=== PATIENT | female | born 1950 | race Caucasian/White ===

== ENCOUNTER 2022-05-22 10:20 | Outpatient (CLI) | payer MEDICARE, OTHER, SELFPAY ==
[2022-05-22 14:17] LABS: Chloride* 104 mmol/L (96-114); Sodium* 138 mmol/L (135-149)
[2022-05-22 14:19] LABS: Creatinine* 1.2 mg/dL (0.5-1.5); Estimated Glomerular Filt Rate 48 ml/min
[2022-05-22 14:20] LABS: Blood Urea Nitrogen* 37 mg/dL (7-30); Calcium* 10.3 mg/dL (8.4-10.6); Carbon Dioxide* 26 mmol/L (20-32); Glucose* 122 mg/dL (60-115)
[2022-05-22 14:35] LABS: Microalbumin Urine 2 mg/dL
[2022-05-22 14:38] LABS: Creatinine Urine 85.7 mg/dL; Microalbumin Creatinine Ratio 20 mg/g (0-30)
== END 2022-05-22 10:21 | disposition home or self-care (01) ==
PROVIDERS: Visit Provider Internal Medicine Nephrology
DX: E11.9 Type 2 diabetes mellitus without complications (principal)
CPT/HCPCS: 80048; 82043; 82570

== ENCOUNTER 2022-10-04 10:07 | Outpatient (CLI) | payer MEDICARE, OTHER, SELFPAY | END 2022-10-04 10:08 | disposition home or self-care (01) | LOC: NFLDREF 10-05 05:42 | PROVIDERS: Visit Provider Internal Medicine Nephrology | DX: I10 Essential (primary) hypertension (principal); N18.31 Chronic kidney disease, stage 3a; E66.9 Obesity, unspecified; E78.5 Hyperlipidemia, unspecified | CPT/HCPCS: 80069; 82043; 82397; 82570; 84550; 86140 ==

== ENCOUNTER 2023-04-23 10:49 | Outpatient (CLI) | payer MEDICARE, OTHER, SELFPAY ==
--- OUTSIDE RECORDS SUMMARY | 2023-04-25 13:29 | XMS_ITS | Continuity of Care Document ---
Author Name [facility] Organization [facility] Care Team Providers Care Bioinformatician Name Role Phone [facility] Unavailable Unavailable Medications Combined list of outpatient medications from Department of Defense and Veterans Affairs facilities.Medications provided include 1) outpatient medications from the last 15 months, and 2) patient-reported medications. Medication Details Route Status Patient Instructions Prescription Expires Prescription Number Last Dispense Date Ordering Provider Order Date Source METFORMIN HCL (METFORMIN HCL), 500 MG, TABLET, ORAL, [employer] 1000 ea. BOTTLE Cancele d [id number] : 2023 Pharmac y Data Transac tion Service Facilit y METFORMIN HCL (METFORMIN HCL), 500 MG, TABLET, ORAL, [employer] 1000 ea. BOTTLE Active [id number] 2023 Pharmac y Data Transac tion Service Facilit y METFORMIN HCL (METFORMIN HCL), 500 MG, TABLET, ORAL, [employer] 1000 ea. BOTTLE Active [id number] 4 2023 Pharmac y Data Transac tion Service Facilit y TRIAMTERENE -HCTZ (TRIAMTEREN E/HYDROCHLO ROTHIAZID), 75-50MG, TABLET, ORAL, APOTEX BEV, 500 ea. BOTTLE Active [id number] 2023 Pharmac y Data Transac tion Service Facilit y Immunizations Combined list of available immunizations from the Department of Defense and Veterans Affairs facilities. Immunization Series Date Given Administered By Site Reaction Lot Number CVX Code Drug Contract Law Specialist Status Comments Source COVID-19, mRNA, LNP-S, PF, 30 mcg/0.3 mL dose, terrance-sucrose 2021 RASHAWN GRACE [employer] (PFR) Not Given COVID-19, mRNA, LNP-S, PF, 30 mcg/0.3 mL dose, terrance-sucr ose DoD zoster recombinant 2017 KIRILL DOBBINS () Not Given zoster recombina nt DoD zoster recombinant 2017 KIRILL DOBBINS () Not Given zoster recombina nt DoD Social History Combined list of available smoking, tobacco, and other social history from Department of Defense and Veterans Affairs facilities. Social History Type Response Date Comment Sour e This section is an empty social history section. DoD
--- OUTSIDE RECORDS SUMMARY | 2023-04-25 13:29 | XMS_ITS | Clinical Summary ---
Author Name Unknown Organization [facility] Address [place], [place] [address] Care Team Providers Care Direct Service Worker Name Role Phone Sarthak Ko MD Primary Care Provider [phone] Allergies Active Allergy Reactions Criticality Noted Date Comments Amlodipine Edema 11/24/2007 Swelling around ankles while on this Medications Medication Sig Dispensed Refills Start Date End Date Status OMEPRAZOLE 20 MG CAP, DELAYED RELEASE take one tab po qd 30 1 7 Active blood-glucose meter (FREESTYLE LITE METER)Indications:Diabete s mellitus type 2 in obese (HC) Dispense meter, test strips, lancets covered by pt ins. 250.00 NIDDM type II - Test 1 time/day 1 Device 0 1 Active cholecalciferol (Vitamin D-3) 2,000 unit capsule Take 1 Capsule (2,000 units) by mouth once daily. 0 1 Active blood sugar diagnostic (FreeStyle Lite Strips) stripIndications:Diabetes mellitus type 2 in obese (HC) USE TO TEST ONCE DAILY 100 Each 3 2 Active atenoloL (TENORMIN) 100 mg tabletIndications:Essenti al hypertension Take 1 Tablet (100 mg) by mouth once daily. 90 Tablet 3 2 Active atorvastatin (LIPITOR) 10 mg tabletIndications:Pure hypercholesterolemia Take 1 Tablet (10 mg) by mouth at bedtime. 90 Tablet 3 2 Active NIFEdipine (PROCARDIA XL) 30 mg Extended-Release tabletIndications:Essenti al hypertension TAKE 1 TABLET DAILY BEFORE A MEAL 90 Tablet 3 2 Active metFORMIN (GLUCOPHAGE) 500 mg tabletIndications:Type 2 diabetes mellitus with other specified complication, without long-term current use of insulin (HC) Take 1 Tablet (500 mg) by mouth two times daily with meals. 180 Tablet 3 3 Active CPAPIndications:Obstructi ve sleep apnea CPAP machine for home use at pressure: 10 cm/H2O with epr of 3 , Heated humidifier x 1, Humidifier chamber x 1, nasal pillow mask with pillow cushion x 1, standard tubing x 1, Headgear x 1, Filters: Disposable x 1pk & Reusable x 1pk, Length of Need: 99 months, Frequency of use: Daily 1 Each 11 3 Active doxepin 25 mg capsuleIndications:Genera lized anxiety disorder,Insomnia, unspecified type TAKE 1 CAPSULE AT BEDTIME 90 Capsule 0 3 Active losartan (COZAAR) 100 mg tabletIndications:Essenti al hypertension TAKE 1 TABLET DAILY 90 Tablet 0 3 Active multivitamin capsule Take 1 Capsule by mouth once daily. 0 Active triamterene-hydrochloroth iazide, 75-50 mg, (MAXZIDE) 75-50 mg tabletIndications:Essenti al hypertension Take 1 Tablet by mouth every morning. 90 Tablet 3 3 Active Active Problems Problem Noted Date Diagnosed Date Osteoarthritis of knee 11/14/2021 Hyperparathyroidism due to renal insufficiency 0 11/14/2021 Hypertensive kidney disease, stage III 2 Hx laparoscopic cholecystectomy 08/01/2021 Diabetes mellitus, type 2 02/12/2019 Hyperopia of both eyes with astigmatism and pres byopia 02/11/2017 Nuclear senile cataract of both eyes 02/11/2017 History of colonic polyps 05/28/2016 Venous insufficiency of right lower extremity Generalized anxiety disorder 12/31/2014 Systolic ejection murmur 07/08/2012 MARK 12/08/2012 AHI/RDI:79 12/11/2010 Hyperlipidemia 12/11/2010 Severe obesity (BMI 35.0-39.9) 09/26/2010 Colon polyp 08/02/2010 Overview: Colonoscopy 05/2016 polyp repeat in 5 years Family history of malignant neoplasm of gastrointestinal tract 06/02/2010 Fatty liver 08/31/2009 Essential hypertension 05/10/2003 Gastroesophageal reflux disease 09/30/2001 Overview: taking prevacid last EGD 2003 HEADACHE - NOS 06/04/2000 DISORDER, MENOPAUSAL NOS 04/23/2000 HYPERCHOLESTEROLEMIA, PURE 04/23/2000 Resolved Problems Problem Noted Date Diagnosed Date Resolved Date Diabetes mellitus type 2 in obese 10/27/2013 02/12/2019 SLEEP APNEA - UNSPECIFIED 09/30/2001 Overview: using mouth guard Encounters Date Type Department Care Team Description 03/05/2023 10:00 AM BOTTOM PRESSER [place] [facility] [address] [place] [address] Sarthak Ko MD Diabetes; Blood Pressure (BP at home running 130/85) 03/05/2023 Travel 02/28/2023 Travel 02/27/2023 [place] [facility] [address] [place] [address] Sarthak Ko MD Refill Request (Doxepin, Triamterene-hydrochlo rothiazide (37.5-25 Mg), Losartan) 02/13/2023 Telephone [facility] [address] [place] [address] Shane Bocanegra MD Follow Up 02/07/2023 Telephone [facility] [address] [facility] [place] [address] Edith March RN Recheck from Last 3 Months Immunizations Name Administration Dates Next Due COVID-19 vaccine (TM3 [employer]s 30mcg/0.3mL) 12YO+ BIVALENT FARZANA GALAN 12/29/2021 Hepatitis A (Adult) 07/09/2014 Influenza A (H1N1), Inactivated 02/16/2009 Influenza, High-dose Inactivated 023,01/14/2019,01/01/2017,2015 Influenza, IIV3 (Age >=3 years) 12/31/2011,05/07 Influenza, Inactivated AIIV4 (Age 65+ Years) Preserv Free 01/22/2022,01/14/2021,12/17/2019 Influenza, Inactivated IIV3 (Age 65+ Years) Preserv Free 12/23/2017 Pneumococcal Poly,23-Valent (Pneumovax) 05/07/2016 Pneumococcal conj 13-Valent (Prevnar 13) 07/09/2014 Tdap 11/08/2012 Zoster (Shingrix-RZV, recombinant) 10/13/2017,,07/14/2017 Zoster (Zostavax-ZVL, live) 10/18/2009 Family History Medical History Relation Name Comments Cancer-colon Father Other Mother macular degener ation Genetic Other hypertension-mo ther-father~father-colon cancer~uterine cancer-PGM Diabetes Paternal Grandmother Other Sister rectal cancer Cancer-breast No Family History Cancer-ovarian No Family History Relation Name Status Comments Father Mother Alive Other Paternal Grandmother Sister Alive Social History Tobacco Use Types Packs/Day Years Used Date Smoking Tobacco: Former Cigarettes 1 10 0 04/01/1966 - 04/01/1976 Smokeless Tobacco: Never Tobacco Cessation:Counseling Given: Yes Comments:quit 1976 Alcohol Use Standard Drinks/Week Comments Yes 0 (1 standard drink = 0.6 oz pur e alcohol) rare PHQ-2 Answer Date Recorded PHQ-2 TOTAL SCORE 2 08/21/2022 Social Connections Answer Date Recorded Frequency of Communication with Friends and Fami ly 0 02/28/2023 Financial Resource Strain Answer Date R ecorded Difficulty of Paying Living Expenses 3 02/28/2023 Difficulty of Paying Living Expenses Not on file 02/28/2023 Food Insecurity Answer Date Recorded Worried About Running Out of Food in the Last Ye ar 1 02/28/2023 Transportation Needs Answer Date Record ed Lack of Transportation (Medical) 1 02/28/2023 Housing Stability Answer Date Recorded Unable to Pay for Housing in the Last Year 1 02/28/2023 Sex and Gender Information Value Date Recorded Sex Assigned at Not on file Gender Identity Not on file Sexual Orientation Not on file Obstetrics History Para Term AB IAB SAB Ectopic Multiple Livin g Live Births 3 3 3 0 0 0 0 0 3 Date Outcome GA Total Labor Labor/2nd/3rd Weight Sex Delivery Anes PTL Roxy A1 A5 Name Cl in Term Term Term Last Filed Vital Signs Vital Sign Reading Time Taken Comments Blood Pressure 138/78 03/05/2023 10:03 AM BOTTOM PRESSER Pulse 68 03/05/2023 10:03 AM BOTTOM PRESSER Temperature 37 ??C (98.6 ??F) 08/01/2021 2:25 PM CDT Respiratory Rate 15 02/20/2021 11:41 AM BOTTOM PRESSER Oxygen Saturation 98% 01/03/2023 10:25 AM CDT Inhaled Oxygen Concentration - - Weight 97.8 kg (215 lb 9.6 oz) 03/05/2023 10:03 AM BOTTOM PRESSER Height 165.2 cm (5' 5.04) 01/03/2023 10:25 AM C DT Body Mass Index 35.83 01/03/2023 10:25 AM CDT Plan of Treatment Upcoming Encounters Date Type Department Care Team (Late st Contact Info) Description 05/07/2023 10:30 AM BOTTOM PRESSER Ancillary Procedure [facility] [id number] [place] [phone] Health Maintenance Due Date Last Done Comments Colonoscopy through age 75 05/28/202105/28, 08/02/2010, 08/01/2010, Additional history exists Tetanus booster 11/08/2022 11/08/2012 Mammogram for age 45-75 04/05/2023 04/05/19, 03/31/2021, 12/22/2019, Additional history exists Medicare Wellness for age 65+ 08/21/2023 08/21/2022 Depression screening for age 12+ 08/23/2023 08/22/2022, 08/21/2022, 02/20/2021, Additional history exists BMI (ht and wt on same day) for age 18+ 01/04/2024 01/03/2023, 08/21/2022, 09/18/2021, Additional history exists Lipids for age 45-75 05/11/2027 05/11/2022, 01/13/2021, 11/25/2019, Additional history exists Hepatitis C screening for ag e 18-79 Completed 03/11/2008 Tdap Completed 11/08/2012 Pneumococcal series for age 65+ Completed 7, 07/09/2014 DEXA/DXA scan for age 65+ Completed 09/23/2017 Zoster (shingles) series for age 50+ Completed 10/13/2017, 08/04/2017, 07/14/2017, Additional history exists Influenza for age 65+ Completed 01/09/2023 , 01/22/2022, 01/14/2021, Additional history exists COVID-19 vaccine series Completed 01/26/20 23, 12/29/2021, 07/05/2021, Additional history exists Procedures Procedure Name Priority Date/Time Associated Diagnosis Comments CBC WITH AUTO DIFFERENTIAL Routine 03/05/2023 9:56 AM BOTTOM PRESSER Wellness examination CBC WITH AUTO DIFFERENTIAL Routine 03/05/2023 9:56 AM BOTTOM PRESSER Wellness examination HEMOGLOBIN A1C Routine 03/05/2023 9:56 AM BOTTOM PRESSER Type 2 diabetes mellitus with other specified complication, without long-term current use of insulin (HC) from Last 3 Months Results * (ABNORMAL) CBC WITH AUTO DIFFERENTIAL (03/05/2023 9:56 AM BOTTOM PRESSER) WHITE BLOOD COUNT 8.6 4.5 - 11.0 thou/cu mm 03/05/2023 10:12 AM BOTTOM PRESSER [facility] RED BLOOD COUNT 4.16 4.00 - 5.20 mil/cu mm 03/05/2023 10:12 AM [facility] HEMOGLOBIN 12.1 12.0 - 16.0 g/dL 03/05/2023 10:12 AM [facility] HEMATOCRIT 36.6 33.0 - 51.0 % 03/05/2023 10:12 AM [facility] MCV 88 80 - 100 fL 03/05/2023 10:12 AM [facility] MCH 29.1 26.0 - 34.0 pg 03/05/2023 10:12 AM [facility] MCHC 33.1 32.0 - 36.0 g/dL 03/05/2023 10:12 AM [facility] RDW 12.8 11.5 - 15.5 % 03/05/2023 10:12 AM [facility] PLATELET COUNT 319 140 - 440 thou/cu mm 03/05/2023 10:12 AM [facility] MPV 9.2 6.5 - 11.0 fL 03/05/2023 10:12 AM [facility] % NEUT 45.5 % 03/05/2023 10:12 AM [facility] % LYMPH 40.2 % 03/05/2023 10:12 AM [facility] % MONO 11.1 % 03/05/2023 10:12 AM [facility] % EOS 2.5 % 03/05/2023 10:12 AM [facility] % BASO 0.7 % 03/05/2023 10:12 AM [facility] ABSOLUTE NEUTROPHILS 3.9 1.7 - 7.0 thou/cu mm 03/05/2023 10:12 AM [facility] ABSOLUTE LYMPHOCYTES 3.4(H) 0.9 - 2.9 thou/cu mm 03/05/2023 10:12 AM [facility] ABSOLUTE MONOCYTES 1.0(H) <0.9 thou/cu mm 03/05/2023 10:12 AM [facility] ABSOLUTE EOSINOPHILS 0.2 <0.5 thou/cu mm 03/05/2023 10:12 AM [facility] ABSOLUTE BASOPHILS 0.1 <0.3 thou/cu mm 03/05/2023 10:12 AM [facility] Blood BLOOD SPECIMEN / Unknown Venipuncture / Unknown 03/05/2023 9:56 AM BOTTOM PRESSER 03/05/2023 9:56 AM BOTTOM PRESSER Sarthak Ko MD HEMATOLOGY [facility] [address] [place] [address], * HEMOGLOBIN A1C MONITORING (POCT) (03/05/2023 9:56 AM BOTTOM PRESSER) HEMOGLOBIN A1C MONITORING (POCT) 6.4 <=6.4 % 03/05/2023 10:10 AM BOTTOM PRESSER [facility] Blood BLOOD SPECIMEN / Unknown Venipuncture / Unknown 03/05/2023 9:56 AM BOTTOM PRESSER 03/05/2023 9:56 AM BOTTOM PRESSER Narrative [facility] - 03/05/2023 10:10 AM BOTTOM PRESSER ? (<=6.9%) ? Indicates good control ? (7.0% to 7.9%) ? Indicates fair control ? (>=8.0%) ? Indicates poor control ?? NOTE: ??These thresholds are guidelines and ?individual targets may vary. Falsely low levels may be seen with: Recent Transfusion, Recent Significant Blood Loss, Hemolytic Diseases, or Falsely elevated levels may be seen with: Untreated Anemias, Splenectomy ? Sarthak Ko MD CHEMISTRY [facility] [address] [place] [address], from Last 3 Months Care Teams Direct Service Worker Relationship Specialty [place] [address] [place] [address] PCP - General Family Practice 04/05/22
== END 2023-04-23 10:50 | disposition home or self-care (01) ==
LOC: NFLDREF 04-25 13:26
PROVIDERS: Visit Provider Internal Medicine Nephrology
DX: E11.22 Type 2 diabetes mellitus with diabetic chronic kidney disease (principal); I12.9 Hypertensive chronic kidney disease with stage 1 through stage 4 chronic kidney disease, or unspecified chronic kidney disease; N18.2 Chronic kidney disease, stage 2 (mild); Z79.84 Long term (current) use of oral hypoglycemic drugs
CPT/HCPCS: 80069; 82043; 82570

== ENCOUNTER 2023-08-02 12:45 | Emergency (ER) | payer MEDICARE, OTHER, SELFPAY ==
[2023-08-02 13:02] VITALS: BP 165/62; PULSE 117; RESP 16; TEMP 36.6; O2SAT 98; BMI 33.3
--- NOTE | 2023-08-02 13:11 | ED.GENADULT ---
HPI - General Adult General Time Seen by Provider: 13:11 Date Seen: 08/02/23 Chief complaint: Unspecified Complaint, Adult Stated complaint: hemoglobin= 6 Time Seen by Provider: 08/02/23 12:57 Source: patient, RN notes reviewed and old records reviewed Mode of arrival: ambulatory Limitations: no limitations History of Present Illness HPI narrative: This 73-year-old female is ambulatory into the ED accompanied by her daughter with complaint of hemoglobin being 6. She was in clinic today at [facility] being evaluated for progressive shortness of breath, weakness, heart pounding sensation with activity. The symptoms have been progressive over the last few months. Her hemoglobin was 6 in [place] [address]. She had a microcytic MCV of 76. Platelet count was 054425. Of note her hemoglobin was 12.1 on 03/05/2023. Her labs were reviewed from [facility]. Hemoglobin was 11.7 on 10/04/2022 in our records, her daughter notes that she took iron for a while. She is on a proton pump inhibitor with 20 mg of omeprazole daily but does note that recently she is had more heartburn at night. She has noted no dark or tarry stools, no blood in her stools, no blood with wiping. She is reported to be overdue for colonoscopy. There is family history of colon cancer, she think she is 7 years out from her last 1. She also has listed peptic ulcer disease in her chart, GERD too. She has noted no chest pain. She states the clinic has scheduled her for an echo. Related Data Home Medications Medication Instructions Recorded Confirmed atorvastatin 10 mg tablet 10 mg PO .Bedtime 11/07/21 07/02/23 nifedipine 30 mg tablet,extended 30 mg PO QDAY 11/07/21 07/02/23 release 24 hr triamterene 37.5 1 tab PO QDAY 11/07/21 07/02/23 mg-hydrochlorothiazide 25 mg tablet acetaminophen 500 mg capsule 1,000 mg PO DAILY PRN 11/14/21 07/02/23 doxepin 25 mg capsule 25 mg PO QDAY 11/14/21 07/02/23 metformin 500 mg tablet 500 mg PO BID 05/28/22 07/02/23 cyclobenzaprine 5 mg tablet 5 mg PO QHS 07/02/23 07/02/23 omeprazole 20 mg tablet,delayed 20 mg PO QDAY 07/02/23 07/02/23 release Allergies Allergy/AdvReac Type Severity Reaction Status Date / Time amlodipine AdvReac Mild Leg Verified 07/02/23 13:48 [facility] Surgical History (Updated 10/31/21 @ 10:09 by Sherry Pollock) Status post laparoscopic cholecystectomy ?Z90.49 - Acquired absence of other specified parts of digestive tract (ICD-10) Social History Smoking Status: Former smoker Exam Const: Vital Signs, click to edit/add: Vital Signs - 24 hr 08/02/23 13:02 08/02/23 15:24 08/02/23 15:42 Temperature 97.9 F 98.6 F 98.8 F Pulse Rate 85 90 Pulse Rate [Pulse Oximeter] 117 H Respiratory Rate 16 16 18 Blood Pressure 147/66 H 151/66 H Blood Pressure [Ri ght Upper Arm] 165/62 H Pulse Oximetry 98 98 100 Oxygen Delivery Me thod Room Air 08/02/23 16:27 Temperature 98.5 F Pulse Rate 91 Pulse Rate [Pulse Oximeter] Respiratory Rate 18 Blood Pressure 149/68 H Blood Pressure [Ri ght Upper Arm] Pulse Oximetry 98 Oxygen Delivery Me thod Patient is alert, interactive, no apparent distress. Sclera clear, conjugate gaze, pupils are equal and round. Neck is supple, no adenopathy, no thyromegaly masses or nodules. Lungs clear, good air entry, no wheezing or crackles, no tachypnea. CV regular rate and rhythm, 2 to 3/6 systolic murmur heard best upper sternal borders, normal S1-S2, no S3-S4. Abdomen is soft, nontender, nondistended, no organomegaly, no masses. She has no lower extremity edema. Anus appears normal, digital rectal exam reveals no masses in the vault, she really did not have much for stool. Collected is much as I could off the gloved finger but did review with her that stool sample might need to be recollected. I certainly fear that there may be inadequate stool. She really just did not have much the way of stool in the rectal vault. Skin without any rash, no bruising or petechiae noted. Reviewed with patient the cardiac murmur, she states she is been told she has had a physiologic murmur since . Reviewed with her that I would still get the echo, just ensure that there are no valvular changes developing. Documenting provider has reviewed patient's vital signs: yes Course Course ED Course: We will see if the fecal occult needs to be repeat collected. IV was placed, lab was here for type and screen and planned for transfusion of 1 unit packed red blood cells. We will see where her labs fall with the iron panel. I did also order a peripheral smear which obviously will not be back immediately. Patient is hemodynamically stable. Have redrawn her kidney functions as well, creatinine was 1.3 on 04/23/2023. She has undefined anemia, could be multifactorial. Certainly I do wonder about upper GI loss with gastritis or some underlying peptic ulcer disease. She is not acutely extravasating, this is been developing over months. She certainly needs to have an EGD and colonoscopy done. We will make sure her creatinine is not significantly worse. They are obviously could be a component of chronic kidney disease with this but I do believe GI losses need to be ruled out. I do not think she needs an EGD or colonoscopy emergently today but will need these done rather urgently on an outpatient basis. Reevaluation(s) Time of Reevaluation #1: 15:58 Reevaluation #1: Reviewed with patient and her daughter that she is indeed iron deficient, reticulocyte count is elevated which really would suggest that her bone marrow is producing red cells. We discussed that there can be in adequate bone marrow production, blood loss, things like hemolysis that can cause as the anemia. It is likely that hers is probably some subacute GI loss. They did call the clinic, are awaiting a call back to see if they can get an EGD and colonoscopy scheduled with Dr. Mon. Otherwise, I will be happy to put a referral in. She is receiving her unit of blood. We discussed that she should have iron transfusion prior authorized, they will need to get this done through clinic. Vital Signs Vital signs: Initial Vital Signs Temperature 97.9 F 08/02/23 13:02 Temperature Source Temporal Artery Scan 08/02/23 13:02 Pulse Rate 117 H 08/02/23 13:02 Pulse Rhythm Regular 08/02/23 13:02 Respiratory Rate 16 08/02/23 13:02 Blood Pressure 165/62 H 08/02/23 13:02 Blood Pressure Mean 96 08/02/23 13:02 Blood Pressure Position Sitting 08/02/23 13:02 Pulse Oximetry 98 08/02/23 13:02 Oxygen Delivery Method Room Air 08/02/23 13:02 Vital Signs Temperature 97.9 F 08/02/23 13:02 Pulse Rate 117 H 08/02/23 13:02 Respiratory Rate 16 08/02/23 13:02 Blood Pressure 165/62 H 08/02/23 13:02 Pulse Oximetry 98 08/02/23 13:02 Oxygen Delivery Method Room Air 08/02/23 13:02 Temperature 98.5 F 08/02/23 16:27 Pulse Rate 91 08/02/23 16:27 Respiratory Rate 18 08/02/23 16:27 Blood Pressure 149/68 H 08/02/23 16:27 Pulse Oximetry 98 08/02/23 16:27 Oxygen Delivery Method Room Air 08/02/23 13:02 Medical Decision Making Lab Data Lab results reviewed: Yes I reviewed the patient's lab results Labs: Lab Results 08/02/23 08/02/23 Range/Units 13:26 13:48 WBC 11.97 H (4.50-11.00) K/uL RBC 2.64 L (4.00-5.20) m/uL Hgb 6.0 L* (12.0-16.0) gm/dL Hct 19.9 L (33.0-51.0) % MCV 75 L (80-100) fL MCH 23 L (26-34) pg MCHC 30 L (32-36) gm/dL RDW Coeff of Criss 15.8 H (11.5-15.5) % Plt Count 420 (140-440) K/uL Neut % (Auto) 68.6 (42.0-72.0) % Lymph % (Auto) 20.1 (20-44) % Dewey % (Auto) 10.2 (0.0-11.0) % Eos % (Auto) 0.2 (0.0-7.0) % Baso % (Auto) 0.7 (0.0-3.0) % Neut # (Auto) 8.20 H (1.7-7.0) K/uL Lymph # (Auto) 2.40 (0.90-2.90) K/uL Dewey # (Auto) 1.20 H (0.00-0.90) K/UL Eos # (Auto) 0.00 (0.00-0.50) K/uL Baso # (Auto) 0.10 (0.00-0.30) K/uL Abs Immat Gran (auto) 0.00 (0.00-0.30) K/uL Imm/Tot Granulo (auto) 0.2 % Absolute Retic 0.08 (0.03-0.08) # Percent Retic 3.1 H (0.5-2.0) % Immature Retic Fraction 28.8 H (3.0-15.9) % Retic Hgb Equivalent 15.4 L (29.0-35.0) pg Sodium 138 (135-149) mmol/L Potassium 3.9 (3.6-5.1) mmol/L Chloride 100 (96-114) mmol/L Carbon Dioxide 21 (20-32) mmol/L Anion Gap 17 H (7-15) mEq/L BUN 37 H (7-30) mg/dL Creatinine 1.5 (0.5-1.5) mg/dL Estimated Creat Clear 29.61 Estimated GFR 36 ml/min Glucose 106 (60-115) mg/dL Calcium 10.4 (8.4-10.6) mg/dL Iron 19 L (37-170) ug/dL TIBC 544 H (265-497) ug/dL % Saturation 3 L (20-50) % Total Bilirubin 0.5 (0.1-1.5) mg/dL Direct Bilirubin 0.2 (0.0-0.5) mg/dL AST 31 (12-35) U/L ALT 22 (4-35) U/L Alkaline Phosphatase 83 (40-150) U/L Troponin I < 0.01 L (0.01-0.04) ng/mL Total Protein 8.2 (6.0-8.3) g/dL Albumin 5.0 (3.3-5.0) g/dL Stool Occult Blood Negative (Negative) Blood Type O Negative Antibody Screen NEGATIVE Crossmatch (AHG) See Detail ECG Data Attestation: I personally reviewed and interpreted this ECG as follows: (Normal sinus rhythm, 91 beats per minute. No definitive ischemic change or infarct.) Prior ECG tracings: not available for review Discharge Plan Discharge Clinical Impression: Iron deficiency anemia Qualifiers: Iron deficiency anemia type: unspecified iron deficiency Qualified Code(s): D50.9 - Iron deficiency anemia, unspecified Patient Disposition: Home, Self-Care Condition: Stable Instructions: Iron Rich Diet (ED), Anemia (ED) Additional Instructions: Need to get EGD and colonoscopy updated. Recommend increasing the omeprazole to 40 mg daily in the meantime. You will need to contact your primary care provider in clinic on Saturday, they need to get you scheduled for iron transfusion. You can take a daily vonv-twi-qxzgeky iron supplement until you have received your iron transfusion. Do recommend that you continue with the plan to have the echo given the murmur I heard. If you note any concern of active GI bleeding with dark tarry stools, active blood in the stools, any vomiting of any blood, do need emergent re-evaluation in the interim. I did place orders for EGD and colonoscopy to be done here. You can always cancel this if you are successful with getting this done through Dr. Mon. The endoscopy center should be calling you next week, likely Saturday, to get this scheduled. Activity Level: Activity as Tolerated Prescriptions: No Action metformin 500 mg tablet 500 mg PO BID omeprazole 20 mg tablet,delayed release (DR/EC) 20 mg PO QDAY cyclobenzaprine 5 mg tablet 5 mg PO QHS atorvastatin 10 mg tablet 10 mg PO .Bedtime triamterene-hydrochlorothiazid 37.5-25 mg tablet 1 tab PO QDAY nifedipine 30 mg tablet extended release 24 hr 30 mg PO QDAY doxepin 25 mg capsule 25 mg PO QDAY acetaminophen 500 mg capsule 1,000 mg PO DAILY PRN Follow Up/Referrals: Provider,Not a Local [Referring] - Stand Alone Forms: [facility] Info Instructions
--- OUTSIDE RECORDS SUMMARY | 2023-08-02 13:40 | XMS_ITS | Continuity of Care Document ---
Author Name [facility] Organization [facility] Care Team Providers Care Whizzer Operator Name Role Phone [facility] Unavailable Unavailable Medications Combined list of outpatient medications from Department of Defense and Veterans Affairs facilities.Medications provided include 1) outpatient medications from the last 15 months, and 2) patient-reported medications. Medication Details Route Status Patient Instructions Prescription Expires Prescription Number Last Dispense Date Ordering Provider Order Date Order Qty Source ATORVASTATI N CALCIUM (ATORVASTAT IN CALCIUM), 10 MG, TABLET, ORAL, APOTEX BEV, 1000 ea. BOTTLE Active [id number] 4 2023 90 Pharmac y Data Transac tion Service Facilit y ATORVASTATI N CALCIUM (atorvastat in calcium), 10 MG, TABLET, ORAL, [employer] PHARMACEU, 1000 ea. BOTTLE Active [id number] 4 2023 90 Pharmac y Data Transac tion Service Facilit y CARVEDILOL (carvedilol ), 12.5 MG, TABLET, ORAL, [employer] 500 ea. BOTTLE Active [id number] 4 2023 180 Pharmac y Data Transac tion Service Facilit y CYCLOBENZAP RINE HCL (cyclobenza tobias HCl), 5 MG, TABLET, ORAL, [employer] 100 ea. BOTTLE Active [id number] 4 2023 10 Pharmac y Data Transac tion Service Facilit y DOXEPIN HCL (doxepin HCl), 25 MG, CAPSULE, ORAL, [employer], 500 ea. BOTTLE Active [id number] 4 2023 90 Pharmac y Data Transac tion Service Facilit y DOXEPIN HCL (doxepin HCl), 25 MG, CAPSULE, ORAL, [employer], 500 ea. BOTTLE Active [id number] 4 2023 90 Pharmac y Data Transac tion Service Facilit y LOSARTAN POTASSIUM (losartan potassium), 100 MG, TABLET, ORAL, XLCARE PHARMACE, 1000 ea. BOTTLE Active [id number] 4 2023 90 Pharmac y Data Transac tion Service Facilit y LOSARTAN POTASSIUM (losartan potassium), 100 MG, TABLET, ORAL, XLCARE PHARMACE, 1000 ea. BOTTLE Active [id number] 4 2023 90 Pharmac y Data Transac tion Service Facilit y METFORMIN HCL (METFORMIN HCL), 500 MG, TABLET, ORAL, [id number] 1000 ea. BOTTLE Active [id number] 4 2023 180 Pharmac y Data Transac tion Service Facilit y METFORMIN HCL (METFORMIN HCL), 500 MG, TABLET, ORAL, [id number] 1000 ea. BOTTLE Cancele d [id number] : 2023 0 Pharmac y Data Transac tion Service Facilit y METFORMIN HCL (METFORMIN HCL), 500 MG, TABLET, ORAL, [id number] 1000 ea. BOTTLE Active [id number] 4 2023 180 Pharmac y Data Transac tion Service Facilit y METFORMIN HCL (METFORMIN HCL), 500 MG, TABLET, ORAL, [employer] 1000 ea. BOTTLE Active [id number] 4 2023 60 Pharmac y Data Transac tion Service Facilit y METOPROLOL SUCCINATE (metoprolol succinate), 25 MG, TAB ER 24H, ORAL, INGENUS PHARMAC, 1000 ea. BOTTLE Active [id number] 4 2023 90 Pharmac y Data Transac tion Service Facilit y NIFEDIPINE ER (nifedipine ), 30 MG, TAB ER 24, ORAL, OCE[employer] PHARM, 100 ea. BOTTLE Active [id number] 4 2023 90 Pharmac y Data Transac tion Service Facilit y NIFEDIPINE ER (nifedipine ), 30 MG, TAB ER 24, ORAL, OCEANS[employer] PHARM, 100 ea. BOTTLE Active [id number] 4 2023 90 Pharmac y Data Transac tion Service Facilit y TRIAMTERENE -HCTZ (TRIAMTEREN E/HYDROCHLO ROTHIAZID), 75-50MG, TABLET, ORAL, APOTEX BEV, 500 ea. BOTTLE Active [id number] 4 2023 90 Pharmac y Data Transac tion Service Facilit y TRIAMTERENE -HCTZ (TRIAMTEREN E/HYDROCHLO ROTHIAZID), 75-50MG, TABLET, ORAL, APOTEX BEV, 500 ea. BOTTLE Active [id number] 4 2023 90 Pharmac y Data Transac tion Service Facilit y TRIAMTERENE -HCTZ (TRIAMTEREN E/HYDROCHLO ROTHIAZID), 75-50MG, TABLET, ORAL, APOTEX BEV, 500 ea. BOTTLE Active [id number] 4 2023 90 Pharmac y Data Transac tion Service Facilit y Immunizations Combined list of available immunizations from the Department of Defense and Veterans Affairs facilities. Immunization Series Date Given Administered By Site Reaction Lot Number CVX Code Drug Textile Engraver Status Comments Source COVID-19, mRNA, LNP-S, PF, 30 mcg/0.3 mL dose, terrance-sucrose 2021 RASHAWN GRACE [employer] (PFR) Not Given COVID-19, mRNA, LNP-S, PF, 30 mcg/0.3 mL dose, terrance-sucr ose [facility] zoster recombinant 2017 KIRILL DOBBINS () Not Given zoster recombina nt DoD zoster recombinant 2017 KIRILL DOBBINS () Not Given zoster recombina nt [facility] Social History Combined list of available smoking, tobacco, and other social history from Department of Defense and Veterans Affairs facilities. Social History Type Response Date Comment [facility] e This section is an empty social history section. DoD
--- OUTSIDE RECORDS SUMMARY | 2023-08-02 13:42 | XMS_ITS | Clinical Summary ---
Author Name Unknown Organization [facility] Address [address] [place] [address] Care Team Providers Care Fuller Brush Man Name Role Phone Unavailable Primary Care Provider Unavailabl e Source Comments Patient records contain information from all sites at [facility]. For routine questions regarding patient records, call [phone] during business hours, M-F 8:00 AM - 5:00 PM Central Time. Record requests for emergency care only can be directed to [phone] at any time.[facility] Medications Medication Sig Dispensed Refills Start Date End Date Status lancets (Accu-Chek Fastclix Lancet Drum) USE TO TEST ONCE DAILY 08/18/2014 Active aspirin [address] tablet Take 81 mg by mouth. 11/25/2019 Active atorvastatin (LIPITOR) 10 mg tablet 10/05/2020 Active cholecalciferol (VITAMIN D3) 50 mcg (2,000 Unit) capsule Take 2,000 Units by mouth. 01/13/2021 Active doxepin (SINEquan) 10 mg capsule 10/16/2020 Active doxepin (SINEquan) 25 mg capsule 02/20/2021 Active escitalopram (LEXAPRO) 5 mg tablet 01/13/2021 Active losartan (COZAAR) 100 mg tablet 01/13/2021 Active yowdyhcu-fnf-cmtz-FA -lutein (Centrum Silver Women) 8 mg iron-400 mcg-300 mcg tablet Take by mouth. 01/13/2021 Active NIFEdipine XL (PROCARDIA XL) 30 mg 24 hr tablet 11/23/2020 Active omeprazole (PriLOSEC) [address] capsule Take by mouth. 09/24/2006 Active omega 0-qxh-jib-fish oil 1,000 mg (120 mg-180 mg) capsule Take 1,000 mg by mouth. 01/13/2021 Active triamterene-hydroCHL OROthiazide (MAXZIDE-25) 37.5-25 mg per tablet 11/01/2020 Active zinc chelated 50 mg tablet tablet Take 50 mg by mouth. 01/13/2021 Active metoprolol succinate (TOPROL-XL) 25 mg 24 hr tablet Take 1 tablet (25 mg total) by mouth daily. Do not crush or chew. 90 tablet 3 07/02/2023 07/01/2024 Active Active Problems Problem Noted Date Diagnosed Date Anemia 07/02/2023 Chronic Kidney Disease (CKD) , Stage 3a Glomerular Filtration Rate (GFR) 45 To 59 11/14/2021 Hypertensive Chronic Kidney Disease (CKD) Stage 3a Glomerular Filtration Rate (GFR) 45 To 59 11/14/2021 Hyperparathyroidism Renal Secondary 11/14/2021 Hyperlipidemia 11/14/2021 Apnea Sleep Obstructive 11/14/2021 Primary Osteoarthritis Knee Bilateral 11/14/2021 Diabetes Mellitus Type 2 11/14/2021 Encounters Date Type Department Care Team Description 07/02/2023 2:00 PM CDT External Outreach Division of Nephrology and Hypertension in [place] [address] [place] [address] Ronn Alvarez Jr., D.O. Chronic Kidney Disease (CKD), Stage 3a Glomerular Filtration Rate (GFR) 45 To 59 (HCC) (Primary Dx); Hypertensive Chronic Kidney Disease (CKD) Stage 3a Glomerular Filtration Rate (GFR) 45 To 59 (HCC); Diabetes Mellitus Type 2 (HCC); Hyperparathyroidism Renal Secondary (HCC); Anemia from Last 3 Months Social History Tobacco Use Types Packs/Day Years Used Date Smoking Tobacco: Never Assessed Nutrition Answer Date Recorded Nutrition: EVOO Fat Source Unknown 10/20 Nutrition: Servings of Fruits/Vegetables per Day Not on file 10/20/2021 Dental Answer Date Recorded Dental: Regular Dentist Unknown 10/21/19 Sex and Gender Information Value Date Recorded Sex Assigned at Not on file Gender Identity Not on file Sexual Orientation Not on file Last Filed Vital Signs Vital Sign Reading Time Taken Comments Blood Pressure 128/72 07/02/2023 2:18 PM CDT Pulse 100 07/02/2023 2:18 PM CDT Temperature - - Respiratory Rate - - Oxygen Saturation - - Inhaled Oxygen Concentration - - Weight 99.3 kg (218 lb 14.7 oz) 07/02/2023 1:50 PM CDT Height 165 cm (5' 4.96) 07/02/2023 1:50 PM CDT Body Mass Index 36.47 07/02/2023 1:50 PM CDT Plan of Treatment Health Maintenance Due Date Last Done Comments Bone Density Scan (Osteoporo sis Screen) 1950 CT Colonography 1950 Cologuard 1950 Diabetic Office Visit with F oot Exam 1950 FIT 1950 Hemoglobin A1C 1950 Hepatitis C Screening 1950 Urine Albumin 1950 DTaP,Tdap,and Td Vaccines (2 - Td or Tdap) 11/08/2022 11/08/2012 Depression Screening (Annual PHQ-2) 04/01/2023 Fall Risk Screen (Annual) 04/01/2023 COVID-19 Vaccine (7 - 2022-2 4 season) 2023 01/25/2023, 12/29/2021, 07/05/2021, Additional history exists Dilated Eye Exam 07/18/2023 07/17/2022, , 04/26/2020 Mammogram 05/07/2024 05/07/2023, 08/2023, 04/05/2022, Additional history exists Creatinine Level (Kidney Fun ction Test) 06/09/2024 06/10/2023, 05/11/2022, 09/28/2021, Additional history exists Potassium Level 06/09/2024 06/10/2023, 05/02, 09/18/2021, Additional history exists Sodium Level 06/09/2024 06/10/2023, 05/02, 09/18/2021, Additional history exists Office Visit for Blood Press ure Check / Re-check 07/01/2024 07/02/2023 Colonoscopy 05/28/2026 05/28/2016 Colorectal Cancer Screening 05/28/2026 Lipid (Cholesterol) Screening 05/11/2027, 01/13/2021, 11/25/2019, Additional history exists Pneumococcal vaccine (65+ years) Completed 05/07/19 17, 07/09/2014 Zoster Vaccines Completed 10/13/2017, 05/0 08/2017, 07/14/2017, Additional history exists Influenza Vaccine Completed 01/16/2023, , 01/22/2022, Additional history exists Procedures Procedure Name Priority Date/Time Associated Diagnosis Comments EXTI BASIC METABOLIC PANEL, S/P Routine 06/10/2023 11:15 AM CDT BI BREAST SCREENING BILATERAL WITH TOMOSYNTHESIS RAD - Routine (most inpatients and all outpatients) 05/07/2023 10:19 AM SYSTEM SOFTWARE PROGRAMMER EXTI LIPID PANEL, S Routine 05/11/2022 1 0:02 AM SYSTEM SOFTWARE PROGRAMMER from Last 3 Months or Most Recently Relevant to Health Maintenance
--- OUTSIDE RECORDS SUMMARY | 2023-08-02 13:42 | XMS_ITS | Referral Summary ---
Author Name Unknown Organization [facility] Address [address] [place] [address] Care Team Providers Care Head Animal Trainer Name Role Phone Unavailable Primary Care Provider Unavailabl e Source Comments Patient records contain information from all sites at [facility]. For routine questions regarding patient records, call [phone] during business hours, M-F 8:00 AM - 5:00 PM Central Time. Record requests for emergency care only can be directed to [phone] at any time.[facility] Encounters Date Type Department Care Team Description 07/02/2023 2:00 PM CDT External Outreach Division of Nephrology and Hypertension in [place], [place] [address] [place] [address] Ronn Alvarez Jr., D.O. Chronic Kidney Disease (CKD), Stage 3a Glomerular Filtration Rate (GFR) 45 To 59 (HCC) (Primary Dx); Hypertensive Chronic Kidney Disease (CKD) Stage 3a Glomerular Filtration Rate (GFR) 45 To 59 (HCC); Diabetes Mellitus Type 2 (HCC); Hyperparathyroidism Renal Secondary (HCC); Anemia from Last 3 Months Medications Medication Sig Dispensed Refills Start Date [...] losartan (COZAAR) 100 mg tablet 01/13/2021 Active umgcapwv-tue-rwcv-FA -lutein (Centrum Silver Women) 8 mg iron-400 mcg-300 mcg tablet Take by mouth. 01/13/2021 Active NIFEdipine XL (PROCARDIA XL) 30 mg 24 hr tablet 11/23/2020 Active omeprazole (PriLOSEC) [address] capsule Take by mouth. 09/24/2006 Active omega 5-hjy-xmi-fish oil 1,000 mg (120 mg-180 mg) capsule [...] Bilateral 11/14/2021 Diabetes Mellitus Type 2 11/14/2021 Social History Tobacco Use Types Packs/Day Years [...] 07/02/2023 1:50 PM CDT Plan of Treatment Not on file Procedures Procedure Name Priority Date/Time Associated Diagnosis Comments EXTI BASIC METABOLIC PANEL, S/P Routine 06/10/2023 11:15 AM CDT BI BREAST SCREENING BILATERAL WITH TOMOSYNTHESIS RAD - Routine (most inpatients and all outpatients) 05/07/2023 10:19 AM DIGITAL MEDIA BUYER EXTI LIPID PANEL, S Routine 05/11/2022 1 0:02 AM DIGITAL MEDIA BUYER from Last 3 Months or Most Recently Relevant to Health Maintenance Guarantor Name Account Type Relation to Patient Date of Phone Billing Address Jenifer Cuadra. Personal/Family Self 1950 [id number] [place] [address]
--- OUTSIDE RECORDS SUMMARY | 2023-08-02 13:42 | XMS_ITS ---
Author Name Unknown Organization [facility] Address [address] [place] [address] Care Team Providers Care Geological Scout Name Role Phone Unavailable Unavailable Unavailable Surgery Details Not on file Complications Check Surgery Details section. Procedure Estimated Blood Loss Check Surgery Details section. Procedure Findings Check Surgery Details section. Procedure Specimens Taken Check Surgery Details section.
--- OUTSIDE RECORDS SUMMARY | 2023-08-02 13:42 | XMS_ITS | Clinical Summary ---
Author Name Unknown Organization [employer] [facility] Address [place], [place] [address] Care Team Providers Care Health Promotion Educator Name Role Phone Sarthak Ko MD Primary Care Provider [phone] Allergies Active Allergy Reactions Criticality Noted Date Comments Amlodipine Edema 11/24/2007 Swelling around ankles while on this Medications Medication Sig Dispensed Refills Start Date End Date Status OMEPRAZOLE 20 MG CAP, DELAYED RELEASE take one tab po qd 30 1 yr 7 Active blood-glucose meter (FREESTYLE LITE METER)Indications:Diabete s mellitus type 2 in obese Dispense meter, test strips, lancets covered by pt ins. 250.00 NIDDM type II - Test 1 time/day 1 Device 1 Active cholecalciferol (Vitamin D-3) 2,000 unit capsule Take 1 Capsule (2,000 units) by mouth once daily. 0 1 Active blood sugar diagnostic (FreeStyle Lite Strips) stripIndications:Diabetes mellitus type 2 in obese USE TO TEST ONCE DAILY 100 Each 3 2 Active CPAPIndications:Obstructi ve sleep apnea CPAP machine [...] use: Daily 1 Each 11 3 Active multivitamin capsule Take 1 Capsule by mouth once daily. Active triamterene-hydrochloroth iazide, 75-50 mg, (MAXZIDE) 75-50 mg tabletIndications:Essenti al hypertension Take 1 Tablet by mouth every morning. 90 Tablet 3 3 Active carvediloL (COREG) 12.5 mg tablet Take 12.5 mg by mouth two times daily. 4 Active doxepin 25 mg capsuleIndications:Genera lized anxiety disorder,Insomnia, unspecified type TAKE 1 CAPSULE AT BEDTIME 90 Capsule 1 4 Active atorvastatin (LIPITOR) 10 mg tabletIndications:Pure hypercholesterolemia TAKE 1 TABLET AT BEDTIME 90 Tablet 3 4 Active NIFEdipine (PROCARDIA XL) 30 mg extended-release tabletIndications:Essenti al hypertension TAKE 1 TABLET DAILY BEFORE A MEAL 90 Tablet 3 4 Active losartan (COZAAR) 100 mg tabletIndications:Essenti al hypertension Take 1 Tablet (100 mg) by mouth once daily. 90 Tablet 3 4 Active cyclobenzaprine (FLEXERIL) 5 mg tabletIndications:Muscle spasm of both lower legs Take 1 Tablet (5 mg) by mouth 3 times daily if needed for Muscle Spasm. 10 Tablet 1 4 Active metFORMIN (GLUCOPHAGE) 500 mg tabletIndications:Type 2 diabetes mellitus with other specified complication, without long-term current use of insulin (HC) TAKE 1 TABLET TWICE A DAY WITH MEALS 180 Tablet 3 4 Active Hospital, Clinic, or Other Facility Administered Medication Ordered Dose Route Frequency Start Date End Date Status methylPREDNISolone acetate 40 mg/mL (DEPO-MEDROL) injection 80 mgIndications:Primary osteoarthritis of both knees 80 mg IArtic ONE TIME 07/17/2023 07/17/2023 Ended methylPREDNISolone acetate 40 mg/mL (DEPO-MEDROL) injection 80 mgIndications:Primary osteoarthritis of both knees 80 mg IArtic ONE TIME 07/17/2023 07/17/2023 Ended Active Problems Problem Noted Date Diagnosed Date Hypomagnesemia 06/10/2023 Overview: Per labs on 06/10/2023. Depression, recurrent 05/06/2023 Type 2 diabetes mellitus wit h other specified complication, without long-term current use of insulin 05/06/2023 Osteoarthritis of knee 11/14/2021 Hyperparathyroidism due to [...] Encounters Date Type Department Care Team Description 08/02/2023 10:25 AM CDT [place] [facility] [address] [place] [address] Sarthak Ko MD Follow Up (Blood pressure medication, having shortness of breath and fatigue, palpitations //Still having cramping in legs ) 08/02/2023 Travel 07/30/2023 10:59 AM CDT - 07/30/2023 11:59 PM CDT Hospital Encounter [facility] [place] [address] [place] [address] Sarthak Ko MD 07/30/2023 Travel 07/18/2023 Telephone [facility] Orth[facility] - Joint Replacement [place] [address] [place] [address] Everett Rios MD 07/18/2023 Orders Only [facility] Joint Replacement [facility] [address] [place] [address] Everett Rios MD <No scans attached> 07/17/2023 8:30 AM CDT Office Visit [facility] [address] [place] [address] Lin Velasquez PA Recheck (bilateral knee pain) 07/17/2023 Travel 07/08/2023 Telephone [facility] Joint Replacement [place] [address] [facility] [address] [place] [address] Lin Velasquez PA 07/05/2023 10:51 AM CDT - 07/05/2023 11:59 PM CDT Hospital Encounter [facility] [address] [place] [address] Sarthak Ko MD 07/05/2023 Travel 07/04/[address] [facility] Joint Replacement [facility] [address] [facility] [address] [place] [address] Everett Rios MD Questions (APPOINTMENT FOR INJECTIONS ) 07/01/2023 Refill [facility] [address] [place] [address] Sarthak Ko MD Refill Request (Metformin) 06/21/2023 10:11 AM CDT - 06/21/2023 11:59 PM CDT Hospital Encounter [facility] [address] [place] [address] Sarthak Ko MD 06/21/2023 Travel 06/10/2023 10:50 AM CDT [place] [facility] [address] [place] [address] Sarthak Ko MD Leg Pain/problem (Nerve pain ); Palpitations (Feels like heart throbs/) 06/10/2023 Telephone [facility] [address] [place] [address] Sarthak Ko MD Results 06/10/2023 Travel 06/07/2023 Travel 05/31/2023 9:54 AM CRUMB PACKER - 05/31/2023 11:59 PM CRUMB PACKER Hospital Encounter [facility] [address] [place] [address] Sarthak Ko MD 05/31/2023 Travel 05/21/2023 10:22 AM CRUMB PACKER - 05/21/2023 11:59 PM CRUMB PACKER Hospital Encounter [facility] [address] [place] [address] Sarthak Ko MD 05/21/2023 Travel 05/16/2023 12:56 PM CRUMB PACKER - 05/16/2023 11:59 PM CRUMB PACKER Hospital Encounter [address] [address] Sarthak Ko MD Finkel, Joann M, PT Right sided sciatica 05/16/2023 Travel 05/12/2023 Refill [facility] [address] [place] [address] Sarthak Ko MD Refill Request (Doxepin, Losartan, Atorvastatin, Nifedipine) 05/09/2023 Telephone [facility] - [facility] [address] [facility] [address] [place] [phone] Everett Rios MD Questions 05/07/2023 10:30 AM CRUMB PACKER Ancillary Procedure [facility] [address] [place] [phone] 05/07/2023 Orders Only [facility] Scanner 1 scan: (1-Ord) INCOMING RECORDS-LABS, [facility], 05/07/2023 05/06/2023 2:10 PM CRUMB PACKER Office [place] [facility] [address] [place] [address] Sarthak Ko MD Leg Pain/problem (Pain starts in right buttocks and radiates down her leg into her ankle. Started about 5 days ago and moving around is better when she lays down the pain is a burning pain.) 05/06/2023 Travel from Last 3 Months Immunizations Name Administration Dates Next Due COVID-19 vaccine ([employer] 30mcg/0.3mL) 12YO+ BIVALENT PF MDV 12/29/2021 Hepatitis A (Adult) 07/09/2014 Influenza A (H1N1), Inactivated 02/16/2009 Influenza, High-dose Inactivated 023,01/14/2019,01/01/2017,2015 Influenza, IIV3 (Age >=3 years) 12/31/2011,05/07 Influenza, Inactivated AIIV4 (Age 65+ Years) Preserv Free 01/16/2023,01/22/2022,01/14/2021,2019 Influenza, Inactivated IIV3 (Age 65+ Years) Preserv [...] Sign Reading Time Taken Comments Blood Pressure 152/58 08/02/2023 10:20 AM CDT Pulse 99 08/02/2023 10:20 AM CDT Temperature 37 ??C (98.6 ??F) 08/01/2021 2:25 PM CDT Respiratory Rate 24 05/06/2023 2:16 PM CRUMB PACKER Oxygen Saturation 99% 08/02/2023 10:20 AM CDT Inhaled Oxygen Concentration - - Weight 97.8 kg (215 lb 9.6 oz) 08/02/2023 10:20 AM CDT Height 165.1 cm (5' 5) 06/10/2023 10:39 AM CDT Body Mass Index 35.88 06/10/2023 10:39 AM CDT Plan of Treatment Upcoming Encounters Date Type Department Care Team (Late st Contact Info) Description 08/12/2023 10:40 AM CDT Office Visit [facility] [address] [place], [place] [phone] [place] [address] [address] [place], [place] [phone] 10/08/2023 11:00 AM CDT Ancillary Procedure [address] [phone] 10/16/2023 10:00 AM CDT Office Visit [address] [phone] Everett Rios MD [address] [place] [address] 11/06/2023 10:00 AM CDT Office Visit [address] [phone] Lin Velasquez PA [address] [place] [address] 12/04/2023 10:00 AM CDT Office Visit [address] [phone] Everett Rios MD [address] [place] [address] Scheduled Procedures Name Priority Associated Diagnoses Date/Ti me SURGICAL PROCEDURE (TYPE PRO CEDURE DESCRIPTION BELOW) Elective Osteoarthritis of left knee Health Maintenance Due Date Last Done Comments Colonoscopy through age 75 05/28/202105/28, 08/02/2010, 08/01/2010, Additional history exists Tetanus booster 11/08/2022 11/08/2012 Medicare Wellness for age 65+ 08/22/2023 08/21/2022 Depression screening for age 12+ 08/23/2023 08/22/2022, 08/21/2022, 02/20/2021, Additional history exists Influenza for age 65+ 12/01/2023 01/16/2023 , 01/09/2023, 01/22/2022, Additional history exists Mammogram for age 45-75 05/07/2024 05/07/19 24, 04/05/2022, 03/31/2021, Additional history exists BMI (ht and wt on same day) for age 18+ 06/09/2024 06/10/2023, 01/03/2023, 08/21/2022, Additional history exists Lipids for age 45-75 05/11/2027 05/11/2022, 01/13/2021, 11/25/2019, Additional history exists Hepatitis C screening for ag e 18-79 Completed 03/11/2008 Tdap Completed 11/08/2012 Pneumococcal series for age 65+ Completed 7, 07/09/2014 DEXA/DXA scan for age 65+ Completed 09/23/2017 Zoster (shingles) series for age 50+ Completed 10/13/2017, 08/04/2017, 07/14/2017, Additional history exists COVID-19 vaccine series Completed 01/26/20, 12/29/2021, 07/05/2021, Additional history exists Procedures Procedure Name Priority Date/Time Associated Diagnosis Comments CBC WITH AUTO DIFFERENTIAL Routine 08/02/2023 11:10 AM CDT SOB (shortness of breath) CBC WITH AUTO DIFFERENTIAL Routine 08/02/2023 11:10 AM CDT SOB (shortness of breath) MAGNESIUM Routine 06/10/2023 11:15 AM CDT Muscle spasm of both lower legs BASIC METABOLIC PANEL Routine 06/10/2023 11:15 AM CDT Muscle spasm of both lower legs XR MAMMO ADINA BILAT SCREEN Routine 05/07/2023 10:19 AM CRUMB PACKER Visit for screening mammogram SCAN CORRESP-LABORATORY RESULTS 05/07/2023 12:00 AM CRUMB PACKER LC LIPID PANEL AND CHOL/HDL RATIO Routine 05/11/2022 10:02 AM CRUMB PACKER Type 2 diabetes mellitus with other specified complication, without long-term current use of insulin (HC) HYPERCHOLESTEROLEMI A, PURE XR DXA BONE DENSITY 2 SITES AXIAL Routine 09/23/2017 10:06 AM CDT Post-menopausal SCAN-COLONOSCOPY 05/28/2016 9:30 AM CRUMB PACKER ANTI HCV Routine 03/11/2008 4:34 PM CRUMB PACKER Elev Transaminase/LDH from Last 3 Months or Most Recently Relevant to Health Maintenance Results * (ABNORMAL) CBC WITH AUTO DIFFERENTIAL (08/02/2023 11:10 AM CDT) WHITE BLOOD COUNT 11.2(H) 4.5 - 11.0 thou/cu mm 08/02/2023 11:56 AM CDT [facility] RED BLOOD COUNT 2.63(L) 4.00 - 5.20 mil/cu mm 08/02/2023 11:56 AM CDT [facility] HEMOGLOBIN 6.0(LL) 12.0 - 16.0 g/dL 08/02/2023 11:56 AM CDT [facility] HEMATOCRIT 19.9(L) 33.0 - 51.0 % 08/02/2023 11:56 AM CDT [facility] MCV 76(L) 80 - 100 fL 08/02/2023 11:56 AM CDT [facility] MCH 22.8(L) 26.0 - 34.0 pg 08/02/2023 11:56 AM CDT [facility] MCHC 30.2(L) 32.0 - 36.0 g/dL 08/02/2023 11:56 AM CDT [facility] RDW 15.9(H) 11.5 - 15.5 % 08/02/2023 11:56 AM CDT [facility] PLATELET COUNT 461(H) 140 - 440 thou/cu mm 08/02/2023 11:56 AM CDT [facility] MPV 8.9 6.5 - 11.0 fL 08/02/2023 11:56 AM CDT [facility] % NEUT 66.7 % 08/02/2023 11:56 AM CDT [facility] % LYMPH 20.2 % 08/02/2023 11:56 AM CDT [facility] % MONO 12.2 % 08/02/2023 11:56 AM CDT [facility] % EOS 0.4 % 08/02/2023 11:56 AM CDT [facility] % BASO 0.5 % 08/02/2023 11:56 AM CDT [facility] ABSOLUTE NEUTROPHILS 7.5(H) 1.7 - 7.0 thou/cu mm 08/02/2023 11:56 AM CDT [facility] ABSOLUTE LYMPHOCYTES 2.3 0.9 - 2.9 thou/cu mm 08/02/2023 11:56 AM CDT [facility] ABSOLUTE MONOCYTES 1.4(H) <0.9 thou/cu mm 08/02/2023 11:56 AM CDT [facility] ABSOLUTE EOSINOPHILS 0.1 <0.5 thou/cu mm 08/02/2023 11:56 AM CDT [facility] ABSOLUTE BASOPHILS 0.1 <0.3 thou/cu mm 08/02/2023 11:56 AM CDT [facility] Blood BLOOD SPECIMEN / Unknown Butterfly / Unknown 08/02/2023 11:10 AM CDT 08/02/2023 11:10 AM CDT Sarthak Ko MD HEMATOLOGY Performing Organization Address City/[facility]/ZIP Co de Phone Number [facility] [address] [place] [address], * (ABNORMAL) MAGNESIUM (06/10/2023 11:15 AM CDT) MAGNESIUM 1.3(L) 1.6 - 2.4 mg/dL 06/10/2023 5:40 PM CDT [facility] Blood BLOOD SPECIMEN / Unknown Venipuncture / Unknown 06/10/2023 11:15 AM CDT 06/10/2023 11:25 AM CDT Sarthak Ko MD [facility] [address] [place] [address], * (ABNORMAL) BASIC METABOLIC PANEL (06/10/2023 11:15 AM CDT) SODIUM 139 136 - 145 mmol/L 06/10/2023 5:35 PM CDT [facility] POTASSIUM 4.3 3.5 - 5.1 mmol/L 06/10/2023 5:35 PM CDT [facility] CHLORIDE 102 98 - 107 mmol/L 06/10/2023 5:35 PM CDT [facility] CO2,TOTAL 22 22 - 29 mmol/L 06/10/2023 5:35 PM CDT [facility] ANION GAP 15 5 - 18 06/10/2023 5:35 PM CDT [facility] GLUCOSE 117(H) 70 - 99 mg/dL 06/10/2023 5:35 PM CDT [facility] CALCIUM 10.6(H) 8.8 - 10.2 mg/dL 06/10/2023 5:35 PM CDT [facility] BUN 32(H) 8 - 23 mg/dL 06/10/2023 5:35 PM CDT [facility] CREATININE 1.47(H) 0.50 - 0.90 mg/dL 06/10/2023 5:35 PM T [facility] BUN/CREAT RATIO 22(H) 10 - 20 5:35 PM CDT [facility] eGFR 37(L) >90 mL/min/1.7 3m2 06/10/2023 5:35 PM CDT [facility] Comment:As of 2021, eG FR is calculated by the CKD-EPI creatinine equation without race adjustment. ??eGFR can be influenced by muscle mass, exercise, and diet. ??The reported eGFR is an estimation only and is only applicable if the renal function is stable. Blood BLOOD SPECIMEN / Unknown Venipuncture / Unknown 06/10/2023 11:15 AM CDT 06/10/2023 11:25 AM CDT Sarthak Ko MD CHEMISTRY [facility] [address] [place] [address], * XR MAMMO ADINA BILAT SCREEN (05/07/2023 10:19 AM CRUMB PACKER) Anatomical Region Laterality Modality BREASTS, Breast Left, Breast Right Bilateral Mammography Impressions 05/08/2023 3:03 PM CRUMB PACKER ??There is no radiographic evidence for malignancy. ??Recommend annual mammograms. MAMMOGRAM ASSESSMENT: ??ACR 1 Negative PATIENTS: You will also receive a letter with your examination results in an easy to read format. ??If you have questions about your results, please contact your referring provider. Narrative 05/08/2023 3:03 PM CRUMB PACKER For Patients: As a result of the Century Cures Act, medical imaging exams and procedure reports are released immediately into your electronic medical record. You may view this report before your referring provider. If you have questions, please contact your health care provider. XR MAMMO ADINA BILAT SCREEN [[id number]] CLINICAL HISTORY: ??This is an asymptomatic 73 y.o. patient. INDICATION FOR EXAM: Mammogram Screening. TECHNIQUE: CC & MLO views were obtained. ??This study was evaluated with the assistance of Computer-Aided Detection. Breast Tomosynthesis was used in interpretation. COMPARISON FILM: Yes 04/05/22 [facility] 03/31/21 [facility] FINDINGS: ??The breasts have scattered areas of fibroglandular density. There are no dominant masses, suspicious micro calcifications or areas of architectural distortion. Sarthak Ko MD MAMMO * SCAN CORRESP-LABORATORY RESULTS (05/07/2023 12:00 AM CRUMB PACKER) Scanner OTHER * (ABNORMAL) LC LIPID PANEL AND CHOL/HDL RATIO (05/11/2022 10:02 AM CRUMB PACKER) Cholesterol, Total 171 100 - 199 mg/dL 05/16/2022 1:07 AM [facility] Triglycerides 196(H) 0 - 149 mg/dL 05/16/2022 1:07 AM [facility] ([facility]) HDL Cholesterol 41 >39 mg/dL 1:07 AM [facility] ([facility]) VLDL Cholesterol Jonathan 34 5 - 40 mg/dL 05/16/2022 1:07 AM [facility] ([facility]) LDL Chol Calc (NIH) 96 0 - 99 mg/dL 05/16/2022 1:07 AM [facility] ([facility]) T. Chol/HDL Ratio 4.2 0.0 - 4.4 ratio 05/16/2022 1:07 AM [facility] ([facility]) Comment: ?T. Chol/HDL Ratio ?Men ??Women ?1/2 Avg.Risk ??3.4 ?3.3 ?Avg.Risk ??5.0 ?4.4 ? 2X Avg.Risk ??9.6 ?7.1 ? 3X Avg.Risk 23.4 ?? 11.0 Blood BLOOD SPECIMEN / Unknown Venipuncture / Unknown 05/11/2022 10:02 AM CRUMB PACKER 05/11/2022 10:02 AM CRUMB PACKER Narrative [facility] ([facility] - 05/16/2022 1:07 AM CRUMB PACKER Performed at: ??01 - [facility] [address] ??[id number] Borematic Machine Operator: John Rock MD, Phone: ??[phone] Sarthak Ko MD [facility] [address] [place] [address], * XR DXA BONE DENSITY 2 SITES AXIAL (09/23/2017 10:06 AM CDT) Anatomical Region Laterality Modality Spine, HIPS, HIPL, HIPR Other Narrative 09/24/2017 5:58 PM CDT Please see scanned document for results of this study. Yamile Block DO DEXA * SCAN-COLONOSCOPY (05/28/2016 9:30 AM CRUMB PACKER) Narrative Procedure Note Yazmin Patricia MD - 05/28/2016 8:29 AM CST [facility] [address] [place] [address], [address], [place] [address] Patient Name: Jenifer Cuadra Gender: Female Exam Date: 05/28/2016 Visit Number: [id number] Age: 66 Years Date of : 1950 Attending MD: Yazmin Patricia MD Medical Record#: [id number] ----- Procedure: Colonoscopy Indications: Previous adenomatous polyp(s) family history colon cancer father/sister 60s Referring MD: Khalif Mon MD Primary MD: Cheryl Diop MD Medications: Complications: Procedure: An examination of the heart and lungs was performed and found to be withinacceptable limits. The patient was therefore deemed a reasonablecandidate for endoscopy and 0 sedation. The risks and benefits of the procedure were explained to the patient.After obtaining informed consent, the patient received monitoredanesthesia care and I passed the scope without difficulty via the rectum to the cecum. The appendiceal orificeand ic valve were identified. The scope was retroflexed during theexamination The quality of the prep was good (Miralax/Gatorade/2 tabletsBisacodyl/Magnesium Citrate). This was a complete examination throughout the entire colon. Findings: Polyp location: transverse colon. Quantity: 1. Size: 2 mm. Polyp shape:sessile. Maneuver: polypectomy was performed with a cold biopsy forceps. Removal: complete. Retrieval: complete. Bleeding: none. Polyp location: transverse colon. Quantity: 1. Size: 4 mm. Polyp shape:sessile. Maneuver: polypectomy was performed with a cold snare . Removal: complete. Retrieval: complete. Bleeding: none. Polyp location: sigmoid. Quantity: 1. Size: 2 mm. Polyp shape:sessile. Maneuver: polypectomy was performed with a cold biopsy forceps . Removal: complete. Retrieval: complete. Bleeding: none. Diverticulosis. Location: - sigmoid. Description: mild. Size:small. Quantity: few. No inflammation present. * Comments: Tortuous colon. Completion aided by abdominal pressure. Impression: Benign colon polyp Diverticulosis large intestine w/o perforation or abscess w/o bleeding Personal history of colonic polyps Pathology Results: A: COLON, TRANSVERSE, POLYPS: 1. Tubular adenoma (1) and normal mucosal biopsy (clinically two polypsremoved) 2. No evidence of high grade dysplasia 3. Per the attached endoscopy report: a. Polyp size: 2-4 mm b. Resection: Complete c. Retrieval: Complete B: COLON, SIGMOID, POLYP: Hyperplastic polyp MICROSCOPIC A: Performed B: Performed Electronically signed by: Lucita Dominguez MD Final Plan: Return for a colonoscopy in 5 years. We will attempt to contact you at appropriate intervals via U.S. mail. Wemay not be able to find you or contact you at that time, therefore youshould know that the responsibility for following our recommendation restswith you. If you don't hear from us at the time your procedure is due,please contact our office to schedule an appointment. If your contactinformation should change, please contact our office so that we can updateyour record. _Electronically signed by: Yazmin Patricia MD 05/28/2016 cc: Khalif Diop MD Yazmin Patricia MD OTHER * ANTI HCV (03/11/2008 4:34 PM CRUMB PACKER) ANTI HCV Non-reacti ve [facility] Blood specimen (specimen) BLOOD SPECIMEN / Unknown 03/11/2008 4:34 PM CRUMB PACKER 03/11/2008 4:29 PM CRUMB PACKER Khalif Mon MD SEND OUTS [facility] INTERNAL ZIP [address] [place] [id number] from Last 3 Months or Most Recently Relevant to Health Maintenance Care Teams Health Promotion Educator Relationship Specialty [place] [address] [place] [address] PCP - General Family Practice 04/05/22
--- OUTSIDE RECORDS SUMMARY | 2023-08-02 13:42 | XMS_ITS | Encounter Summary ---
Author Name Unknown Organization [facility] Address [address] [place] [id number] Care Team Providers Care Computer Engineer Name Role Phone Unavailable Primary Care Provider Unavailabl e Reason for Visit * Appointment Request (Routine) - Closed Specialty Diagnoses / Procedures Referred By Contac t Referred To Contact Nephrology and Hypertension Referral ID Status Reason Start Date Expiration Date Visits Re quested Visits Authorized [id number] Closed 06/20/2023 06/19/2024 1 1 Encounter Details Date Type Department Care Team (Latest Contact Info) Description 07/02/2023 2:00 PM CDT External Outreach Division of Nephrology and Hypertension in [place], [place] [address] [place] [address] Ronn Alvarez Jr., D.O. [address] [place] [address] Chronic Kidney Disease (CKD), Stage 3a Glomerular Filtration Rate (GFR) 45 To 59 (HCC) (Primary Dx); Hypertensive Chronic Kidney Disease (CKD) Stage 3a Glomerular Filtration Rate (GFR) 45 To 59 (HCC); Diabetes Mellitus Type 2 (HCC); Hyperparathyroidism Renal Secondary (HCC); Anemia Social History Tobacco Use Types Packs/Day Years [...] on file Sexual Orientation Not on file documented as of this encounter Last Filed Vital Signs Vital Sign Reading [...] Mass Index 36.47 07/02/2023 1:50 PM CDT documented in this encounter Progress Notes * Ronn Alvarez Jr., D.O. - 07/02/2023 2:00 PM CDT Referring Provider: No primary care provider on file. SUBJECTIVE REASON FOR VISIT [facility] Follow-up regards CKD on the background of hypertension diabetes mellitus HISTORY OF PRESENT ILLNESS Ms. Cuadra is a 73 y.o. female who presents with hypertensive and ischemic nephrosclerosis on the background of some diabetes mellitus, without microalbuminuria. Since our last visit her blood pressure at home has been reasonable in the seated position, in the upper 100s, to the 130s with diastolics in the 60s and 70s. However, she is felt profoundly fatigued, and describes orthostatic symptoms when arising. She has even had episodes where she feels lightheaded taking a shower and was unable even to have the energy to brush her hair after her shower last night. She has had no chest pain no shortness of breath no PND no orthopnea no lower extremity swelling. She has not had a sense of palpitations although when she stands she does feel her heart is beating rapidly. No fevers no chills no unintentional weight loss. No hypoglycemic events. We discussed making a change with her medications, particularly exchanging metoprolol for the carvedilol. She will be getting back to me with her blood pressures. She is also struggling with some cramping, for which she is using magnesium at the direction of herfamily medicine team. She feels the cramping somewhat better. No past medical history on file. Current Outpatient Medications: aspirin [address] tablet, Take 81 mg by mouth., Disp: , Rfl: atorvastatin (LIPITOR) 10 mg tablet, , Disp: , Rfl: cholecalciferol (VITAMIN D3) 50 mcg (2,000 Unit) capsule, Take 2,000 Units by mouth., Disp: , Rfl: doxepin (SINEquan) 10 mg capsule, , Disp: , Rfl: doxepin (SINEquan) 25 mg capsule, , Disp: , Rfl: escitalopram (LEXAPRO) 5 mg tablet, , Disp: , Rfl: lancets (Accu-Chek Fastclix Lancet Drum), USE TO TEST ONCE DAILY, Disp: , Rfl: losartan (COZAAR) 100 mg tablet, , Disp: , Rfl: metoprolol succinate (TOPROL-XL) 25 mg 24 hr tablet, Take 1 tablet (25 mg total) by mouth daily. Donot crush or chew., Disp: 90 tablet, Rfl: 3 psigjkjd-uwq-sczp-FA-lutein (Centrum Silver Women) 8 mg iron-400 mcg-300 mcg tablet, Take by mouth., Disp: , Rfl: NIFEdipine XL (PROCARDIA XL) 30 mg 24 hr tablet, , Disp: , Rfl: omega 9-aob-ezq-fish oil 1,000 mg (120 mg-180 mg) capsule, Take 1,000 mg by mouth., Disp: , Rfl: omeprazole (PriLOSEC) [address] capsule, Take by mouth., Disp: , Rfl: triamterene-hydroCHLOROthiazide (MAXZIDE-25) 37.5-25 mg per tablet, , Disp: , Rfl: zinc chelated 50 mg tablet tablet, Take 50 mg by mouth., Disp: , Rfl: REVIEW OF SYSTEMS All other systems reviewed and are negative. OBJECTIVE BP 128/72 (Patient Position: Standing) Pulse 100 Ht 165 cm Wt 99.3 kg BMI 36.47 kg/m?? PHYSICAL EXAMINATION General: Awake alert oriented HEENT: SARAH, EOMI, Mucous membranes moist, no oral lesions Neck: No Masses, No Bruits Lungs: Clear to ascultation Heart: Regular Rate and Rhythm, No ectopy , she has a 2/6 right upper sternal edge systolic ejection murmur Abdomen: Soft, Non-tender Extremities: No cyanosis, No clubbing: No edema Neuro: Cranial Nerves intact, Gait is normal, strength grossly normal Skin: no suspicious lesions identified Psychiatric: Normal affect DIAGNOSTICS Note serum creatinine 1.3 mg/dL, hemoglobin 11.7 glycosylated hemoglobin 6 0.4% ASSESSMENT / PLAN #1 Chronic Kidney Disease (CKD), Stage 3a Glomerular Filtration Rate (GFR) 45 To 59 (HCC) Her CKD has been stable, she has chronic kidney disease on the background of hypertensive and ischemic nephrosclerosis. I doubt there is diabetic nephropathy given her absence of microalbuminuria. Going forward: We will need to continue to balance her blood pressure, versus the orthostatic issues. We will stopthe Coreg. We will begin metoprolol XL 25 mg orally daily, I anticipate we will need to increase the dose. Charlette contact me in 2 weeks regards her blood pressures at my office phone number as she has not in the [facility] portal Low-sodium diet less than 2000 mg per day Continue to foster glycosylated hemoglobin level less than 7.5% which she is achieved Return to clinic in 4 months No NSAIDs or Javed 2 inhibitors #2 Hypertensive Chronic Kidney Disease (CKD) Stage 3a Glomerular Filtration Rate (GFR) 45 To 59 (HCC) Please see above discussion regards her blood pressure, extensive discussion regards mitigating these effects. She will continue on her CPAP as well. #3 Diabetes Mellitus Type 2 (HCC) She is doing well with her glycosylated hemoglobin, and has had no hypoglycemic events. Whether there is some degree of orthostatic hypotension and perhaps dysautonomia could be debated, we will knowmore as her blood pressure trajectory is more apparent. No issues with the vision or neuropathic issues for now. She would be well served from a GLP 1 agonist or SG LT 2 inhibitor however these are unaffordable currently. #4 Hyperparathyroidism Renal Secondary (HCC) I am satisfied with her calcium phosphorus and PTH levels. #5 Anemia Her hemoglobin is 11.7, we will be checking iron stores at her next visit. A relative erythropoietin deficiency syndrome could be at play as well. Total time: 30 minutes Counseling Time: 25 minutes Ronn Alvarez Jr., D.O. documented in this encounter Plan of Treatment Not on file documented as of this encounter Visit Diagnoses Diagnosis Chronic Kidney Disease (CKD), Stage 3a Glomerular Filtration Rate (GFR) 45 To 59 (HCC)- Primary Hypertensive Chronic Kidney Disease (CKD) Stage 3a Glomerular Filtration Rate (GFR) 45 To 59 Diabetes Mellitus Type 2 (HCC) Hyperparathyroidism Renal Secondary (HCC) Anemia documented in this encounter
[2023-08-02 13:56] LABS: Basophils Percent Auto 0.7 % (0.0-3.0); Eosinophils Percent Auto 0.2 % (0.0-7.0); Hematocrit 19.9 % (33.0-51.0); Immature Granulocytes Pct Auto 0.2 %; Immature Reticulocyte Fraction 28.8 % (3.0-15.9); Lymphocytes Percent Auto 20.1 % (20-44); Mean Corpuscular HGB Conc 30 gm/dL (32-36); Mean Corpuscular Hemoglobin 23 pg (26-34); Mean Corpuscular Volume 75 fL (80-100); Monocytes Percent Auto 10.2 % (0.0-11.0); Neutrophils Percent Auto 68.6 % (42.0-72.0); Platelet Count* 420 K/uL (140-440); RDW Coefficient of Variation % 15.8 % (11.5-15.5); Red Blood Count 2.64 m/uL (4.00-5.20); Reticulocyte Hemoglobin Equivi 15.4 pg (29.0-35.0); Reticulocyte Percent 3.1 % (0.5-2.0); Reticulocytes Absolute 0.08 # (0.03-0.08); White Blood Count* 11.97 K/uL (4.50-11.00)
[2023-08-02 14:03] LABS: Slide Review Reflex No
[2023-08-02 14:11] LABS: Chloride* 100 mmol/L (96-114); Potassium* 3.9 mmol/L (3.6-5.1); Sodium* 138 mmol/L (135-149)
[2023-08-02 14:13] LABS: Anion Gap 17 mEq/L (7-15); Aspartate Amino Transferase* 31 U/L (12-35); Bilirubin Direct* 0.2 mg/dL (0.0-0.5); Bilirubin Total* 0.5 mg/dL (0.1-1.5); Blood Urea Nitrogen* 37 mg/dL (7-30); Carbon Dioxide* 21 mmol/L (20-32); Creatinine* 1.5 mg/dL (0.5-1.5); Est. Creatinine Clearance* 29.61; Estimated Glomerular Filt Rate 36 ml/min; Iron* 19 ug/dL (37-170); Total Protein* 8.2 g/dL (6.0-8.3)
[2023-08-02 14:14] LABS: Alanine Aminotransferase* 22 U/L (4-35); Alkaline Phosphatase* 83 U/L (40-150); Calcium* 10.4 mg/dL (8.4-10.6); Glucose* 106 mg/dL (60-115)
[2023-08-02 14:23] LABS: Percent Iron Saturation 3 % (20-50); Total Iron Binding Capacity 544 ug/dL (265-497)
[2023-08-02 14:32] LABS: Troponin I* < 0.01 ng/mL (0.01-0.04)
[2023-08-02 14:52] LABS: Fecal Occult Blood* Negative (Negative)
[2023-08-02 15:24] VITALS: BP 147/66; PULSE 85; RESP 16; TEMP 37; O2SAT 98
[2023-08-02 15:42] VITALS: BP 151/66; PULSE 90; RESP 18; TEMP 37.1; O2SAT 100
[2023-08-02 16:27] VITALS: BP 149/68; PULSE 91; RESP 18; TEMP 36.9; O2SAT 98
[2023-08-02 17:15] VITALS: BP 151/69; PULSE 85; RESP 18; TEMP 37.2; O2SAT 99
[2023-08-02 17:42] VITALS: BP 144/66; PULSE 95; RESP 18; TEMP 36.9; O2SAT 100
--- NOTE | 2023-08-02 17:43 | PC.NURSE ---
Blood Transfusion [id number] Pt arrived to unit for a blood transfusion from ED. Vitals remained stable, no c/o pain, IV removed at discharge, forms signed. Wheeled out to vehicle with family.
== END 2023-08-02 17:32 | disposition home or self-care (01) ==
PROVIDERS: Emergency Provider Family Medicine; PCP Colon & Rectal Surgery
DX: D50.9 Iron deficiency anemia, unspecified (principal)
CPT/HCPCS: 36415; 36430; 80053; 82248; 82270; 83540; 83550; 84484; 85025; 85045; 86850; 86900; 86901; 86922; 93005; 94761; 99284; P9016

== ENCOUNTER 2023-08-04 14:44 | Emergency (ER) | payer MEDICARE, OTHER, SELFPAY ==
[2023-08-04 15:02] VITALS: BP 142/76; PULSE 103; RESP 18; TEMP 36.8; O2SAT 96; BMI 33.3
--- NOTE | 2023-08-04 15:47 | ED.GENADULT ---
HPI - General Adult General Date Seen: 08/04/23 Chief complaint: GI Bleed Stated complaint: tar stool post transfusion Time Seen by Provider: 08/04/23 15:47 History of Present Illness HPI narrative: This is a very pleasant 73-year-old female who has a recent diagnosis of anemia (was in the ER 2 days ago, see below from her ER not visit on 08/01). She was transfused 1 unit of packed with red cells in the ER the other day and started on iron. This morning she noticed that with her when she passed a stool it was black. She has not noticed any black stools up until today. Unclear for black stool is potentially developing melena which could indicate a possibly increasing rate of GI bleeding or if the black stool is from the iron supplements. No other new symptoms. No abdominal pain. No vomiting. No worsening weakness or shortness of breath. Per medical record: She was referred to the ER from the [facility] 2 days ago on 08/01 for anemia. Hemoglobin was 6. She had presented the [facility] with shortness of breath and elevated heart rate progressive over the past couple of months. She was on a PPI for heartburn. No known history of colon polyps or upper GI bleeding. No dark stools noted on that ER visit. She received a unit of packed red cells while in the ER. It was thought that her immediate was probably subacute to chronic. Unclear source. Hemoccult, peripheral smear and additional workup were ordered to determine source of anemia. She was referred for outpatient EGD and colonoscopy to look for GI bleeds. Blood pressure 165/62. Pulse rate 117 Labs: WBC 11.9, hemoglobin 6.0 (had been 11.7 on 10/04/2022), platelet count 15.8 platelet 420 Sodium 138, potassium 3.9, chloride 100, bicarb 21, BUN 37, creatinine 1.5, glucose 106 Iron level was 19 low, TIBC was 544 high, total bilirubin 0.5, transaminases normal Stool occult blood testing was negative Related Data Home Medications Medication Instructions Recorded Confirmed atorvastatin 10 mg tablet 10 mg PO .Bedtime 11/07/21 07/02/23 nifedipine 30 mg tablet,extended 30 mg PO QDAY 11/07/21 07/02/23 release 24 hr triamterene 37.5 1 tab PO QDAY 11/07/21 07/02/23 mg-hydrochlorothiazide 25 mg tablet acetaminophen 500 mg capsule 1,000 mg PO DAILY PRN 11/14/21 07/02/23 doxepin 25 mg capsule 25 mg PO QDAY 11/14/21 07/02/23 metformin 500 mg tablet 500 mg PO BID 05/28/22 07/02/23 cyclobenzaprine 5 mg tablet 5 mg PO QHS 07/02/23 07/02/23 omeprazole 20 mg tablet,delayed 20 mg PO QDAY 07/02/23 07/02/23 release Allergies Allergy/AdvReac Type Severity Reaction Status Date / Time amlodipine AdvReac Mild Leg Verified 07/02/23 13:48 swelling PFSH PFS Surgical History (Updated 10/31/21 @ 10:09 by Sherry Pollock) Status post laparoscopic cholecystectomy ?Z90.49 - Acquired absence of other specified parts of digestive tract (ICD-10) Social History Smoking Status: Former smoker Exam Narrative: Exam Narrative: Constitutional: Appears well-developed and well-nourished. Alert. Conversant. Non toxic. HENT: Head: Atraumatic. Nose: Nose normal. Mouth/Throat: Oral mucosa is clear and moist. no trismus. Eyes: Conjunctivae pale but normal. EOM normal. Pupils equal, round, and reactive to light. No scleral icterus. Neck: Normal range of motion. Neck supple. No tracheal deviation present. Cardiovascular: Normal rate, regular rhythm. No gallop. No friction rub. No murmur heard. Symmetric radial artery pulses Pulmonary/Chest: Effort normal. No stridor. No respiratory distress. No wheezes. No rales. No rhonchi . No tenderness. Abdominal: Soft. Bowel sounds normal. No distension. No mass. No tenderness. No rebound. No guarding. Rectal: Performed with female audio/visual manager. Normal rectal tone. No masses. Small amount of stool in rectal vault. Sample obtained for Hemoccult. Musculoskeletal: RUE: Normal range of motion. No tenderness. No deformity LUE: Normal range of motion. No tenderness. No deformity RLE: Normal range of motion. No edema. No tenderness. No deformity LLE: Normal range of motion. No edema. No tenderness. No deformity Lymph: No cervical adenopathy. Neurological: Alert and oriented to person, place, and time. Normal strength. CN II-VII intact. No sensory deficit. GCS eye subscore is 4. GCS verbal subscore is 5. GCS motor subscore is 6. Normal coordination Skin: Skin is pale, but warm and dry. No rash noted. No pallor. Normal capillary refill. No mottling or diaphoresis. Psychiatric: Normal mood. Normal affect. Const: Vital Signs, click to edit/add: Vital Signs - 24 hr 08/04/23 15:02 Temperature 98.2 F Pulse Rate [Right Pulse Oximeter] 103 H Respiratory Rate 18 Blood Pressure [Ri ght Upper Arm] 142/76 H Pulse Oximetry 96 Course Vital Signs Vital signs: Initial Vital Signs Temperature 98.2 F 08/04/23 15:02 Temperature Source Temporal Artery Scan 08/04/23 15:02 Pulse Rate 103 H 08/04/23 15:02 Pulse Rhythm Regular 08/04/23 15:02 Pulse Strength 3+ Normal 08/04/23 15:02 Respiratory Rate 18 08/04/23 15:02 Blood Pressure 142/76 H 08/04/23 15:02 Blood Pressure Mean 98 08/04/23 15:02 Blood Pressure Position Sitting 08/04/23 15:02 Pulse Oximetry 96 08/04/23 15:02 Vital Signs Temperature 98.2 F 08/04/23 15:02 Pulse Rate 103 H 08/04/23 15:02 Respiratory Rate 18 08/04/23 15:02 Blood Pressure 142/76 H 08/04/23 15:02 Pulse Oximetry 96 08/04/23 15:02 Temperature 98.2 F 08/04/23 15:02 Pulse Rate 103 H 08/04/23 15:02 Respiratory Rate 18 08/04/23 15:02 Blood Pressure 142/76 H 08/04/23 15:02 Pulse Oximetry 96 08/04/23 15:02 Medical Decision Making [facility] Narrative Medical decision making narrative: 69-year-old female with several weeks or a couple of months of symptoms of progressively worsening weakness, dyspnea on exertion who was found to be anemic with a hemoglobin down to 6.02 days ago, on Saturday. She was sent here to the ER for evaluation and was hemodynamically stable. She was transfused 1 unit of packed red cells. She was stable for an outpatient workup and is scoring to be scheduling upper and lower endoscopy to look for GI bleeds. She was also started on iron 2 days ago when she was here in the ER. She returns to the ER today because of black stools and concerned that she may be developing melena. Fortunately she is hemodynamically stable. Labs confirm hemoglobin up to 7.4. This would be anticipated/expected after transfusing 1 unit PRBC after starting with hemoglobin of 6.0, as was done in the ER couple of days ago. We did do a Hemoccult test here with a reliable sample and it is confirmed to be heme negative. Therefore I suspect the patient has black stool was probably actually due to her iron supplements, and not indicative of worsening upper GI bleed. At this point the patient and her dark comfortable discharging to home. They will follow up outpatient for endoscopy. Precautions for return to the ER reviewed and questions answered. Clinical impression 1. Anemia 2. Hemoccult-negative stool Lab Data Labs: Lab Results 08/04/23 08/04/23 Range/Units 16:50 17:44 WBC 11.46 H (4.50-11.00) K/uL RBC 3.21 L (4.00-5.20) m/uL Hgb 7.4 L* (12.0-16.0) gm/dL Hct 24.3 L (33.0-51.0) % MCV 76 L (80-100) fL MCH 23 L (26-34) pg MCHC 31 L (32-36) gm/dL RDW Coeff of Criss 16.7 H (11.5-15.5) % Plt Count 420 (140-440) K/uL Neut % (Auto) 65.1 (42.0-72.0) % Lymph % (Auto) 23.2 (20-44) % [place] % (Auto) 9.9 (0.0-11.0) % Eos % (Auto) 0.5 (0.0-7.0) % Baso % (Auto) 0.8 (0.0-3.0) % Neut # (Auto) 7.50 H (1.7-7.0) K/uL Lymph # (Auto) 2.70 (0.90-2.90) K/uL [place] # (Auto) 1.10 H (0.00-0.90) K/UL Eos # (Auto) 0.10 (0.00-0.50) K/uL Baso # (Auto) 0.10 (0.00-0.30) K/uL Abs Immat Gran (auto) 0.10 (0.00-0.30) K/uL Imm/Tot Granulo (auto) 0.5 % Sodium 137 (135-149) mmol/L Potassium 4.2 (3.6-5.1) mmol/L Chloride 102 (96-114) mmol/L Carbon Dioxide 22 (20-32) mmol/L Anion Gap 13 (7-15) mEq/L BUN 42 H (7-30) mg/dL Creatinine 1.7 H (0.5-1.5) mg/dL Estimated Creat Clear 26.13 Estimated GFR 31 ml/min Glucose 112 (60-115) mg/dL Lactate 2.0 H (0.5-1.9) mmol/L Calcium 10.3 (8.4-10.6) mg/dL Blood Type O Negative Antibody Screen NEGATIVE Discharge Plan Discharge Clinical Impression: Anemia Patient Disposition: Home, Self-Care Condition: Stable Instructions: Anemia (ED) Additional Instructions: As we discussed, please come back to the ER right away if you have any concerning or worsening symptoms such as worsening dizziness, lightheadedness, shortness of breath, abdominal pain, bloody stools, or if you have any problems. You should receive a phone call tomorrow to arrange or endoscopy and further testing for your anemia. If you do not receive a phone call by noon, contact her doctor to help expedite your follow-up. Continue on your iron and other medications for now. Prescriptions: No Action metformin 500 mg tablet 500 mg PO BID omeprazole 20 mg tablet,delayed release (DR/EC) 20 mg PO QDAY cyclobenzaprine 5 mg tablet 5 mg PO QHS atorvastatin 10 mg tablet 10 mg PO .Bedtime triamterene-hydrochlorothiazid 37.5-25 mg tablet 1 tab PO QDAY nifedipine 30 mg tablet extended release 24 hr 30 mg PO QDAY doxepin 25 mg capsule 25 mg PO QDAY acetaminophen 500 mg capsule 1,000 mg PO DAILY PRN Follow Up/Referrals: Shruthi Auguste MD [Referring] - Stand Alone Forms: Code [employer] Info Instructions
--- OUTSIDE RECORDS SUMMARY | 2023-08-04 16:16 | XMS_ITS ---
Author Name Unknown Organization [facility] Address [address] [place] [address] Care Team Providers Care Marine Geologist Name Role Phone Unavailable Unavailable Unavailable Surgery Details Not on file Complications Check Surgery Details section. Procedure Estimated Blood Loss Check Surgery Details section. Procedure Findings Check Surgery Details section. Procedure Specimens Taken Check Surgery Details section.
--- OUTSIDE RECORDS SUMMARY | 2023-08-04 16:16 | XMS_ITS | Continuity of Care Document ---
Author Name Unknown Organization [facility] Address [address] [address] [place] [address] Phone Care Team Providers Care Account Support Associate Name Role Phone Harshad [place], Yazmin Unavailable Unavailable Allergies, Adverse Reactions, Alerts Substance Reaction Status Criticality amlodipine swelling Active No Information Medications Medication Instructions Dosage Effective Dates (start - stop) Status Comments atenolol 100 mg tablet take 1 tablet by oral route every day 100 MG - Active Lipitor 10 mg tablet take 1 tablet by oral route every day 10 MG - Active doxepin 10 mg capsule take 1 capsule by oral route every day 10 MG - Active Nifedical XL 30 mg tablet,extended release take 1 tablet by oral route every day - Active Prilosec 20 mg capsule,delayed release take 1 capsule by oral route every day before a meal - Active triamterene 37.5 mg-hydrochlorothiazi de 25 mg tablet take 1 tablet by oral route every day 1.00 tablet - Active valsartan 320 mg tablet take 1 tablet by oral route every day 320 MG - Active aspirin 325 mg tablet take 2 tablet by oral route every day 650 MG - Active Procedures Procedure Date Adenoma(s), Other Neoplasm Detected Duri ng Screen Colonoscopy Flex; W/remov Les- 17 Colonoscopy Flex; W/bx 1/mx Level Iv-surg Path Gross/micro 17 Advance Directives Directive Yes / No Effective Date File Name No Information Encounters Encounter Description Practice Location Reason(s) For Visit Diagnoses Date Provider Providers Copied on Encounter [facility], [address] [address], [place], [place], [id number], [place] tel:[phone] Rosalinda [facility] Benign colon polypDiverticulosis large intestine w/o perforation or abscess w/o bleedingPersonal history of colonic polypsEncounter for screening for malignant neoplasm of colonBenign neoplasm of transverse colonPolyp of colonPersonal history of colonic polyps Harshad Arce. [address] [facility], [place], [place], [id number] , [place]. tel:[phone] Referring Provider: Khalif Jennings, [address], [place], [address]. tel:[phone] Family History Family Member Type Diagnosis Age At Onset Sister Problem (finding) malignant neoplasm of s kin Sister Problem (finding) Alive and well Daughter Problem (finding) Alive and well Mother Problem (finding) Brother Problem (finding) Alive and well Father Problem (finding) Father Problem (finding) cancer of colon Mother Problem (finding) malignant neoplasm of s kin Son Problem (finding) Alive and well Mother Problem (finding) malignant neoplasm of l haley Brother Problem (finding) Sister Problem (finding) malignant tumor of rect um Sister Problem (finding) gallbladder disease Brother Problem (finding) malignant neoplasm of s kin Payers Payer name Insurance type Covered constitution party ID Authoriza tion(s) Medicare NGS MB [id number] [facility] [id number] Social History Type Description Quantity Date Captured Comments Alcohol Use Details Unknown Caffeine Use Details Unknown Tobacco Use Status No Information Smoking Status Former smoker Sex Female Vital Signs Date / Time: Height Weight BMI Pulse Rate Blood Pressure Temperature Respiratory Rate Body Surface Area Head Circumference Head Circ. Percentile Wt./Krunal. Percentile BMI percentile Pulse Ox Inhaled Ox 66.00 in 99.320 kg (219.00 lbs) 35.3 0 kg/m eter (2) 68 /min 167/83 mm[Hg] 0.00 F 18 /min 95 % Chief Complaint And Reason For Visit No Information Reason For Referral Reason For Referral No Information History Of Present Illness Encounter Date Complaint History Of Prese nt Illness No Information Functional Status Date Functional Assessmen t No Information Instructions Date Instruction Additional Infor mation Diverticulosis/Diverticulitis Re lated to Diverticulosis large intestine w/o perforation or abscess w/o bleeding High Fiber Diet Related to Diver ticulosis large intestine w/o perforation or abscess w/o bleeding Colon Cancer Prevention Related to Diverticulosis large intestine w/o perforation or abscess w/o bleeding Colon Polyps Related to Diver ticulosis large intestine w/o perforation or abscess w/o bleeding Assessments Type Assessment Date assessment Benign colon polyp assessment Diverticulosis large intestine w/o perforation or abscess w/o bleeding assessment Personal history of colonic poly ps Patient Care Teams Name Effective Dates (start - stop) Status Members No Information
--- OUTSIDE RECORDS SUMMARY | 2023-08-04 16:16 | XMS_ITS | Clinical Summary ---
Author Name Unknown Organization [facility] Address [address] [place] [address] Care Team Providers Care Art Model Name Role Phone Unavailable Primary Care Provider Unavailabl e Source Comments Patient records contain information from all sites at [facility]. For routine questions regarding patient records, call [phone] during business hours, M-F 8:00 AM - 5:00 PM Central Time. Record requests for emergency care only can be directed to [phone] at any time.[facility] Medications Medication Sig Dispensed Refills Start Date [...] losartan (COZAAR) 100 mg tablet 01/13/2021 Active ctpfculh-yfh-jnph-FA -lutein (Centrum Silver Women) 8 mg iron-400 mcg-300 mcg tablet Take by mouth. 01/13/2021 Active NIFEdipine XL (PROCARDIA XL) 30 mg 24 hr tablet 11/23/2020 Active omeprazole (PriLOSEC) [address] capsule Take by mouth. 09/24/2006 Active omega 1-nth-wcj-fish oil 1,000 mg (120 mg-180 mg) capsule [...] Outreach Division of Nephrology and Hypertension in [place] [address] [place] [address] Ronn Alvarez Jr., D.O. Chronic Kidney Disease [...] inpatients and all outpatients) 05/07/2023 10:19 AM TRIMMER BUFFING WHEEL EXTI LIPID PANEL, S Routine 05/11/2022 1 0:02 AM TRIMMER BUFFING WHEEL from Last 3 Months or Most Recently Relevant to Health Maintenance
--- OUTSIDE RECORDS SUMMARY | 2023-08-04 16:16 | XMS_ITS | Encounter Summary ---
Author Name Unknown Organization [facility] Address [address] [place] [address] Care Team Providers Care Senior Stock Plan Administrator Name Role Phone Unavailable Primary Care Provider Unavailabl e Reason for Visit * Appointment Request (Routine) - Closed Specialty Diagnoses / Procedures Referred By Contac t Referred To Contact Nephrology and Hypertension Referral ID Status Reason Start Date Expiration Date Visits Re quested Visits Authorized [id number] Closed 06/20/2023 06/19/2024 1 1 Encounter Details Date Type Department Care Team (Latest Contact Info) Description 07/02/2023 2:00 PM CDT External Outreach Division of Nephrology and Hypertension in [place], [place] [address] [place] [address] Ronn Alvarez Jr., D.O. [address] [place] [address] Chronic Kidney Disease (CKD), Stage 3a Glomerular [...] provider on file. SUBJECTIVE REASON FOR VISIT [facility] Follow-up regards CKD [...] or chew., Disp: 90 tablet, Rfl: 3 jorktvbs-csy-fugm-FA-lutein (Centrum Silver Women) 8 mg iron-400 mcg-300 mcg tablet, Take by mouth., Disp: , Rfl: NIFEdipine XL (PROCARDIA XL) 30 mg 24 hr tablet, , Disp: , Rfl: omega 9-nah-rzl-fish oil 1,000 mg (120 mg-180 mg) capsule, [...] number as she has not in the [facility] portal Low-sodium diet less than 2000 mg [...]
--- OUTSIDE RECORDS SUMMARY | 2023-08-04 16:16 | XMS_ITS | Referral Summary ---
Author Name Unknown Organization [facility] Address [address] [place] [address] Care Team Providers Care Warehouse Worker 2Nd Shift Name Role Phone Unavailable Primary Care Provider Unavailabl e Source Comments Patient records contain information from all sites at [facility]. For routine questions regarding patient records, call [phone] during business hours, M-F 8:00 AM - 5:00 PM Central Time. Record requests for emergency care only can be directed to [phone] at any time.[facility] Encounters Date Type Department Care Team Description 07/02/2023 2:00 PM CDT External Outreach Division of Nephrology and Hypertension in [place], [place] [address] [place] [address] Ronn Alvarez Jr., D.O. Chronic Kidney Disease [...] losartan (COZAAR) 100 mg tablet 01/13/2021 Active ccuodaoi-iyk-txnj-FA -lutein (Centrum Silver Women) 8 mg iron-400 mcg-300 mcg tablet Take by mouth. 01/13/2021 Active NIFEdipine XL (PROCARDIA XL) 30 mg 24 hr tablet 11/23/2020 Active omeprazole (PriLOSEC) [address] capsule Take by mouth. 09/24/2006 Active omega 9-npq-mqd-fish oil 1,000 mg (120 mg-180 mg) capsule [...] inpatients and all outpatients) 05/07/2023 10:19 AM DOCTOR OF PODIATRIC MEDICINE EXTI LIPID PANEL, S Routine 05/11/2022 1 0:02 AM DOCTOR OF PODIATRIC MEDICINE from Last 3 Months or Most Recently Relevant to Health Maintenance
--- OUTSIDE RECORDS SUMMARY | 2023-08-04 16:16 | XMS_ITS | Clinical Summary ---
Author Name Unknown Organization [employer] [facility] Address [place], [place] [address] Care Team Providers Care Mat Machine Operator Name Role Phone Sarthak Ko MD Primary Care Provider [phone] Allergies Active Allergy Reactions Criticality Noted Date [...] Description 08/02/2023 10:25 AM CDT Office Visit [facility] [address] [place] [address] Sarthak Ko MD Follow Up (Blood pressure medication, having shortness of breath and fatigue, palpitations //Still having cramping in legs ) 08/02/2023 Telephone [facility] [address] [place], [place] [phone] Sarthak Ko MD Refill Request (EGG Also Colonooscpy) 08/02/2023 Travel 07/30/2023 10:59 AM CDT - 07/30/2023 11:59 PM CDT Hospital Encounter [facility] [address] [place] [address] Sarthak Ko MD 07/30/2023 Travel 07/18/2023 Telephone [facility] Joint Replacement [facility] [address] [facility] [address] [place] [address] Everett Rios MD 07/18/2023 Orders Only [facility] Joint Replacement [facility] [address] [facility] [address] [place] [address] Everett Rios MD <No scans attached> 07/17/2023 8:30 AM CDT Office Visit [facility] [address] [place] [address] Lin Velasquez PA Recheck (bilateral knee pain) 07/17/2023 Travel 07/08/2023 Telephone [facility] Joint Replacement [facility] [address] [facility] [address] [place] [address] Lin Velasquez PA 07/05/2023 10:51 AM CDT - 07/05/2023 11:59 PM CDT Hospital Encounter [facility] [address] [place] [address] Sarthak Ko MD 07/05/2023 Travel 07/04/2023 Telephone [facility] Joint Replacement [facility] [address] [facility] [address] [place] [address] Everett Rios MD Questions (APPOINTMENT FOR INJECTIONS ) 07/01/2023 Refill [facility] [address] [place] [address] Sarthak Ko MD Refill Request (Metformin) 06/21/2023 10:11 AM CDT - 06/21/2023 11:59 PM CDT Hospital Encounter [facility] [address] [place] [address] Sarthak oK MD 06/21/2023 Travel 06/10/2023 10:50 AM CDT Office Visit [facility] [address] [place] [address] Sarthak Ko MD Leg Pain/problem (Nerve pain ); Palpitations (Feels like heart throbs/) 06/10/2023 Telephone [facility] [address] [place] [address] Sarthak Ko MD Results 06/10/2023 Travel 06/07/2023 Travel 05/31/2023 9:54 AM DOWEL PIN MAN - 05/31/2023 11:59 PM DOWEL PIN MAN Hospital Encounter [facility] [id number] [place] [address] Sarthak Ko MD 05/31/2023 Travel 05/21/2023 10:22 AM DOWEL PIN MAN - 05/21/2023 11:59 PM DOWEL PIN MAN Hospital Encounter [facility] [address] [place] [address] Sarthak Ko MD 05/21/2023 Travel 05/16/2023 12:56 PM DOWEL PIN MAN - 05/16/2023 11:59 PM DOWEL PIN MAN Hospital Encounter [facility] [phone] [place] [address] Sarthak Ko MD Finkel, Joann M, PT Right sided sciatica 05/16/2023 Travel 05/12/2023 Refill [facility] [address] [place] [address] Sarthak Ko MD Refill Request (Doxepin, Losartan, Atorvastatin, Nifedipine) 05/09/2023 Telephone [facility] Orthopedics - [facility] [place] [address] [phone] Everett Rios MD Questions 05/07/2023 10:30 AM DOWEL PIN MAN Ancillary Procedure [facility] [address] [place] [address] 05/07/2023 Orders Only [facility] Scanner 1 scan: (1-Ord) INCOMING RECORDS-LABS, [facility], 05/07/2023 05/06/2023 2:10 PM DOWEL PIN MAN Office Visit [facility] [address] [place] [address] Sarthak Ko MD Leg Pain/problem (Pain starts in right buttocks and radiates down her leg into her ankle. Started about 5 days ago and moving around is better when she lays down the pain is a burning pain.) 05/06/2023 Travel from Last 3 Months Immunizations Name Administration Dates Next Due COVID-19 vaccine ([employer] NTInstapage 30mcg/0.3mL) 12YO+ BIVALENT PF, MDV 12/29/2021 Hepatitis A (Adult) 07/09/2014 Influenza [...] CDT Respiratory Rate 24 05/06/2023 2:16 PM DOWEL PIN MAN Oxygen Saturation 99% 08/02/2023 10:20 AM CDT Inhaled Oxygen Concentration - - Weight 97.8 kg (215 lb 9.6 oz) 08/02/2023 10:20 AM CDT Height 165.1 cm (5' 5) 06/10/2023 10:39 AM CDT Body Mass Index 35.88 06/10/2023 10:39 AM CDT Plan of Treatment Upcoming Encounters Date Type Department Care Team (Late st Contact Info) Description 08/12/2023 10:40 AM CDT Office Visit [facility] Eye Services [address] [place] [address] [place] [address] [place] [address] 10/08/2023 11:00 AM CDT Ancillary Procedure [address] [phone] 10/16/2023 10:00 AM CDT Office Visit [address] [phone] Everett Rios MD [address] [place], [place] [phone] 11/06/2023 10:00 AM CDT Office Visit [address] [phone] Lin Velasquez PA [address] [place] [address] 12/04/2023 10:00 AM CDT Office Visit [address] [phone] Everett Rios MD [address] [place] [address] Scheduled Procedures Name Priority Associated Diagnoses Date/Ti [...] Procedure Name Priority Date/Time Associated Diagnosis Comments IRON PLUS IRON BINDING CAP Add On 08/02/2023 11:10 AM CDT SOB (shortness of breath) Fatigue, unspecified type Anemia, unspecified type CWS PATH REVIEW HEMATOLOGY Routine 08/02/2023 11:10 AM CDT SOB (shortness of breath) RETICULOCYTES Add On 08/02/2023 11:10 AM CDT SOB (shortness of breath) Fatigue, unspecified type CBC WITH AUTO DIFFERENTIAL Routine 08/02/2023 11:10 AM CDT SOB (shortness of breath) COMP METABOLIC PANEL Routine 08/02/2023 11:10 AM CDT Type 2 diabetes mellitus without complication, without long-term current use of insulin (HC) VITAMIN D 25 (DEFICIENCY) Routine 08/02/2023 11:10 AM CDT Vitamin D deficiency TSH WITH REFLEX Routine 08/02/2023 11:10 AM CDT SOB (shortness of breath) Type 2 diabetes mellitus without complication, without long-term current use of insulin (HC) CBC WITH AUTO DIFFERENTIAL Routine 08/02/2023 11:10 AM CDT SOB (shortness of breath) PHOSPHORUS Routine 08/02/2023 11:10 AM CDT Leg pain, bilateral MAGNESIUM Routine 08/02/2023 11:10 AM CDT Leg pain, bilateral MAGNESIUM Routine 06/10/2023 11:15 AM CDT Muscle spasm of both lower legs BASIC METABOLIC PANEL Routine 06/10/2023 11:15 AM CDT Muscle spasm of both lower legs XR MAMMO ADINA BILAT SCREEN Routine 05/07/2023 10:19 AM DOWEL PIN MAN Visit for screening mammogram SCAN CORRESP-LABORATORY RESULTS 05/07/2023 12:00 AM DOWEL PIN MAN LC LIPID PANEL AND CHOL/HDL RATIO Routine 05/11/2022 10:02 AM DOWEL PIN MAN Type 2 diabetes mellitus with other specified complication, without long-term current use of insulin (HC) HYPERCHOLESTEROLEMI A, PURE XR DXA BONE DENSITY 2 SITES AXIAL Routine 09/23/2017 10:06 AM CDT Post-menopausal SCAN-COLONOSCOPY 05/28/2016 9:30 AM DOWEL PIN MAN ANTI HCV Routine 03/11/2008 4:34 PM DOWEL PIN MAN Elev Transaminase/LDH from Last 3 Months or Most Recently Relevant to Health Maintenance Results * CWS PATH REVIEW HEMATOLOGY (08/02/2023 11:10 AM CDT) PATH COMMENT Reviewed by KT on 08/04/2023 08/04/2023 2:32 PM CDT [facility] Blood BLOOD SPECIMEN / Unknown Butterfly / Unknown 08/02/2023 11:10 AM CDT 08/02/2023 11:10 AM CDT Sarthak Ko MD LABORATORY [facility] [address] [place] [address], [place] * (ABNORMAL) CBC WITH AUTO DIFFERENTIAL (08/02/2023 11:10 AM CDT) WHITE BLOOD COUNT 11.2(H) 4.5 - 11.0 thou/cu mm 08/02/2023 11:56 AM CDT [facility] RED BLOOD COUNT 2.63(L) 4.00 - 5.20 mil/cu mm 08/02/2023 11:56 AM CDT [facility] HEMOGLOBIN 6.0(LL) 12.0 - 16.0 g/dL 08/02/2023 11:56 AM CDT [facility] HEMATOCRIT 19.9(L) 33.0 - 51.0 % 08/02/2023 11:56 AM CDT [facility] MCV 76(L) 80 - 100 fL 08/02/2023 11:56 AM CDT [facility] MCH 22.8(L) 26.0 - 34.0 pg 08/02/2023 11:56 AM CDT [facility] MCHC 30.2(L) 32.0 - 36.0 g/dL 08/02/2023 11:56 AM CDT [facility] RDW 15.9(H) 11.5 - 15.5 % 08/02/2023 11:56 AM CDT [facility] PLATELET COUNT 461(H) 140 - 440 thou/cu mm 08/02/2023 11:56 AM CDT [facility] MPV 8.9 6.5 - 11.0 fL 08/02/2023 11:56 AM CDT [facility] % NEUT 66.7 % 08/02/2023 11:56 AM CDT [facility] % LYMPH 20.2 % 08/02/2023 11:56 AM CDT [facility] % MONO 12.2 % 08/02/2023 11:56 AM CDT [facility] % EOS 0.4 % 08/02/2023 11:56 AM CDT [facility] % BASO 0.5 % 08/02/2023 11:56 AM CDT [facility] ABSOLUTE NEUTROPHILS 7.5(H) 1.7 - 7.0 thou/cu mm 08/02/2023 11:56 AM CDT [facility] ABSOLUTE LYMPHOCYTES 2.3 0.9 - 2.9 thou/cu mm 08/02/2023 11:56 AM CDT [facility] ABSOLUTE MONOCYTES 1.4(H) <0.9 thou/cu mm 08/02/2023 11:56 AM CDT [facility] ABSOLUTE EOSINOPHILS 0.1 <0.5 thou/cu mm 08/02/2023 11:56 AM CDT [facility] ABSOLUTE BASOPHILS 0.1 <0.3 thou/cu mm 08/02/2023 11:56 AM CDT [facility] Blood BLOOD SPECIMEN / Unknown Butterfly / Unknown 08/02/2023 11:10 AM CDT 08/02/2023 11:10 AM CDT Sarthak Ko MD HEMATOLOGY Performing Organization Address City/State/[facility] Co de Phone Number [facility] [address] [place] [address], * TSH WITH REFLEX (08/02/2023 11:10 AM CDT) TSH 1.41 0.27 - 4.20 uIU/mL 08/02/2023 6:34 PM CDT [facility] Blood BLOOD SPECIMEN / Unknown Butterfly / Unknown 08/02/2023 11:10 AM CDT 08/02/2023 11:10 AM CDT Narrative [facility] - 08/02/2023 6:34 PM CDT In Adults, TSH values between 5.00 and 10.00 uIU/ml do not necessarily indicate the presence of Hypothyroidism. Correlation with clinical findings such as presence of goiter and/or Thyroperoxidase (TPO) Antibody may be helpful. For more information please refer to GIFTY 2004; 291: 228-238. Sarthak Ko MD CHEMISTRY Performing Organization Address [facility]/ZIP Co de Phone Number [facility] [address] [phone], * VITAMIN D 25 (DEFICIENCY) (08/02/2023 11:10 AM CDT) VITAMIN D TOTAL 60.0 20.0 - 80.0 ng/mL 08/02/2023 6:34 PM CDT [facility] Blood BLOOD SPECIMEN / Unknown Butterfly / Unknown 08/02/2023 11:10 AM CDT 08/02/2023 11:10 AM CDT Narrative [facility] - 08/02/2023 6:34 PM CDT ? Vitamin D Status Deficiency: ? <20 ng/mL Insufficiency: ?20-29 ng/mL Sufficiency: ?30-80 ng/mL Possible Toxicity: ??>80 ng/mL Based on [place] of Medicine recommendations Biotin supplements may cause clinically significant interference for this test assay. ??If interference is suspected, it is strongly recommended that biotin is discontinued for at least one week prior to retesting. Sarthak Ko MD SEND OUTS Performing Organization Address [facility] Co de Phone Number [facility] [address] [address], * (ABNORMAL) IRON PLUS IRON BINDING CAP (08/02/2023 11:10 AM CDT) IRON 14(L) 37 - 145 ug/dL 08/02/2023 6:35 PM CDT [facility] UIBC (UNSATURATED) 516(H) 112 - 347 ug/dL 08/02/2023 6:35 PM CDT [facility] IRON BINDING CAPACITY 530(H) 250 - 400 ug/dL 08/02/2023 6:35 PM CDT [facility] IRON,% SATURATION 3(L) 14 - 50 % 08/02/2023 6:35 PM CDT [facility] Blood BLOOD SPECIMEN / Unknown Butterfly / Unknown 08/02/2023 11:10 AM CDT 08/02/2023 11:10 AM CDT Sarthak Ko MD CHEMISTRY Performing Organization Address [facility] Co de Phone Number [facility] [address] [place] [address], * (ABNORMAL) RETICULOCYTES (08/02/2023 11:10 AM CDT) RETIC% 2.7(H) 0.5 - 1.5 % 08/02/2023 3:26 PM CDT [facility] RETIC (ABSOLUTE) 0.07 0.03 - 0.08 mil/cu mm 08/02/2023 3:26 PM CDT [facility] Blood BLOOD SPECIMEN / Unknown Venipuncture / Unknown 08/02/2023 11:10 AM CDT 08/02/2023 11:45 AM CDT Sarthak Ko MD HEMATOLOGY Performing Organization Address [facility] Co de Phone Number [facility] [address] [place] [address], * PHOSPHORUS (08/02/2023 11:10 AM CDT) PHOSPHORUS 3.1 2.5 - 4.5 mg/dL 08/02/2023 6:34 PM CDT [facility] Blood BLOOD SPECIMEN / Unknown Butterfly / Unknown 08/02/2023 11:10 AM CDT 08/02/2023 11:10 AM CDT Sarthak Ko MD CHEMISTRY Performing Organization Address City/[facility]/ZIP Co de Phone Number [facility] [address] [place] [address], * MAGNESIUM (08/02/2023 11:10 AM CDT) Only the most recent of2 resultswithin the time period is included. MAGNESIUM 2.0 1.6 - 2.4 mg/dL 08/02/2023 6:34 PM CDT [facility] Blood BLOOD SPECIMEN / Unknown Butterfly / Unknown 08/02/2023 11:10 AM CDT 08/02/2023 11:10 AM CDT Sarthak Ko MD CHEMISTRY Performing Organization Address [facility] Co de Phone Number [facility] [address] [place] [address], * (ABNORMAL) COMP METABOLIC PANEL (08/02/2023 11:10 AM CDT) SODIUM 137 136 - 145 mmol/L 08/02/2023 6:34 PM CDT [facility] POTASSIUM 4.4 3.5 - 5.1 mmol/L 08/02/2023 6:34 PM CDT [facility] CHLORIDE 100 98 - 107 mmol/L 08/02/2023 6:34 PM CDT [facility] CO2,TOTAL 21(L) 22 - 29 mmol/L 08/02/2023 6:34 PM CDT [facility] ANION GAP 16 5 - 18 08/02/2023 6:34 PM CDT [facility] GLUCOSE 104(H) 70 - 99 mg/dL 08/02/2023 6:34 PM T [facility] CALCIUM 10.7(H) 8.8 - 10.2 mg/dL 08/02/2023 6:34 PM CDT [facility] BUN 38(H) 8 - 23 mg/dL 08/02/2023 6:34 PM T [facility] CREATININE 1.61(H) 0.50 - 0.90 mg/dL 08/02/2023 6:34 PM CDT [facility] BUN/CREAT RATIO 24(H) 10 - 20 6:34 PM CDT [facility] eGFR 33(L) >90 mL/min/1.7 3m2 08/02/2023 6:34 PM CDT [facility] Comment:As of 2021, eG FR is calculated by the CKD-EPI creatinine equation without race adjustment. ??eGFR can be influenced by muscle mass, exercise, and diet. ??The reported eGFR is an estimation only and is only applicable if the renal function is stable. ALBUMIN 4.9 4.0 - 4.9 g/dL 08/02/2023 6:34 PM CDT [facility] PROTEIN,TOTAL 8.0 6.0 - 8.0 g/dL 08/02/2023 6:34 PM CDT [facility] BILIRUBIN,TOTAL 0.3 0.0 - 1.2 mg/dL 08/02/2023 6:34 PM CDT [facility] ALK PHOSPHATASE 78 35 - 104 IU/L 08/02/2023 6:34 PM CDT [facility] ALT (SGPT) 18 10 - 35 IU/L 08/02/2023 6:34 PM CDT [facility] AST (SGOT) 31 10 - 35 IU/L 08/02/2023 6:34 PM CDT [facility] Blood BLOOD SPECIMEN / Unknown Butterfly / Unknown 08/02/2023 11:10 AM CDT 08/02/2023 11:10 AM CDT Sarthak Ko MD CHEMISTRY [facility] [address] [place] [address], * (ABNORMAL) BASIC METABOLIC PANEL (06/10/2023 11:15 AM CDT) SODIUM 139 136 - 145 mmol/L 06/10/2023 5:35 PM CDT [facility] POTASSIUM 4.3 3.5 - 5.1 mmol/L 06/10/2023 5:35 PM CDT [facility] CHLORIDE 102 98 - 107 mmol/L 06/10/2023 5:35 PM T [facility] CO2,TOTAL 22 22 - 29 mmol/L 06/10/2023 5:35 PM CDT [facility] ANION GAP 15 5 - 18 06/10/2023 5:35 PM CDT [facility] GLUCOSE 117(H) 70 - 99 mg/dL 06/10/2023 5:35 PM T [facility] CALCIUM 10.6(H) 8.8 - 10.2 mg/dL 06/10/2023 5:35 PM T [facility] BUN 32(H) 8 - 23 mg/dL 06/10/2023 5:35 PM T [facility] CREATININE 1.47(H) 0.50 - 0.90 mg/dL 06/10/2023 5:35 PM T [facility] BUN/CREAT RATIO 22(H) 10 - 20 5:35 PM T [facility] eGFR 37(L) >90 mL/min/1.7 3m2 06/10/2023 5:35 PM T [facility] Comment:As of 2021, eG FR [...] 11:25 AM CDT Sarthak Ko MD CHEMISTRY [facility] [address] [place] [address], [place] * XR MAMMO ADINA BILAT SCREEN (05/07/2023 10:19 AM DOWEL PIN MAN) Anatomical Region Laterality Modality BREASTS, Breast Left, Breast Right Bilateral Mammography Impressions 05/08/2023 3:03 PM DOWEL PIN MAN ??There is no radiographic evidence for malignancy. ??Recommend annual mammograms. MAMMOGRAM ASSESSMENT: ??ACR 1 Negative PATIENTS: You will also receive a letter with your examination results in an easy to read format. ??If you have questions about your results, please contact your referring provider. Narrative 05/08/2023 3:03 PM DOWEL PIN MAN For Patients: As a result of the Century Cures Act, medical imaging exams and procedure reports are released immediately into your electronic medical record. You may view this report before your referring provider. If you have questions, please contact your health care provider. XR MAMMO ADINA BILAT SCREEN [[id number]] CLINICAL HISTORY: ??This is an asymptomatic 73 y.o. patient. INDICATION FOR EXAM: Mammogram Screening. TECHNIQUE: CC & MLO views were obtained. ??This study was evaluated with the assistance of Computer-Aided Detection. Breast Tomosynthesis was used in interpretation. COMPARISON FILM: Yes 04/05/22 [facility] 03/31/21 [facility] FINDINGS: ??The breasts have scattered areas of fibroglandular density. There are no dominant masses, suspicious micro calcifications or areas of architectural distortion. Sarthak Ko MD MAMMO * SCAN CORRESP-LABORATORY RESULTS (05/07/2023 12:00 AM DOWEL PIN MAN) Scanner OTHER * (ABNORMAL) LC LIPID PANEL AND CHOL/HDL RATIO (05/11/2022 10:02 AM DOWEL PIN MAN) Cholesterol, Total 171 100 - 199 mg/dL 05/16/2022 1:07 AM [facility] Triglycerides 196(H) 0 - 149 mg/dL 05/16/2022 1:07 AM [facility] HDL Cholesterol 41 >39 mg/dL 3 1:[address] [facility] ([facility]) VLDL Cholesterol Jonathan 34 5 - 40 mg/dL 05/16/2022 1:[address] [facility] ([facility]) LDL Chol Calc (NIH) 96 0 - 99 mg/dL 05/16/2022 1:[address] [facility] ([facility]) T. Chol/HDL Ratio 4.2 0.0 - 4.4 ratio 05/16/2022 1:[address] [facility] ([facility]) Comment: ?T. Chol/HDL Ratio ?Men ??Women ?1/2 Avg.Risk ??3.4 ?3.3 ?Avg.Risk ??5.0 ?4.4 ? 2X Avg.Risk ??9.6 ?7.1 ? 3X Avg.Risk 23.4 ?? 11.0 Blood BLOOD SPECIMEN / Unknown Venipuncture / Unknown 05/11/2022 10:02 AM [facility] 05/11/2022 10:02 AM [facility] ([facility]) - 05/16/2022 1:07 AM DOWEL PIN MAN Performed at: ??01 - [facility] [address] ??[id number] Mortgage Branch Manager: John Rock MD, Phone: ??[phone] Sarthak Ko MD SEND OUTS [facility] ([facility]) [facility] [place] [address], * XR DXA BONE DENSITY 2 SITES AXIAL (09/23/2017 10:06 AM CDT) Anatomical Region Laterality Modality Spine, HIPS, HIPL, HIPR Other Narrative 09/24/2017 5:58 PM CDT Please see scanned document for results of this study. Yamile Block DO DEXA * SCAN-COLONOSCOPY (05/28/2016 9:30 AM DOWEL PIN MAN) Narrative Procedure Note Yazmin Patricia MD - 05/28/2016 8:29 AM CST [facility] [address] [place] [address], [address], [place] [address] Patient Name: Jenifer Cuadra Gender: Female Exam Date: 05/28/2016 Visit Number: [id number] Age: 66 Years Date of : 1950 Attending MD: Yazmin Patricia MD Medical Record#: [id number] ----- Procedure: Colonoscopy Indications: Previous adenomatous polyp(s) family history colon cancer father/sister 60s Referring MD: Khalif Mon MD Primary MD: Cheryl Townsend Kammueller MD Medications: Complications: Procedure: An examination of [...] OTHER * ANTI HCV (03/11/2008 4:34 PM DOWEL PIN MAN) ANTI HCV Non-reacti ve [facility] Blood specimen (specimen) BLOOD SPECIMEN / Unknown 03/11/2008 4:34 PM DOWEL PIN MAN 03/11/2008 4:29 PM DOWEL PIN MAN Khalif Mon MD SEND OUTS [facility] INTERNAL ZIP [address] [place] [id number] from Last 3 Months or Most Recently Relevant to Health Maintenance Care Teams Mat Machine Operator Relationship Specialty [place] [id number] [address] [place] [place], [place] [id number] PCP - General Family Practice 04/05/22
--- OUTSIDE RECORDS SUMMARY | 2023-08-04 16:16 | XMS_ITS | Continuity of Care Document ---
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 BOTTLE Active [id number] 4 2023 90 Pharmac y Data Transac tion Service Facilit y ATORVASTATI N CALCIUM (atorvastat in calcium), 10 MG, TABLET, ORAL, [employer], 1000 ea. BOTTLE Active [id number] 4 2023 90 Pharmac y Data Transac tion Service Facilit y CARVEDILOL (carvedilol ), 12.5 MG, TABLET, ORAL, [employer] 500 ea. BOTTLE Active [id number] 4 2023 180 Pharmac y Data Transac tion Service Facilit y CYCLOBENZAP RINE HCL (cyclobenza tobias HCl), 5 MG, TABLET, ORAL, [employer] 100 ea. BOTTLE Active [id number] 4 2023 10 Pharmac y Data Transac tion Service Facilit y DOXEPIN HCL (doxepin HCl), 25 MG, CAPSULE, ORAL, [employer], 500 ea. BOTTLE Active [id number] 4 2023 90 Pharmac y Data Transac tion Service Facilit y DOXEPIN HCL (doxepin HCl), 25 MG, CAPSULE, ORAL, [employer], 500 ea. BOTTLE Active [id number] 4 2023 90 Pharmac y Data Transac tion Service Facilit y LOSARTAN POTASSIUM (losartan potassium), 100 MG, TABLET, ORAL, [employer] PHARMACE, 1000 ea. BOTTLE Active [id number] 4 2023 90 Pharmac y Data Transac tion Service Facilit y LOSARTAN POTASSIUM (losartan potassium), 100 MG, TABLET, ORAL, [employer] PHARMACE, 1000 ea. BOTTLE Active [id number] 2023 90 Pharmac y Data Transac tion Service Facilit y METFORMIN HCL (METFORMIN HCL), 500 MG, TABLET, ORAL, [employer] 1000 ea. BOTTLE Active [id number] 2023 180 Pharmac y Data Transac tion Service Facilit y METFORMIN HCL (METFORMIN HCL), 500 MG, TABLET, ORAL, [employer] 1000 ea. BOTTLE Cancele d [id number] : 2023 0 Pharmac y Data Transac tion Service Facilit y METFORMIN HCL (METFORMIN HCL), 500 MG, TABLET, ORAL, [employer] 1000 ea. BOTTLE Active [id number] 4 2023 180 Pharmac y Data Transac tion Service Facilit y METFORMIN HCL (METFORMIN HCL), 500 MG, TABLET, ORAL, [employer] 1000 ea. BOTTLE Active [id number] 2023 60 Pharmac y Data Transac tion Service Facilit y METOPROLOL SUCCINATE (metoprolol succinate), 25 MG, TAB ER 24H, ORAL, [employer]ARMAC, 1000 ea. BOTTLE Active [id number] 4 2023 90 Pharmac y Data Transac tion Service Facilit y NIFEDIPINE ER (nifedipine ), 30 MG, TAB ER 24, ORAL, [employer] PHARM, 100 ea. BOTTLE Active [id number] 2023 90 Pharmac y Data Transac tion Service Facilit y NIFEDIPINE ER (nifedipine ), 30 MG, TAB ER 24, ORAL, [employer] PHARM, 100 ea. BOTTLE Active [id number] 4 2023 90 Pharmac y Data Transac tion Service Facilit y TRIAMTERENE -HCTZ (TRIAMTEREN E/HYDROCHLO ROTHIAZID), 75-50MG, TABLET, ORAL, APOTEX BEV, 500 ea. BOTTLE Active [id number] 4 2023 90 Pharmac y Data Transac tion Service Facilit y TRIAMTERENE -HCTZ (TRIAMTEREN E/HYDROCHLO ROTHIAZID), 75-50MG, TABLET, ORAL, APOTEX BEV, 500 ea. BOTTLE Active [id number] 4 2023 90 Pharmac y Data Transac tion Service Facilit y TRIAMTERENE -HCTZ (TRIAMTEREN E/HYDROCHLO ROTHIAZID), 75-50MG, TABLET, ORAL, APOTEX BEV, 500 ea. BOTTLE Active [id number] 2023 90 Pharmac y Data Transac tion Service Facilit y Immunizations Combined list of available immunizations from the Department of Defense and Veterans Affairs facilities. 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 Social History Type Response Date Comment [facility] e This section is an empty social history section. DoD
[2023-08-04 17:00] LABS: Basophils Percent Auto 0.8 % (0.0-3.0); Eosinophils Percent Auto 0.5 % (0.0-7.0); Hematocrit 24.3 % (33.0-51.0); Immature Granulocytes Pct Auto 0.5 %; Lymphocytes Percent Auto 23.2 % (20-44); Mean Corpuscular HGB Conc 31 gm/dL (32-36); Mean Corpuscular Hemoglobin 23 pg (26-34); Mean Corpuscular Volume 76 fL (80-100); Monocytes Percent Auto 9.9 % (0.0-11.0); Neutrophils Percent Auto 65.1 % (42.0-72.0); Platelet Count* 420 K/uL (140-440); RDW Coefficient of Variation % 16.7 % (11.5-15.5); Red Blood Count 3.21 m/uL (4.00-5.20); White Blood Count* 11.46 K/uL (4.50-11.00)
[2023-08-04 17:08] LABS: Hemoglobin* 7.4 gm/dL (12.0-16.0); Slide Review Reflex No
[2023-08-04 17:17] LABS: Chloride* 102 mmol/L (96-114); Potassium* 4.2 mmol/L (3.6-5.1); Sodium* 137 mmol/L (135-149)
[2023-08-04 17:20] LABS: Anion Gap 13 mEq/L (7-15); Blood Urea Nitrogen* 42 mg/dL (7-30); Calcium* 10.3 mg/dL (8.4-10.6); Carbon Dioxide* 22 mmol/L (20-32); Creatinine* 1.7 mg/dL (0.5-1.5); Est. Creatinine Clearance* 26.13; Estimated Glomerular Filt Rate 31 ml/min; Glucose* 112 mg/dL (60-115)
[2023-08-06 08:52] LABS: Fecal Occult Blood* Negative (Negative)
== END 2023-08-04 19:15 | disposition home or self-care (01) ==
PROVIDERS: Emergency Provider Emergency Medicine; PCP Family Medicine
DX: D64.9 Anemia, unspecified (principal)
CPT/HCPCS: 36415; 80048; 82270; 83605; 85025; 86850; 86900; 86901; 99283

== ENCOUNTER 2023-08-12 09:59 | Outpatient (CLI) | payer MEDICARE, OTHER, SELFPAY ==
--- OUTSIDE RECORDS SUMMARY | 2023-08-12 10:03 | XMS_ITS | Continuity of Care Document ---
Author Name [facility] Organization 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 Unavailable Unavailable Medications Combined list of outpatient [...] ORAL, APOTEX BEV, 1000 ea. BOTTLE Active [id number] 4 2023 90 Pharmac y Data Transac tion Service Facilit y ATORVASTATI N CALCIUM (atorvastat in calcium), 10 MG, TABLET, ORAL, [employer], 1000 ea. BOTTLE Active [id number] 4 2023 90 Pharmac y Data Transac tion Service Facilit y CARVEDILOL (carvedilol ), 12.5 MG, TABLET, ORAL, [employer] 500 ea. BOTTLE Active [id number] 4 2023 180 Pharmac y Data Transac tion Service Facilit y CYCLOBENZAP RINE HCL (cyclobenza tobias HCl), 5 MG, TABLET, ORAL, [employer] 100 ea. BOTTLE Active [id number] 4 2023 10 Pharmac y Data Transac tion Service Facilit y DOXEPIN HCL (doxepin HCl), 25 MG, CAPSULE, ORAL, [employer], 500 ea. BOTTLE Active [id number] 4 2023 90 Pharmac y Data Transac tion Service Facilit y DOXEPIN HCL (doxepin HCl), 25 MG, CAPSULE, ORAL, [employer], 500 ea. BOTTLE Active [id number] 4 2023 90 Pharmac y Data Transac tion Service Facilit y GAVILYTE-G (PEG 3350/NA SULF,BICARB ,CL/KCL), 236-22.74G, SOLN RECON, ORAL, [employer] PHARMACEU, 4000 ml BOTTLE Active [id number] 4 2023 4000 Pharmac y Data Transac tion Service Facilit y LOSARTAN POTASSIUM (losartan potassium), 100 MG, TABLET, ORAL, [employer] PHARMACE, 1000 ea. BOTTLE Active [id number] 4 2023 90 Pharmac y Data Transac tion Service Facilit y LOSARTAN POTASSIUM (losartan potassium), 100 MG, TABLET, ORAL, [employer] PHARMACE, 1000 ea. BOTTLE Active [id number] 4 2023 90 Pharmac y Data Transac tion Service Facilit y METFORMIN HCL (METFORMIN HCL), 500 MG, TABLET, ORAL, [employer] 1000 ea. BOTTLE Active [id number] 4 2023 180 Pharmac y Data Transac tion Service Facilit y METFORMIN HCL (METFORMIN HCL), 500 MG, TABLET, ORAL, [employer] 1000 ea. BOTTLE Cancele d [id number] : 2023 0 Pharmac y Data Transac tion Service Facilit y METFORMIN HCL (METFORMIN HCL), 500 MG, TABLET, ORAL, [employer] 1000 ea. BOTTLE Active [id number] 4 2023 180 Pharmac y Data Transac tion Service Facilit y METOPROLOL SUCCINATE (metoprolol succinate), 25 MG, TAB ER 24H, ORAL, [facility], 1000 ea. BOTTLE Active [id number] 2023 90 Pharmac y Data Transac tion Service Facilit y NIFEDIPINE ER (nifedipine ), 30 MG, TAB ER 24, ORAL, [employer] PHARM, 100 ea. BOTTLE Active [id number] 4 2023 90 Pharmac y Data Transac tion Service Facilit y NIFEDIPINE ER (nifedipine ), 30 MG, TAB ER 24, ORAL, [employer] PHARM, 100 ea. BOTTLE Active [id number] 4 2023 90 Pharmac y Data Transac tion Service Facilit y TRIAMTERENE -HCTZ (TRIAMTEREN E/HYDROCHLO ROTHIAZID), 75-50MG, TABLET, ORAL, APOTEX BEV, 500 ea. BOTTLE Active [id number] 4 2023 90 Pharmac y Data Transac tion Service Facilit y TRIAMTERENE -HCTZ (TRIAMTEREN E/HYDROCHLO ROTHIAZID), 75-50MG, TABLET, ORAL, APOTEX BEV, 500 ea. BOTTLE Active [id number] 4 2023 90 Pharmac y Data Transac tion Service Facilit y TRIAMTERENE -HCTZ (TRIAMTEREN E/HYDROCHLO ROTHIAZID), 75-50MG, TABLET, ORAL, APOTEX BEV, 500 ea. BOTTLE Active [id number] 4 2023 90 Pharmac y Data Transac tion Service Facilit y Immunizations Combined list of available immunizations from the Department of Defense and Veterans Affairs facilities. 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 Social History Type Response Date Comment Sourc e This section is an empty social history section. DoD
--- OUTSIDE RECORDS SUMMARY | 2023-08-12 10:03 | XMS_ITS | Clinical Summary ---
Author Name Unknown Organization [employer] [facility] Address [place], [place] [address] Care Team Providers Care Supervisor Accounting Clerks Name Role Phone Pao Paul MD Primary Care Provider [phone] Allergies Active Allergy Reactions Criticality Noted Date [...] WITH MEALS 180 Tablet 3 4 Active ferrous sulfate, 65 mg elemental, (Iron) tablet Take 325 mg by mouth once daily with a meal. Active Hospital, Clinic, or Other Facility Administered [...] Encounters Date Type Department Care Team Description 08/06/2023 12:05 PM CDT - 08/06/2023 11:59 PM CDT Hospital Encounter [facility] Emergency Department [address] [place] [address] Pao Paul MD SOB (shortness of breath); Fatigue, unspecified type; Leg pain, bilateral 08/06/2023 10:25 AM CDT Office Visit [facility] [address] [place] [address] Pao Paul MD Hospital F/U ([place] ) 08/06/2023 Telephone [facility] [address] [place] [address] Pao Paul MD Results 08/06/2023 Travel 08/05/2023 Telephone [facility] [address] [place] [address] Pao Paul MD Results 08/05/2023 Telephone [facility] [address] [place] [address] Pao Paul MD Order 08/05/2023 Telephone [facility] [address] [place] [address] Pao Paul MD Procedure (Iron transfusion) 08/05/2023 Telephone [facility] [address] [facility] [address] Pao Paul MD Results 08/02/2023 10:25 AM CDT Office Visit [facility] [address] [place] [address] Pao Paul MD Follow Up (Blood pressure medication, having shortness of breath and fatigue, palpitations //Still having cramping in legs ) 08/02/2023 Telephone [facility] [address] [place] [address] Pao Paul MD Refill Request (EGG Also Colonooscpy) 08/02/2023 Travel 07/30/2023 10:59 AM CDT - 07/30/2023 11:59 PM CDT Hospital Encounter [facility] [place] [address] [place] [address] Pao Paul MD 07/30/2023 Travel 07/18/2023 Telephone [facility] [place] [address] [facility] [address] [place] [phone] Everett Rios MD 07/18/2023 Orders Only [facility] Joint Replacement [facility] [address] [facility] [address] [place] [address] Everett Rios MD <No scans attached> 07/17/2023 8:30 AM CDT Office Visit [facility] [address] [place] [address] Lin Velasquez PA Recheck (bilateral knee pain) 07/17/2023 Travel 07/08/2023 Telephone [facility]placement [facility] [address] [address] [place] [address] Lin Velasquez PA 07/05/2023 10:51 AM CDT - 07/05/2023 11:59 PM CDT Hospital Encounter [facility] [address] [place] [address] Pao Paul MD 07/05/2023 Travel 07/04/2023 Telephone [facility]placement [facility] [address] [address] [place] [address] Everett Rios MD Questions (APPOINTMENT FOR INJECTIONS ) 07/01/2023 Refill [facility] [address] [place] [address] Pao Paul MD Refill Request (Metformin) 06/21/2023 10:11 AM CDT - 06/21/2023 11:59 PM CDT Hospital Encounter [facility] [address] [place] [address] Pao Paul MD 06/21/2023 Travel 06/10/2023 10:50 AM CDT Office Visit [facility] [address] [place] [address] Pao Paul MD Leg Pain/problem (Nerve pain ); Palpitations (Feels like heart throbs/) 06/10/2023 Telephone [facility] [address] [place] [address] Pao Paul MD Results 06/10/2023 Travel 06/07/2023 Travel 05/31/2023 9:54 AM YARD SPECIALIST - 05/31/2023 11:59 PM YARD SPECIALIST [facility] [address] [place] [address] Pao Paul MD 05/31/2023 Travel 05/21/2023 10:22 AM YARD SPECIALIST - 05/21/2023 11:59 PM YARD SPECIALIST Hospital Encounter [facility] [address] [place] [address] Pao Paul MD 05/21/2023 Travel 05/16/2023 12:56 PM YARD SPECIALIST - 05/16/2023 11:59 PM YARD SPECIALIST Hospital En[facility] [address] [place] [address] Pao Paul MD Finkel, Joann M, PT Right sided sciatica 05/16/2023 Travel from Last 3 Months Immunizations Name Administration Dates Next Due COVID-19 vaccine (Linq3-Bio NTKontest 30mcg/0.3mL) 12YO+ BIVALENT PF, MDV 12/29/2021 Hepatitis [...] 04/01/1976 Smokeless Tobacco: Never Tobacco Cessation:Counseling Given: Not Answered Comments:quit 1976 Alcohol Use Standard Drinks/Week Comments [...] Sign Reading Time Taken Comments Blood Pressure 142/60 08/06/2023 10:43 AM CDT Pulse 102 08/06/2023 10:43 AM CDT Temperature 36.8 ??C (98.3 ??F) 08/06/2023 10:43 AM C DT Respiratory Rate 24 05/06/2023 2:16 PM YARD SPECIALIST Oxygen Saturation 95% 08/06/2023 10:43 AM CDT Inhaled Oxygen Concentration - - Weight 97.8 kg (215 lb 9.6 oz) 08/02/2023 10:20 AM CDT Height 165.1 cm (5' 5) 06/10/2023 10:39 AM CDT Body Mass Index 35.88 06/10/2023 10:39 AM CDT Plan of Treatment Upcoming Encounters Date Type Department Care Team (Late st Contact Info) Description 08/29/2023 11:00 AM CDT Office Visit [facility] [address] [place] [address] [place] [address] [place] [address] 10/08/2023 11:00 AM CDT Ancillary Procedure [address] [phone] 10/16/2023 10:00 AM CDT Office Visit [address] [phone] Everett Rios MD [address] [place], [place] [phone] 11/06/2023 10:00 AM CDT Office Visit [address] [phone] Lin Velasquez PA [address] [place] [address] 12/04/2023 10:00 AM CDT Office Visit [address] [phone] Everett Rios MD [address] [place] [address] Scheduled Procedures Name Priority Associated Diagnoses Date/Ti [...] history exists Mammogram for age 45-75 05/07/2024 05/07/19, 04/05/2022, 03/31/2021, Additional history exists BMI (ht [...] Procedure Name Priority Date/Time Associated Diagnosis Comments ECHO TTE COMPLETE WO CONTRAST Routine 08/06/2023 1:10 PM CDT SOB (shortness of breath) Fatigue, unspecified type Leg pain, bilateral PERIPHERAL BLD MORPHOLOGY Routine 08/02/2023 11:45 AM CDT SOB (shortness of breath) Fatigue, unspecified type IRON PLUS IRON BINDING CAP Add On [...] ADINA BILAT SCREEN Routine 05/07/2023 10:19 AM YARD SPECIALIST Visit for screening mammogram LC LIPID PANEL AND CHOL/HDL RATIO Routine 05/11/2022 10:02 AM YARD SPECIALIST Type 2 diabetes mellitus with other specified complication, without long-term current use of insulin (HC) HYPERCHOLESTEROLEMI A, PURE XR DXA BONE DENSITY 2 SITES AXIAL Routine 09/23/2017 10:06 AM CDT Post-menopausal SCAN-COLONOSCOPY 05/28/2016 9:30 AM YARD SPECIALIST ANTI HCV Routine 03/11/2008 4:34 PM YARD SPECIALIST Elev Transaminase/LDH from Last 3 Months or Most Recently Relevant to Health Maintenance Results * ECHO TTE COMPLETE WO CONTRAST (08/06/2023 1:10 PM CDT) EJECTION FRACTION 60-65% PROSOLV Anatomical Region Laterality Modality Ultrasound 08/06/2023 12:3 4 PM CDT Narrative 08/06/2023 5:05 PM CDT [address], [place] [address] Main: ? Transthoracic Echo Report BJ CUADRAGRIFFIN Zaman ID: [id number] Age: 73 : 1950 Ordering Provider: PAO PAUL Exam Date: 08/06/2023 12:34 Gender: F Family Medicine Physician: [facility] Height: 65 in BSA: 2.04 m?? BP: 150 / 60 Weight: 216 lbs BMI: 36 kg/m?? HR: 94 Location: [facility] Rhythm: Normal Sinus Rhythm Procedure Components: 2D imaging, Color Doppler, Spectral Doppler Indications: SOB (shortness of breath); Leg pain, bilateral; Leg pain, bilateral; Fatigue, unspecified type Technical Quality: Fair Contrast: None Final Conclusion Previous Study: 07/22/2012 1. Normal left ventricular chamber size. Normal left ventricular wall thickness. Normal left ventricular systolic function. Calculated left ventricular ejection fraction (modified Mcelroy technique) is 60%. No regional wall motion abnormalities. 2. Normal right ventricular chamber size. Normal right ventricular systolic function. 3. No significant valvular heart disease. When compared to the previous echocardiographic images of 07/22/2012, there has been no significant change. Estimated EF: 60-65% FINDINGS Left Ventricle Normal left ventricular chamber size. Normal left ventricular wall thickness. Normal left ventricular systolic function. Calculated left ventricular ejection fraction (modified Mcelroy technique) is 60%. No regional wall motion abnormalities. Diastolic Function Normal left ventricular diastolic function. Right Ventricle Normal right ventricular chamber size. Normal right ventricular systolic function. Right ventricular systolic pressure cannot be estimated due to inability to detect peak tricuspid regurgitation Doppler velocity. Left Atrium Normal left atrial size. Left atrial volume index is 24ml/m??. Right Atrium Normal right atrial size. Atrial Septum No evidence of inter-atrial shunt by color flow Doppler. Aortic Valve Aortic valve morphology not well-visualized. ??Aortic valve sclerosis without stenosis. Trivial aortic valve regurgitation. Mitral Valve Mildly calcified mitral annulus. Mitral valve sclerosis. No mitral valve stenosis. Trivial mitral valve regurgitation. Tricuspid Valve Normal tricuspid valve. No tricuspid valve regurgitation. Pulmonic Valve Pulmonary valve was not well visualized. No pulmonary valve regurgitation. Pericardium No pericardial effusion. Prominent epicardial fat pad. Aorta Aortic sinus of Valsalva is normal in size (3.1 cm, ZScore = -1.4). Normal indexed ascending aorta dimension (3.7 cm, 1.8 cm/m??). Inferior Vena Cava Normal inferior vena cava size with normal inspiratory collapse. MEASUREMENTS ??(Male / Female) Normal Values 2D MEASUREMENTS AND LV FUNCTION IVS Diastolic Thickness ? 1.07 cm ? < 1.1 cm / < 1.0 cm LV Diastolic Diameter PLAX ?4.56 cm ? 4.2 - 5.9 / 3.9 - 5.3 cm LV Diastolic Diameter Index ? 2.23 cm/m?? LVPW Diastolic Thickness ?1.06 cm ? < 1.1 cm / < 1.0 cm LV Systolic Diameter PLAX ? 2.75 cm LV Systolic Diameter Index ?1.35 cm/m?? LVOT Diameter ? 1.98 cm LVOT Cardiac Output ? 7.12 l/min LVOT Cardiac Index ?3.29 l/min??m?? LVOT Stroke Volume ?75.7 ml Stroke Volume Index ? 35 ml/m?? LV Ejection Fraction MOD BP ? 60.2 % ?>= 55 ??% LA Volume Index MOD BP ?24.3 ml/m?16 - 34 ml/m?? RV Diastolic Basal Diameter ? 3.9 cm LV Mass ? 171 g LV Mass Index ? 80.6 g/m?? Sinuses of Valsalva Diameter(d) ?? 3.12 cm Ascending Aorta Diameter(s) ? 3.68 cm Ascending Aorta Index ? 1.8 cm/m?? DIASTOLOGY Mitral E Point Velocity ? 0.72 m/sec ?0.70 - 1.02 m/sec Mitral A Point Velocity ? 1.12 m/sec ?0.06 - 1.06 m/sec Mitral E to A Ratio ? 0.643 ? 1.1 - 2.1 MV Deceleration Time ?246 msec ?167 - 231 msec LV E' Lateral Velocity ?0.0696 m/sec Mitral E to LV E' Lateral Ratio ?? 10.3 LV E' Septal Velocity ? 0.0858 m/sec Mitral E to LV E' Septal Ratio ?8.39 AORTIC VALVE AV Peak Velocity ?1.96 m/sec ?< 2.0 m/sec AV Peak Gradient ?15.4 mmHg AV Mean Gradient ?9.01 mmHg AV Velocity Time Integral ? 36.4 cm LVOT Peak Velocity ?1.37 m/sec LVOT Velocity Time Integral ? 24.6 cm AV Area Cont Eq vti ? 2.08 cm?? AV Area Cont Eq pk ?2.15 cm?? AV Dimensionless Index ?0.676 MITRAL VALVE MV Peak Gradient ?5.57 mmHg MV Mean Gradient ?2.79 mmHg MV Velocity Time Integral ? 22.2 cm TRICUSPID VALVE AND ESTIMATED PRESSURES Right Atrial Pressure ? 3 mmHg HCM DATA LVOT LAURI (r) ?7.51 mmHg Aortic Root ZScore: -1.[address] MD (Electronically Signed) [facility] Accredited Site Final Date: 06 Aug 2023 17:05 ICD-10 Codes: R06.02; M79.604; M79.605; R53.[address] MBBS - 08/06/[address], [place] [address] Main: Transthoracic Echo Report MAURISIO CUADRA Ciarraian ID: [id number] Age: 73 : 1950 Ordering Provider:PAO PAUL Exam Date: 08/06/2023 12:34 Gender: F Family Medicine Physician: NATALYA Height: 65 in BSA: 2.04 m?? BP: 150 / 60 Weight: 216 lbs BMI: 36 kg/m?? HR: 94 Location: [facility] Rhythm: Normal SinusRhythm Procedure Components: 2D imaging, Color Doppler, Spectral Doppler Indications: SOB (shortness of breath); Leg pain, bilateral; Leg pain,bilateral; Fatigue, unspecified type Technical Quality: Fair Contrast: None Final Conclusion Previous Study: 07/22/2012 1. Normal left ventricular chamber size. Normal left ventricular wallthickness. Normal left ventricular systolic function. Calculated left ventricular ejection fraction (modified Mcelroy technique) is 60%. Noregional wall motion abnormalities. 2. Normal right ventricular chamber size. Normal right ventricularsystolic function. 3. No significant valvular heart disease. When compared to the previous echocardiographic images of 07/22/2012,there has been no significant change. Estimated EF: 60-65% FINDINGS Left Ventricle Normal left ventricular chamber size. Normal leftventricular wall thickness. Normal left ventricular systolic function. Calculated left ventricular ejection fraction (modified Simpsontechnique) is 60%. No regional wall motion abnormalities. Diastolic Function Normal left ventricular diastolic function. Right Ventricle Normal right ventricular chamber size. Normal rightventricular systolic function. Right ventricular systolic pressure cannot be estimated due to inability to detect peak tricuspidregurgitation Doppler velocity. Left Atrium Normal left atrial size. Left atrial volume index is24ml/m??. Right Atrium Normal right atrial size. Atrial Septum No evidence of inter-atrial shunt by color flow Doppler. Aortic Valve Aortic valve morphology not well-visualized. Aortic valvesclerosis without stenosis. Trivial aortic valve regurgitation. Mitral Valve Mildly calcified mitral annulus. Mitral valve sclerosis. Nomitral valve stenosis. Trivial mitral valve regurgitation. Tricuspid Valve Normal tricuspid valve. No tricuspid valveregurgitation. Pulmonic Valve Pulmonary valve was not well visualized. No pulmonaryvalve regurgitation. Pericardium No pericardial effusion. Prominent epicardial fat pad. Aorta Aortic sinus of Valsalva is normal in size (3.1 cm, ZScore = -1.4).Normal indexed ascending aorta dimension (3.7 cm, 1.8 cm/m??). Inferior Vena Cava Normal inferior vena cava size with normal inspiratorycollapse. MEASUREMENTS (Male / Female) Normal Values 2D MEASUREMENTS AND LV FUNCTION IVS Diastolic Thickness 1.07 cm < 1.1 cm / < 1.0cm LV Diastolic Diameter PLAX 4.56 cm 4.2 - 5.9 / 3.9 -5.3 cm LV Diastolic Diameter Index 2.23 cm/m?? LVPW Diastolic Thickness 1.06 cm < 1.1 cm / < 1.0cm LV Systolic Diameter PLAX 2.75 cm LV Systolic Diameter Index 1.35 cm/m?? LVOT Diameter 1.98 cm LVOT Cardiac Output 7.12 l/min LVOT Cardiac Index 3.29 l/min??m?? LVOT Stroke Volume 75.7 ml Stroke Volume Index 35 ml/m?? LV Ejection Fraction MOD BP 60.2 % >= 55 % LA Volume Index MOD BP 24.3 ml/m?? 16 - 34 ml/m?? RV Diastolic Basal Diameter 3.9 cm LV Mass 171 g LV Mass Index 80.6 g/m?? Sinuses of Valsalva Diameter(d) 3.12 cm Ascending Aorta Diameter(s) 3.68 cm Ascending Aorta Index 1.8 cm/m?? DIASTOLOGY Mitral E Point Velocity 0.72 m/sec 0.70 - 1.02m/sec Mitral A Point Velocity 1.12 m/sec 0.06 - 1.06m/sec Mitral E to A Ratio 0.643 1.1 - 2.1 MV Deceleration Time 246 msec 167 - 231 msec LV E' Lateral Velocity 0.0696 m/sec Mitral E to LV E' Lateral Ratio 10.3 LV E' Septal Velocity 0.0858 m/sec Mitral E to LV E' Septal Ratio 8.39 AORTIC VALVE AV Peak Velocity 1.96 m/sec < 2.0 m/sec AV Peak Gradient 15.4 mmHg AV Mean Gradient 9.01 mmHg AV Velocity Time Integral 36.4 cm LVOT Peak Velocity 1.37 m/sec LVOT Velocity Time Integral 24.6 cm AV Area Cont Eq vti 2.08 cm?? AV Area Cont Eq pk 2.15 cm?? AV Dimensionless Index 0.676 MITRAL VALVE MV Peak Gradient 5.57 mmHg MV Mean Gradient 2.79 mmHg MV Velocity Time Integral 22.2 cm TRICUSPID VALVE AND ESTIMATED PRESSURES Right Atrial Pressure 3 mmHg HCM DATA LVOT LAURI (r) 7.51 mmHg Aortic Root ZScore: -1.[address] MD (Electronically Signed) [facility] Site Final Date: 06 Aug 2023 17:05 ICD-10 Codes: R06.02; M79.604; M79.605; R53.83 Pao Paul MD ECHO ORD * PERIPHERAL BLD MORPHOLOGY (08/02/2023 11:45 AM CDT) Case Report Special Hematology Report ? Case: [id number] ? Authorizing Provider: ??Pao Paul MD ? Collected: ? 08/02/2023 1145 ? Ordering Location: ? [facility] ?? Received: ?08/02/2023 1145 ? Clinic ? Pathologist: ? Dann Montoya MD ? Specimen: ?Blood ? 11:28 AM [facility] Final Diagnosis PERIPHERAL BLOOD: 1. Marked microcytic, hypochromic anemia compatible with iron deficiency anemia 2. Mild thrombocytosis, favor reactive 3. Mild leukocytosis reflecting mild absolute neutrophilia and monocytosis, favor reactive 4. See comment 11:28 AM [facility] Comment The CBC indices and iron studies performed 08/02/2023 are compatible with iron deficiency anemia. A ferritin level may be helpful further confirming this process. The most common cause for iron deficiency is occult anatomic blood loss. Other etiologies include deficient nutritional intake, and malabsorption issues (Helicobactor pylori, gastric bypass, Crohn's disease, celiac sprue, excessive use of antacids containing calcium carbonate). There are no features of hemolysis or findings to suggest a primary bone marrow disorder. Thrombocytosis is commonly associated with iron deficiency as a reactive component and should resolve when the iron stores are adequately replenished. If the thrombocytosis persists (>450K) after adequate iron replacement (and without identifiable clinical etiology), recommend further evaluation to assess thrombocytosis. There are no morphologic features to suggest the etiology of the neutrophilia and monocytosis. The findings may be reactive. There are no definitive dysplastic features. However, if the neutrophilia and monocytosis persist without etiology, increase in magnitude, or additional hemogram abnormalities develop (over the next six to nine months), consideration should be given to repeating a peripheral blood morphology study. This case was also reviewed by Sun Wilkerson MT, MS (ASCP). 4 11:28 AM CDT [facility] Clinical Information The patient is a 73-year-old female. Pertinent clinical information: Anemia Per EPIC: Additional history includes hypertension, venous insufficiency, diabetes, hyperparathyroidism due to renal insufficiency, fatty liver, and hypertensive kidney disease. She has had a persistent monocytosis since 2019. 08/02/23 11:10 CREATININE: ?1.61 (H) eGFR: ?33 (L) 08/02/23 11:10 IRON: ?14 (L) IRON BINDING CAPACITY ?: 530 (H) IRON,% SATURATION ?: 3 (L) UIBC (UNSATURATED) ? : 516 (H) 4 11:28 AM CDT [facility]AL LAB[facility]AT[facility] CBC and Differential HEMATOLOGY PARAMETERS Tested at: ??[facility] ? RESULTS ??EXPECTED VALUES WBC: ? 11.2 ? 4.5-29e7623/cumm ?ELEVATED RBC: ? 2.63 ? 4.00-5.20 mil/cumm ??DECREASED HGB: ? 6.0 ?12-16 gm/dl ? DECREASED HCT: ? 19.9 ? 33-51% ?DECREASED MCV: ? 76.0 ? 80-100 fl ? MICROCYTIC MCH: ? 22.8 ? 26-34 pg ?DECREASED MCHC: ?30.2 ? 32-36 gm/dl ? HYPOCHROMIC RDW: ? 15.9 ? 11.5-15.5% ?ELEVATED PLT: ? 461 ?140-233e3069/uL ? ELEVATED MPV: ? 8.9 ?6.5-11 fl ? Retic: ?? 2.7 ?0.5-1.5% ?ELEVATED Differential ?Absolute (%) ?Expected (%) ?(x10*9/L) ? (x10*9/L) Neutrophils: ?7.5 (67) ?1.7-7.0 (42-72%) ?ELEVATED Lymphocytes: ?2.3 (20.5) ?0.9-2.9 (20-44%) ?? Monocytes: ?1.4 (12.5) ? <0.9 (0-11%) ? ELEVATED Eosinophils: ?0.1 (.9) ? <0.5 (0-2%) ? Basophils: ?0.1 (.9) ? <0.3 (<3.0%) ? 4 11:28 AM [facility] Microscopic Description The final diagnosis is based on microscopic examination of an appropriately stained blood smear. 4 11:28 AM [facility] Additional Information Interpreted at [facility], Central Laboratory - [address] [facility] [address], [place] [address] 4 11:28 AM [facility] Blood BLOOD SPECIMEN / Unknown Venipuncture / Unknown 08/02/2023 11:45 AM CDT 08/02/2023 11:45 AM CDT Comment:CURRENT MEDICATIONSC urrent Outpatient Medications: ? ? atorvastatin (LIPITOR) 10 mg tablet, TAKE 1 TABLET AT BEDTIME, Disp: 90 Tablet, Rfl: 3? ? blood sugar diagnostic (FreeStyle Lite Strips) strip, USE TO TEST ONCE DAILY, Disp: 100 Each, Rfl: 3? ? blood-glucose meter (FREESTYLE LITE METER), Dispense meter, test strips, lancets covered by pt ins. 250.00 NIDDM type II - Test 1 time/day, Disp: 1 Device, Rfl: 0? ? carvediloL (COREG) 12.5 mg tablet, Take 12.5 mg by mouth two times daily., Disp: , Rfl: ? ? cholecalciferol (Vitamin D-3) 2,000 unit capsule, Take 1 Capsule (2,000 units) by mouth once daily., Disp: , Rfl: 0? ? CPAP, CPAP machine for home use at pressure: 10 cm/H2O with epr of 3 , Heated humidifier x 1, Humidifier chamber x 1, nasal pillow mask with pillow cushion x 1, standard tubing x 1, Headgear x 1, Filters: Disposable x 1pk & Reusable x 1pk, Length of Need: 99 months, Frequency of use: Daily, Disp: 1 Each, Rfl: 11? ? cyclobenzaprine (FLEXERIL) 5 mg tablet, Take 1 Tablet (5 mg) by mouth 3 times daily if needed for Muscle Spasm., Disp: 10 Tablet, Rfl: 1? ? doxepin 25 mg capsule, TAKE 1 CAPSULE AT BEDTIME, Disp: 90 Capsule, Rfl: 1? ? losartan (COZAAR) 100 mg tablet, Take 1 Tablet (100 mg) by mouth once daily., Disp: 90 Tablet, Rfl: 3? ? metFORMIN (GLUCOPHAGE) 500 mg tablet, TAKE 1 TABLET TWICE A DAY WITH MEALS, Disp: 180 Tablet, Rfl: 3? ? multivitamin capsule, Take 1 Capsule by mouth once daily., Disp: , Rfl: ? ? NIFEdipine (PROCARDIA XL) 30 mg extended-release tablet, TAKE 1 TABLET DAILY BEFORE A MEAL, Disp: 90 Tablet, Rfl: 3? ? OMEPRAZOLE 20 MG CAP, DELAYED RELEASE, take one tab po qd, Disp: 30, Rfl: 1 yr? ? triamterene-hydrochlorothiazide, 75-50 mg, (MAXZIDE) 75-50 mg tablet, Take 1 Tablet by mouth every morning., Disp: 90 Tablet, Rfl: 3 Pao Paul MD HEMATOLOGY Performing Organization Address [facility]/ZIP Co de Phone Number [facility] [address] [place] [address], * CWS PATH REVIEW HEMATOLOGY (08/02/2023 11:10 AM CDT) PATH COMMENT Reviewed by KT on 08/04/2023 08/04/2023 2:32 PM CDT [facility] Blood BLOOD SPECIMEN / Unknown Butterfly / Unknown 08/02/2023 11:10 AM CDT 08/02/2023 11:10 AM CDT Pao Paul MD LABORATORY Performing Organization Address City/[facility] Co de Phone Number [facility] [address] [place] [address], [place] * (ABNORMAL) CBC WITH AUTO DIFFERENTIAL (08/02/2023 11:10 AM CDT) WHITE BLOOD COUNT 11.2(H) 4.5 - 11.0 thou/cu mm 08/02/2023 11:56 AM CDT [facility] RED BLOOD COUNT 2.63(L) 4.00 - 5.20 mil/cu mm 08/02/2023 11:56 AM CDT [facility] HEMOGLOBIN 6.0(LL) 12.0 - 16.0 g/dL 08/02/2023 11:56 AM CDT [facility] HEMATOCRIT 19.9(L) 33.0 - 51.0 % 08/02/2023 11:56 AM CDT [facility] MCV 76(L) 80 - 100 fL 08/02/2023 11:56 AM CDT [facility] MCH 22.8(L) 26.0 - 34.0 pg 08/02/2023 11:56 AM CDT [facility] MCHC 30.2(L) 32.0 - 36.0 g/dL 08/02/2023 11:56 AM CDT [facility] RDW 15.9(H) 11.5 - 15.5 % 08/02/2023 11:56 AM CDT [facility] PLATELET COUNT 461(H) 140 - 440 thou/cu mm 08/02/2023 11:56 AM CDT [facility] MPV 8.9 6.5 - 11.0 fL 08/02/2023 11:56 AM CDT [facility] % NEUT 66.7 % 08/02/2023 11:56 AM CDT [facility] % LYMPH 20.2 % 08/02/2023 11:56 AM CDT [facility] % MONO 12.2 % 08/02/2023 11:56 AM CDT [facility] % EOS 0.4 % 08/02/2023 11:56 AM CDT [facility] % BASO 0.5 % 08/02/2023 11:56 AM CDT [facility] ABSOLUTE NEUTROPHILS 7.5(H) 1.7 - 7.0 thou/cu mm 08/02/2023 11:56 AM CDT [facility] ABSOLUTE LYMPHOCYTES 2.3 0.9 - 2.9 thou/cu mm 08/02/2023 11:56 AM CDT [facility] ABSOLUTE MONOCYTES 1.4(H) <0.9 thou/cu mm 08/02/2023 11:56 AM CDT [facility] ABSOLUTE EOSINOPHILS 0.1 <0.5 thou/cu mm 08/02/2023 11:56 AM CDT [facility] ABSOLUTE BASOPHILS 0.1 <0.3 thou/cu mm 08/02/2023 11:56 AM CDT [facility] Blood BLOOD SPECIMEN / Unknown Butterfly / Unknown 08/02/2023 11:10 AM CDT 08/02/2023 11:10 AM CDT Pao Paul MD HEMATOLOGY Performing Organization Address City/State/[facility] Co de Phone Number [facility] [address] [place] [address], * TSH WITH REFLEX (08/02/2023 11:10 AM CDT) TSH 1.41 0.27 - 4.20 uIU/mL 08/02/2023 6:34 PM CDT [facility] Blood BLOOD SPECIMEN / Unknown Butterfly / Unknown 08/02/2023 11:10 AM CDT 08/02/2023 11:10 AM CDT Narrative [facility] - 08/02/2023 6:34 PM CDT In Adults, TSH values between 5.00 and 10.00 uIU/ml do not necessarily indicate the presence of Hypothyroidism. Correlation with clinical findings such as presence of goiter and/or Thyroperoxidase (TPO) Antibody may be helpful. For more information please refer to GIFTY 2004; 291: 228-238. Pao Paul MD CHEMISTRY [facility] [address] [place] [address], * VITAMIN D 25 (DEFICIENCY) (08/02/2023 11:10 AM CDT) VITAMIN D TOTAL 60.0 20.0 - 80.0 ng/mL 08/02/2023 6:34 PM CDT [facility] Blood BLOOD SPECIMEN / Unknown Butterfly / Unknown 08/02/2023 11:10 AM CDT 08/02/2023 11:10 AM CDT Narrative [facility] - 08/02/2023 6:34 PM CDT ? Vitamin D Status Deficiency: ? <20 ng/mL Insufficiency: ?20-29 ng/mL Sufficiency: ?30-80 ng/mL Possible Toxicity: ??>80 ng/mL Based on [employer] of [employer] recommendations Biotin supplements may cause clinically significant interference for this test assay. ??If interference is suspected, it is strongly recommended that biotin is discontinued for at least one week prior to retesting. Pao Paul MD SEND OUTS Performing Organization Address [facility]/ZIP Co de Phone Number [facility] [address] [place] [address], * (ABNORMAL) IRON PLUS IRON BINDING CAP (08/02/2023 11:10 AM CDT) IRON 14(L) 37 - 145 ug/dL 08/02/2023 6:35 PM CDT [facility] UIBC (UNSATURATED) 516(H) 112 - 347 ug/dL 08/02/2023 6:35 PM CDT [facility] IRON BINDING CAPACITY 530(H) 250 - 400 ug/dL 08/02/2023 6:35 PM CDT [facility] IRON,% SATURATION 3(L) 14 - 50 % 08/02/2023 6:35 PM CDT [facility] Blood BLOOD SPECIMEN / Unknown Butterfly / Unknown 08/02/2023 11:10 AM CDT 08/02/2023 11:10 AM CDT Pao Paul MD CHEMISTRY Performing Organization Address [facility] Co de Phone Number [facility] [address] [place] [address], * (ABNORMAL) RETICULOCYTES (08/02/2023 11:10 AM CDT) RETIC% 2.7(H) 0.5 - 1.5 % 08/02/2023 3:26 PM CDT [facility] RETIC (ABSOLUTE) 0.07 0.03 - 0.08 mil/cu mm 08/02/2023 3:26 PM CDT [facility] Blood BLOOD SPECIMEN / Unknown Venipuncture / Unknown 08/02/2023 11:10 AM CDT 08/02/2023 11:45 AM CDT Pao Paul MD HEMATOLOGY Performing Organization Address City/[facility]/ZIP Co de Phone Number [facility] [address] [address], * PHOSPHORUS (08/02/2023 11:10 AM CDT) PHOSPHORUS 3.1 2.5 - 4.5 mg/dL 08/02/2023 6:34 PM CDT [facility] Blood BLOOD SPECIMEN / Unknown Butterfly / Unknown 08/02/2023 11:10 AM CDT 08/02/2023 11:10 AM CDT Pao Paul MD CHEMISTRY Performing Organization Address [facility]/ZIP Co de Phone Number [facility] [address] [place] [address], [place] * MAGNESIUM (08/02/2023 11:10 AM CDT) Only the most recent of2 resultswithin the time period is included. MAGNESIUM 2.0 1.6 - 2.4 mg/dL 08/02/2023 6:34 PM CDT [facility] Blood BLOOD SPECIMEN / Unknown Butterfly / Unknown 08/02/2023 11:10 AM CDT 08/02/2023 11:10 AM CDT Pao Paul MD CHEMISTRY Performing Organization Address City/[facility]/ZIP Co de Phone Number [facility] [address] [place] [address], * (ABNORMAL) COMP METABOLIC PANEL (08/02/2023 11:10 AM CDT) SODIUM 137 136 - 145 mmol/L 08/02/2023 6:34 PM CDT [facility] POTASSIUM 4.4 3.5 - 5.1 mmol/L 08/02/2023 6:34 PM CDT [facility] CHLORIDE 100 98 - 107 mmol/L 08/02/2023 6:34 PM CDT [facility] CO2,TOTAL 21(L) 22 - 29 mmol/L 08/02/2023 6:[address] [facility] ANION GAP 16 5 - 18 08/02/2023 6:[address] [facility] GLUCOSE 104(H) 70 - 99 mg/dL 08/02/2023 6:[address] [facility] CALCIUM 10.7(H) 8.8 - 10.2 mg/dL 08/02/2023 6:[address] [facility] BUN 38(H) 8 - 23 mg/dL 08/02/2023 6:[address] [facility] CREATININE 1.61(H) 0.50 - 0.90 mg/dL 08/02/2023 6:[address] [facility] BUN/CREAT RATIO 24(H) 10 - 20 6:[address] [facility] eGFR 33(L) >90 mL/min/1.7 3m2 08/02/2023 6:[address] [facility] Comment:As of 2021, eG FR is calculated by the CKD-EPI creatinine equation without race adjustment. ??eGFR can be influenced by muscle mass, exercise, and diet. ??The reported eGFR is an estimation only and is only applicable if the renal function is stable. ALBUMIN 4.9 4.0 - 4.9 g/dL 08/02/2023 6:[address] [facility] PROTEIN,TOTAL 8.0 6.0 - 8.0 g/dL 08/02/2023 6:[address] [facility] BILIRUBIN,TOTAL 0.3 0.0 - 1.2 mg/dL 08/02/2023 6:[address] [facility] ALK PHOSPHATASE 78 35 - 104 IU/L 08/02/2023 6:[address] [facility] ALT (SGPT) 18 10 - 35 IU/L 08/02/2023 6:[address] [facility] AST (SGOT) 31 10 - 35 IU/L 08/02/2023 6:34 PM [facility] Blood BLOOD SPECIMEN / Unknown Butterfly / Unknown 08/02/2023 11:10 AM CDT 08/02/2023 11:10 AM CDT Pao Paul MD CHEMISTRY [facility] [address] [place] [address], * (ABNORMAL) BASIC METABOLIC PANEL (06/10/2023 11:15 AM CDT) Pathologist [facility] SODIUM 139 136 - 145 mmol/L 06/10/2023 5:35 PM CDT [facility] POTASSIUM 4.3 3.5 - 5.1 mmol/L 06/10/2023 5:35 PM CDT [facility] CHLORIDE 102 98 - 107 mmol/L 06/10/2023 5:35 PM CDT [facility] CO2,TOTAL 22 22 - 29 mmol/L 06/10/2023 5:35 PM CDT [facility] ANION GAP 15 5 - 18 06/10/2023 5:35 PM CDT [facility] GLUCOSE 117(H) 70 - 99 mg/dL 06/10/2023 5:35 PM CDT [facility] CALCIUM 10.6(H) 8.8 - 10.2 mg/dL 06/10/2023 5:35 PM CDT [facility] BUN 32(H) 8 - 23 mg/dL 06/10/2023 5:35 PM T [facility] CREATININE 1.47(H) 0.50 - 0.90 mg/dL 06/10/2023 5:35 PM CDT [facility] BUN/CREAT RATIO 22(H) 10 - 20 5:35 PM CDT [facility] eGFR 37(L) >90 mL/min/1.7 3m2 06/10/2023 5:35 PM CDT [facility] Comment:As of 2021, eG FR is calculated by the CKD-EPI creatinine equation without race adjustment. ??eGFR can be influenced by muscle mass, exercise, and diet. ??The reported eGFR is an estimation only and is only applicable if the renal function is stable. Blood BLOOD SPECIMEN / Unknown Venipuncture / Unknown 06/10/2023 11:15 AM CDT 06/10/2023 11:25 AM CDT Pao Paul MD CHEMISTRY [facility] [address] [place] [address], * XR MAMMO ADINA BILAT SCREEN (05/07/2023 10:19 AM YARD SPECIALIST) Anatomical Region Laterality Modality BREASTS, Breast Left, Breast Right Bilateral Mammography Impressions 05/08/2023 3:03 PM YARD SPECIALIST ??There is no radiographic evidence for malignancy. ??Recommend annual mammograms. MAMMOGRAM ASSESSMENT: ??ACR 1 Negative PATIENTS: You will also receive a letter with your examination results in an easy to read format. ??If you have questions about your results, please contact your referring provider. Narrative 05/08/2023 3:03 PM YARD SPECIALIST For Patients: As a result of the Century Cures Act, medical imaging exams and procedure reports are released immediately into your electronic medical record. You may view this report before your referring provider. If you have questions, please contact your health care provider. XR MAMMO ADINA BILAT SCREEN [[id number]] CLINICAL HISTORY: ??This is an asymptomatic 73 y.o. patient. INDICATION FOR EXAM: Mammogram Screening. TECHNIQUE: CC & MLO views were obtained. ??This study was evaluated with the assistance of Computer-Aided Detection. Breast Tomosynthesis was used in interpretation. COMPARISON FILM: Yes 04/05/22 [facility]/31[facility]21 [facility] FINDINGS: ??The breasts have scattered areas of fibroglandular density. There are no dominant masses, suspicious micro calcifications or areas of architectural distortion. Pao Paul MD MAMMO * (ABNORMAL) LC LIPID PANEL AND CHOL/HDL RATIO (05/11/2022 10:02 AM [facility]) [facility] Cholesterol, Total 171 100 - 199 mg/dL 05/16/2022 1:07 AM [facility] Triglycerides 196(H) 0 - 149 mg/dL 05/16/2022 1:07 AM [facility] HDL Cholesterol 41 >39 mg/dL 1:07 AM [facility] VLDL Cholesterol Jonathan 34 5 - 40 mg/dL 05/16/2022 1:07 AM [facility] LDL Chol Calc (NIH) 96 0 - 99 mg/dL 05/16/2022 1:07 AM [facility] T. Chol/HDL Ratio 4.2 0.0 - 4.4 ratio 05/16/2022 1:07 AM [facility] Comment: ?T. Chol/HDL Ratio ?Men ??Women ?1/2 Avg.Risk ??3.4 ?3.3 ?Avg.Risk ??5.0 ?4.4 ? 2X Avg.Risk ??9.6 ?7.1 ? 3X Avg.Risk 23.4 ?? 11.0 Blood BLOOD SPECIMEN / Unknown Venipuncture / Unknown 05/11/2022 10:02 AM YARD SPECIALIST 05/11/2022 10:02 AM YARD SPECIALIST Narrative [facility] - 05/16/2022 1:07 AM YARD SPECIALIST Performed at: ??01 - [facility] [place] [address] ??[id number] Professor Of Medicine: John Rock MD, Phone: ??[phone] Pao Paul MD SEND OUTS [facility] ([facility]) [facility] [place] [address], * XR DXA BONE DENSITY 2 SITES AXIAL (09/23/2017 10:06 AM CDT) Anatomical Region Laterality Modality Spine, HIPS, HIPL, HIPR Other Narrative 09/24/2017 5:58 PM CDT Please see scanned document for results of this study. Yamile Block DO DEXA * SCAN-COLONOSCOPY (05/28/2016 9:30 AM YARD SPECIALIST) Narrative Procedure Note Yazmin Patricia MD - 05/28/2016 8:29 AM CST [facility] [address] [place] [address], [address], [place] [address] Patient Name: Maurisio Cuadra Gender: Female Exam Date: 05/28/2016 Visit Number: [id number] Age: 66 Years Date of : 1950 Attending MD: Yazmin Patricia MD Medical Record#: [id number] ----- Procedure: Colonoscopy Indications: Previous adenomatous polyp(s) [...] OTHER * ANTI HCV (03/11/2008 4:34 PM YARD SPECIALIST) ANTI HCV Non-reacti ve [facility] Blood specimen (specimen) BLOOD SPECIMEN / Unknown 03/11/2008 4:34 PM YARD SPECIALIST 03/11/2008 4:29 PM YARD SPECIALIST Khalif Mon MD SEND OUTS [facility] INTERNAL ZIP [address] [place] [address] from Last 3 Months or Most Recently Relevant to Health Maintenance Care Teams Supervisor Accounting Clerks Relationship Specialty [place] [address] [place] [address] PCP - General Family Practice 04/05/22
--- OUTSIDE RECORDS SUMMARY | 2023-08-12 10:04 | XMS_ITS | Referral Summary ---
Author Name Unknown Organization [facility] Address [address] [place] [address] Care Team Providers Care Cotton Weigher Name Role Phone Unavailable Primary Care Provider Unavailabl e Source Comments Patient records contain information from all sites at [facility]. For routine questions regarding patient records, call [phone] during business hours, M-F 8:00 AM - 5:00 PM Central Time. Record requests for emergency care only can be directed to [phone] at any time.[facility] Encounters Date Type Department Care Team Description 07/02/2023 2:00 PM CDT External Outreach Division of Nephrology and Hypertension in [place], [place] [address] [place] [address] Ronn Alvarez Jr., D.O. Chronic Kidney Disease [...] losartan (COZAAR) 100 mg tablet 01/13/2021 Active ibenptbr-vnv-vjbe-FA -lutein (Centrum Silver Women) 8 mg iron-400 mcg-300 mcg tablet Take by mouth. 01/13/2021 Active NIFEdipine XL (PROCARDIA XL) 30 mg 24 hr tablet 11/23/2020 Active omeprazole (PriLOSEC) [address] capsule Take by mouth. 09/24/2006 Active omega 8-upp-jog-fish oil 1,000 mg (120 mg-180 mg) capsule [...] inpatients and all outpatients) 05/07/2023 10:19 AM WOOD ENGRAVER EXTI LIPID PANEL, S Routine 05/11/2022 1 0:02 AM WOOD ENGRAVER from Last 3 Months or Most Recently Relevant to Health Maintenance
--- OUTSIDE RECORDS SUMMARY | 2023-08-12 10:04 | XMS_ITS | Encounter Summary ---
Author Name Unknown Organization [facility] Address [address] [place] [address] Care Team Providers Care Assistant Tennis Coach Name Role Phone Unavailable Primary Care Provider Unavailabl e Reason for Visit * Appointment Request (Routine) - Closed Specialty Diagnoses / Procedures Referred By Contac t Referred To Contact Nephrology and Hypertension Referral ID Status Reason Start Date Expiration Date Visits Re quested Visits Authorized [id number] Closed 06/20/2023 06/19/2024 1 1 Encounter Details Date Type Department Care Team (Latest Contact Info) Description 07/02/2023 2:00 PM CDT External Outreach Division of Nephrology and Hypertension in [place], [place] [address] [place] [address] Ronn Alvarez Jr., D.O. [address] [place] [address] Chronic Kidney Disease (CKD), Stage 3a Glomerular [...] provider on file. SUBJECTIVE REASON FOR VISIT [facility] out reach CKD Clinic Follow-up regards CKD [...] or chew., Disp: 90 tablet, Rfl: 3 jkzptsbw-xab-iyas-FA-lutein (Centrum Silver Women) 8 mg iron-400 mcg-300 mcg tablet, Take by mouth., Disp: , Rfl: NIFEdipine XL (PROCARDIA XL) 30 mg 24 hr tablet, , Disp: , Rfl: omega 2-cva-jii-fish oil 1,000 mg (120 mg-180 mg) capsule, [...] number as she has not in the [facility] portal Low-sodium diet less than 2000 mg [...]
--- OUTSIDE RECORDS SUMMARY | 2023-08-12 10:04 | XMS_ITS ---
Author Name Unknown Organization [facility] Address [address] [place] [address] Care Team Providers Care Sales Operations Associate Name Role Phone Unavailable Unavailable Unavailable Surgery Details Not on file Complications Check Surgery Details section. Procedure Estimated Blood Loss Check Surgery Details section. Procedure Findings Check Surgery Details section. Procedure Specimens Taken Check Surgery Details section.
--- OUTSIDE RECORDS SUMMARY | 2023-08-12 10:04 | XMS_ITS | Clinical Summary ---
Author Name Unknown Organization [facility] Address [address] [place] [address] Care Team Providers Care Rework Machine Operator Name Role Phone Unavailable Primary Care Provider Unavailabl e Source Comments Patient records contain information from all sites at [facility]. For routine questions regarding patient records, call [phone] during business hours, M-F 8:00 AM - 5:00 PM Central Time. Record requests for emergency care only can be directed to [phone] at any time.[facility] Medications Medication Sig Dispensed Refills Start Date [...] losartan (COZAAR) 100 mg tablet 01/13/2021 Active lwjhrgam-qzq-tjqh-FA -lutein (Centrum Silver Women) 8 mg iron-400 mcg-300 mcg tablet Take by mouth. 01/13/2021 Active NIFEdipine XL (PROCARDIA XL) 30 mg 24 hr tablet 11/23/2020 Active omeprazole (PriLOSEC) [address] capsule Take by mouth. 09/24/2006 Active omega 6-bzt-rqu-fish oil 1,000 mg (120 mg-180 mg) capsule [...] Outreach Division of Nephrology and Hypertension in [place] [address] [address] [place] [address] Ronn Alvarez Jr., D.O. Chronic Kidney Disease [...] inpatients and all outpatients) 05/07/2023 10:19 AM MANAGER TARGET EXTI LIPID PANEL, S Routine 05/11/2022 1 0:02 AM MANAGER TARGET from Last 3 Months or Most Recently Relevant to Health Maintenance
--- NOTE | 2023-08-12 12:15 | W.ANESCHARGE ---
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
--- NOTE | 2023-08-12 12:15 | W.ANESCHARGE ---
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
== END 2023-08-12 10:00 | disposition home or self-care (01) ==
LOC: OP CLINIC 10:00
PROVIDERS: PCP Family Medicine; Visit Provider Surgery
DX: D50.9 Iron deficiency anemia, unspecified (principal); K57.30 Diverticulosis of large intestine without perforation or abscess without bleeding; K31.7 Polyp of stomach and duodenum; K25.9 Gastric ulcer, unspecified as acute or chronic, without hemorrhage or perforation
CPT/HCPCS: 00813; 43239; 45378; 88305; 99100; J2704; J3490

== ENCOUNTER 2023-09-09 11:53 | Outpatient (CLI) | payer MEDICARE, OTHER, SELFPAY | END 2023-09-09 11:54 | disposition home or self-care (01) | PROVIDERS: PCP Family Medicine; Visit Provider Internal Medicine | DX: E83.42 Hypomagnesemia (principal); K27.9 Peptic ulcer, site unspecified, unspecified as acute or chronic, without hemorrhage or perforation | CPT/HCPCS: 82728; 83735 ==

== ENCOUNTER 2023-10-04 09:40 | Outpatient (CLI) | payer MEDICARE, OTHER, SELFPAY ==
--- OUTSIDE RECORDS SUMMARY | 2023-10-06 08:30 | XMS_ITS | Encounter Summary ---
Author Organization [facility] Address [address] [place] [address] Care Team Providers Care Heel Cementer Name Role Phone Unavailable Primary Care Provider Unavailabl e Reason for Visit * Appointment Request (Routine) - Closed Specialty Diagnoses / Procedures Referred By Addy mckeon Referred To Contact Nephrology and Hypertension Referral ID Status Reason Start Date Expiration Date Visits Re quested Visits Authorized [id number] Closed 06/20/2023 06/19/2024 1 1 Encounter Details Date Type Department Care Team (Latest Contact Info) Description 07/02/2023 2:00 PM CDT External Outreach Division of Nephrology and Hypertension in [place], [place] [address] [place] [address] Ronn Alvarez Jr., D.O. [address] [place] [address] Chronic Kidney Disease (CKD), Stage 3a Glomerular [...] encounter Progress Notes * Ronn Alvarez Jr., D.Patrick. - 07/02/2023 2:00 PM CDT Referring Provider: No primary care provider on file. SUBJECTIVE REASON FOR VISIT [place] out reach CKD Clinic Follow-up regards CKD [...] or chew., Disp: 90 tablet, Rfl: 3 ksczliij-jis-wmyb-FA-lutein (Centrum Silver Women) 8 mg iron-400 mcg-300 mcg tablet, Take by mouth., Disp: , Rfl: NIFEdipine XL (PROCARDIA XL) 30 mg 24 hr tablet, , Disp: , Rfl: omega 2-ihn-skl-fish oil 1,000 mg (120 mg-180 mg) capsule, [...] Glomerular Filtration Rate (GFR) 45 To 59 ([facility]) Her CKD has been stable, she has [...] number as she has not in the [facility] portal Low-sodium diet less than 2000 mg per day Continue to foster glycosylated hemoglobin level less than 7.5% which she is achieved Return to clinic in 4 months No NSAIDs or Ajved 2 inhibitors #2 Hypertensive Chronic Kidney Disease [...]
--- OUTSIDE RECORDS SUMMARY | 2023-10-06 08:30 | XMS_ITS | Referral Summary ---
Author Organization [facility] Address [address] [place] [address] Care Team Providers Care Continuous Improvement Coordinator Name Role Phone Unavailable Primary Care Provider Unavailabl e Source Comments Patient records contain information from all sites at [facility]. For routine questions regarding patient records, call [phone] during business hours, M-F 8:00 AM - 5:00 PM Central Time. Record requests for emergency care only can be directed to [phone] at any time.[facility] Medications Medication Sig Dispensed Refills [...] losartan (COZAAR) 100 mg tablet 01/13/2021 Active fcxfknrs-jew-rrmw-FA -lutein (Centrum Silver Women) 8 mg iron-400 mcg-300 mcg tablet Take by mouth. 01/13/2021 Active NIFEdipine XL (PROCARDIA XL) 30 mg 24 hr tablet 11/23/2020 Active omeprazole (PriLOSEC) [address] capsule Take by mouth. 09/24/2006 Active omega 0-wtd-ssf-fish oil 1,000 mg (120 mg-180 mg) capsule [...] Name Priority Date/Time Associated Diagnosis Comments EXTI COMPREHENSIVE METABOLIC PANEL, S/P Routine 08/02/2023 11:10 AM CDT BI BREAST SCREENING BILATERAL WITH TOMOSYNTHESIS RAD - Routine (most inpatients and all outpatients) 05/07/2023 10:19 AM PUNCH MACHINE HAND EXTI LIPID PANEL, S Routine 05/11/2022 1 0:02 AM PUNCH MACHINE HAND from Last 3 Months or Most Recently Relevant to Health Maintenance
--- OUTSIDE RECORDS SUMMARY | 2023-10-06 08:30 | XMS_ITS | Clinical Summary ---
Author Organization [facility] Address [address] [place] [address] Care Team Providers Care Rail Specialist Name Role Phone Unavailable Primary Care Provider Unavailabl e Source Comments Patient records contain information from all sites at [facility]. For routine questions regarding patient records, call [phone] during business hours, M-F 8:00 AM - 5:00 PM Central Time. Record requests for emergency care only can be directed to [phone] at any time.[facility] Medications Medication Sig Dispensed Refills Start Date [...] losartan (COZAAR) 100 mg tablet 01/13/2021 Active wurckqij-bbo-mmvo-FA -lutein (Centrum Silver Women) 8 mg iron-400 mcg-300 mcg tablet Take by mouth. 01/13/2021 Active NIFEdipine XL (PROCARDIA XL) 30 mg 24 hr tablet 11/23/2020 Active omeprazole (PriLOSEC) [address] capsule Take by mouth. 09/24/2006 Active omega 1-ukl-asn-fish oil 1,000 mg (120 mg-180 mg) capsule [...] Risk Screen (Annual) 04/01/2023 COVID-19 Vaccine (7 2022-2 4 season) 2023 01/25/2023, 12/29/2021, 07/05/2021, Additional history exists Influenza Vaccine (#1) 2023 , 01/09/2023, 01/22/2022, Additional history exists Mammogram 05/07/2024 05/07/2023, 08/2023, 04/05/2022, Additional history exists Office Visit for Blood Press ure Check / Re-check 07/01/2024 07/02/2023 Creatinine Level (Kidney Fun ction Test) 08/01/2024 08/02/2023, 06/10/2023, 05/11/2022, Additional history exists Potassium Level 08/01/2024 08/02/2023, 05/30, 05/11/2022, Additional history exists Sodium Level 08/01/2024 08/02/2023, 05/30, 05/11/2022, Additional history exists Dilated Eye Exam 08/28/2024 08/29/2023, , 06/13/2021, Additional history exists Colonoscopy 05/28/2026 05/28/2016 Colorectal Cancer Screening 05/28/2026 Lipid (Cholesterol) Screening 05/11/2027, 01/13/2021, 11/25/2019, Additional history exists Pneumococcal vaccine (65+ years) Completed 05/07/19 17, 07/09/2014 Zoster Vaccines Completed 10/13/2017, 08/2017, 07/14/2017, Additional history exists Procedures Procedure Name Priority Date/Time Associated Diagnosis Comments EXTI COMPREHENSIVE METABOLIC PANEL, S/P Routine 08/02/2023 11:10 AM CDT BI BREAST SCREENING BILATERAL WITH TOMOSYNTHESIS RAD - Routine (most inpatients and all outpatients) 05/07/2023 10:19 AM TRIMMING PRESS OPERATOR EXTI LIPID PANEL, S Routine 05/11/2022 1 0:02 AM TRIMMING PRESS OPERATOR from Last 3 Months or Most Recently Relevant to Health Maintenance
--- OUTSIDE RECORDS SUMMARY | 2023-10-06 08:30 | XMS_ITS | Clinical Summary ---
Author Organization [facility] Address [place], [place] [address] Care Team Providers Care Apparel Manager Name Role Phone Pao Paul MD Primary Care Provider [phone] Allergies Active Allergy Reactions Criticality Noted Date [...] mouth once daily with a meal. Active Active Problems Problem Noted Date Diagnosed [...] Encounters Date Type Department Care Team Description 08/29/2023 11:00 AM CDT Office Visit [facility] [address] [place] [address] Rocael Delgadillo, OD Eye Exam (DM CEE) 08/29/2023 Travel 08/28/2023 Telephone [facility] [address] [place] [address] Rocael Delgadillo, OD PUI Screening 08/27/2023 Travel 08/22/2023 Telephone [facility] [address] [place] [address] Pao Paul MD Appointment (Due for diabetes follow up) 08/12/2023 Lab Requisition [facility] [phone] Lissette Campbell MD 08/06/2023 12:05 PM CDT - 08/06/2023 11:59 PM CDT Hospital Encounter [address] [address] Pao Paul MD SOB (shortness of breath); Fatigue, unspecified type; Leg pain, bilateral 08/06/2023 10:25 AM CDT Office Visit [facility] [address] [place] [address] Pao Paul MD Hospital F/U ([place] ) 08/06/2023 Telephone [facility] [address] [place] [address] Pao Paul MD Results 08/06/2023 Travel 08/05/2023 Telephone [facility] [address] [place] [address] Pao Paul MD Results 08/05/2023 Telephone [facility] [address] [place] [address] Pao Paul MD Order 08/05/2023 Telephone [facility] [address] [place] [address] Pao Paul MD Procedure (Iron transfusion) 08/05/2023 Telephone [facility] [address] [place] [address] Pao Paul MD Results 08/04/2023 Orders Only [facility] Scanner 1 scan: (1-Ord) [facility] MULTIPLE LABS, 08/04/2023 08/02/2023 10:25 AM CDT Office Visit [facility] [address] [place] [address] Pao Paul MD Follow Up (Blood pressure medication, having shortness of breath and fatigue, palpitations //Still having cramping in legs ) 08/02/2023 Telephone [facility] [address] [place] [address] Pao Paul MD Refill Request (EGG Also Colonooscpy) 08/02/2023 Travel 07/30/2023 10:59 AM CDT - 07/30/2023 11:59 PM CDT Hospital Encounter [facility] [address] [facility] [address] [place] [address] Pao Paul MD 07/30/2023 Travel 07/18/2023 Telephone [facility] [address] [place] [phone] Everett Rios MD 07/18/2023 Orders Only [facility] [address] [place] [phone] Everett Rios MD <No scans attached> 07/17/2023 8:30 AM CDT Office Visit [facility] [address] [place] [address] Lin Velasquez PA Recheck (bilateral knee pain) 07/17/2023 Travel 07/08/2023 Telephone [facility] [address] [place] [phone] Lin Velasquez PA from Last 3 Months Immunizations Name Administration Dates Next Due COVID-19 vaccine ([employer] 30mcg/0.3mL) 12YO+ BIVALENT PF, MDV 12/29/2021 Hepatitis [...] Outcome GA Total Labor Labor/2nd/3rd Weight Sex Type Anes PTL Roxy A1 A5 Name Clin Term Term Term Last Filed Vital Signs Vital Sign Reading Time Taken Comments Blood Pressure 142/60 08/06/2023 10:43 AM CDT Pulse 102 08/06/2023 10:43 AM CDT Temperature 36.8 ??C (98.3 ??F) 08/06/2023 10:43 AM C DT Respiratory Rate 24 05/06/2023 2:16 PM WORM RAISER Oxygen Saturation 95% 08/06/2023 10:43 AM CDT Inhaled Oxygen Concentration - - Weight 97.8 kg (215 lb 9.6 oz) 08/02/2023 10:20 AM CDT Height 165.1 cm (5' 5) 06/10/2023 10:39 AM CDT Body Mass Index 35.88 06/10/2023 10:39 AM CDT Plan of Treatment Scheduled Procedures Name Priority Associated Diagnoses Date/Ti me SURGICAL PROCEDURE (TYPE PRO CEDURE DESCRIPTION BELOW) Elective Osteoarthritis of left knee Health Maintenance Due Date Last Done Comments Colonoscopy through age 74 05/28/202105/28, 08/02/2010, 08/01/2010, Additional history exists Tetanus booster 11/08/2022 11/08/2012 COVID-19 vaccine series ( season) 2023 01/25/2023, 12/29/2021, 07/05/2021, Additional history exists Medicare Wellness for age 65+ 08/22/2023 08/21/2022 [...] Completed 10/13/2017, 08/04/2017, 07/14/2017, Additional history exists Procedures Procedure Name Priority Date/Time Associated Diagnosis Comments LAB TRACKING EVENT Routine 08/12/2023 11 :35 AM CDT PATH TISSUE EXAM Routine 08/12/2023 11:3 5 AM CDT ECHO TTE COMPLETE WO CONTRAST Routine 08/06/2023 1:10 PM CDT SOB (shortness of breath) Fatigue, unspecified type Leg pain, bilateral SCAN-LABORATORY REPORT 12:00 AM CDT PERIPHERAL BLD MORPHOLOGY Routine 08/02/2023 11:45 AM [...] 08/02/2023 11:10 AM CDT Leg pain, bilateral XR MAMMO ADINA BILAT SCREEN Routine 05/07/2023 10:19 AM WORM RAISER Visit for screening mammogram LC LIPID PANEL AND CHOL/HDL RATIO Routine 05/11/2022 10:02 AM WORM RAISER Type 2 diabetes mellitus with other specified complication, without long-term current use of insulin (HC) HYPERCHOLESTEROLEMI A, PURE XR DXA BONE DENSITY 2 SITES AXIAL Routine 09/23/2017 10:06 AM CDT Post-menopausal SCAN-COLONOSCOPY 05/28/2016 9:30 AM WORM RAISER ANTI HCV Routine 03/11/2008 4:34 PM WORM RAISER Elev Transaminase/LDH from Last 3 Months or Most Recently Relevant to Health Maintenance Results * LAB TRACKING EVENT (08/12/2023 11:35 AM CDT) Other (Other) Client Collect / Unknown 08/12/2023 11:35 AM CDT 08/12/2023 10:03 PM CDT Lissette Campbell MD LAB BILL ONLY [facility] [address] [place] [address], * PATH TISSUE EXAM (08/12/2023 11:35 AM CDT) Case Report Pathology Report ?Case: [id number] ? Authorizing Provider: ??Lissette Campbell MD ??Collected: ? 08/12/2023 1135 ? Ordering Location: ? [facility] ?Received: ?08/13/2023 0803 ? Pathologist: ? Jose Dominguez ? KORY, ? Specimens: ?? A) - Antrum Biopsy ? B) - Gastric Biopsy ? 08/14/2023 4:32 PM CDT [facility] Final Diagnosis A) STOMACH, ULCER, BIOPSY: 1. Reactive gastropathy, endoscopically ulcerative (see comment) ?? a. Sampling: Antral mucosa ?? b. Distribution: Antral mucosa 2. Negative for chronic inflammation, atrophy and Helicobacter B) STOMACH, BIOPSY: 1. Normal gastric body mucosa 2. Negative for Helicobacter 08/14/2023 4:32 PM CDT [facility] [employer] [facility] ENTRAL LABORAT[facility] Comment A) The likely etiology is an ongoing non-inflammatory type mucosal injury due to a chemical type of injury; this may be due to ingestion of non-steroidal anti-inflammatory drugs, aspirin (via prostaglandin-med iated injury), excess alcohol, corticosteroids, or bile/alkaline reflux, the latter usually in the setting of a gastroenteric anastomosis. 08/14/2023 4:32 PM CDT [facility] Clinical Information Ms. Cuadra is a 73 y.o. with suspected upper GI bleeding. EGD findings include: -Gastric ulcers -Suspected fundic gland polyps 08/14/2023 4:32 PM CDT [facility] [employer] [facility]- ENTRAL LABORATORY Gross Description A) Received in formalin are 4 hayes mucosal fragments averaging 3 mm in greatest dimension, which are entirely submitted in one cassette. It is labeled with the patient's name and designated antral ulcer BX. B) Received in formalin are 5 hayes mucosal fragments averaging 3 mm in greatest dimension, which are entirely submitted in one cassette. It is labeled with the patient's name and designated random gastric biopsies. Galileo Madsen 08/13/2023 9:25 AM 08/14/2023 4:32 PM CDT [facility] Microscopic Description The final diagnosis is based on microscopic examination of appropriate sections of all specimens. 08/14/2023 4:32 PM CDT [facility] [employer] [facility]- ENTRAL LABORATORY Additional Information Interpreted at [facility], Central Laboratory - [address] [facility] [address] [address] 08/14/2023 4:32 PM CDT [facility] LABORATORY Other GASTRIC BIOPSY SPECIMEN / Unknown 08/12/2023 11:35 AM CDT 08/13/2023 8:03 AM CDT Specimen (specimen) GASTRIC BIOPSY SPECIMEN / Unknown 08/12/2023 11:35 AM CDT 08/13/2023 8:03 AM CDT Lissette Campbell MD PATHOLOGY/CYTOLO GY [facility] [address] [place] [address], * ECHO TTE COMPLETE WO CONTRAST (08/06/2023 1:10 PM CDT) EJECTION FRACTION 60-65% PROSOLV Anatomical Region Laterality Modality Ultrasound 08/06/2023 12:3 4 PM CDT Narrative 08/06/2023 5:[address]T [address], [place] [address] Main: ? Transthoracic Echo Report MAURISIO CUADRA ID: [id number] Age: 73 : 1950 Ordering Provider: PAO PAUL Exam Date: 08/06/2023 12:34 Gender: F Sugar Controller: MRF Height: 65 in BSA: 2.04 m?? BP: 150 / 60 Weight: 216 lbs BMI: 36 kg/m?? HR: 94 Location: [facility] - Outpatient Rhythm: Normal Sinus Rhythm Procedure [...] ZScore: -1.[address] MD (Electronically Signed) [facility] Accredited Site Final Date: 06 Aug 2023 17:05 ICD-10 Codes: R06.02; M79.604; M79.605; R53.[address] MBBS - 08/06/[address], [place] [address] Main: Transthoracic Echo Report MAURISIO CUADRA ID: [id number] Age: 73 : 1950 Ordering Provider:PAO PAUL Exam Date: 08/06/2023 12:34 Gender: F Sugar Controller: NATALYA Height: 65 in BSA: 2.04 m?? BP: 150 / 60 Weight: 216 lbs BMI: 36 kg/m?? HR: 94 Location: [facility] - Outpatient Rhythm: Normal SinusRhythm Procedure Components: [...] (r) 7.51 mmHg Aortic Root ZScore: -1.[address] MD (Electronically Signed) [facility] Accredited Site Final Date: 06 Aug 2023 17:05 ICD-10 Codes: R06.02; M79.604; M79.605; R53.83 Pao Paul MD ECHO ORD * SCAN-LABORATORY REPORT (08/04/2023 12:00 AM CDT) Scanner OTHER * PERIPHERAL BLD MORPHOLOGY (08/02/2023 11:45 AM CDT) Case Report Special Hematology Report ? Case: [id number] ? Authorizing Provider: ??Pao Paul MD ? Collected: ? 08/02/2023 1145 ? Ordering Location: ? [facility] ?? Received: ?08/02/2023 1145 ? Clinic ? Pathologist: ? Dann Montoya MD ? Specimen: ?Blood ? 11:28 AM [facility]- C[facility] LABORATORY Final Diagnosis PERIPHERAL BLOOD: 1. Marked microcytic, hypochromic anemia compatible with iron deficiency anemia 2. Mild thrombocytosis, favor reactive 3. Mild leukocytosis reflecting mild absolute neutrophilia and monocytosis, favor reactive 4. See comment 11:28 AM [facility] Comment The CBC indices and iron [...] also reviewed by Sun Wilkerson [place], MS ([facility]). 11:28 AM [facility] Clinical Information The patient is [...] : 516 (H) 4 11:28 AM CDT [facility] CBC and Differential HEMATOLOGY PARAMETERS Tested at: ??[facility] ? RESULTS ??EXPECTED VALUES WBC: ? 11.2 ? 4.5-09l9206/cumm ?ELEVATED RBC: ? 2.63 ? 4.00-5.20 mil/cumm ??DECREASED HGB: ? 6.0 ?12-16 gm/dl ? DECREASED HCT: ? 19.9 ? 33-51% ?DECREASED MCV: ? 76.0 ? 80-100 fl ? MICROCYTIC MCH: ? 22.8 ? 26-34 pg ?DECREASED MCHC: ?30.2 ? 32-36 gm/dl ? HYPOCHROMIC RDW: ? 15.9 ? 11.5-15.5% ?ELEVATED PLT: ? 461 ?140-405n6345/uL ? ELEVATED MPV: ? 8.9 ?6.5-11 fl ? Retic: ?? 2.7 ?0.5-1.5% ?ELEVATED Differential ?Absolute (%) ?Expected (%) ?(x10*9/L) ? (x10*9/L) Neutrophils: ?7.5 (67) ?1.7-7.0 (42-72%) ?ELEVATED Lymphocytes: ?2.3 (20.5) ?0.9-2.9 (20-44%) ?? Monocytes: ?1.4 (12.5) ? <0.9 (0-11%) ? ELEVATED Eosinophils: ?0.1 (.9) ? <0.5 (0-2%) ? Basophils: ?0.1 (.9) ? <0.3 (<3.0%) ? 4 11:28 AM [facility] Microscopic Description The final diagnosis is based on microscopic examination of an appropriately stained blood smear. 4 11:28 AM [facility] Additional Information Interpreted at [facility], Central Laboratory - [address] [facility] [address] [address] 4 11:28 AM [facility] Blood BLOOD SPECIMEN / Unknown [...] Tablet, Rfl: 3 Pao Paul MD HEMATOLOGY [facility] [address] [place] [address], [place] * CWS PATH REVIEW HEMATOLOGY (08/02/2023 11:10 AM CDT) Pathologist [facility] PATH COMMENT Reviewed by KT on 08/04/2023 08/04/2023 2:32 PM CDT [facility] Blood BLOOD SPECIMEN / Unknown Butterfly / Unknown 08/02/2023 11:10 AM CDT 08/02/2023 11:10 AM CDT Pao Paul MD LABORATORY [facility] [address] [place] [address], [place] * (ABNORMAL) CBC WITH AUTO DIFFERENTIAL (08/02/2023 11:10 AM CDT) [facility] WHITE BLOOD COUNT 11.2(H) 4.5 - 11.0 thou/cu mm 08/02/2023 11:56 AM CDT [facility] RED BLOOD COUNT 2.63(L) 4.00 - 5.20 mil/cu mm 08/02/2023 11:56 AM CDT [facility] HEMOGLOBIN 6.0(LL) 12.0 - 16.0 g/dL 08/02/2023 11:56 AM CDT [facility] HEMATOCRIT 19.9(L) 33.0 - 51.0 % 08/02/2023 11:56 AM CDT [facility] MCV 76(L) 80 - 100 fL 08/02/2023 11:56 AM CDT [facility] MCH 22.8(L) 26.0 - 34.0 pg 08/02/2023 11:56 AM CDT [facility] MCHC 30.2(L) 32.0 - 36.0 g/dL 08/02/2023 11:56 AM CDT [facility] RDW 15.9(H) 11.5 - 15.5 % 08/02/2023 11:56 AM CDT [facility] PLATELET COUNT 461(H) 140 - 440 thou/cu mm 08/02/2023 11:56 AM CDT [facility] MPV 8.9 6.5 - 11.0 fL 08/02/2023 11:56 AM CDT [facility] % NEUT 66.7 % 08/02/2023 11:56 AM CDT [facility] % LYMPH 20.2 % 08/02/2023 11:56 AM CDT [facility] % MONO 12.2 % 08/02/2023 11:56 AM CDT [facility] % EOS 0.4 % 08/02/2023 11:56 AM CDT [facility] % BASO 0.5 % 08/02/2023 11:56 AM CDT [facility] ABSOLUTE NEUTROPHILS 7.5(H) 1.7 - 7.0 thou/cu mm 08/02/2023 11:56 AM CDT [facility] ABSOLUTE LYMPHOCYTES 2.3 0.9 - 2.9 thou/cu mm 08/02/2023 11:56 AM CDT [facility] ABSOLUTE MONOCYTES 1.4(H) <0.9 thou/cu mm 08/02/2023 11:56 AM CDT [facility] ABSOLUTE EOSINOPHILS 0.1 <0.5 thou/cu mm 08/02/2023 11:56 AM CDT [facility] ABSOLUTE BASOPHILS 0.1 <0.3 thou/cu mm 08/02/2023 11:56 AM CDT [facility] Blood BLOOD SPECIMEN / Unknown Butterfly / Unknown 08/02/2023 11:10 AM CDT 08/02/2023 11:10 AM CDT Pao Paul MD HEMATOLOGY [facility] [address] [place] [address], * TSH WITH REFLEX (08/02/2023 11:10 AM CDT) TSH 1.41 0.27 - 4.20 uIU/mL 08/02/2023 6:34 PM CDT [facility] Blood BLOOD SPECIMEN / Unknown Butterfly / Unknown 08/02/2023 11:10 AM CDT 08/02/2023 11:10 AM CDT Narrative [facility] - 08/02/2023 6:34 PM CDT In Adults, TSH values between 5.00 and 10.00 uIU/ml do not necessarily indicate the presence of Hypothyroidism. Correlation with clinical findings such as presence of goiter and/or Thyroperoxidase (TPO) Antibody may be helpful. For more information please refer to GIFTY 2004; 291: 228-238. Pao Paul MD CHEMISTRY Performing Organization Address [facility] de Phone Number [facility] [address] [place] [address], * VITAMIN D 25 (DEFICIENCY) (08/02/2023 11:10 AM CDT) VITAMIN D TOTAL 60.0 20.0 - 80.0 ng/mL 08/02/2023 6:34 PM CDT [facility] Blood BLOOD SPECIMEN / Unknown Butterfly / Unknown 08/02/2023 11:10 AM CDT 08/02/2023 11:10 AM CDT Narrative [facility] - 08/02/2023 6:34 PM CDT ? Vitamin D Status Deficiency: ? <20 ng/mL Insufficiency: ?20-29 ng/mL Sufficiency: ?30-80 ng/mL Possible Toxicity: ??>80 ng/mL Based on [place]ose[place] of Medicine recommendations Biotin supplements may cause clinically significant interference for this test assay. ??If interference is suspected, it is strongly recommended that biotin is discontinued for at least one week prior to retesting. Pao Paul MD SEND OUTS Performing Organization Address [facility] Co de Phone Number [facility] [address] [place] [address], [place] * (ABNORMAL) IRON PLUS IRON BINDING CAP (08/02/2023 11:10 AM CDT) IRON 14(L) 37 - 145 ug/dL 08/02/2023 6:35 PM CDT [facility] UIBC (UNSATURATED) 516(H) 112 - 347 ug/dL 08/02/2023 6:35 PM CDT [facility] IRON BINDING CAPACITY 530(H) 250 - 400 ug/dL 08/02/2023 6:35 PM CDT [facility] IRON,% SATURATION 3(L) 14 - 50 % 08/02/2023 6:35 PM CDT [facility] Blood BLOOD SPECIMEN / Unknown Butterfly / Unknown 08/02/2023 11:10 AM CDT 08/02/2023 11:10 AM CDT Pao Paul MD CHEMISTRY Performing Organization Address City/[facility]/ZIP Co de Phone Number [facility] [address] [address], [place] * (ABNORMAL) RETICULOCYTES (08/02/2023 11:10 AM CDT) RETIC% 2.7(H) 0.5 - 1.5 % 08/02/2023 3:26 PM CDT [facility] RETIC (ABSOLUTE) 0.07 0.03 - 0.08 mil/cu mm 08/02/2023 3:26 PM CDT [facility] Blood BLOOD SPECIMEN / Unknown Venipuncture / Unknown 08/02/2023 11:10 AM CDT 08/02/2023 11:45 AM CDT Pao Paul MD HEMATOLOGY Performing Organization Address City/[facility]/ZIP Co de Phone Number [facility] [address] [place] [address], [place] * PHOSPHORUS (08/02/2023 11:10 AM CDT) PHOSPHORUS 3.1 2.5 - 4.5 mg/dL 08/02/2023 6:34 PM CDT [facility] Blood BLOOD SPECIMEN / Unknown Butterfly / Unknown 08/02/2023 11:10 AM CDT 08/02/2023 11:10 AM CDT Pao Paul MD CHEMISTRY Performing Organization Address [facility]/ZIP Co de Phone Number [facility] [address] [place] [address], * MAGNESIUM (08/02/2023 11:10 AM CDT) MAGNESIUM 2.0 1.6 - 2.4 mg/dL 08/02/2023 6:34 PM CDT [facility] Blood BLOOD SPECIMEN / Unknown Butterfly / Unknown 08/02/2023 11:10 AM CDT 08/02/2023 11:10 AM CDT Pao Paul MD CHEMISTRY Performing Organization Address [facility] Co de Phone Number [facility] [address] [place] [address], * (ABNORMAL) COMP METABOLIC PANEL (08/02/2023 11:10 AM CDT) SODIUM 137 136 - 145 mmol/L 08/02/2023 6:34 PM CDT [facility] POTASSIUM 4.4 3.5 - 5.1 mmol/L 08/02/2023 6:34 PM CDT [facility] CHLORIDE 100 98 - 107 mmol/L 08/02/2023 6:34 PM CDT [facility] CO2,TOTAL 21(L) 22 - 29 mmol/L 08/02/2023 6:34 PM CDT [facility] ANION GAP 16 5 - 18 08/02/2023 6:34 PM CDT [facility] GLUCOSE 104(H) 70 - 99 mg/dL 08/02/2023 6:34 PM CDT [facility] CALCIUM 10.7(H) 8.8 - 10.2 mg/dL 08/02/2023 6:34 PM CDT [facility] BUN 38(H) 8 - 23 mg/dL 08/02/2023 6:34 PM CDT [facility] CREATININE 1.61(H) 0.50 - 0.90 mg/dL 08/02/2023 6:34 PM CDT [facility] BUN/CREAT RATIO 24(H) 10 - 20 6:34 PM CDT [facility] eGFR 33(L) >90 mL/min/1.7 3m2 08/02/2023 6:34 PM T [facility] Comment:As of 2021, eG FR is calculated by the CKD-EPI creatinine equation without race adjustment. ??eGFR can be influenced by muscle mass, exercise, and diet. ??The reported eGFR is an estimation only and is only applicable if the renal function is stable. ALBUMIN 4.9 4.0 - 4.9 g/dL 08/02/2023 6:34 PM CDT [facility] PROTEIN,TOTAL 8.0 6.0 - 8.0 g/dL 08/02/2023 6:34 PM CDT [facility] BILIRUBIN,TOTAL 0.3 0.0 - 1.2 mg/dL 08/02/2023 6:34 PM CDT [facility] ALK PHOSPHATASE 78 35 - 104 IU/L 08/02/2023 6:34 PM CDT [facility] ALT (SGPT) 18 10 - 35 IU/L 08/02/2023 6:34 PM CDT [facility] AST (SGOT) 31 10 - 35 IU/L 08/02/2023 6:34 PM CDT [facility] Blood BLOOD SPECIMEN / Unknown Butterfly / Unknown 08/02/2023 11:10 AM CDT 08/02/2023 11:10 AM CDT Pao Paul MD CHEMISTRY [facility] [address] [place] [address], * XR MAMMO ADINA BILAT SCREEN (05/07/2023 10:19 AM WORM RAISER) Anatomical Region Laterality Modality BREASTS, Breast Left, Breast Right Bilateral Mammography Impressions 05/08/2023 3:03 PM WORM RAISER ??There is no radiographic evidence for malignancy. ??Recommend annual mammograms. MAMMOGRAM ASSESSMENT: ??ACR 1 Negative PATIENTS: You will also receive a letter with your examination results in an easy to read format. ??If you have questions about your results, please contact your referring provider. Narrative 05/08/2023 3:03 PM WORM RAISER For Patients: As a result of the Cures Act, medical imaging exams and procedure reports are released immediately into your electronic medical record. You may view this report before your referring provider. If you have questions, please contact your health care provider. XR MAMMO ADINA BILAT SCREEN [[id number]] CLINICAL HISTORY: ??This is an asymptomatic 73 y.o. patient. INDICATION FOR EXAM: Mammogram Screening. TECHNIQUE: CC & MLO views were obtained. ??This study was evaluated with the assistance of Computer-Aided Detection. Breast Tomosynthesis was used in interpretation. COMPARISON FILM: Yes [facility] FINDINGS: ??The breasts have scattered areas of fibroglandular density. There are no dominant masses, suspicious micro calcifications or areas of architectural distortion. Pao Paul MD MAMMO * (ABNORMAL) LC LIPID PANEL AND CHOL/HDL RATIO (05/11/2022 10:02 AM WORM RAISER) Cholesterol, Total 171 100 - 199 mg/dL 05/16/2022 1:07 AM [facility] Triglycerides 196(H) 0 - 149 mg/dL 05/16/2022 1:07 AM [facility] HDL Cholesterol 41 >39 mg/dL 1:07 AM [facility] VLDL Cholesterol Jonathan 34 5 - 40 mg/dL 05/16/2022 1:07 AM [facility] LDL Chol Calc ([facility]) 96 0 - 99 mg/dL 05/16/2022 1:07 AM [facility] T. Chol/HDL Ratio 4.2 0.0 - 4.4 ratio 05/16/2022 1:07 AM [facility] ([facility] Comment: ?T. Chol/HDL Ratio ?Men ??Women ?1/2 Avg.Risk ??3.4 ?3.3 ?Avg.Risk ??5.0 ?4.4 ? 2X Avg.Risk ??9.6 ?7.1 ? 3X Avg.Risk 23.4 ?? 11.0 Blood BLOOD SPECIMEN / Unknown Venipuncture / Unknown 05/11/2022 10:02 AM WORM RAISER 05/11/2022 10:02 AM [facility] FOR ESOTERIC TESTING (CET) - 05/16/2022 1:07 AM WORM RAISER Performed at: ??01 - [facility] [place] [address], [place], [place] ??[id number] Spinning Bath Person: John Rock MD, Phone: ??[phone] Pao Paul MD SEND OUTS [facility] FOR ESOTERIC TESTING (CET) [facility] [place] [address], * XR DXA BONE DENSITY 2 SITES AXIAL (09/23/2017 10:06 AM CDT) Anatomical Region Laterality Modality Spine, HIPS, HIPL, HIPR Other Narrative 09/24/2017 5:58 PM CDT Please see scanned document for results of this study. Yamile Block DO DEXA * SCAN-COLONOSCOPY (05/28/2016 9:30 AM WORM RAISER) Narrative Procedure Note Yazmin Patricia MD - 05/28/2016 8:29 AM CST [facility] [address] [place] [address], [address], [place] [address] Patient Name: Maurisio Cuadra Gender: Female Exam Date: 05/28/2016 Visit Number: [id number] Age: 66 Years Date of : 1950 Attending MD: Yazmin Patricia MD Medical Record#: [id number] ----- Procedure: Colonoscopy Indications: Previous adenomatous polyp(s) [...] OTHER * ANTI HCV (03/11/2008 4:34 PM WORM RAISER) ANTI HCV Non-reacti ve [facility] Blood specimen (specimen) BLOOD SPECIMEN / Unknown 03/11/2008 4:34 PM WORM RAISER 03/11/2008 4:29 PM WORM RAISER Khalif Mon MD SEND OUTS [facility] INTERNAL ZIP [address] [address] from Last 3 Months or Most Recently Relevant to Health Maintenance Care Teams Apparel Manager Relationship Specialty [place] [address] [place] [address] PCP - General Family Practice 04/05/22
--- OUTSIDE RECORDS SUMMARY | 2023-10-06 08:30 | XMS_ITS ---
Author Organization [facility] Address [address] [place] [address] Care Team Providers Care Sales Service Assistant Name Role Phone Unavailable Unavailable Unavailable Surgery Details Not on file Complications Check Surgery Details section. Procedure Estimated Blood Loss Check Surgery Details section. Procedure Findings Check Surgery Details section. Procedure Specimens Taken Check Surgery Details section.
--- OUTSIDE RECORDS SUMMARY | 2023-10-06 08:30 | XMS_ITS | Continuity of Care Document ---
Author Organization [facility] Address [address] [address] [place] [address] Phone Care Team Providers Care Batcher Operator Name Role Phone Judson Clark MD, Gucci Unavailable Unavailabl e Allergies, Adverse Reactions, Alerts Substance Reaction Status [...] Duri ng Screen Colonoscopy Flex; W/remov Les- Colonoscopy Flex; W/bx 1/mx Level Iv-surg Path Gross/micro 17 Advance Directives Directive Yes / No Effective Date File Name No Information Encounters Encounter Description Practice Location Reason(s) For Visit Diagnoses Date Provider Providers Copied on Encounter [facility], [address] [address], [place], [id number], [place] tel:[phone] [facility] No Information Judson Duckworth. [address] [facility] [facility] [address], [place], [id number] , [place]. [phone] [facility], [address] [address], [place], [id number], [place] tel:[phone] [facility] Benign colon polypDiverticulosis large intestine w/o perforation or abscess w/o bleedingPersonal history of colonic polypsEncounter for screening for malignant neoplasm of colonBenign neoplasm of transverse colonPolyp of colonPersonal history of colonic polyps Harshad Arce. [address] [facility], [facility] [address], [facility] [place], [id number] , [place]. tel:[phone] Referring Provider: Khalif Jennings, [address] [place] [address], [place], [address]. tel:[phone] Family History Family Member Type Diagnosis Age [...] kin Payers Payer name Insurance type Covered libertarian ID Authoriza tion(s) No Information Social History Type Description Quantity Date Captured Comments Sex Female Smoking Status No Information Chief Complaint And Reason For Visit No Information Reason For Referral Reason For Referral No Information History Of Present Illness Encounter Date Complaint History Of Prese nt Illness No Information Functional Status Date Functional Assessmen t No Information Instructions Date Instruction Additional Infor rebecca Diverticulosis/Diverticulitis Re lated to Diverticulosis large intestine w/o perforation or abscess w/o bleeding High Fiber Diet Related to Diver ticulosis large intestine w/o perforation or abscess w/o bleeding Colon Cancer Prevention Related to Diverticulosis large intestine w/o perforation or abscess w/o bleeding Colon Polyps Related to Diver ticulosis large intestine w/o perforation or abscess w/o bleeding Assessments Type Assessment Date No Information Patient Care Teams Name Effective Dates (start - stop) Status Members No Information
--- OUTSIDE RECORDS SUMMARY | 2023-10-06 08:30 | XMS_ITS | Continuity of Care Document ---
Author Name [facility] Organization [facility] Care Team Providers Care Breaker Unit Assembler Name Role Phone [facility] Unavailable Unavailable Medications Combined list of outpatient [...] ORAL, APOTEX BEV, 1000 ea. BOTTLE Active [id number] 4 2023 90 Pharmac y Data Transac tion Service Facilit y ATORVASTATI N CALCIUM (atorvastat in calcium), 10 MG, TABLET, ORAL, [employer], 1000 ea. BOTTLE Active [id number] 4 2023 90 Pharmac y Data Transac tion Service Facilit y CARVEDILOL (carvedilol ), 12.5 MG, TABLET, ORAL, [employer] 500 ea. BOTTLE Active [id number] 4 2023 180 Pharmac y Data Transac tion Service Facilit y CYCLOBENZAP RINE HCL (cyclobenza tobias HCl), 5 MG, TABLET, ORAL, [employer] 100 ea. BOTTLE Active [id number] 2023 10 Pharmac y Data Transac tion Service Facilit y DOXEPIN HCL (doxepin HCl), 25 MG, CAPSULE, ORAL, [employer], 500 ea. BOTTLE Active [id number] 4 2023 90 Pharmac y Data Transac tion Service Facilit y DOXEPIN HCL (doxepin HCl), 25 MG, CAPSULE, ORAL, [employer], 500 ea. BOTTLE Active [id number] 4 2023 90 Pharmac y Data Transac tion Service Facilit y GAVILYTE-G (PEG 3350/NA SULF,BICARB ,CL/KCL), 236-22.74G, SOLN RECON, ORAL, [employer]IS PHARMACEU, 4000 ml BOTTLE Active [id number] 4 2023 4000 Pharmac y Data Transac tion Service Facilit y LOSARTAN POTASSIUM (losartan potassium), 100 MG, TABLET, ORAL, [employer] PHARMACE, 1000 ea. BOTTLE Active [id number] 4 2023 90 Pharmac y Data Transac tion Service Facilit y LOSARTAN POTASSIUM (losartan potassium), 100 MG, TABLET, ORAL, [employer] PHARMACE, 1000 ea. BOTTLE Active [id number] 2023 90 Pharmac y Data Transac tion Service Facilit y METFORMIN HCL (METFORMIN HCL), 500 MG, TABLET, ORAL, [employer] 1000 ea. BOTTLE Active [id number] 2023 180 Pharmac y Data Transac tion Service Facilit y METFORMIN HCL (METFORMIN HCL), 500 MG, TABLET, ORAL, [employer] 1000 ea. BOTTLE Active [id number] 4 2023 180 Pharmac y Data Transac tion Service Facilit y METFORMIN HCL (METFORMIN HCL), 500 MG, TABLET, ORAL, [employer] 1000 ea. BOTTLE Cancele d [id number] : 2023 0 Pharmac y Data Transac tion Service Facilit y METOPROLOL SUCCINATE (metoprolol succinate), 25 MG, TAB ER 24H, ORAL, [employer] PHARMAC, 1000 ea. BOTTLE Active [id number] 4 2023 90 Pharmac y Data Transac tion Service Facilit y NIFEDIPINE ER (nifedipine ), 30 MG, TAB ER 24, ORAL, OCEANSIDE PHARM, 100 ea. BOTTLE Active [id number] 2023 90 Pharmac y Data Transac tion Service Facilit y NIFEDIPINE ER (nifedipine ), 30 MG, TAB ER 24, ORAL, [employer]CE[employer] PHARM, 100 ea. BOTTLE Active [id number] 2023 90 Pharmac y Data Transac tion Service Facilit y SUCRALFATE (sucralfate ), 1 G/10 ML, ORAL SUSP, ORAL, AMNEAL PHARMACE, 420 ml BOTTLE Active [id number] 4 2023 1000 Pharmac y Data Transac tion Service Facilit y SUCRALFATE (sucralfate ), 1 G/10 ML, ORAL SUSP, ORAL, [employer] PHARMACE, 420 ml BOTTLE Active [id number] 4 2023 420 Pharmac y Data Transac tion Service Facilit y SUCRALFATE (sucralfate ), 1 G/10 ML, ORAL SUSP, ORAL, [employer] PHARMACE, 420 ml BOTTLE Active [id number] 2023 420 Pharmac y Data Transac tion Service Facilit y TRIAMTERENE -HCTZ (TRIAMTEREN E/HYDROCHLO ROTHIAZID), 75-50MG, TABLET, ORAL, APOTEX BEV, 500 ea. BOTTLE Active [id number] 2023 90 Pharmac y Data Transac tion Service Facilit y TRIAMTERENE -HCTZ (TRIAMTEREN E/HYDROCHLO ROTHIAZID), 75-50MG, TABLET, ORAL, APOTEX BEV, 500 ea. BOTTLE Active [id number] 2023 90 Pharmac y Data Transac tion Service Facilit y TRIAMTERENE -HCTZ (TRIAMTEREN E/HYDROCHLO ROTHIAZID), 75-50MG, TABLET, ORAL, APOTEX BEV, 500 ea. BOTTLE Active [id number] 4 2023 90 Pharmac y Data Transac tion Service Facilit y Immunizations Combined list of available immunizations from the Department of Defense and Veterans Affairs facilities. Immunization Series Date Given Administered By Site Reaction Lot Number CVX Code Drug Manager Lpn Status Comments Source COVID-19, mRNA, LNP-S, PF, 30 mcg/0.3 mL dose, terrance-sucrose 2021 RASHAWN GRACE [employer] [place] (PFR) Not Given COVID-19, mRNA, LNP-S, [...]
== END 2023-10-04 09:41 | disposition home or self-care (01) ==
LOC: NFLDREF 10-06 08:28
PROVIDERS: PCP Internal Medicine; Referring Provider Family Medicine; Visit Provider Internal Medicine Nephrology
DX: I12.9 Hypertensive chronic kidney disease with stage 1 through stage 4 chronic kidney disease, or unspecified chronic kidney disease (principal); E11.22 Type 2 diabetes mellitus with diabetic chronic kidney disease; D63.8 Anemia in other chronic diseases classified elsewhere; D50.9 Iron deficiency anemia, unspecified; E83.42 Hypomagnesemia; N18.31 Chronic kidney disease, stage 3a; Z79.84 Long term (current) use of oral hypoglycemic drugs; N25.81 Secondary hyperparathyroidism of renal origin; K76.0 Fatty (change of) liver, not elsewhere classified; E78.5 Hyperlipidemia, unspecified; E66.9 Obesity, unspecified; F41.9 Anxiety disorder, unspecified; G47.33 Obstructive sleep apnea (adult) (pediatric)
CPT/HCPCS: 80061; 80069; 82043; 82570; 82728; 83540; 83550; 83735; 84450; 84460; 84550; 87086

== ENCOUNTER 2023-10-14 08:08 | Outpatient (CLI) | payer MEDICARE, OTHER, SELFPAY ==
--- OUTSIDE RECORDS SUMMARY | 2023-10-14 08:12 | XMS_ITS | Continuity of Care Document ---
Author Name [facility] Organization [facility] Care Team Providers Care Hardening Machine Operator Name Role Phone [facility] Unavailable Unavailable Medications Combined list of outpatient [...] ORAL, APOTEX BEV, 1000 ea. BOTTLE Active [id number] 4 2023 90 Pharmac y Data Transac tion Service Facilit y ATORVASTATI N CALCIUM (atorvastat in calcium), 10 MG, TABLET, ORAL, [employer] PHARMACEU, 1000 ea. BOTTLE Active [id number] 4 2023 90 Pharmac y Data Transac tion Service Facilit y CARVEDILOL (carvedilol ), 12.5 MG, TABLET, ORAL, [employer] 500 ea. BOTTLE Active [id number] 4 2023 180 Pharmac y Data Transac tion Service Facilit y CYCLOBENZAP RINE HCL (cyclobenza tobias HCl), 5 MG, TABLET, ORAL, [employer] 100 ea. BOTTLE Active [id number] 4 2023 10 Pharmac y Data Transac tion Service Facilit y DOXEPIN HCL (doxepin HCl), 25 MG, CAPSULE, ORAL, [employer], 500 ea. BOTTLE Active [id number] 4 2023 90 Pharmac y Data Transac tion Service Facilit y DOXEPIN HCL (doxepin HCl), 25 MG, CAPSULE, ORAL, [employer], 500 ea. BOTTLE Active [id number] 4 2023 90 Pharmac y Data Transac tion Service Facilit y GAVILYTE-G (PEG 3350/NA SULF,BICARB ,CL/KCL), 236-22.74G, SOLN RECON, ORAL, [employer]ARMACEU, 4000 ml BOTTLE Active [id number] 2023 4000 Pharmac y Data Transac tion Service Facilit y LOSARTAN POTASSIUM (losartan potassium), 100 MG, TABLET, ORAL, [employer] PHARMACE, 1000 ea. BOTTLE Active [id number] 4 2023 90 Pharmac y Data Transac tion Service Facilit y LOSARTAN POTASSIUM (losartan potassium), 100 MG, TABLET, ORAL, [employer] PHARMACE, 1000 ea. BOTTLE Active [id number] 2023 90 Pharmac y Data Transac tion Service Facilit y METFORMIN HCL (METFORMIN HCL), 500 MG, TABLET, ORAL, [employer] 1000 ea. BOTTLE Active [id number] 4 2023 180 Pharmac y Data Transac tion Service Facilit y METFORMIN HCL (METFORMIN HCL), 500 MG, TABLET, ORAL, [employer] 1000 ea. BOTTLE Active [id number] 4 2023 180 Pharmac y Data Transac tion Service Facilit y METFORMIN HCL (METFORMIN HCL), 500 MG, TABLET, ORAL, [employer] 1000 ea. BOTTLE Cancele d [id number] : 2023 0 Pharmac y Data Transac tion Service Facilit y METOPROLOL SUCCINATE (metoprolol succinate), 25 MG, TAB ER 24H, ORAL, [employer] PHARMAC, 1000 ea. BOTTLE Active [id number] 4 2023 90 Pharmac y Data Transac tion Service Facilit y NIFEDIPINE ER (nifedipine ), 30 MG, TAB ER 24, ORAL, [employer]CEANSIDE PHARM, 100 ea. BOTTLE Active [id number] 2023 90 Pharmac y Data Transac tion Service Facilit y NIFEDIPINE ER (nifedipine ), 30 MG, TAB ER 24, ORAL, OCEANSIDE PHARM, 100 ea. BOTTLE Active [id number] 4 2023 90 Pharmac y Data Transac tion Service Facilit y SUCRALFATE (sucralfate ), 1 G/10 ML, ORAL SUSP, ORAL, AMNEAL PHARMACE, 420 ml BOTTLE Active [id number] 4 2023 1000 Pharmac y Data Transac tion Service Facilit y SUCRALFATE (sucralfate ), 1 G/10 ML, ORAL SUSP, ORAL, [employer] PHARMACE, 420 ml BOTTLE Active [id number] 4 2023 420 Pharmac y Data Transac tion Service Facilit y SUCRALFATE (sucralfate ), 1 G/10 ML, ORAL SUSP, ORAL, AMNEAL PHARMACE, 420 ml BOTTLE Active [id number] 2023 420 Pharmac y Data Transac tion Service Facilit y TRIAMTERENE -HCTZ (TRIAMTEREN E/HYDROCHLO ROTHIAZID), 75-50MG, TABLET, ORAL, APOTEX BEV, 500 ea. BOTTLE Active [id number] 4 2023 90 Pharmac y Data Transac tion Service Facilit y TRIAMTERENE -HCTZ (TRIAMTEREN E/HYDROCHLO ROTHIAZID), 75-50MG, TABLET, ORAL, APOTEX BEV, 500 ea. BOTTLE Active [id number] 2023 90 Pharmac y Data Transac tion Service Facilit y TRIAMTERENE -HCTZ (TRIAMTEREN E/HYDROCHLO ROTHIAZID), 75-50MG, TABLET, ORAL, APOTEX BEV, 500 ea. BOTTLE Active [id number] 2023 90 Pharmac y Data Transac tion Service Facilit y Immunizations Combined list of available immunizations from the Department of Defense and Veterans Affairs facilities. Immunization Series Date Given Administered By Site Reaction Lot Number CVX Code Drug Manual Arts Teacher Status Comments Source COVID-19, mRNA, LNP-S, PF, 30 mcg/0.3 mL dose, terrance-sucrose 2021 RASHAWN GRACE [employer] [place] (PFR) Not Given COVID-19, mRNA, LNP-S, [...]
--- OUTSIDE RECORDS SUMMARY | 2023-10-14 08:12 | XMS_ITS | Clinical Summary ---
Author Organization [facility] Address [place], [place] [address] Care Team Providers Care Socket Welder Helper Name Role Phone Pao Paul MD Primary Care Provider [phone] Allergies Active Allergy Reactions Criticality Noted Date [...] Description 08/29/2023 11:00 AM CDT Office Visit [facility] [address] [place] [address] Rocael Delgadillo, OD Eye Exam (DM CEE) 08/29/2023 Travel 08/28/2023 Telephone [facility] [address] [place] [address] Rocael Delgadillo, OD PUI Screening 08/27/2023 Travel 08/22/2023 Telephone [facility] [address] [place] [address] Pao Paul MD Appointment (Due for diabetes follow up) 08/12/[address] [facility] [phone] Lissette Campbell MD 08/06/2023 12:05 PM CDT - 08/06/2023 11:59 PM CDT Hospital Encounter [address] [address] Pao Paul MD SOB (shortness of breath); Fatigue, unspecified type; Leg pain, bilateral 08/06/2023 10:25 AM CDT Office [place] [facility] [address] [place] [address] Pao Paul MD Hospital F/U ([place] ) 08/06/2023 Telephone [facility] [address] [place] [address] Pao Paul MD Results 08/06/2023 Travel 08/05/2023 Telephone [facility] [address] [place] [address] Pao Paul MD Results 08/05/2023 Telephone [facility] [address] [place] [address] Pao Paul MD Order 08/05/2023 Telephone [facility] [address] [place] [address] Pao Paul MD Procedure (Iron transfusion) 08/05/2023 Telephone [facility] [address] [place] [address] Pao Paul MD Results 08/04/2023 Orders Only [facility] Scanner 1 scan: (1-Ord) [facility] MULT[facility]LE LAB[facility], 08/04/2023 08/02/2023 10:25 AM CDT Office Visit [facility] [address] [place] [address] Pao Paul MD Follow Up (Blood pressure medication, having shortness of breath and fatigue, palpitations //Still having cramping in legs ) 08/02/2023 Telephone [facility] [address] [place] [address] Pao Paul MD Refill Request (EGG Also Colonooscpy) 08/02/2023 Travel 07/30/2023 10:59 AM CDT - 07/30/2023 11:59 PM CDT Hospital Encounter [facility] [place] [address] [facility] [address] [place] [address] Pao Paul MD 07/30/2023 Travel 07/18/2023 Telephone [facility] Orthopedics - Joint Replacement [facility] [address] [place] [phone] Everett Rios MD 07/18/[address] [facility] Joint Replacement [facility] [address] [place] [phone] Everett Rios MD <No scans attached> 07/17/2023 8:30 AM CDT Office Visit [facility] [address] [place] [phone] Lin Velasquez PA Recheck (bilateral knee pain) 07/17/2023 Travel from Last 3 Months Immunizations Name Administration Dates Next Due COVID-19 vaccine ([employer] 30mcg/0.3mL) 12YO+ BIVALENT [place]AR[place] GALAN 12/29/2021 Hepatitis [...] DT Respiratory Rate 24 05/06/2023 2:16 PM APPLICATIONS INTERN Oxygen Saturation 95% 08/06/2023 10:43 AM CDT Inhaled Oxygen Concentration - - Weight 97.8 kg (215 lb 9.6 oz) 08/02/2023 10:20 AM CDT Height 165.1 cm (5' 5) 06/10/2023 10:39 AM CDT Body Mass Index 35.88 06/10/2023 10:39 AM CDT Plan of Treatment Upcoming Encounters Date Type Department Care Team (Late st Contact Info) Description 10/30/2023 1:30 PM CDT Office Visit [facility] [address] [place] [phone] Lin Velasquez PA [address] [place] [address] Scheduled Procedures Name Priority Associated Diagnoses Date/Ti [...] ADINA BILAT SCREEN Routine 05/07/2023 10:19 AM APPLICATIONS INTERN Visit for screening mammogram LC LIPID PANEL AND CHOL/HDL RATIO Routine 05/11/2022 10:02 AM APPLICATIONS INTERN Type 2 diabetes mellitus with other specified complication, without long-term current use of insulin (HC) HYPERCHOLESTEROLEMI A, PURE XR DXA BONE DENSITY 2 SITES AXIAL Routine 09/23/2017 10:06 AM CDT Post-menopausal SCAN-COLONOSCOPY 05/28/2016 9:30 AM APPLICATIONS INTERN ANTI HCV Routine 03/11/2008 4:34 PM APPLICATIONS INTERN Elev Transaminase/LDH from Last 3 Months or Most Recently Relevant to Health Maintenance Results * LAB TRACKING EVENT (08/12/2023 11:35 AM CDT) Other (Other) Client Collect / Unknown 08/12/2023 11:35 AM CDT 08/12/2023 10:03 PM CDT Lissette Campbell MD LAB BILL ONLY [facility]AL LABORATORY [address] [place] [address], * PATH TISSUE EXAM (08/12/2023 11:35 AM CDT) Case Report Pathology Report ?Case: [id number] ? Authorizing Provider: ??Lissette Campbell, ??Collected: ? 08/12/2023 1135 ? Ordering Location: ? [facility] CENTRAL LAB ?Received: ?08/13/2023 0803 ? Pathologist: ? Jose Dominguez ? IV, MD ? Specimens: ?? A) - Antrum Biopsy ? B) - Gastric Biopsy ? 08/14/2023 4:32 PM CDT [facility]OR[facility]-C ENTRAL LABORATORY Final Diagnosis A) STOMACH, ULCER, BIOPSY: 1. Reactive gastropathy, endoscopically ulcerative (see comment) ?? a. Sampling: Antral mucosa ?? b. Distribution: Antral mucosa 2. Negative for chronic inflammation, atrophy and Helicobacter B) STOMACH, BIOPSY: 1. Normal gastric body mucosa 2. Negative for Helicobacter 08/14/2023 4:32 PM CDT [facility] [employer] [facility] ENTRAL LABORATORY Comment A) The likely etiology is an ongoing non-inflammatory type mucosal injury due to a chemical type of injury; this may be due to ingestion of non-steroidal anti-inflammatory drugs, aspirin (via prostaglandin-med iated injury), excess alcohol, corticosteroids, or bile/alkaline reflux, the latter usually in the setting of a gastroenteric anastomosis. 08/14/2023 4:32 PM CDT [facility] Clinical Information Ms. Cuadra is a 73 y.o. with suspected upper GI bleeding. EGD findings include: -Gastric ulcers -Suspected fundic gland polyps 08/14/2023 4:32 PM CDT [facility] [employer] [facility] ENTRAL LABORATORY Gross Description A) Received in [...] 08/13/2023 9:25 AM 08/14/2023 4:32 PM CDT [facility] [employer] [facility] ENTRAL LABORATORY Microscopic Description The final diagnosis is based on microscopic examination of appropriate sections of all specimens. 08/14/2023 4:32 PM CDT [facility] [employer] LABORATORY-C ENTRAL LABORATORY Additional Information Interpreted at [facility], Central Laboratory - [address], [place] [address] 08/14/2023 4:32 PM CDT [facility] [employer] [facility] ENTRAL LABORATORY Other GASTRIC BIOPSY SPECIMEN / Unknown 08/12/2023 11:35 AM CDT 08/13/2023 8:03 AM CDT Specimen (specimen) GASTRIC BIOPSY SPECIMEN / Unknown 08/12/2023 11:35 AM CDT 08/13/2023 8:03 AM CDT Lissette Campbell MD PATHOLOGY/CYTOLO GY [facility] LABORATORY-CENTRAL LABORATORY [address] [place] [address], * ECHO TTE COMPLETE WO CONTRAST (08/06/2023 1:10 PM CDT) EJECTION FRACTION 60-65% PROSOLV Anatomical Region Laterality Modality Ultrasound 08/06/2023 12:3 4 PM CDT Narrative 08/06/2023 5:05 PM CDT [address], [place] [address] Main: ? Transthoracic Echo Report MAURISIO CUADRA ID: [id number] Age: 73 : 1950 Ordering Provider: PAO PAUL Exam Date: 08/06/2023 12:34 Gender: F Contracts Director: [facility] Height: 65 in BSA: 2.04 m?? BP: 150 / 60 Weight: 216 lbs BMI: 36 kg/m?? HR: 94 Location: [facility] - Outpatient Rhythm: Normal Sinus Rhythm Procedure [...] ZScore: -1.[address] MD (Electronically Signed) [facility] Final Date: 06 Aug 2023 17:05 ICD-10 Codes: R06.02; M79.604; M79.605; R53.[address] MB[employer] - 08/06/[address], [place] [address] Main: Transthoracic Echo Report MAURISIO CUADRA ID: [id number] Age: 73 : 1950 Ordering Provider:PAO PAUL Exam Date: 08/06/2023 12:34 Gender: F Contracts Director: [employer] Height: 65 in BSA: 2.04 m?? BP: 150 / 60 Weight: 216 lbs BMI: 36 kg/m?? HR: 94 Location: [facility] - Outpatient Rhythm: Normal SinusRhythm Procedure Components: [...] (r) 7.51 mmHg Aortic Root ZScore: -1.[address] MD (Electronically Signed) [facility] Accredited Site Final Date: 06 Aug 2023 17:05 ICD-10 Codes: R06.02; M79.604; M79.605; R53.83 Pao Paul MD ECHO ORD * SCAN-LABORATORY REPORT (08/04/2023 12:00 AM CDT) Scanner OTHER * PERIPHERAL BLD MORPHOLOGY (08/02/2023 11:45 AM CDT) Case Report Special Hematology Report ? Case: [id number] ? Authorizing Provider: ??Pao Paul MD ? Collected: ? 08/02/2023 1145 ? Ordering Location: ? [facility] ?? Received: ?08/02/2023 1145 ? Clinic ? Pathologist: ? Dann Montoya MD ? Specimen: ?Blood ? 11:28 AM [facility] C[facility] LABORATORY Final Diagnosis PERIPHERAL BLOOD: 1. Marked microcytic, hypochromic anemia compatible with iron deficiency anemia 2. Mild thrombocytosis, favor reactive 3. Mild leukocytosis reflecting mild absolute neutrophilia and monocytosis, favor reactive 4. See comment 11:28 AM [facility] Comment The CBC indices and iron [...] (ASCP). 4 11:28 AM CDT [facility] LABORAT[facility]- CENTRAL LABORATORY Clinical Information The patient [...] (H) 4 11:28 AM CDT [facility] LABORAT[facility]- CENTRAL LABORATORY CBC and Differential HEMATOLOGY PARAMETERS Tested at: ??[facility] RESULTS ??EXPECTED VALUES WBC: ? 11.2 ? 4.5-66w0516/cumm ?ELEVATED RBC: ? 2.63 ? 4.00-5.20 mil/cumm ??DECREASED HGB: ? 6.0 ?12-16 gm/dl ? DECREASED HCT: ? 19.9 ? 33-51% ?DECREASED MCV: ? 76.0 ? 80-100 fl ? MICROCYTIC MCH: ? 22.8 ? 26-34 pg ?DECREASED MCHC: ?30.2 ? 32-36 gm/dl ? HYPOCHROMIC RDW: ? 15.9 ? 11.5-15.5% ?ELEVATED PLT: ? 461 ?140-650y6608/uL ? ELEVATED MPV: ? 8.9 ?6.5-11 fl ? Retic: ?? 2.7 ?0.5-1.5% ?ELEVATED Differential ?Absolute (%) ?Expected (%) ?(x10*9/L) ? (x10*9/L) Neutrophils: ?7.5 (67) ?1.7-7.0 (42-72%) ?ELEVATED Lymphocytes: ?2.3 (20.5) ?0.9-2.9 (20-44%) ?? Monocytes: ?1.4 (12.5) ? <0.9 (0-11%) ? ELEVATED Eosinophils: ?0.1 (.9) ? <0.5 (0-2%) ? Basophils: ?0.1 (.9) ? <0.3 (<3.0%) ? 4 11:28 AM [facility] Microscopic Description The final diagnosis is based on microscopic examination of an appropriately stained blood smear. 4 11:28 AM [facility] Additional Information Interpreted at [facility] Central Laboratory - [address] [facility] [address], [place] [address] 4 11:28 AM [facility] Blood BLOOD SPECIMEN / Unknown Venipuncture [...] Pao Paul MD HEMATOLOGY Performing Organization Address City/[facility]/ZIP Co de Phone Number [facility] [address] [place] [address], * CWS PATH REVIEW HEMATOLOGY (08/02/2023 11:10 AM CDT) PATH COMMENT Reviewed by KT on 08/04/2023 08/04/2023 2:32 PM CDT [facility] TRAL LABORATORY Blood BLOOD SPECIMEN / Unknown Butterfly / Unknown 08/02/2023 11:10 AM CDT 08/02/2023 11:10 AM CDT Pao Paul MD LABORATORY Performing Organization Address City/[facility]/ZIP Co de Phone Number [facility] [address] [place] [address], * (ABNORMAL) CBC WITH AUTO DIFFERENTIAL (08/02/2023 11:10 AM CDT) WHITE BLOOD COUNT 11.2(H) 4.5 - 11.0 thou/cu mm 08/02/2023 11:56 AM CDT [facility] RED BLOOD COUNT 2.63(L) 4.00 - 5.20 mil/cu mm 08/02/2023 11:56 AM CDT [facility] HEMOGLOBIN 6.0(LL) 12.0 - 16.0 g/dL 08/02/2023 11:56 AM CDT [facility] HEMATOCRIT 19.9(L) 33.0 - 51.0 % 08/02/2023 11:56 AM CDT [facility] MCV 76(L) 80 - 100 fL 08/02/2023 11:56 AM CDT [facility] MCH 22.8(L) 26.0 - 34.0 pg 08/02/2023 11:56 AM CDT [facility] MCHC 30.2(L) 32.0 - 36.0 g/dL 08/02/2023 11:56 AM CDT [facility] RDW 15.9(H) 11.5 - 15.5 % 08/02/2023 11:56 AM CDT [facility] [place] PLATELET COUNT 461(H) 140 - 440 thou/cu mm 08/02/2023 11:56 AM CDT [facility] MPV 8.9 6.5 - 11.0 fL 08/02/2023 11:56 AM CDT [facility] [place] % NEUT 66.7 % 08/02/2023 11:56 AM CDT [facility] [place] [place] % LYMPH 20.2 % 08/02/2023 11:56 AM CDT [facility] % MONO 12.2 % 08/02/2023 11:56 AM CDT [facility] % EOS 0.4 % 08/02/2023 11:56 AM CDT [facility] % BASO 0.5 % 08/02/2023 11:56 AM CDT [facility] ABSOLUTE NEUTROPHILS 7.5(H) 1.7 - 7.0 thou/cu mm 08/02/2023 11:56 AM CDT [facility] ABSOLUTE LYMPHOCYTES 2.3 0.9 - 2.9 thou/cu mm 08/02/2023 11:56 AM CDT [facility] ABSOLUTE MONOCYTES 1.4(H) <0.9 thou/cu mm 08/02/2023 11:56 AM CDT [facility] ABSOLUTE EOSINOPHILS 0.1 <0.5 thou/cu mm 08/02/2023 11:56 AM CDT [facility] ABSOLUTE BASOPHILS 0.1 <0.3 thou/cu mm 08/02/2023 11:56 AM CDT [facility] Blood BLOOD SPECIMEN / Unknown Butterfly / Unknown 08/02/2023 11:10 AM CDT 08/02/2023 11:10 AM CDT Pao Paul MD HEMATOLOGY [facility] [address] [place] [address], * TSH WITH REFLEX (08/02/2023 11:10 AM CDT) TSH 1.41 0.27 - 4.20 uIU/mL 08/02/2023 6:34 PM CDT [facility] Blood BLOOD SPECIMEN / Unknown Butterfly / Unknown 08/02/2023 11:10 AM CDT 08/02/2023 11:10 AM CDT Narrative [facility] - 08/02/2023 6:34 PM CDT In Adults, TSH values between 5.00 and 10.00 uIU/ml do not necessarily indicate the presence of Hypothyroidism. Correlation with clinical findings such as presence of goiter and/or Thyroperoxidase (TPO) Antibody may be helpful. For more information please refer to GIFTY 2004; 291: 228-238. Pao Paul MD CHEMISTRY [facility] [address] [address], * VITAMIN D 25 (DEFICIENCY) (08/02/2023 11:10 AM CDT) VITAMIN D TOTAL 60.0 20.0 - 80.0 ng/mL 08/02/2023 6:34 PM CDT [facility] Blood BLOOD SPECIMEN / Unknown Butterfly / Unknown 08/02/2023 11:10 AM CDT 08/02/2023 11:10 AM CDT Narrative [facility] - 08/02/2023 6:34 PM CDT ? Vitamin D Status Deficiency: ? <20 ng/mL Insufficiency: ?20-29 ng/mL Sufficiency: ?30-80 ng/mL Possible Toxicity: ??>80 ng/mL Based on [place] of Medicine recommendations Biotin supplements may cause clinically significant interference for this test assay. ??If interference is suspected, it is strongly recommended that biotin is discontinued for at least one week prior to retesting. Pao Paul MD SEND OUTS Performing Organization Address [facility]/ZIP Co de Phone Number [facility] [address] * (ABNORMAL) IRON PLUS IRON BINDING CAP (08/02/2023 11:10 AM CDT) IRON 14(L) 37 - 145 ug/dL 08/02/2023 6:35 PM CDT [facility] TRAL LABORATORY UIBC (UNSATURATED) 516(H) 112 - 347 ug/dL 08/02/2023 6:35 PM CDT [facility] TRA LABORATORY IRON BINDING CAPACITY 530(H) 250 - 400 ug/dL 08/02/2023 6:35 PM CDT [facility] IRON,% SATURATION 3(L) 14 - 50 % 08/02/2023 6:35 PM CDT [facility] Blood BLOOD SPECIMEN / Unknown Butterfly / Unknown 08/02/2023 11:10 AM CDT 08/02/2023 11:10 AM CDT Pao Paul MD CHEMISTRY Performing Organization Address [facility] Co de Phone Number [facility] [address] * (ABNORMAL) RETICULOCYTES (08/02/2023 11:10 AM CDT) RETIC% 2.7(H) 0.5 - 1.5 % 08/02/2023 3:26 PM CDT [facility] RETIC (ABSOLUTE) 0.07 0.03 - 0.08 mil/cu mm 08/02/2023 3:26 PM CDT [facility] Blood BLOOD SPECIMEN / Unknown Venipuncture / Unknown 08/02/2023 11:10 AM CDT 08/02/2023 11:45 AM CDT Pao Paul MD HEMATOLOGY Performing Organization Address City/[facility]/ZIP Co de Phone Number [facility] [address] [place] [address], * PHOSPHORUS (08/02/2023 11:10 AM CDT) PHOSPHORUS 3.1 2.5 - 4.5 mg/dL 08/02/2023 6:34 PM CDT [facility] Blood BLOOD SPECIMEN / Unknown Butterfly / Unknown 08/02/2023 11:10 AM CDT 08/02/2023 11:10 AM CDT Pao Paul MD CHEMISTRY Performing Organization Address City/[facility]/ZIP Co de Phone Number [facility] [address] [place] [address], * MAGNESIUM (08/02/2023 11:10 AM CDT) Pathologist [facility] MAGNESIUM 2.0 1.6 - 2.4 mg/dL 08/02/2023 6:34 PM CDT [facility] Blood BLOOD SPECIMEN / Unknown Butterfly / Unknown 08/02/2023 11:10 AM CDT 08/02/2023 11:10 AM CDT Pao Paul MD CHEMISTRY [facility] [address] [place] [address], * (ABNORMAL) COMP METABOLIC PANEL (08/02/2023 11:10 AM CDT) Pathologist [facility] SODIUM 137 136 - 145 mmol/L 08/02/2023 6:34 PM CDT [facility] TRAL LABORATORY POTASSIUM 4.4 3.5 - 5.1 mmol/L 08/02/2023 6:34 PM CDT [facility] TRAL LABORATORY CHLORIDE 100 98 - 107 mmol/L 08/02/2023 6:34 PM CDT [facility] TRAL LABORATORY CO2,TOTAL 21(L) 22 - 29 mmol/L 08/02/2023 6:34 PM CDT [facility] TRAL LABORATORY ANION GAP 16 5 - 18 08/02/2023 6:34 PM CDT [facility] TRAL LABORATORY GLUCOSE 104(H) 70 - 99 mg/dL 08/02/2023 6:34 PM T [facility] TRAL LABORATORY CALCIUM 10.7(H) 8.8 - 10.2 mg/dL 08/02/2023 6:34 PM [facility] TRAL LABORATORY BUN 38(H) 8 - 23 mg/dL 08/02/2023 6:34 PM T [facility] TRAL LABORATORY CREATININE 1.61(H) 0.50 - 0.90 mg/dL 08/02/2023 6:34 PM [facility] TRAL LABORATORY BUN/CREAT RATIO 24(H) 10 - 20 6:34 PM [facility] TRAL LABORATORY eGFR 33(L) >90 mL/min/1.7 3m2 08/02/2023 6:34 PM [facility] TRAL LABORATORY Comment:As of 2021, eG FR is calculated by the CKD-EPI creatinine equation without race adjustment. ??eGFR can be influenced by muscle mass, exercise, and diet. ??The reported eGFR is an estimation only and is only applicable if the renal function is stable. ALBUMIN 4.9 4.0 - 4.9 g/dL 08/02/2023 6:34 PM [facility] TRAL LABORATORY PROTEIN,TOTAL 8.0 6.0 - 8.0 g/dL 08/02/2023 6:34 PM [facility] TRAL LABORATORY BILIRUBIN,TOTAL 0.3 0.0 - 1.2 mg/dL 08/02/2023 6:34 PM [facility] TRAL LABORATORY ALK PHOSPHATASE 78 35 - 104 IU/L 08/02/2023 6:34 PM [facility] ALT (SGPT) 18 10 - 35 IU/L 08/02/2023 6:34 PM [facility] TRAL LABORATORY AST (SGOT) 31 10 - 35 IU/L 08/02/2023 6:34 PM [facility] TRAL LABORATORY Blood BLOOD SPECIMEN / Unknown Butterfly / Unknown 08/02/2023 11:10 AM CDT 08/02/2023 11:10 AM CDT Pao Paul MD CHEMISTRY [facility]-CENTRAL LABORATORY [address] [place] [address], [place] * XR MAMMO ADINA BILAT SCREEN (05/07/2023 10:19 AM APPLICATIONS INTERN) Anatomical Region Laterality Modality BREASTS, Breast Left, Breast Right Bilateral Mammography Impressions 05/08/2023 3:03 PM APPLICATIONS INTERN ??There is no radiographic evidence for malignancy. ??Recommend annual mammograms. MAMMOGRAM ASSESSMENT: ??ACR 1 Negative PATIENTS: You will also receive a letter with your examination results in an easy to read format. ??If you have questions about your results, please contact your referring provider. Narrative 05/08/2023 3:03 PM APPLICATIONS INTERN For Patients: As a result of the Century Cures Act, medical imaging exams and procedure reports are released immediately into your electronic medical record. You may view this report before your referring provider. If you have questions, please contact your health care provider. XR MAMMO ADINA BILAT SCREEN [[id number]] CLINICAL HISTORY: ??This is an asymptomatic 73 y.o. patient. INDICATION FOR EXAM: Mammogram Screening. TECHNIQUE: CC & MLO views were obtained. ??This study was evaluated with the assistance of Computer-Aided Detection. Breast Tomosynthesis was used in interpretation. COMPARISON FILM: Yes 04/05/22 [facility] 03/31/21 [facility] FINDINGS: ??The breasts have scattered areas of fibroglandular density. There are no dominant masses, suspicious micro calcifications or areas of architectural distortion. Pao Paul MD MAMMO * (ABNORMAL) LC LIPID PANEL AND CHOL/HDL RATIO (05/11/2022 10:02 AM APPLICATIONS INTERN) Cholesterol, Total 171 100 - 199 mg/dL 05/16/2022 1:07 AM APPLICATIONS INTERN [facility] Triglycerides 196(H) 0 - 149 mg/dL 05/16/2022 1:07 AM [facility] ([facility]) HDL Cholesterol 41 >39 mg/dL 1:07 AM [facility] ([facility]) VLDL Cholesterol Jonathan 34 5 - 40 mg/dL 05/16/2022 1:07 AM [facility] ([facility]) LDL Chol Calc ([facility]) 96 0 - 99 mg/dL 05/16/2022 1:07 AM [facility] ([facility]) T. Chol/HDL Ratio 4.2 0.0 - 4.4 ratio 05/16/2022 1:07 AM [facility] ([facility]) Comment: ?T. Chol/HDL Ratio ?Men ??Women ?1/2 Avg.Risk ??3.4 ?3.3 ?Avg.Risk ??5.0 ?4.4 ? 2X Avg.Risk ??9.6 ?7.1 ? 3X Avg.Risk 23.4 ?? 11.0 Blood BLOOD SPECIMEN / Unknown Venipuncture / Unknown 05/11/2022 10:02 AM APPLICATIONS INTERN 05/11/2022 10:02 AM APPLICATIONS INTERN Narrative [facility] ([facility] - 05/16/2022 1:07 AM APPLICATIONS INTERN Performed at: ??01 - [facility] [address] ??[id number] [employer] Information Architect: John Rock MD, Phone: ??[phone] Pao Paul MD SEND OUTS [facility] ([facility]) [facility] [place] [address], * XR DXA BONE DENSITY 2 SITES AXIAL (09/23/2017 10:06 AM CDT) Anatomical Region Laterality Modality Spine, HIPS, HIPL, HIPR Other Narrative 09/24/2017 5:58 PM CDT Please see scanned document for results of this study. Yamile Block DO DEXA * SCAN-COLONOSCOPY (05/28/2016 9:30 AM APPLICATIONS INTERN) Narrative Procedure Note Yazmin Patricia MD - 05/28/2016 8:29 AM CST [facility] [address] [facility] [address], [address], [place] [address] Patient Name: Maurisio Cuadra Gender: Female Exam Date: 05/28/2016 Visit Number: [id number] Age: 66 Years Date of : 1950 Attending MD: Yazmin Patricia MD Medical Record#: [id number] ----- Procedure: Colonoscopy Indications: Previous adenomatous polyp(s) [...] OTHER * ANTI HCV (03/11/2008 4:34 PM APPLICATIONS INTERN) ANTI HCV Non-reacti ve [facility] Blood specimen (specimen) BLOOD SPECIMEN / Unknown 03/11/2008 4:34 PM APPLICATIONS INTERN 03/11/2008 4:29 PM APPLICATIONS INTERN Khalif Mon MD SEND OUTS [facility] INTERNAL ZIP [address] [place] [address] from Last 3 Months or Most Recently Relevant to Health Maintenance Care Teams Socket Welder Helper Relationship Specialty [place] [id number] [address] [place], [place] [phone] PCP - General Family Practice 04/05/22
--- OUTSIDE RECORDS SUMMARY | 2023-10-14 08:12 | XMS_ITS | Encounter Summary ---
Author Organization [facility] Address [address] [place] [address] Care Team Providers Care Manager Private Name Role Phone Unavailable Primary Care Provider Unavailabl e Reason for Visit * Appointment Request (Routine) - Closed Specialty Diagnoses / Procedures Referred By Addy mckeon Referred To Contact Nephrology and Hypertension Referral ID Status Reason Start Date Expiration Date Visits Re quested Visits Authorized [id number] Closed 09/05/2023 09/04/2024 1 1 Encounter Details Date Type Department Care Team (Latest Contact Info) Description 10/07/2023 4:00 PM CDT External Outreach Division of Nephrology and Hypertension in [place], [place] [address] [place] [address] Ronn Alvarez Jr., D.O. [address] [place] [id number] Chronic Kidney Disease (CKD), Stage 3a Glomerular Filtration Rate (GFR) 45 To 59 (HCC) (Primary Dx); Hypertensive Chronic Kidney Disease (CKD) Stage 3a Glomerular Filtration Rate (GFR) 45 To 59; Diabetes Mellitus Type 2 (HCC); Hyperparathyroidism Renal Secondary (HCC); Anemia; Apnea Sleep Obstructive Social History Tobacco Use Types Packs/Day Years [...] Sign Reading Time Taken Comments Blood Pressure 134/58 10/07/2023 4:43 PM CDT Pulse 94 10/07/2023 4:43 PM CDT Temperature - - Respiratory Rate - - Oxygen Saturation - - Inhaled Oxygen Concentration - - Weight 94 kg (207 lb 3.7 oz) 10/07/2023 4:21 PM CDT Height - - Body Mass Index 34.53 07/02/2023 1:50 PM CDT documented in this encounter Progress Notes * Ronn Alvarez Jr., D.Eliseo - 10/07/2023 4:00 PM CDT Referring Provider: DR Tee SUBJECTIVE REASON FOR VISIT [place] [facility] Follow-up regards CKD, difficult to manage hypertension and anemia HISTORY OF PRESENT ILLNESS Ms. Cuadra is a 73 y.o. female who presents with history of CKD on the background of diabetes mellitus which is very well controlled on oral metformin alone, and no microalbuminuria, with a baseline serum creatinine of roughly 1.6- 1.7 mg/dL and hypertension which has been difficult to manage. Home blood pressures have been excellent recently, running in the 120s and 130s over 70s without orthostatic hypotension nor lower extremity edema. We had previously attempted carvedilol which causedher to become extremely orthostatic. We would started her on long-acting metoprolol 25 mg per day, but this left her feeling washed out and dizzy as well. Home blood pressures were excellent and hence the metoprolol was held. She has been on high-dose Prilosec, and has experienced some leg cramping as well as hypomagnesemia. Appreciate that she had been using some Carafate and finds that this is associated with quite a bit of phlegm. We discussed stopping this agent. She has had no other constitutional complaints no chest pain no shortness of breath and otherwise feels relatively well. It was unusual to note that her hemoglobin which had increased up to 10.2 has declined back down to9.2. She has normal serum iron but low % saturation. Ferritin level is on the low end of normal as well. She is tolerating the oral iron poorly with gastric upset, and frequent loose stools. She did go through a 5 infusion course of IV iron following her GI bleed in July. History reviewed. No pertinent past medical history. Current Outpatient Medications: aspirin [address] [...] or chew., Disp: 90 tablet, Rfl: 3 xscxylkq-hqx-ytjn-FA-lutein (Centrum Silver Women) 8 mg iron-400 mcg-300 mcg tablet, Take by mouth., Disp: , Rfl: NIFEdipine XL (PROCARDIA XL) 30 mg 24 hr tablet, , Disp: , Rfl: omega 2-irh-yba-fish oil 1,000 mg (120 mg-180 mg) capsule, Take 1,000 mg by mouth., Disp: , Rfl: omeprazole (PriLOSEC) [address] capsule, Take by mouth., Disp: , Rfl: triamterene-hydroCHLOROthiazide (MAXZIDE-25) 37.5-25 mg per tablet, , Disp: , Rfl: zinc chelated 50 mg tablet tablet, Take 50 mg by mouth., Disp: , Rfl: REVIEW OF SYSTEMS All other systems reviewed and are negative. OBJECTIVE BP 134/58 Pulse 94 Wt 94 kg BMI 34.53 kg/m?? PHYSICAL EXAMINATION General: Awake alert oriented HEENT: SARAH, EOMI, Mucous membranes moist, no oral lesions Neck: No Masses, No Bruits Lungs: Clear to ascultation Heart: Regular Rate and Rhythm, No ectopy Murmurs or rubs Abdomen: Soft, Non-tender Extremities: No cyanosis, No clubbing: No edema Neuro: Cranial Nerves intact, Gait is normal, strength grossly normal Skin: no suspicious lesions identified Psychiatric: Normal affect DIAGNOSTICS Note serum creatinine 1.6 mg/dL no microalbuminuria hemoglobin A1c 5.4% hemoglobin 9.2 normal serumiron at 71, low% sat at 19% ASSESSMENT / PLAN #1 Chronic Kidney Disease (CKD), Stage 3a Glomerular Filtration Rate (GFR) 45 To 59 (HCC) Her GFR has remained relatively stable, and I expect her CKD is on the background of hypertensive nephrosclerosis. Going forward: 1. Return to clinic in 6 months 2. Goal blood pressure less than 130/80, preferably checking blood pressure on a 3 time weekly morning and evening regimen, and contact me if she is above this level. I would then favor re-initiationof the metoprolol given her elevated pulse rate. 3. Keep appointment for EGD-see below 4. Perhaps could cut back a bit on the metformin given her excellent hemoglobin A1c 5. No NSAIDs or Javed 2 inhibitors by mouth, she can safely use topical Voltaren 6. Should she continue to struggle with hypomagnesemia we might need to consider the impact of the proton pump inhibitor as a possible etiology. #2 Hypertensive Chronic Kidney Disease (CKD) Stage 3a Glomerular Filtration Rate (GFR) 45 To 59 Please see above discussion, her initial blood pressure in the office today was 147 but had declined during her visit. I have asked her to check her pressures at home on a 2-3 time weekly basis in the morning and the evening and record these. As above, we can hold on the metoprolol for now, but would reinitiate if her systolic pressures were elevated. #3 Diabetes Mellitus Type 2 (HCC) Her hemoglobin A1c is only 5.3%, I believe we could safely transition from the metformin dose to a lower dose. #4 Hyperparathyroidism Renal Secondary (HCC) Satisfactory calcium phosphorus will check PTH again in 6 months #5 Anemia She is borderline low iron index is, I favor 1 more dose of 200 mg IV iron sucrose. She has a plan for another EGD in 1 week. I will check B12 folate and iron stores at her next visit. #6 Apnea Sleep Obstructive She is adherent to her regimen Total time: 30 minutes Counseling Time: 30 minutes Ronn Alvarez Jr., D.O. documented in this encounter Plan of Treatment Not on file documented as of this encounter Visit Diagnoses Diagnosis Chronic Kidney Disease (CKD), Stage 3a Glomerular Filtration Rate (GFR) 45 To 59 (HCC)- Primary Hypertensive Chronic Kidney Disease (CKD) Stage 3a Glomerular Filtration Rate (GFR) 45 To 59 Diabetes Mellitus Type 2 (HCC) Hyperparathyroidism Renal Secondary (HCC) Anemia Apnea Sleep Obstructive documented in this encounter
--- OUTSIDE RECORDS SUMMARY | 2023-10-14 08:12 | XMS_ITS ---
Author Organization [facility] Address [address] [place] [address] Care Team Providers Care Radio Journalist Name Role Phone Unavailable Unavailable Unavailable Surgery Details Not on file Complications Check Surgery Details section. Procedure Estimated Blood Loss Check Surgery Details section. Procedure Findings Check Surgery Details section. Procedure Specimens Taken Check Surgery Details section.
--- OUTSIDE RECORDS SUMMARY | 2023-10-14 08:12 | XMS_ITS | Referral Summary ---
Author Organization [facility] Address [address] [place] [address] Care Team Providers Care Breakfast Server Name Role Phone Unavailable Primary Care Provider Unavailabl e Source Comments Patient records contain information from all sites at [facility]. For routine questions regarding patient records, call [phone] during business hours, M-F 8:00 AM - 5:00 PM Central Time. Record requests for emergency care only can be directed to [phone] at any time.[facility] Encounters Date Type Department Care Team Description 10/07/2023 4:00 PM CDT External Outreach Division of Nephrology and Hypertension in [place], [place] [address] [place] [address] Ronn Alvarez Jr., D.O. Chronic Kidney Disease (CKD), Stage 3a Glomerular Filtration Rate (GFR) 45 To 59 (HCC) (Primary Dx); Hypertensive Chronic Kidney Disease (CKD) Stage 3a Glomerular Filtration Rate (GFR) 45 To 59; Diabetes Mellitus Type 2 (HCC); Hyperparathyroidism Renal Secondary (HCC); Anemia; Apnea Sleep Obstructive from Last 3 Months Medications Medication Sig [...] losartan (COZAAR) 100 mg tablet 01/13/2021 Active sivctxhe-vjx-ydib -FA-lutein (Centrum Silver Women) 8 mg iron-400 mcg-300 mcg tablet Take by mouth. 01/13/2021 Active NIFEdipine XL (PROCARDIA XL) 30 mg 24 hr tablet 11/23/2020 Active omeprazole (PriLOSEC) [address] capsule Take by mouth. 09/24/2006 Active omega 5-wpw-frh-fish oil 1,000 mg (120 mg-180 mg) capsule Take 1,000 mg by mouth. 01/13/2021 Active triamterene-hydro CHLOROthiazide (MAXZIDE-25) 37.5-25 mg per tablet 11/01/2020 Active zinc chelated 50 mg tablet tablet Take 50 mg by mouth. 01/13/2021 Active metoprolol succinate (TOPROL-XL) 25 mg 24 hr tablet Take 1 tablet (25 mg total) by mouth daily. Do not crush or chew. 90 tablet 3 07/02/2023 10/07/2023 Discontinued( Alternate therapy) Active Problems Problem Noted Date Diagnosed Date [...] 3.7 oz) 10/07/2023 4:21 PM CDT Height 165 cm (5' 4.96) 07/02/2023 1:50 PM CDT Body Mass Index 34.53 07/02/2023 1:50 PM CDT Plan of Treatment Not on file Procedures Procedure Name Priority Date/Time Associated Diagnosis Comments EXTI COMPREHENSIVE METABOLIC PANEL, S/P Routine 08/02/2023 11:10 AM CDT BI BREAST SCREENING BILATERAL WITH TOMOSYNTHESIS RAD - Routine (most inpatients and all outpatients) 05/07/2023 10:19 AM COMPARATIVE SOCIOLOGY PROFESSOR EXTI LIPID PANEL, S Routine 05/11/2022 1 0:02 AM COMPARATIVE SOCIOLOGY PROFESSOR from Last 3 Months or Most Recently Relevant to Health Maintenance
--- OUTSIDE RECORDS SUMMARY | 2023-10-14 08:12 | XMS_ITS | Clinical Summary ---
Author Organization [facility] Address [address] [place] [address] Care Team Providers Care Neon Tube Bender Name Role Phone Unavailable Primary Care Provider Unavailabl e Source Comments Patient records contain information from all sites at [facility]. For routine questions regarding patient records, call [phone] during business hours, M-F 8:00 AM - 5:00 PM Central Time. Record requests for emergency care only can be directed to [phone] at any time.[facility] Medications Medication Sig Dispensed Refills Start Date [...] losartan (COZAAR) 100 mg tablet 01/13/2021 Active srinsiiw-cvj-ukro -FA-lutein (Centrum Silver Women) 8 mg iron-400 mcg-300 mcg tablet Take by mouth. 01/13/2021 Active NIFEdipine XL (PROCARDIA XL) 30 mg 24 hr tablet 11/23/2020 Active omeprazole (PriLOSEC) [address] capsule Take by mouth. 09/24/2006 Active omega 1-hrd-fyp-fish oil 1,000 mg (120 mg-180 mg) capsule [...] Outreach Division of Nephrology and Hypertension in [place], [place] [address] [place] [address] Ronn Alvarez Jr., D.O. Chronic Kidney Disease (CKD), Stage 3a Glomerular Filtration Rate (GFR) 45 To 59 (HCC) (Primary Dx); Hypertensive Chronic Kidney Disease (CKD) Stage 3a Glomerular Filtration Rate (GFR) 45 To 59; Diabetes Mellitus Type 2 (HCC); Hyperparathyroidism Renal Secondary (HCC); Anemia; Apnea Sleep Obstructive from Last 3 Months Social History Tobacco [...] Hepatitis C Screening 1950 Urine Albumin 1950 Hepatitis B Vaccines (1 of 3 - Risk 3-dose series) 2009 DTaP,Tdap,and Td Vaccines (2 - Td or Tdap) 11/08/2022 11/08/2012 Depression Screening (Annual PHQ-2) 04/01/2023 Fall Risk Screen (Annual) 04/01/2023 COVID-19 Vaccine (2022-2 4 season) 2023 01/25/2023, 12/29/2021, 07/05/2021, Additional history exists Influenza Vaccine (#1) 2023 , 01/09/2023, 01/22/2022, Additional history exists Mammogram 05/07/2024 05/07/2023, 08/2023, 04/05/2022, Additional history exists Creatinine Level (Kidney Fun ction Test) 08/01/2024 08/02/2023, 06/10/2023, 05/11/2022, Additional history exists Potassium Level 08/01/2024 08/02/2023, 05/30, 05/11/2022, Additional history exists Sodium Level 08/01/2024 08/02/2023, 05/30, 05/11/2022, Additional history exists Dilated Eye Exam 08/28/2024 08/29/2023, , 06/13/2021, Additional history exists Office Visit for Blood Press ure Check / Re-check 10/06/2024 10/07/2023 Colonoscopy 05/28/2026 05/28/2016 Colorectal Cancer Screening 05/28/2026 Lipid (Cholesterol) Screening 05/11/2027, 01/13/2021, 11/25/2019, Additional history exists Pneumococcal vaccine (65+ years) Completed 05/07/19, 07/09/2014 Zoster Vaccines Completed 10/13/2017, 05/0 08/2017, 07/14/2017, Additional history exists Procedures Procedure Name Priority Date/Time Associated Diagnosis Comments EXTI COMPREHENSIVE METABOLIC PANEL, S/P Routine 08/02/2023 11:10 AM CDT BI BREAST SCREENING BILATERAL WITH TOMOSYNTHESIS RAD - Routine (most inpatients and all outpatients) 05/07/2023 10:[address] FLUSHER DRIVER EXTI LIPID PANEL, S Routine 05/11/2022 1 0:[address] FLUSHER DRIVER from Last 3 Months or Most Recently Relevant to Health Maintenance
--- NOTE | 2023-10-14 09:23 | W.ANESCHARGE ---
Anesthesia Charges Start Date/Time Anesthesia Start Date: 10/14/23 Anesthesia Start Time: 09:42 Stop Date/Time Anesthesia Stop Date: 10/14/23 Anesthesia Stop Time: 09:58 Summary Extremes of Age - Over 70 or under 1: MDA
--- NOTE | 2023-10-14 10:01 | W.ANESCHARGE ---
Anesthesia Charges Start Date/Time Anesthesia Start Date: 10/14/23 Anesthesia Start Time: 09:42 Stop Date/Time Anesthesia Stop Date: 10/14/23 Anesthesia Stop Time: 09:58
== END 2023-10-14 08:09 | disposition home or self-care (01) ==
LOC: OP CLINIC 08:10
PROVIDERS: PCP Family Medicine; Visit Provider Surgery
DX: Z87.11 Personal history of peptic ulcer disease (principal); K25.9 Gastric ulcer, unspecified as acute or chronic, without hemorrhage or perforation; K31.7 Polyp of stomach and duodenum
CPT/HCPCS: 00731; 43235; 99100; J2704

== ENCOUNTER 2023-11-13 09:43 | Outpatient (CLI) | payer MEDICARE, OTHER, SELFPAY | END 2023-11-13 09:44 | disposition home or self-care (01) | LOC: NFLDREF 11-15 11:47 | PROVIDERS: PCP Internal Medicine; Referring Provider Internal Medicine; Visit Provider Internal Medicine | DX: K27.9 Peptic ulcer, site unspecified, unspecified as acute or chronic, without hemorrhage or perforation (principal) | CPT/HCPCS: 82728 ==

== ENCOUNTER 2023-12-16 09:33 | Outpatient (CLI) | payer MEDICARE, OTHER, SELFPAY ==
--- OUTSIDE RECORDS SUMMARY | 2023-12-19 10:49 | XMS_ITS | Clinical Summary ---
Author Organization [facility] Address [place], [place] [address] Care Team Providers Care Epic Prelude Analyst Name Role Phone Sarthak Ko MD Primary Care Provider [phone] Allergies Active Allergy Reactions Criticality Noted Date [...] by mouth two times daily. 4 Active atorvastatin (LIPITOR) 10 mg tabletIndications:Pure hypercholesterolemia TAKE 1 TABLET AT BEDTIME 90 Tablet 3 4 Active NIFEdipine (PROCARDIA XL) 30 mg extended-release tabletIndications:Essenti al hypertension TAKE 1 TABLET DAILY BEFORE A MEAL 90 Tablet 3 4 Active losartan (COZAAR) 100 mg tabletIndications:Essenti al hypertension Take 1 Tablet (100 mg) by mouth once daily. 90 Tablet 3 4 Active metFORMIN (GLUCOPHAGE) 500 mg tabletIndications:Type 2 diabetes mellitus with other specified complication, without long-term current use of insulin (HC) TAKE 1 TABLET TWICE A DAY WITH MEALS 180 Tablet 3 4 Active ferrous sulfate, 65 mg elemental, (Iron) tablet Take 325 mg by mouth once daily with a meal. Active doxepin 25 mg capsuleIndications:Genera lized anxiety disorder,Insomnia, unspecified type TAKE 1 CAPSULE AT BEDTIME 90 Capsule 4 Active Active Problems Problem Noted Date Diagnosed Date Hypomagnesemia 06/10/2023 Overview (06/10/2023): Per labs on 06/10/2023. Depression, recurrent 05/06/2023 [...] obesity (BMI 35.0-39.9) 09/26/2010 Colon polyp 08/02/2010 Overview (07/19/2017): Colonoscopy 05/2016 polyp repeat in 5 years Family history of malignant neoplasm of gastrointestinal tract 06/02/2010 Fatty liver 08/31/2009 Essential hypertension 05/10/2003 Gastroesophageal reflux disease 09/30/2001 Overview (08/01/2021): taking prevacid last EGD 2003 HEADACHE - NOS 06/04/2000 DISORDER, MENOPAUSAL NOS 04/23/2000 HYPERCHOLESTEROLEMIA, PURE 04/23/2000 Resolved Problems Problem Noted Date Diagnosed Date Resolved Date Diabetes mellitus type 2 in obese 10/27/2013 02/12/2019 SLEEP APNEA - UNSPECIFIED 09/30/2001 Overview (09/24/2006): using mouth guard Encounters Date Type Department Care Team Description 10/30/2023 1:30 PM CDT Office Visit [facility] [address] [place] [address] Lin Velasquez PA Knee Pain/problem (Bilateral knee pain, bilateral cortisone injections) 10/30/2023 Travel 10/21/2023 Refill [facility] [address] [place], [place] [id number] Sarthak Ko MD Refill Request (Doxepin) 10/04/2023 Orders Only [facility] Scanner 1 scan: (1-Ord) [facility], MULTIPLE LABS, 10/04/2023 from Last 3 Months Immunizations Name Administration Dates Next Due COVID-19 vaccine (Pfizer-Bio NTech 30mcg/0.3mL) 12YO+ BIVALENT FARZANA GALAN 12/29/2021 [...] DT Respiratory Rate 24 05/06/2023 2:16 PM MANAGER FORENSIC Oxygen Saturation 95% 08/06/2023 10:43 AM CDT [...] Health Maintenance Due Date Last Done Comments Tetanus booster 11/08/2022 11/08/2012 Medicare Wellness for age 65+ 08/22/2023 08/21/2022 Depression screening for age 12+ 08/23/2023 08/22/2022, 08/21/2022, 02/20/2021, Additional history exists COVID-19 vaccine series (2022- season) 2023 01/25/2023, 12/29/2021, 07/05/2021, Additional history exists Influenza for age 65+ 12/01/2023 01/16/2023 , 01/09/2023, 01/22/2022, Additional history exists Mammogram for age 45-75 05/07/2024 05/07/19, 04/05/2022, 03/31/2021, Additional history exists BMI (ht and wt on same day) for age 18+ 06/09/2024 06/10/2023, 01/03/2023, 08/21/2022, Additional history exists Lipids for age 45-75 05/11/2027 05/11/2022, 01/13/2021, 11/25/2019, Additional history exists Colonoscopy through age 75 08/11/202808/11, 08/12/2023, 05/28/2016, Additional history exists Hepatitis C screening for ag e 18-79 Completed 03/11/2008 Tdap Completed 11/08/2012 Pneumococcal series for age 65+ Completed 7, 07/09/2014 DEXA/DXA scan for age 65+ Completed 09/23/2017 Zoster (shingles) series for age 50+ Completed 10/13/2017, 08/04/2017, 07/14/2017, Additional history exists Procedures Procedure Name Priority Date/Time Associated Diagnosis Comments SCAN-LABORATORY REPORT 10/04/2023 12:00 AM CDT SCAN-COLONOSCOPY 08/12/2023 12:0 0 AM CDT XR MAMMO ADINA BILAT SCREEN Routine 05/07/2023 10:19 AM MANAGER FORENSIC Visit for screening mammogram LC LIPID PANEL AND CHOL/HDL RATIO Routine 05/11/2022 10:02 AM MANAGER FORENSIC Type 2 diabetes mellitus with other specified complication, without long-term current use of insulin (HC) HYPERCHOLESTEROLEMI A, PURE XR DXA BONE DENSITY 2 SITES AXIAL Routine 09/23/2017 10:06 AM CDT Post-menopausal ANTI HCV Routine 03/11/2008 4:34 PM MANAGER FORENSIC Elev Transaminase/LDH from Last 3 Months or Most Recently Relevant to Health Maintenance Results * SCAN-LABORATORY REPORT (10/04/2023 12:00 AM CDT) Scanner OTHER * SCAN-COLONOSCOPY (08/12/2023 12:00 AM CDT) Scanner OTHER * XR MAMMO ADINA BILAT SCREEN (05/07/2023 10:19 AM MANAGER FORENSIC) Anatomical Region Laterality Modality BREASTS, Breast Left, Breast Right Bilateral Mammography Impressions 05/08/2023 3:03 PM MANAGER FORENSIC ??There is no radiographic evidence for malignancy. ??Recommend annual mammograms. MAMMOGRAM ASSESSMENT: ??ACR 1 Negative PATIENTS: You will also receive a letter with your examination results in an easy to read format. ??If you have questions about your results, please contact your referring provider. Narrative 05/08/2023 3:03 PM [facility] For Patients: As a result of the Cures Act, medical imaging exams and procedure reports are released immediately into your electronic medical record. You may view this report before your referring provider. If you have questions, please contact your health care provider. XR MAMMO ADINA BILAT SCREEN [[id number]] CLINICAL HISTORY: ??This is an asymptomatic 73 y.o. patient. INDICATION FOR EXAM: Mammogram Screening. TECHNIQUE: CC & MLO views were obtained. ??This study was evaluated with the assistance of Computer-Aided Detection. Breast Tomosynthesis was used in interpretation. COMPARISON FILM: Yes 04/05/22 [facility] 03/31/21 [facility] FINDINGS: ??The breasts have scattered areas of fibroglandular density. There are no dominant masses, suspicious micro calcifications or areas of architectural distortion. Sarthak Ko MD MAMMO * (ABNORMAL) LC LIPID PANEL AND CHOL/HDL RATIO (05/11/2022 10:02 AM [facility]) Cholesterol, Total 171 100 - 199 mg/dL 05/16/2022 1:07 AM [facility] Triglycerides 196(H) 0 - 149 mg/dL 05/16/2022 1:07 AM [facility] HDL Cholesterol 41 >39 mg/dL 3 1:07 AM [facility] VLDL Cholesterol Jonathan 34 5 - 40 mg/dL 05/16/2022 1:07 AM [facility] LDL Chol Calc (NIH) 96 0 - 99 mg/dL 05/16/2022 1:07 AM [facility] T. Chol/HDL Ratio 4.2 0.0 - 4.4 ratio 05/16/2022 1:07 AM MANAGER FORENSIC [facility] Comment: ?T. Chol/HDL Ratio ?Men ??Women ?1/2 Avg.Risk ??3.4 ?3.3 ?Avg.Risk ??5.0 ?4.4 ? 2X Avg.Risk ??9.6 ?7.1 ? 3X Avg.Risk 23.4 ?? 11.0 Blood BLOOD SPECIMEN / Unknown Venipuncture / Unknown 05/11/2022 10:02 AM MANAGER FORENSIC 05/11/2022 10:02 AM MANAGER FORENSIC Narrative [facility] - 05/16/2022 1:07 AM MANAGER FORENSIC Performed at: ??01 - [facility] [address] ??[id number] Port Surveyor: John Rock MD, Phone: ??[phone] Sarthak Ko MD SEND OUTS [facility] ([facility]) [address] [place] [address], * XR DXA BONE DENSITY 2 SITES AXIAL (09/23/2017 10:06 AM CDT) Anatomical Region Laterality Modality Spine, HIPS, HIPL, HIPR Other Narrative 09/24/2017 5:58 PM CDT Please see scanned document for results of this study. Yamile Block DO DEXA * ANTI HCV (03/11/2008 4:34 PM MANAGER FORENSIC) ANTI HCV Non-reacti ve [facility] Blood specimen (specimen) BLOOD SPECIMEN / Unknown 03/11/2008 4:34 PM MANAGER FORENSIC 03/11/2008 4:29 PM MANAGER FORENSIC Khalif Mon MD SEND OUTS [facility] INTERNAL ZIP [phone] [address] from Last 3 Months or Most Recently Relevant to Health Maintenance Care Teams Epic Prelude Analyst Relationship Specialty Start [place] [id number] [place] [address] PCP - General Family Practice 04/05/22
--- OUTSIDE RECORDS SUMMARY | 2023-12-19 10:49 | XMS_ITS | Clinical Summary ---
Author Organization [facility] Address [address] [place] [address] Care Team Providers Care Pre K Special Education Teacher Name Role Phone Unavailable Primary Care Provider Unavailabl e Source Comments Patient records contain information from all sites at [facility]. For routine questions regarding patient records, call [phone] during business hours, M-F 8:00 AM - 5:00 PM Central Time. Record requests for emergency care only can be directed to [phone] at any time.[facility] Medications Medication Sig Dispensed Refills Start [...] losartan (COZAAR) 100 mg tablet 01/13/2021 Active jvebberr-sxv-ozou-FA-hair tein (Centrum Silver Women) 8 mg iron-400 mcg-300 mcg tablet Take by mouth. 01/13/2021 Ac tive NIFEdipine XL (PROCARDIA XL) 30 mg 24 hr tablet 11/23/2020 Active omeprazole (PriLOSEC) [address] capsule Take by mouth. 09/24/2006 Acti ve omega 4-xzn-mbf-fish oil 1,000 mg (120 mg-180 mg) capsule Take 1,000 mg by mouth. 01/13/2021 Active triamterene-hydroCHLORO thiazide (MAXZIDE-25) 37.5-25 mg per tablet 11/01/2020 Act nai zinc chelated 50 mg tablet tablet Take 50 mg by mouth. 01/13/2021 Active Active Problems Problem Noted Date Diagnosed Date Anemia 07/02/2023 Chronic Kidney Disease (CKD) , Stage 3a Glomerular Filtration Rate (GFR) 45 To 59 11/14/2021 Hypertensive Chronic Kidney Disease With Stage 1 Through Stage 4 Chronic Kidney Disease, Or Unspecified Chronic Kidney Disease 11/14/2021 Hyperparathyroidism Renal Secondary 11/14/2021 Hyperlipidemia 11/14/2021 Apnea Sleep Obstructive 11/14/2021 Primary Osteoarthritis Knee Bilateral 11/14/2021 Diabetes Mellitus Type 2 11/14/2021 Encounters Date Type Department Care Team Description 10/07/2023 4:00 PM CDT External Outreach Division of Nephrology and Hypertension in [place], [place] [address] [place] [address] Ronn Alvarez Jr., D.O. Chronic Kidney Disease [...] with F oot Exam 1950 FIT 1950 Hepatitis C Screening 1950 Urine Albumin 1950 Hepatitis B Vaccines (1 of 3 - Risk 3-dose series) 2009 DTaP,Tdap,and Td Vaccines (2 - Td or Tdap) 11/08/2022 11/08/2012 Depression Screening (Annual PHQ-2) 04/01/2023 Fall Risk Screen (Annual) 04/01/2023 Hemoglobin A1C 09/04/2023 03/05/2023, 07/31, 05/11/2022, Additional history exists COVID-19 Vaccine (2022-05 4 season) 2023 01/25/2023, 12/29/2021, 07/05/2021, Additional [...]
--- OUTSIDE RECORDS SUMMARY | 2023-12-19 10:49 | XMS_ITS | Encounter Summary ---
Author Organization [facility] Address [address] [place] [id number] Care Team Providers Care Hvac Project Engineer Name Role Phone Unavailable Primary Care Provider Unavailabl e Reason for Visit * Appointment Request (Routine) - Closed Specialty Diagnoses / Procedures Referred By Addy mckeon Referred To Contact Nephrology and Hypertension Referral ID Status Reason Start Date Expiration Date Visits Re quested Visits Authorized [id number] Closed 09/05/2023 09/04/2024 1 1 Encounter Details Date Type Department Care Team (Latest Contact Info) Description 10/07/2023 4:00 PM CDT External Outreach Division of Nephrology and Hypertension in [place], [place] [address] [place] [address] Ronn Alvarez Jr., D.O. [address] [place] [phone] Chronic Kidney Disease (CKD), Stage 3a Glomerular [...] Provider: DR Tee SUBJECTIVE REASON FOR VISIT [facility] Follow-up regards CKD, [...] or chew., Disp: 90 tablet, Rfl: 3 imafonvi-lgp-jbzl-FA-lutein (Centrum Silver Women) 8 mg iron-400 mcg-300 mcg tablet, Take by mouth., Disp: , Rfl: NIFEdipine XL (PROCARDIA XL) 30 mg 24 hr tablet, , Disp: , Rfl: omega 5-hzv-awo-fish oil 1,000 mg (120 mg-180 mg) capsule, [...]
--- OUTSIDE RECORDS SUMMARY | 2023-12-19 10:49 | XMS_ITS | Referral Summary ---
Author Organization [facility] Address [address] [place] [address] Care Team Providers Care Senior Manufacturing Technician Name Role Phone Unavailable Primary Care Provider Unavailabl e Source Comments Patient records contain information from all sites at [facility]. For routine questions regarding patient records, call [phone] during business hours, M-F 8:00 AM - 5:00 PM Central Time. Record requests for emergency care only can be directed to [phone] at any time.[facility] Encounters Date Type Department Care Team Description 10/07/2023 4:00 PM CDT External Outreach Division of Nephrology and Hypertension in [place], [place] [address] [place] [address] Ronn Alvarez Jr., D.O. Chronic Kidney Disease [...] losartan (COZAAR) 100 mg tablet 01/13/2021 Active uelbqtwg-oay-miuc-FA-hair tein (Centrum Silver Women) 8 mg iron-400 mcg-300 mcg tablet Take by mouth. 01/13/2021 Ac tive NIFEdipine XL (PROCARDIA XL) 30 mg 24 hr tablet 11/23/2020 Active omeprazole (PriLOSEC) [address] capsule Take by mouth. 09/24/2006 Acti ve omega 5-ojj-eav-fish oil 1,000 mg (120 mg-180 mg) capsule [...]
--- OUTSIDE RECORDS SUMMARY | 2023-12-19 10:49 | XMS_ITS ---
Author Organization [facility] Address [address] [place] [address] Care Team Providers Care Weatherization Installer Name Role Phone Unavailable Unavailable Unavailable Surgery Details Not on file Complications Check Surgery Details section. Procedure Estimated Blood Loss Check Surgery Details section. Procedure Findings Check Surgery Details section. Procedure Specimens Taken Check Surgery Details section.
--- OUTSIDE RECORDS SUMMARY | 2023-12-19 10:49 | XMS_ITS | Continuity of Care Document ---
Author Name [facility] Organization [facility] Care Team Providers Care Club Room Attendant Name Role Phone [facility] Unavailable Unavailable Medications Combined list of outpatient [...] ORAL, APOTEX BEV, 1000 ea. BOTTLE Active [id number] 4 2023 90 Pharmac y Data Transac tion Service Facilit y ATORVASTATI N CALCIUM (atorvastat in calcium), 10 MG, TABLET, ORAL, [employer] PHARMACEU, 1000 ea. BOTTLE Active [id number] 4 2023 90 Pharmac y Data Transac tion Service Facilit y CARVEDILOL (carvedilol ), 12.5 MG, TABLET, ORAL, [employer] 500 ea. BOTTLE Active [id number] 4 2023 180 Pharmac y Data Transac tion Service Facilit y CYCLOBENZAP RINE HCL (cyclobenza tobias HCl), 5 MG, TABLET, ORAL, [employer] 100 ea. BOTTLE Active [id number] 2023 10 Pharmac y Data Transac tion Service Facilit y DOXEPIN HCL (doxepin HCl), 25 MG, CAPSULE, ORAL, [employer] GR, 500 ea. BOTTLE Active [id number] 4 2023 90 Pharmac y Data Transac tion Service Facilit y DOXEPIN HCL (doxepin HCl), 25 MG, CAPSULE, ORAL, [employer] GR, 500 ea. BOTTLE Active [id number] 4 2023 90 Pharmac y Data Transac tion Service Facilit y GAVILYTE-G (PEG 3350/NA SULF,BICARB ,CL/KCL), 236-22.74G, SOLN RECON, ORAL, GAVIS PHARMACEU, 4000 ml BOTTLE Active [id number] 4 2023 4000 Pharmac y Data Transac tion Service Facilit y LOSARTAN POTASSIUM (losartan potassium), 100 MG, TABLET, ORAL, XLCARE PHARMACE, 1000 ea. BOTTLE Active [id number] 4 2023 90 Pharmac y Data Transac tion Service Facilit y LOSARTAN POTASSIUM (losartan potassium), 100 MG, TABLET, ORAL, XLCARE PHARMACE, 1000 ea. BOTTLE Active [id number] 4 2023 90 Pharmac y Data Transac tion Service Facilit y METFORMIN HCL (METFORMIN HCL), 500 MG, TABLET, ORAL, [employer] 1000 ea. BOTTLE Active [id number] 4 2023 180 Pharmac y Data Transac tion Service Facilit y METFORMIN HCL (METFORMIN HCL), 500 MG, TABLET, ORAL, [employer] 1000 ea. BOTTLE Active [id number] 4 2023 180 Pharmac y Data Transac tion Service Facilit y METFORMIN HCL (METFORMIN HCL), 500 MG, TABLET, ORAL, [employer] 1000 ea. BOTTLE Cancele d [id number] : 2023 0 Pharmac y Data Transac tion Service Facilit y METOPROLOL SUCCINATE (metoprolol succinate), 25 MG, TAB ER 24H, ORAL, INGENUS PHARMAC, 1000 ea. BOTTLE Active [id number] 4 2023 90 Pharmac y Data Transac tion Service Facilit y NIFEDIPINE ER (nifedipine ), 30 MG, TAB ER 24, ORAL, OCEANSIDE PHARM, 100 ea. BOTTLE Active [id number] 2023 90 Pharmac y Data Transac tion Service Facilit y NIFEDIPINE ER (nifedipine ), 30 MG, TAB ER 24, ORAL, OCEANSIDE PHARM, 100 ea. BOTTLE Active [id number] 4 2023 90 Pharmac y Data Transac tion Service Facilit y SUCRALFATE (sucralfate ), 1 G/10 ML, ORAL SUSP, ORAL, AMNEAL PHARMACE, 420 ml BOTTLE Active [id number] 4 2023 1000 Pharmac y Data Transac tion Service Facilit y SUCRALFATE (sucralfate ), 1 G/10 ML, ORAL SUSP, ORAL, AMNEAL PHARMACE, 420 ml BOTTLE Active [id number] 4 2023 420 Pharmac y Data Transac tion Service Facilit y SUCRALFATE (sucralfate ), 1 G/10 ML, ORAL SUSP, ORAL, AMNEAL PHARMACE, 420 ml BOTTLE Active [id number] 2023 420 Pharmac y Data Transac tion Service Facilit y TRIAMTERENE -HCTZ (TRIAMTEREN E/HYDROCHLO ROTHIAZID), 75-50MG, TABLET, ORAL, APOTEX BEV, 500 ea. BOTTLE Active [id number] 4 2023 90 Pharmac y Data Transac tion Service Facilit y TRIAMTERENE -HCTZ (TRIAMTEREN E/HYDROCHLO ROTHIAZID), 75-50MG, TABLET, ORAL, APOTEX BEV, 500 ea. BOTTLE Active [id number] 2023 90 Pharmac y Data Transac tion Service Facilit y TRIAMTERENE -HCTZ (TRIAMTEREN E/HYDROCHLO ROTHIAZID), 75-50MG, TABLET, ORAL, APOTEX BEV, 500 ea. BOTTLE Active [id number] 4 2023 90 Pharmac y Data Transac tion Service Facilit y Immunizations Combined list of available immunizations from the Department of Defense and Veterans Affairs facilities. Immunization Series Date Given Administered By Site Reaction Lot Number CVX Code Drug Instrument Maintenance Supervisor Status Comments Source COVID-19, mRNA, LNP-S, PF, 30 mcg/0.3 mL dose, terrance-sucrose 2021 RASHAWN GRACE KDS [place] (PFR) Not Given COVID-19, mRNA, LNP-S, [...]
== END 2023-12-16 09:34 | disposition home or self-care (01) ==
LOC: NFLDREF 12-19 10:46
PROVIDERS: PCP Internal Medicine; Referring Provider Internal Medicine; Visit Provider Internal Medicine
DX: E11.9 Type 2 diabetes mellitus without complications (principal); D50.9 Iron deficiency anemia, unspecified; D63.8 Anemia in other chronic diseases classified elsewhere; R82.90 Unspecified abnormal findings in urine
CPT/HCPCS: 80053; 80061; 82043; 82570; 82728; 87086; 87186

== ENCOUNTER 2024-01-16 09:55 | Outpatient (CLI) | payer MEDICARE, OTHER, SELFPAY ==
--- OUTSIDE RECORDS SUMMARY | 2024-01-21 10:59 | XMS_ITS | Continuity of Care Document ---
Author Name [facility] Organization [facility] Care Team Providers Care Hatchery Attendant Name Role Phone [facility] Unavailable Unavailable Medications Combined list of outpatient [...] ORAL, APOTEX BEV, 1000 ea. BOTTLE Active [id number] 4 2023 90 Pharmac y Data Transac tion Service Facilit y ATORVASTATI N CALCIUM (atorvastat in calcium), 10 MG, TABLET, ORAL, [employer] PHARMACEU, 1000 ea. BOTTLE Active [id number] 4 2023 90 Pharmac y Data Transac tion Service Facilit y CARVEDILOL (carvedilol ), 12.5 MG, TABLET, ORAL, [employer] 500 ea. BOTTLE Active [id number] 4 2023 180 Pharmac y Data Transac tion Service Facilit y CYCLOBENZAP RINE HCL (cyclobenza tobias HCl), 5 MG, TABLET, ORAL, [employer] INC[employer] 100 ea. BOTTLE Active [id number] 4 2023 10 Pharmac y Data Transac tion Service Facilit y DOXEPIN HCL (doxepin HCl), 25 MG, CAPSULE, ORAL, [employer] GR, 500 ea. BOTTLE Active [id number] 4 2023 90 Pharmac y Data Transac tion Service Facilit y DOXEPIN HCL (doxepin HCl), 25 MG, CAPSULE, ORAL, [employer] GR, 500 ea. BOTTLE Active [id number] 4 2023 90 Pharmac y Data Transac tion Service Facilit y GAVILYTE-G (PEG 3350/NA SULF,BICARB ,CL/KCL), 236-22.74G, SOLN RECON, ORAL, GAVIS PHARMACEU, 4000 ml BOTTLE Active [id number] 2023 4000 Pharmac y Data Transac tion Service Facilit y LOSARTAN POTASSIUM (losartan potassium), 100 MG, TABLET, ORAL, XLCARE PHARMACE, 1000 ea. BOTTLE Active [id number] 4 2023 90 Pharmac y Data Transac tion Service Facilit y LOSARTAN POTASSIUM (losartan potassium), 100 MG, TABLET, ORAL, XLCARE PHARMACE, 1000 ea. BOTTLE Active [id number] 4 2023 90 Pharmac y Data Transac tion Service Facilit y METFORMIN HCL (METFORMIN HCL), 500 MG, TABLET, ORAL, [employer]MS, INC., 1000 ea. BOTTLE Active [id number] 4 2023 180 Pharmac y Data Transac tion Service Facilit y METFORMIN HCL (METFORMIN HCL), 500 MG, TABLET, ORAL, [employer] INC., 1000 ea. BOTTLE Active [id number] 4 2023 180 Pharmac y Data Transac tion Service Facilit y METFORMIN HCL (METFORMIN HCL), 500 MG, TABLET, ORAL, [employer]MS, INC., 1000 ea. BOTTLE Cancele d [id number] : 2023 0 Pharmac y Data Transac tion Service Facilit y METOPROLOL SUCCINATE (metoprolol succinate), 25 MG, TAB ER 24H, ORAL, INGENUS PHARMAC, 1000 ea. BOTTLE Active [id number] 4 2023 90 Pharmac y Data Transac tion Service Facilit y NIFEDIPINE ER (nifedipine ), 30 MG, TAB ER 24, ORAL, OCEANSIDE PHARM, 100 ea. BOTTLE Active [id number] 4 2023 90 Pharmac y Data Transac tion Service Facilit y NIFEDIPINE ER (nifedipine ), 30 MG, TAB ER 24, ORAL, OCEANSIDE PHARM, 100 ea. BOTTLE Active [id number] 4 2023 90 Pharmac y Data Transac tion Service Facilit y SUCRALFATE (sucralfate ), 1 G/10 ML, ORAL SUSP, ORAL, AMNEAL PHARMACE, 420 ml BOTTLE Active [id number] 4 2023 1000 Pharmac y Data Transac tion Service Facilit y SUCRALFATE (sucralfate ), 1 G/10 ML, ORAL SUSP, ORAL, AMNEAL PHARMACE, 420 ml BOTTLE Active [id number] 4 2023 420 Pharmac y Data Transac tion Service Facilit y SUCRALFATE (sucralfate ), 1 G/10 ML, ORAL SUSP, ORAL, AMNEAL PHARMACE, 420 ml BOTTLE Active [id number] 4 2023 420 Pharmac y Data Transac tion Service Facilit y TRIAMTERENE -HCTZ (TRIAMTEREN E/HYDROCHLO ROTHIAZID), 75-50MG, TABLET, ORAL, APOTEX BEV, 500 ea. BOTTLE Active [id number] 4 2023 90 Pharmac y Data Transac tion Service Facilit y TRIAMTERENE -HCTZ (TRIAMTEREN E/HYDROCHLO ROTHIAZID), 75-50MG, TABLET, ORAL, APOTEX BEV, 500 ea. BOTTLE Active [id number] 4 2023 90 Pharmac y Data Transac tion Service Facilit y TRIAMTERENE -HCTZ (TRIAMTEREN E/HYDROCHLO ROTHIAZID), 75-50MG, TABLET, ORAL, APOTEX BEV, 500 ea. BOTTLE Active [id number] 4 2023 90 Pharmac y Data Transac tion Service Facilit y Immunizations Combined list of available immunizations from the Department of Defense and Veterans Affairs facilities. Immunization Series Date Given Administered By Site Reaction Lot Number CVX Code Drug Foot Piece Assembler Status Comments Source COVID-19, mRNA, LNP-S, PF, 30 mcg/0.3 mL dose, terrance-sucrose 2021 RASHAWN GRACE navabi [place] (PFR) Not Given COVID-19, mRNA, LNP-S, PF, 30 mcg/0.3 mL dose, terrance-sucr ose DoD zoster recombinant 2017 KIRILL DOBBINS () Not Given zoster recombina nt DoD zoster recombinant 2017 KIRILL DOBBNIS () Not Given zoster recombina nt DoD Social History Combined list of available smoking, tobacco, and other social history from Department of Defense and Veterans Affairs facilities. Social History Type Response Date Comment Sourc e This section is an empty social history section. DoD
--- OUTSIDE RECORDS SUMMARY | 2024-01-21 10:59 | XMS_ITS ---
Author Organization [facility] Address [address] [place] [address] Care Team Providers Care Fraud Investigator Name Role Phone Unavailable Unavailable Unavailable Surgery Details Not on file Complications Check Surgery Details section. Procedure Estimated Blood Loss Check Surgery Details section. Procedure Findings Check Surgery Details section. Procedure Specimens Taken Check Surgery Details section.
--- OUTSIDE RECORDS SUMMARY | 2024-01-21 10:59 | XMS_ITS | Clinical Summary ---
Author Organization [facility] Address [place], [place] [address] Care Team Providers Care Towel Folder Name Role Phone Sarthak Ko MD Primary Care Provider [phone] Allergies Active Allergy Reactions Criticality Noted Date [...] Encounters Date Type Department Care Team Description 01/19/2024 Refill [facility] [address] [place] [address] Sarthak Ko MD Refill Request (Triamterene-hydrochl orothiazide (75-50 Mg)) 01/17/2024 Travel 10/30/2023 1:30 PM CDT Office Visit [facility] [[email or web address] [address] [place] [address] Lin Velasquez PA Knee Pain/problem (Bilateral knee pain, bilateral cortisone injections) 10/30/2023 Travel 10/21/2023 Refill [facility] [address] [place] [address] Sarthak Ko MD Refill Request (Doxepin) from Last 3 Months Immunizations Name Administration Dates Next Due COVID-19 vaccine (ImaginAbBio NTStoryWorth 30mcg/0.3mL) 12YO+ BIVALENT PF, MDV 12/29/2021 Hepatitis [...] file 02/28/2023 Food Insecurity Answer Date Recorded Do you worry your food will run out before you are able to buy more? 1 02/28/2023 Transportation Needs Answer Date Record ed Lack of Transportation (Medical) 1 02/28/2023 Housing Stability Answer Date Recorded What is your housing situation today? 1 02/28/2023 Sex and Gender Information Value [...] DT Respiratory Rate 24 05/06/2023 2:16 PM [employer] MANAGED [employer] SALES EXEC Oxygen Saturation 95% 08/06/2023 10:43 AM CDT Inhaled Oxygen Concentration - - Weight 97.8 kg (215 lb 9.6 oz) 08/02/2023 10:20 AM CDT Height 165.1 cm (5' 5) 06/10/2023 10:39 AM CDT Body Mass Index 35.88 06/10/2023 10:39 AM CDT Plan of Treatment Upcoming Encounters Date Type Department Care Team (Late st Contact Info) Description 02/05/2024 11:30 AM [employer] MANAGED SERVICE SALES EXEC Office Visit [facility] [[email or web address]] [address] [place] [phone] Lin Velasquez PA [address] [place] [address] Scheduled Procedures Name Priority Associated Diagnoses Date/Ti me SURGICAL PROCEDURE (TYPE PRO CEDURE DESCRIPTION BELOW) Elective Osteoarthritis of left knee Health Maintenance Due Date Last Done Comments Tetanus booster 11/08/2022 11/08/2012 Medicare Wellness for age 65+ 08/22/2023 08/21/2022 Depression screening for age 12+ 08/23/2023 08/22/2022, 08/21/2022, 02/20/2021, Additional history exists COVID-19 vaccine series ( season) 2023 01/25/2023, 12/29/2021, 07/05/2021, Additional history exists Influenza for age 65+ 12/01/2023 01/16/2023 , 01/09/2023, 01/22/2022, Additional history exists RSV vaccine for adults or (1 - 1-dose 75+ series) 01/13/2024 BMI (ht and wt on same day) [...] Procedure Name Priority Date/Time Associated Diagnosis Comments SCAN-COLONOSCOPY 08/12/2023 12:0 0 AM CDT LC LIPID PANEL AND CHOL/HDL RATIO Routine 05/11/2022 10:02 AM [employer] Type 2 diabetes mellitus with other specified complication, without long-term current use of insulin (HC) HYPERCHOLESTEROLEMI A, PURE XR DXA BONE DENSITY 2 SITES AXIAL Routine 09/23/2017 10:06 AM CDT Post-menopausal ANTI HCV Routine 03/11/2008 4:34 PM [employer] MA[employer]ES EXEC Elev Transaminase/LDH from Last 3 Months or Most Recently Relevant to Health Maintenance Results * SCAN-COLONOSCOPY (08/12/2023 12:00 AM CDT) Scanner OTHER * (ABNORMAL) LC LIPID PANEL AND CHOL/HDL RATIO (05/11/2022 10:02 AM [employer] MANAGED SERVICE SALES EXEC) [facility] Signature Cholesterol, Total 171 100 - 199 mg/dL 05/16/2022 1:07 AM [facility] Triglycerides 196(H) 0 - 149 mg/dL 05/16/2022 1:07 AM [facility] HDL Cholesterol 41 >39 mg/dL 1:07 AM [facility] VLDL Cholesterol Jonathan 34 5 - 40 mg/dL 05/16/2022 1:07 AM [facility] LDL Chol Calc (NIH) 96 0 - 99 mg/dL 05/16/2022 1:07 AM [facility] T. Chol/HDL Ratio 4.2 0.0 - 4.4 ratio 05/16/2022 1:07 AM [facility] ([facility] Comment: ?T. Chol/HDL Ratio ?Men ??Women ?1/2 Avg.Risk ??3.4 ?3.3 ?Avg.Risk ??5.0 ?4.4 ? 2X Avg.Risk ??9.6 ?7.1 ? 3X Avg.Risk 23.4 ?? 11.0 Blood BLOOD SPECIMEN / Unknown Venipuncture / Unknown 05/11/2022 10:02 AM [employer] 05/11/2022 10:02 AM [employer] EX[employer] Narrative [facility] - 05/16/2022 1:07 AM [employer]ES EX[employer] Performed at: ??01 - [facility] [place] [address] ??[id number] Canoe Maker: John Rock MD, Phone: ??[phone] Sarthak Ko MD SEND OUTS Performing Organization Address City/[facility]/ZIP Co de Phone Number [facility] [address] [place] [address], * XR DXA BONE DENSITY 2 SITES AXIAL (09/23/2017 10:06 AM CDT) Anatomical Region Laterality Modality Spine, HIPS, HIPL, HIPR Other Narrative 09/24/2017 5:58 PM CDT Please see scanned document for results of this study. Yamile Block DO DEXA * ANTI HCV (03/11/2008 4:34 PM [employer]) ANTI HCV Non-reacti ve [facility] Blood specimen (specimen) BLOOD SPECIMEN / Unknown 03/11/2008 4:34 PM [employer] 03/11/2008 4:29 PM [employer] EXEC Khalif Mon MD SEND OUTS [facility] INTERNAL ZIP [address] [address] from Last 3 Months or Most Recently Relevant to Health Maintenance Care Teams Towel Folder Relationship Specialty [place] [address] [address] [place], [place] [id number] PCP - General Family Practice 04/05/22
--- OUTSIDE RECORDS SUMMARY | 2024-01-21 10:59 | XMS_ITS | Referral Summary ---
Author Organization [facility] Address [address] [place] [address] Care Team Providers Care Medical Surgical Tech Name Role Phone Unavailable Primary Care Provider Unavailabl e Source Comments Patient records contain information from all sites at [facility]. For routine questions regarding patient records, call [phone] during business hours, M-F 8:00 AM - 5:00 PM Central Time. Record requests for emergency care only can be directed to [phone] at any time.[facility] Medications lancets (Accu-Chek Fastclix Lancet Drum) USE TO [...] losartan (COZAAR) 100 mg tablet 01/13/2021 Active xwizekce-bwi-idx n-FA-lutein (Centrum Silver Women) 8 mg iron-400 mcg-300 mcg tablet Take by mouth. 01/13/2021 Active NIFEdipine XL (PROCARDIA XL) 30 mg 24 hr tablet 11/23/2020 Active omeprazole (PriLOSEC) [address] capsule Take by mouth. 09/24/2006 Active omega 0-fug-nwj-fish oil 1,000 mg (120 mg-180 mg) capsule Take 1,000 mg by mouth. 01/13/2021 Active triamterene-hydr oCHLOROthiazide (MAXZIDE-25) 37.5-25 mg per tablet 11/01/2020 Active [...] Date Recorded Dental: Regular Dentist Unknown 10/21/19 Comments Unknown Sex and Gender Information Value Date Recorded Sex Assigned at Not on file Legal Sex Female 8:47 AM CDT Gender Identity Not on file Sexual Orientation [...] CDT Plan of Treatment Not on file Insurance [employer] MEDICARE
--- OUTSIDE RECORDS SUMMARY | 2024-01-21 10:59 | XMS_ITS | Clinical Summary ---
Author Organization [facility] Address [address] [place] [address] Care Team Providers Care Molding Utility Worker Name Role Phone Unavailable Primary Care Provider Unavailabl e Source Comments Patient records contain information from all sites at [facility]. For routine questions regarding patient records, call [phone] during business hours, M-F 8:00 AM - 5:00 PM Central Time. Record requests for emergency care only can be directed to [phone] at any time.[facility] Medications lancets (Accu-Chek Fastclix Lancet Drum) USE [...] losartan (COZAAR) 100 mg tablet 01/13/2021 Active ccnjwltz-zss-idk n-FA-lutein (Centrum Silver Women) 8 mg iron-400 mcg-300 mcg tablet Take by mouth. 01/13/2021 Active NIFEdipine XL (PROCARDIA XL) 30 mg 24 hr tablet 11/23/2020 Active omeprazole (PriLOSEC) [address] capsule Take by mouth. 09/24/2006 Active omega 7-pwt-mbt-fish oil 1,000 mg (120 mg-180 mg) capsule [...] Screen (Annual) 04/01/2023 Hemoglobin A1C 09/04/2023 03/05/2023, 2 05/2022, 05/11/2022, Additional history exists COVID-19 Vaccine (7 - 2023-2 5 season) 2023 01/25/2023, 12/29/2021, 07/05/2021, Additional history exists Influenza Vaccine (#1) 2023 , 01/09/2023, 01/22/2022, Additional history exists RSV vaccine - (32-3 6 weeks) or 60+ years (1 - 1-dose 75+ series) 01/13/2024 Mammogram 05/07/2024 05/07/2023, 08/2023, 04/05/2022, Additional history exists Creatinine Level (Kidney Fun ction Test) 08/01/2024 08/02/2023, 06/10/2023, 05/11/2022, Additional history exists Potassium Level 08/01/2024 08/02/2023, 05/30, 05/11/2022, Additional history exists Sodium Level 08/01/2024 08/02/2023, 05/30, 05/11/2022, Additional history exists Dilated Eye Exam 08/28/2024 08/29/2023, , 06/13/2021, Additional history exists Office Visit for Blood Press ure Check / Re-check 10/06/2024 10/07/2023 Lipid (Cholesterol) Screening 05/11/2027, 01/13/2021, 11/25/2019, Additional history exists Colonoscopy 08/11/2033 08/12/2023, 05/28/2016 Colorectal Cancer Screening 08/11/2033 Pneumococcal vaccine (65+ years) Completed 05/07/19 17, 07/09/2014 Zoster Vaccines Completed 10/13/2017, 08/2017, 07/14/2017, Additional history exists Insurance [employer] MEDICARE
== END 2024-01-16 09:56 | disposition home or self-care (01) ==
LOC: NFLDREF 01-21 10:55
PROVIDERS: PCP Internal Medicine; Referring Provider Internal Medicine; Visit Provider Internal Medicine
DX: D63.8 Anemia in other chronic diseases classified elsewhere (principal); E83.42 Hypomagnesemia
CPT/HCPCS: 83735

== ENCOUNTER 2024-01-30 09:00 | Outpatient (RCR) | payer MEDICARE, OTHER, SELFPAY ==
--- NOTE | 2023-08-13 13:54 | URNOTE ---
Request received for authorization for Iron Sucrose (Venofer) ([id number]). Prior authorization is not required as services are based on medical necessity and follow Medicare guidelines.
[2023-08-14 10:43] VITALS: BP 163/74; PULSE 100; RESP 16; TEMP 36.3; O2SAT 98
[2023-08-14] MEDS: IRON SUCROSE COMPLEX 200 MG in 0.9 % SODIUM CHLORIDE 100 ml 100 ML 400 MG IVPB (11:27)
[2023-08-14] MEDS: 0.9 % SODIUM CHLORIDE 250 ml IV (11:30)
[2023-08-14 11:52] VITALS: BP 120/71; PULSE 89; RESP 16; TEMP 36.2; O2SAT 95
[2023-08-14 12:25] VITALS: BP 109/67; PULSE 75; RESP 16; TEMP 36.5; O2SAT 98
[2023-08-16 09:47] VITALS: BP 136/70; PULSE 100; RESP 15; TEMP 36.6; O2SAT 97
[2023-08-16] MEDS: IRON SUCROSE COMPLEX 200 MG in 0.9 % SODIUM CHLORIDE 100 ml 100 ML 440 MG IVPB (10:24)
[2023-08-16 11:00] VITALS: BP 114/71; PULSE 86; RESP 16; TEMP 36.4; O2SAT 94
[2023-08-19 12:31] VITALS: BP 122/75; PULSE 87; RESP 16; TEMP 35.7; O2SAT 97
[2023-08-19] MEDS: IRON SUCROSE COMPLEX 200 MG in 0.9 % SODIUM CHLORIDE 100 ml 100 ML 440 MG IVPB (12:56)
[2023-08-19] MEDS: 0.9 % SODIUM CHLORIDE 250 ml IV (13:00)
[2023-08-19 13:20] VITALS: BP 118/67; PULSE 85; RESP 16; TEMP 36.3; O2SAT 95
[2023-08-19 13:50] VITALS: BP 115/68; PULSE 82; RESP 16; TEMP 36.3; O2SAT 96
[2023-08-21 11:26] VITALS: BP 131/79; PULSE 96; RESP 16; TEMP 36; O2SAT 97
[2023-08-21] MEDS: IRON SUCROSE COMPLEX 200 MG in 0.9 % SODIUM CHLORIDE 100 ml 100 ML 440 MG IVPB (11:51)
[2023-08-21] MEDS: 0.9 % SODIUM CHLORIDE 250 ml IV (11:52)
[2023-08-21] MEDS: SODIUM CHLORIDE 0.9 % (FLUSH) 10 ML SYRINGE IVF (12:09)
[2023-08-21 12:10] VITALS: BP 122/75; PULSE 86; RESP 16; O2SAT 95
[2023-08-23 12:33] VITALS: BP 158/74; PULSE 101; RESP 16; TEMP 36.2; O2SAT 97
[2023-08-23] MEDS: 0.9 % SODIUM CHLORIDE 250 ml IV (13:02)
[2023-08-23] MEDS: IRON SUCROSE COMPLEX 200 MG in 0.9 % SODIUM CHLORIDE 100 ml 100 ML 440 MG IVPB (13:02)
[2023-08-23] MEDS: SODIUM CHLORIDE 0.9 % (FLUSH) 10 ML SYRINGE IVF (13:02)
--- NOTE | 2023-10-08 13:00 | ONC.NURNOTE ---
Dx: Iron Deficiency Anemia
[2023-10-11 10:35] VITALS: BP 131/74; PULSE 72; RESP 16; TEMP 36.1; O2SAT 98
[2023-10-11] MEDS: SODIUM CHLORIDE 0.9 % (FLUSH) 10 ML SYRINGE IVF (11:00)
[2023-10-11] MEDS: 0.9 % SODIUM CHLORIDE 250 ml IV (11:01)
[2023-10-11] MEDS: IRON SUCROSE COMPLEX 200 MG in 0.9 % SODIUM CHLORIDE 100 ml 100 ML 440 MG IVPB (11:07)
[2023-10-11 11:25] VITALS: BP 111/70; PULSE 84; RESP 16; O2SAT 94
[2023-10-11 11:55] VITALS: BP 119/72; PULSE 79; RESP 16; TEMP 36.4; O2SAT 96
--- NOTE | 2023-11-14 16:15 | URNOTE ---
Prior auth is not required for [facility] ([id number]). Services are based on medical necessity and follow medicare guidelines
[2023-11-19 11:05] VITALS: BP 131/74; PULSE 101; RESP 16; TEMP 36.4; O2SAT 95
[2023-11-19] MEDS: SODIUM CHLORIDE 0.9 % (FLUSH) 10 ML SYRINGE IVF (11:19)
[2023-11-19] MEDS: 0.9 % SODIUM CHLORIDE 250 ml IV (11:20)
[2023-11-19] MEDS: IRON SUCROSE COMPLEX 200 MG in 0.9 % SODIUM CHLORIDE 100 ml 100 ML 440 MG IVPB (11:43)
[2023-11-19 12:03] VITALS: BP 109/49; PULSE 78; RESP 16; O2SAT 94
[2023-11-22 11:03] VITALS: BP 157/73; PULSE 98; RESP 18; TEMP 36.6; O2SAT 98
[2023-11-22] MEDS: IRON SUCROSE COMPLEX 200 MG in 0.9 % SODIUM CHLORIDE 100 ml 100 ML 440 MG IVPB (11:24)
[2023-11-22] MEDS: 0.9 % SODIUM CHLORIDE 250 ml IV (11:24)
[2023-11-22] MEDS: SODIUM CHLORIDE 0.9 % (FLUSH) 10 ML SYRINGE IVF (11:26)
[2023-11-22 11:44] VITALS: BP 118/69; PULSE 77; RESP 16; TEMP 36.5; O2SAT 96
[2023-11-22 12:19] VITALS: BP 110/69; PULSE 82; RESP 16; TEMP 36.5; O2SAT 97
[2023-11-25 10:51] VITALS: BP 124/55; PULSE 84; RESP 16; TEMP 37; O2SAT 97
[2023-11-25] MEDS: 0.9 % SODIUM CHLORIDE 250 ml IV (11:21)
[2023-11-25] MEDS: IRON SUCROSE COMPLEX 200 MG in 0.9 % SODIUM CHLORIDE 100 ml 100 ML 440 MG IVPB (11:21)
[2023-11-25 11:46] VITALS: BP 119/64; PULSE 64; RESP 14; TEMP 36.6; O2SAT 97
[2023-11-25 12:17] VITALS: BP 118/62; PULSE 71; RESP 12; TEMP 36.6; O2SAT 96
[2023-11-27 10:56] VITALS: BP 145/83; PULSE 79; RESP 16; TEMP 36.8; O2SAT 96
[2023-11-27] MEDS: IRON SUCROSE COMPLEX 200 MG in 0.9 % SODIUM CHLORIDE 100 ml 100 ML 440 MG IVPB (11:13)
[2023-11-27] MEDS: SODIUM CHLORIDE 0.9 % (FLUSH) 10 ML SYRINGE IVF (11:14)
[2023-11-27] MEDS: 0.9 % SODIUM CHLORIDE 250 ml IV (11:14)
[2023-11-27 11:44] VITALS: BP 125/79; PULSE 78; RESP 16; TEMP 36.6; O2SAT 95
[2023-11-27 12:20] VITALS: BP 121/74; PULSE 75; RESP 16; TEMP 36.4; O2SAT 96
[2023-11-29 11:03] VITALS: BP 128/73; PULSE 87; RESP 16; TEMP 35.8; O2SAT 95
[2023-11-29] MEDS: SODIUM CHLORIDE 0.9 % (FLUSH) 10 ML SYRINGE IVF (11:48)
[2023-11-29] MEDS: 0.9 % SODIUM CHLORIDE 250 ml IV (11:48)
[2023-11-29] MEDS: IRON SUCROSE COMPLEX 200 MG in 0.9 % SODIUM CHLORIDE 100 ml 100 ML 440 MG IVPB (11:48)
[2023-11-29 12:30] VITALS: BP 112/67; PULSE 87; RESP 16; TEMP 36.4; O2SAT 95
--- NOTE | 2024-01-21 10:02 | URNOTE ---
Prior authorization is not required for [place] ([id number]). Services are based on medical necessity and follow medicare guidelines.
--- NOTE | 2024-01-22 10:18 | ONC.NURNOTE ---
Spoke with Debra, Dr. Chow's nurse. Dr. Chow does not want to give the iron infusion, instead, pt needs a blood transfusion. Pt currently has covid and symptoms started on 01/20/24. Explained to Debra, [facility] is unable to give blood transfusion until 01/30/24 due to covid diagnosis. We could arrange with the nursing welfare supervisor to give blood in another dept if needed sooner. Debra, nurse from clinic will call back with time frame of when blood transfusion is needed.
[2024-01-30 12:25] VITALS: BP 134/59; PULSE 93; RESP 14; TEMP 36.3; O2SAT 98
[2024-01-30 12:40] VITALS: BP 111/69; BP 127/73; PULSE 73; PULSE 96; RESP 16; TEMP 36.2; TEMP 36.5; O2SAT 95; O2SAT 97
[2024-01-30 13:10] VITALS: BP 116/69; BP 125/74; PULSE 75; PULSE 76; RESP 16; TEMP 36.3; TEMP 36.4; O2SAT 96
[2024-01-30 13:40] VITALS: BP 118/69; PULSE 82; RESP 14; TEMP 36.3; O2SAT 96
[2024-01-30 15:55] VITALS: BP 134/78; PULSE 75; RESP 16; TEMP 36.3; O2SAT 96
== END 2024-02-10 23:59 | disposition home or self-care (01) ==
LOC: CCIC 09:00
PROVIDERS: PCP Family Medicine; Referring Provider Internal Medicine Nephrology; Visit Provider Clinical Nurse Specialist
DX: D50.9 Iron deficiency anemia, unspecified (principal)
CPT/HCPCS: 36415; 36430; 86850; 86900; 86901; 86922; 96365; 96374; J1756; J7050; P9016

== ENCOUNTER 2024-02-13 09:29 | Outpatient (CLI) | payer MEDICARE, OTHER, SELFPAY | END 2024-02-13 09:30 | disposition home or self-care (01) | PROVIDERS: PCP Internal Medicine; Visit Provider Internal Medicine | DX: D50.9 Iron deficiency anemia, unspecified (principal) | CPT/HCPCS: 82728 ==

== ENCOUNTER 2024-03-05 13:19 | Outpatient (CLI) | payer MEDICARE, OTHER, SELFPAY ==
--- OUTSIDE RECORDS SUMMARY | 2024-03-05 13:22 | XMS_ITS | Clinical Summary ---
Author Organization [facility] Address [address] [place] [address] Care Team Providers Care Cylinder Press Operator Name Role Phone Unavailable Primary Care Provider Unavailabl e Source Comments Patient records contain information from all sites at [facility]. For routine questions regarding patient records, call [phone] during business hours, M-F 8:00 AM - 5:00 PM Central Time. Record requests for emergency care only can be directed to [phone] at any time.[facility] Medications lancets (Accu-Chek Fastclix Lancet Drum) USE TO TEST ONCE DAILY 5 Active aspirin [address] tablet Take 81 mg by mouth. 0 Active atorvastatin (LIPITOR) 10 mg tablet 1 Active cholecalciferol (VITAMIN D3) 50 mcg (2,000 Unit) capsule Take 2,000 Units by mouth. 1 Active doxepin (SINEquan) 10 mg capsule 1 Active doxepin (SINEquan) 25 mg capsule 1 Active escitalopram (LEXAPRO) 5 mg tablet 1 Active losartan (COZAAR) 100 mg tablet 1 Active hznerzmp-arx-qv rq-BY-slicoz (Centrum Silver Women) 8 mg iron-400 mcg-300 mcg tablet Take by mouth. 1 Active NIFEdipine XL (PROCARDIA XL) 30 mg 24 hr tablet 1 Active omeprazole (PriLOSEC) [address] capsule Take by mouth. 7 Active omega 8-snu-azf-fish oil 1,000 mg (120 mg-180 mg) capsule Take 1,000 mg by mouth. 1 Active zinc chelated 50 mg tablet tablet Take 50 mg by mouth. 1 Active triamterene-hyd roCHLOROthiazid e (Maxzide-25) 37.5-25 mg per tablet Take 1 tablet by mouth daily. 90 tablet 2 4 02/13/20 25 Active triamterene-hyd roCHLOROthiazid e (Maxzide-25) 37.5-25 mg per tablet Take 1 tablet by mouth daily. 90 tablet 3 4 02/10/20 24 Discontinu ed(Reorder ) Active Problems Problem Noted Date Diagnosed Date [...] Encounters Date Type Department Care Team Description 02/10/2024 Refill Division of Nephrology and Hypertension in [place], [place] [address] [place] [address] Ronn Alvarez Jr., D.O. Med Refill 01/29/2024 Clinical Communication Division of Nephrology and Hypertension in [place], [place] [address] [place] [address] Ronn Alvarez Jr., D.O. Med Refill 01/26/2024 Orders Only Division of Nephrology and Hypertension in [place], [place] [address] [place] [address] Ronn Alvarez Jr., D.O. 01/23/2024 Refill Division of Nephrology and Hypertension in [place], [place] [address] [place] [address] Ronn Alvarez Jr., D.O. Med Refill from Last 3 Months Social History Tobacco Use Types Packs/Day Years Used Date Smoking Tobacco: Never Assessed Dental Answer Date Recorded Dental: Regular Dentist Unknown 10/21/19 22 Comments Unknown Sex and Gender Information Value [...] Date Last Done Comments Bone Density Scan (Osteoporosis Screen) 1949 CT Colonography 1950 Cologuard 1950 Diabetic Office Visit with Foot Exam 1949 FIT 1950 Hepatitis C Screening 1950 Urine Albumin 1950 Hepatitis B Vaccines (1 of 3 - Risk 3-dose series) 2009 DTaP,Tdap,and Td Vaccines (2 - Td or Tdap) 11/08/2022 11/08/2012 Depression Screening (Annual PHQ-2) 04/01/2023 Fall Risk Screen (Annual) 04/01/2023 Hemoglobin A1C 09/04/2023 03/05/2023, 07/31, 05/11/2022, Additional history exists COVID-19 Vaccine ( season) 2023 01/25/2023, 12/29/2021, 07/05/2021, Additional history exists Influenza Vaccine (#1) 2023 , 01/09/2023, 01/22/2022, Additional history exists RSV vaccine - (32-36 weeks) or 60+ years (1 - 1-dose 75+ series) 01/13/2024 Mammogram 05/07/2024 05/07/2023, 02/0 08/2023, 04/05/2022, Additional history exists Creatinine Level (Kidney Function Test) 08/01/2024 08/02/2023, 06/10/2023, 05/11/2022, Additional history exists Potassium Level 08/01/2024 08/02/2023, 05/30, 05/11/2022, Additional history exists Sodium Level 08/01/2024 08/02/2023, 05/30, 05/11/2022, Additional history exists Dilated Eye Exam 08/28/2024 08/29/2023, , 06/13/2021, Additional history exists Office Visit for Blood Pressure Check / Re-check 10/06/2024 10/07/2023 Lipid (Cholesterol) Screening 05/11/2027 05/11/2022, 01/13/2021, 11/25/2019, Additional history exists Colonoscopy 08/11/2033 08/12/2023, 05/28/2016 Colorectal Cancer Screening 08/11/2033 Pneumococcal vaccine (65+ years) Completed 05/07/2016, 07/09/2014 Zoster Vaccines Completed 10/13/2017, 08/2017, 07/14/2017, Additional history exists IPV Vaccines Aged Out No longer eligi ble based on patient's age to complete this topic Insurance [employer] MEDICARE
--- OUTSIDE RECORDS SUMMARY | 2024-03-05 13:22 | XMS_ITS | Continuity of Care Document ---
Author Name [facility] Organization [facility] Care Team Providers Care Long Chain Quiller Tender Name Role Phone [facility] Unavailable Unavailable Medications Combined list of [...] ORAL, APOTEX BEV, 1000 ea. BOTTLE Active [id number] 4 2023 90 Pharmac y Data Transac tion Service Facilit y ATORVASTATI N CALCIUM (atorvastat in calcium), 10 MG, TABLET, ORAL, [employer] PHARMACEU, 1000 ea. BOTTLE Active [id number] 4 2023 90 Pharmac y Data Transac tion Service Facilit y CARVEDILOL (carvedilol ), 12.5 MG, TABLET, ORAL, [employer] 500 ea. BOTTLE Active [id number] 4 2023 180 Pharmac y Data Transac tion Service Facilit y CYCLOBENZAP RINE HCL (cyclobenza tobias HCl), 5 MG, TABLET, ORAL, [employer] 100 ea. BOTTLE Active [id number] 4 2023 10 Pharmac y Data Transac tion Service Facilit y DOXEPIN HCL (doxepin HCl), 25 MG, CAPSULE, ORAL, [employer], 500 ea. BOTTLE Active [id number] 4 2023 90 Pharmac y Data Transac tion Service Facilit y DOXEPIN HCL (doxepin HCl), 25 MG, CAPSULE, ORAL, [employer], 500 ea. BOTTLE Active [id number] 4 2023 90 Pharmac y Data Transac tion Service Facilit y GAVILYTE-G (PEG 3350/NA SULF,BICARB ,CL/KCL), 236-22.74G, SOLN RECON, ORAL, GAVIS PHARMACEU, 4000 ml BOTTLE Active [id number] 4 2023 4000 Pharmac y Data Transac tion Service Facilit y LOSARTAN POTASSIUM (losartan potassium), 100 MG, TABLET, ORAL, XLCARE PHARMACE, 1000 ea. BOTTLE Active [id number] 4 2023 90 Pharmac y Data Transac tion Service Facilit y LOSARTAN POTASSIUM (losartan potassium), 100 MG, TABLET, ORAL, XLCARE PHARMACE, 1000 ea. BOTTLE Active [id number] 2023 90 Pharmac y Data Transac tion Service Facilit y METFORMIN HCL (METFORMIN HCL), 500 MG, TABLET, ORAL, 10-20 [employer] 1000 ea. BOTTLE Active [id number] 4 2023 180 Pharmac y Data Transac tion Service Facilit y METFORMIN HCL (METFORMIN HCL), 500 MG, TABLET, ORAL, [employer] 1000 ea. BOTTLE Active [id number] 4 2023 180 Pharmac y Data Transac tion Service Facilit y METFORMIN HCL (METFORMIN HCL), 500 MG, TABLET, ORAL, 10-20 [employer] 1000 ea. BOTTLE Cancele d [id number] : 2023 0 Pharmac y Data Transac tion Service Facilit y METOPROLOL SUCCINATE (metoprolol succinate), 25 MG, TAB ER 24H, ORAL, INGENUS PHARMAC, 1000 ea. BOTTLE Active [id number] 4 2023 90 Pharmac y Data Transac tion Service Facilit y NIFEDIPINE ER (nifedipine ), 30 MG, TAB ER 24, ORAL, OCEANS[employer] PHARM, 100 ea. BOTTLE Active [id number] 4 2023 90 Pharmac y Data Transac tion Service Facilit y NIFEDIPINE ER (nifedipine ), 30 MG, TAB ER 24, ORAL, OCEANSIDE PHARM, 100 ea. BOTTLE Active [id number] 4 2023 90 Pharmac y Data Transac tion Service Facilit y SUCRALFATE (sucralfate ), 1 G/10 ML, ORAL SUSP, ORAL, AMNEAL PHARMACE, 420 ml BOTTLE Active [id number] 4 2023 1000 Pharmac y Data Transac tion Service Facilit y SUCRALFATE (sucralfate ), 1 G/10 ML, ORAL SUSP, ORAL, AMNEAL PHARMACE, 420 ml BOTTLE Active [id number] 4 2023 420 Pharmac y Data Transac tion Service Facilit y SUCRALFATE (sucralfate ), 1 G/10 ML, ORAL SUSP, ORAL, AMNEAL PHARMACE, 420 ml BOTTLE Active [id number] 2023 420 Pharmac y Data Transac tion Service Facilit y TRIAMTERENE -HCTZ (TRIAMTEREN E/HYDROCHLO ROTHIAZID), 75-50MG, TABLET, ORAL, APOTEX BEV, 500 ea. BOTTLE Active [id number] 4 2023 90 Pharmac y Data Transac tion Service Facilit y TRIAMTERENE -HCTZ (TRIAMTEREN E/HYDROCHLO ROTHIAZID), 75-50MG, TABLET, ORAL, APOTEX BEV, 500 ea. BOTTLE Active [id number] 4 2023 90 Pharmac y Data Transac tion Service Facilit y TRIAMTERENE -HCTZ (TRIAMTEREN E/HYDROCHLO ROTHIAZID), 75-50MG, TABLET, ORAL, APOTEX BEV, 500 ea. BOTTLE Active [id number] 4 2023 90 Pharmac y Data Transac tion Service Facilit y Immunizations Combined list of available immunizations from the Department of Defense and Veterans Affairs facilities. Immunization Series Date Given Administered By Site Reaction Lot Number CVX Code Drug Desk Director Status Comments Source COVID-19, mRNA, LNP-S, PF, 30 mcg/0.3 mL dose, terrance-sucrose 2021 RASHAWN GRACE [employer] [place] (PFR) Not Given COVID-19, mRNA, LNP-S, [...]
--- OUTSIDE RECORDS SUMMARY | 2024-03-05 13:22 | XMS_ITS | Clinical Summary ---
Author Organization [facility] Address [place], [place] [address] Care Team Providers Care Mortgage Counselor Name Role Phone Sarthak Ko MD Primary Care Provider [phone] Allergies Active Allergy Reactions Criticality Noted Date [...] 1 Capsule by mouth once daily. Active carvediloL (COREG) 12.5 mg tablet Take [...] CAPSULE AT BEDTIME 90 Capsule 4 Active triamterene-hydrochloroth iazide, 75-50 mg, (MAXZIDE) 75-50 mg tabletIndications:Essenti al hypertension TAKE 1 TABLET EVERY MORNING 90 Tablet 4 Active Hospital, Clinic, or Other Facility Administered Medication Ordered Dose Route Frequency Start Date End Date Status methylPREDNISolone acetate 40 mg/mL (DEPO-MEDROL) injection 80 mgIndications:Primary osteoarthritis of both knees 80 mg IArtic ONE TIME 02/05/2024 02/05/2024 Ended methylPREDNISolone acetate 40 mg/mL (DEPO-MEDROL) injection 80 mgIndications:Primary osteoarthritis of both knees 80 mg [employer]Artic ONE TIME 02/05/2024 02/05/2024 Ended Active Problems Problem Noted Date Diagnosed [...] Encounters Date Type Department Care Team Description 02/20/2024 Lab Requisition [facility] [phone] Lissette Campbell MD 02/05/2024 11:30 AM MANAGER FILTER Office Visit [facility] [address] [place] [address] Lin Velasquez PA Knee Pain/problem (Bilateral knee pain, bilateral cortisone injections) 02/05/2024 Travel 01/31/2024 Travel 01/19/2024 Refill [facility] [address] [place] [address] Sarthak Ko MD Refill Request (Triamterene-hydroch lorothiazide (75-50 Mg)) 01/17/2024 Travel from Last 3 Months Immunizations Name Administration Dates Next Due COVID-19 vaccine ([employer] NTech 30mcg/0.3mL) 12YO+ BIVALENT PF, MDV 12/29/2021 [...] 2 08/21/2022 Social Connections Answer Date Recorded Do you often feel lonely or isolated from those around you? 0 02/28/2023 Financial Resource Strain Answer Date R ecorded Difficulty of Paying Living Expenses 3 02/28/2023 Difficulty of Paying Living Expenses Not on file 02/28/2023 Food Insecurity Answer Date Recorded Do you worry your food will run out before you are able to buy more? 1 02/28/2023 Transportation Needs Answer Date Record ed Does lack of transportation keep you from medica l appointments? 1 02/28/2023 Does lack of transportation keep you from work, meetings or getting things that you need? 1 02/28/2023 Housing Stability Answer Date Recorded [...] 102 08/06/2023 10:43 AM CDT Temperature 36.8 C (98.3 F) 08/06/2023 10:43 AM CDT Respiratory Rate 24 05/06/2023 2:16 PM MANAGER FILTER Oxygen Saturation 95% 08/06/2023 10:43 AM CDT [...] Additional history exists COVID-19 vaccine series Completed 12/19/19 24, 01/25/2023, 12/29/2021, Additional history exists Procedures Procedure Name Priority Date/Time Associated Diagnosis Comments LAB TRACKING EVENT Routine 02/20/2024 2: 15 PM MANAGER FILTER PATH TISSUE EXAM Routine 02/20/2024 2:15 PM MANAGER FILTER SCAN-COLONOSCOPY 08/12/2023 12:0 0 AM CDT LC LIPID PANEL AND CHOL/HDL RATIO Routine 05/11/2022 10:02 AM MANAGER FILTER Type 2 diabetes mellitus with other specified complication, without long-term current use of insulin (HC) HYPERCHOLESTEROLEMI A, PURE XR DXA BONE DENSITY 2 SITES AXIAL Routine 09/23/2017 10:06 AM CDT Post-menopausal ANTI HCV Routine 03/11/2008 4:34 PM MANAGER FILTER Elev Transaminase/LDH from Last 3 Months or Most Recently Relevant to Health Maintenance Results * LAB TRACKING EVENT (02/20/2024 2:15 PM MANAGER FILTER) Other (Other) Client Collect / Unknown 02/20/2024 2:15 PM MANAGER FILTER 02/20/2024 10:43 PM MANAGER FILTER Lissette Campbell MD [facility] [address] [place] [address], * PATH TISSUE EXAM (02/20/2024 2:15 PM MANAGER FILTER) Case Report Pathology Report Case: [id number] Authorizing Provider: Lissette Campbell MD Collected: 02/20/2024 1415 Ordering Location: [facility] Received: 02/21/2024 0809 Pathologist: Eduardo Palmer MD Specimen: Back 02/26/2024 10:02 AM [facility] Final Diagnosis A) SKIN, BACK, BIOPSY: Invasive squamous cell carcinoma a. Grade: Well differentiated b. Perineural invasion: Absent c. Margin status: Negative 02/26/2024 10:02 AM [facility] Clinical Information Suspicious skin lesion - increasing in size 02/26/2024 10:02 AM [facility] Gross Description A) Received in formalin, labeled with the patient's name and date of , is a 6.0 x 2.6 x 0.8 cm oriented skin ellipse with a suture designating single stitch superior and double stitch lateral which is arbitrarily redesignated in pathology as 12:00 and 9:00. The skin surface is remarkable for a 1.5 x 1.3 x 0.4 cm raised focally crusted hayes-white to pink-hayes lesion that is 0.7 cm from the 12:00 margin. The specimen is inked as follows: 12-3 o'clock: Blue 3-6 o'clock: Green 6-9 o'clock: Red 9-12 o'clock: Yellow The specimen is serially sectioned and entirely submitted: 1. 3:00 and 9:00 tips 2-9. Remainder of specimen, sequentially submitted TLF 02/21/2024 02/26/2024 10:02 AM [facility] Microscopic Description The final diagnosis is based on microscopic examination of appropriate sections of all specimens. A) Atypical keratinocytes with abundant eosinophilic cytoplasms extend from the undersurface of the epidermis into the dermis. The presence of multicolored ink is confirmed on tissue sections. 02/26/2024 10:02 AM MANAGER FILTER [facility] Additional Information Interpreted at [facility] - [address], [place] [address] 02/26/2024 10:02 AM MANAGER FILTER [facility] Other (Back) 02/20/2024 2:15 PM MANAGER FILTER 02/21/2024 8:09 AM MANAGER FILTER Lissette Campbell MD PATHOLOGY/CYTOLO GY [facility] [address] [place] [address], * SCAN-COLONOSCOPY (08/12/2023 12:00 AM CDT) Scanner OTHER * (ABNORMAL) LC LIPID PANEL AND CHOL/HDL RATIO (05/11/2022 10:02 AM MANAGER FILTER) Cholesterol, Total 171 100 - 199 mg/dL 05/16/2022 1:07 AM [facility] Triglycerides 196(H) 0 - 149 mg/dL 05/16/2022 1:07 AM [facility]) HDL Cholesterol 41 >39 mg/dL 3 1:07 AM [facility] ([facility]) VLDL Cholesterol Jonathan 34 5 - 40 mg/dL 05/16/2022 1:07 AM [facility] ([facility]) LDL Chol Calc (NIH) 96 0 - 99 mg/dL 05/16/2022 1:07 AM [facility] ([facility]) T. Chol/HDL Ratio 4.2 0.0 - 4.4 ratio 05/16/2022 1:[address] [facility] ([facility]) Comment: T. Chol/HDL Ratio Men Women 1/2 Avg.Risk 3.4 3.3 Avg.Risk 5.0 4.4 2X Avg.Risk 9.6 7.1 3X Avg.Risk 23.4 11.0 Blood BLOOD SPECIMEN / Unknown Venipuncture / Unknown 05/11/2022 10:02 AM MANAGER FILTER 05/11/2022 10:02 AM MANAGER FILTER Narrative [facility] - 05/16/2022 1:07 AM MANAGER FILTER Performed at: [facility] - [facility] [employer] [address] [place] [address] [id number] Manager Cost: John Rock MD, Phone: [phone] Sarthak Ko MD SEND OUTS [facility] ([facility]) [address] [place] [address] * XR DXA BONE DENSITY 2 SITES AXIAL (09/23/2017 10:06 AM CDT) Anatomical Region Laterality Modality Spine, HIPS, HIPL, HIPR Other Narrative 09/24/2017 5:58 PM CDT Please see scanned document for results of this study. Yamile Block DO DEXA * ANTI HCV (03/11/2008 4:34 PM MANAGER FILTER) ANTI HCV Non-reacti ve [facility] Blood specimen (specimen) BLOOD SPECIMEN / Unknown 03/11/2008 4:34 PM MANAGER FILTER 03/11/2008 4:29 PM MANAGER FILTER Khalif Mon MD SEND OUTS [facility] INTERNAL ZIP [address] [address] from Last 3 Months or Most Recently Relevant to Health Maintenance Care Teams Mortgage Counselor Relationship Specialty [place] [address] [place] [address] PCP - General Family Practice 04/05/22
--- OUTSIDE RECORDS SUMMARY | 2024-03-05 13:23 | XMS_ITS | Referral Summary ---
Author Organization [facility] Address [address] [place] [address] Care Team Providers Care Mini Bar Attendant Name Role Phone Unavailable Primary Care Provider Unavailabl e Source Comments Patient records contain information from all sites at [facility]. For routine questions regarding patient records, call [phone] during business hours, M-F 8:00 AM - 5:00 PM Central Time. Record requests for emergency care only can be directed to [phone] at any time.[facility] Encounters Date Type Department Care Team Description 02/10/2024 Refill Division of Nephrology and Hypertension in [place], [place] [address] [place] [address] Ronn Alvarez Jr., Tawanda.O. Med Refill 01/29/2024 Clinical Communication Division of Nephrology and Hypertension in [place], [place] [address] [place] [phone] Ronn Alvarez Jr., D.O. Med Refill 01/26/2024 Orders Only Division of Nephrology and Hypertension in [place], [place] [address] [place] [address] Ronn Alvarez Jr., D.O. 01/23/2024 Refill Division of Nephrology and Hypertension in [place], [place] [address] [place] [address] Ronn Alvarez Jr., D.O. Med Refill from Last 3 Months Medications lancets (Accu-Chek Fastclix Lancet Drum) USE [...] losartan (COZAAR) 100 mg tablet 1 Active gjirxnkv-sjp-kx jr-QQ-niygas (Centrum Silver Women) 8 mg iron-400 mcg-300 mcg tablet Take by mouth. 1 Active NIFEdipine XL (PROCARDIA XL) 30 mg 24 hr tablet 1 Active omeprazole (PriLOSEC) [address] capsule Take by mouth. 7 Active omega 7-csv-sot-fish oil 1,000 mg (120 mg-180 mg) capsule [...] Plan of Treatment Not on file Insurance [employer] MEDICARE
--- OUTSIDE RECORDS SUMMARY | 2024-03-05 13:23 | XMS_ITS | Encounter Summary ---
Author Organization [facility] Address [address] [place] [address] Care Team Providers Care Information Systems Security Specialist Name Role Phone Unavailable Primary Care Provider Unavailabl e Reason for Visit * Reason Onset Date Comments Med Refill 02/10/2024 Encounter Details Date Type Department Care Team (Late st Contact Info) Description 02/10/2024 Refill Division of Nephrology and Hypertension in [place], [place] [address] [place] [phone] Ronn Alvarez Jr., D.O. [address] [place] [address] Med Refill Social History Tobacco Use Types Packs/Day Years Used Date Smoking Tobacco: Never Assessed Dental Answer Date Recorded Dental: Regular Dentist Unknown 10/21/19 Comments Unknown Sex and Gender Information Value Date Recorded Sex Assigned at Not on file Legal Sex Female 8:47 AM CDT Gender Identity Not on file Sexual Orientation Not on file documented as of this encounter Plan of Treatment Not on file documented as of this encounter Visit Diagnoses Not on filedocumented in this encounter
--- OUTSIDE RECORDS SUMMARY | 2024-03-05 13:23 | XMS_ITS | Encounter Summary ---
Author Organization [facility] Address [address] [place] [address] Care Team Providers Care Geoscience Professor Name Role Phone Unavailable Primary Care Provider Unavailabl e Reason for Visit * Reason Onset Date Comments Med Refill 01/29/2024 Encounter Details Date Type Department Care Team (Late st Contact Info) Description 01/29/2024 Clinical Communication Division of Nephrology and Hypertension in [place], [place] [address] [place] [address] Ronn Alvarez Jr., D.O. [address] [place] [address] Med Refill Social History Tobacco Use Types Packs/Day Years Used Date Smoking Tobacco: Never Assessed Dental Answer Date Recorded Dental: Regular Dentist Unknown 10/21/19 Comments Unknown Sex and Gender Information Value Date Recorded Sex Assigned at Not on file Legal Sex Female 8:47 AM CDT Gender Identity Not on file Sexual Orientation Not on file documented as of this encounter Miscellaneous Notes * Telephone Encounter - Steve Hawkins - 01/29/2024 3:38 PM CDT Reason for call: Refill: Medication Name-Metoprolol succinate Dosage/Frequency -25 mg, take one daily How many days are left? 0 days left Preferred Pharmacy- [facility] - [place], [place] - [address] [place], [place] [address] [facility] [id number] documented in this encounter Plan of Treatment Not on file documented as of this encounter Visit Diagnoses Not on filedocumented in this encounter
--- OUTSIDE RECORDS SUMMARY | 2024-03-05 13:23 | XMS_ITS | Encounter Summary ---
Author Organization [facility] Address [address] [place] [address] Care Team Providers Care Radiologic Technologist Mammogram Name Role Phone Unavailable Primary Care Provider Unavailabl e Encounter Details Date Type Department Care Team (Late st Contact Info) Description 01/26/2024 Orders Only Division of Nephrology and Hypertension in [place], [place] [address] [place] [address] Ronn Alvarez Jr., D.O. [address] [place] [address] Social History Tobacco Use Types Packs/Day Years [...]
--- OUTSIDE RECORDS SUMMARY | 2024-03-05 13:23 | XMS_ITS ---
Author Organization [facility] Address [address] [place] [address] Care Team Providers Care Power And Recovery Superintendent Name Role Phone Unavailable Unavailable Unavailable Surgery Details Not on file Complications Check Surgery Details section. Procedure Estimated Blood Loss Check Surgery Details section. Procedure Findings Check Surgery Details section. Procedure Specimens Taken Check Surgery Details section.
--- OUTSIDE RECORDS SUMMARY | 2024-03-05 13:23 | XMS_ITS | Encounter Summary ---
Author Organization [facility] Address [address] [place] [address] Care Team Providers Care Dispatcher Radioactive Waste Disposal Name Role Phone Unavailable Primary Care Provider Unavailabl e Reason for Visit * Reason Onset Date Comments Med Refill 01/23/2024 Encounter Details Date Type Department Care Team (Late st Contact Info) Description 01/23/2024 Refill Division of Nephrology and Hypertension in [place], [place] [address] [place] [address] Ronn Alvarez Jr., D.O. [address] [place] [address] Med Refill Social History Tobacco Use Types [...]
--- NOTE | 2024-03-05 13:30 | CRLHL7_ITS ---
For Patients: As a result of the Century Cures Act, medical imaging exams and procedure reports are released immediately into your electronic medical record. You may view this report before your referring provider. If you have questions, please contact your health care provider. DXA BONE MINERAL DENSITY STUDY Reason for exam: Asymptomatic menopausal state. Current height (in): 65.5. Weight (lb): 197. Menopause age: 44. Ethnicity: White. 1. Have you had a previous hip or vertebral fracture? No. 2. Have you had any fractures during your adult life which did not result from significant trauma (e.g., auto accident)? No. 3. Did either of your parents have a hip fracture? Yes. 4. Do you smoke? No. 5. Have you ever taken Glucocorticoids? No. 6. Do you have rheumatoid arthritis? No. 7. Do you have secondary osteoporosis? No. 8. Do you drink 3 or more alcoholic drinks per day? No. 9. Are you being treated for osteoporosis? No. 10. Have you ever taken any of the following medications: Actonel, Evista, Fosamax, Miacalcin, Reclast, Boniva, Forteo, HRT (i.e. estrogen/hormone therapy), Protelos, Prolia, Vitamin D, Calcium, other ??? please specify. ANSWER: Yes, vitamin D and calcium. 11. Do you have any of the following medical conditions: Anorexia or bulimia, asthma or emphysema, end stage renal disease, hyperparathyroidism, any seizure disorders, cancer, inflammatory bowel diseases, hysterectomy, other ??? please specify. ANSWER: Yes, anemia and hysterectomy. 12. What was your maximum height (inches)? 66. 13. Do you perform weight bearing exercise regularly? No. 14. Do you regularly consume dairy products? Yes. 15. Do you drink caffeinated beverages? No. 16. At what age did your period start? 11. 17. Are you premenopausal? No. 18. How many full term pregnancies have you had? 3. 19. Have you ever missed your period for more than 6 months in a row (not including or menopause)? No. TECHNIQUE: Bone mineral density study was performed using the [employer] Wi. FINDINGS: The results of the study expressed as bone mineral density (BMD) are as follows: Lumbar spine L1, L2, L4: BMD: 1.423 g/cm2. T-score: 3.5. Z-score: 5.9. Neck Left: BMD: 0.786 g/cm2. T-score: -0.6. Z-score: 1.5. Right: BMD: 0.726 g/cm2. T-score: -1.1 Z-score: 1.0. Total Left: BMD: 1.064 g/cm2. T-score: 1.0. Z-score: 2.8. Right: BMD: 1.004 g/cm2. T-score: 0.5. Z-score: 2.3. IMPRESSION: Osteopenia. *Comparison exams done prior to 08/2019 were performed on different unit, [employer]. FRAX 10-year Fracture Risk Major Osteoporotic Fracture: 0.1 percent Hip Fracture: 0.1 percent Reported Risk Factors: [place] () Neck BMD=0.726, BMI=32.3, parental fracture Isha Medina M.D. Diagnostic Radiologist [email or web address] BHANU/reina SP/Dictated by: Isha Medina MD @ 03/06/2024 9:00:00 AM (Electronically Signed)
== END 2024-03-05 13:20 | disposition home or self-care (01) ==
LOC: RAD 13:19
PROVIDERS: PCP Internal Medicine; Visit Provider Internal Medicine
DX: Z78.0 Asymptomatic menopausal state (principal); M85.89 Other specified disorders of bone density and structure, multiple sites
CPT/HCPCS: 77080

== ENCOUNTER 2024-03-09 10:08 | Outpatient (CLI) | payer MEDICARE, OTHER, SELFPAY | END 2024-03-09 10:09 | disposition home or self-care (01) | LOC: NFLDREF 03-12 03:46 | PROVIDERS: PCP Internal Medicine; Referring Provider Internal Medicine; Visit Provider Internal Medicine | DX: K27.9 Peptic ulcer, site unspecified, unspecified as acute or chronic, without hemorrhage or perforation (principal); D50.9 Iron deficiency anemia, unspecified | CPT/HCPCS: 82728 ==

== ENCOUNTER 2024-03-20 11:01 | Outpatient (CLI) | payer MEDICARE, OTHER, SELFPAY ==
--- NOTE | 2024-03-20 14:00 | CRLHL7_ITS ---
For Patients: As a result of the Century Cures Act, medical imaging exams and procedure reports are released immediately into your electronic medical record. You may view this report before your referring provider. If you have questions, please contact your health care provider. Indication: IRON DEFICIENCY, ANEMIA, HX STEATOSIS OF LIVER, HX PEPTIC ULCER DISEASE Technique: CT Abdomen/Pelvis 98CC ISOVUE 370 Please note that all CT scans at this facility use dose modulation, iterative reconstruction, and/or weight-based dosing when appropriate to reduce radiation dose to as low as reasonably achievable. Comparison: None Findings: Incidental sub 3 millimeter nodules within the left lower lobe are present which do not require further follow-up. Dependent atelectasis in both lung bases. A few scattered subcentimeter lymph nodes are present at the GE junction and within the epicardial space, considered normal. No intrahepatic mass. Mild hepatic steatosis. Gallbladder absent. No biliary obstruction. Common bile duct normal. 5 millimeter hyperdensity may be associated with the uncinate process, series 4, image 58 and series 2, image 67 spleen normal. Normal adrenal glands. Kidneys within normal limits. Normal bladder. No pelvic mass. No bowel obstruction, free air, free fluid or abscess. Postop changes hysterectomy. Incidental sub cm cyst within the left ovary. Postop changes to the right inguinal region. No evidence recurrent hernia. Degenerative disc disease and facet degeneration throughout the lumbar spine. No vertebral body compression fracture. Rightward curvature of the lumbar spine. A few scattered subcentimeter retroperitoneal lymph nodes are also considered normal. Impression: 5 millimeter hyperdense nodule possibly within the uncinate process of the pancreas. Pancreatic MRI with and without contrast recommended for further evaluation. Please note that all CT scans at this facility use dose modulation, iterative reconstruction, and/or weight-based dosing when appropriate to reduce radiation dose to as low as reasonably achievable. Dictated by Jose Carlos Hernández MD @ 03/20/2024 12:02:32 PM (Electronically Signed)
== END 2024-03-20 11:02 | disposition home or self-care (01) ==
LOC: CT 11:02
PROVIDERS: PCP Internal Medicine; Visit Provider Internal Medicine
DX: D50.9 Iron deficiency anemia, unspecified (principal); K76.0 Fatty (change of) liver, not elsewhere classified; K86.9 Disease of pancreas, unspecified; Z87.11 Personal history of peptic ulcer disease
CPT/HCPCS: 74177; Q9967

== ENCOUNTER 2024-04-03 09:36 | Outpatient (CLI) | payer MEDICARE, OTHER, SELFPAY ==
--- OUTSIDE RECORDS SUMMARY | 2024-04-02 16:25 | XMS_ITS | Clinical Summary ---
Author Organization [facility] Address [place], [place] [address] Care Team Providers Care Sales Planning Analyst Name Role Phone Sarthak Ko MD Primary Care Provider [phone] Allergies Active Allergy Reactions Criticality Noted Date Comments Amlodipine Edema 11/24/2007 Swelling around ankles while on this Medications OMEPRAZOLE 20 MG CAP, DELAYED RELEASE take one tab po qd 30 1 yr 09/25/19 07 Active blood-glucose meter (FREESTYLE LITE METER)Indications:Diabe orly mellitus type 2 in obese Dispense meter, test strips, lancets covered by pt ins. 250.00 NIDDM type II - Test 1 time/day 1 Device 06/04/19 21 Active cholecalciferol (Vitamin D-3) 2,000 unit capsule Take 1 Capsule (2,000 units) by mouth once daily. 0 01/14/20 21 Active blood sugar diagnostic (FreeStyle Lite Strips) stripIndications:Diabet es mellitus type 2 in obese USE TO TEST ONCE DAILY 100 Each 3 02/07/20 22 Active CPAPIndications:Obstruc tive sleep apnea CPAP machine for home use at pressure: 10 cm/H2O with epr of 3 , Heated humidifier x 1, Humidifier chamber x 1, nasal pillow mask with pillow cushion x 1, standard tubing x 1, Headgear x 1, Filters: Disposable x 1pk & Reusable x 1pk, Length of Need: 99 months, Frequency of use: Daily 1 Each 11 01/04/20 23 Active multivitamin capsule Take 1 Capsule by mouth once daily. Active carvediloL (COREG) 12.5 mg tablet Take 12.5 mg by mouth two times daily. 04/23/19 24 Active atorvastatin (LIPITOR) 10 mg tabletIndications:Pure hypercholesterolemia TAKE 1 TABLET AT BEDTIME 90 Tablet 3 05/13/19 24 Active NIFEdipine (PROCARDIA XL) 30 mg extended-release tabletIndications:Essen tial hypertension TAKE 1 TABLET DAILY BEFORE A MEAL 90 Tablet 3 05/13/19 24 Active losartan (COZAAR) 100 mg tabletIndications:Essen tial hypertension Take 1 Tablet (100 mg) by mouth once daily. 90 Tablet 3 05/13/19 24 Active metFORMIN (GLUCOPHAGE) 500 mg tabletIndications:Type 2 diabetes mellitus with other specified complication, without long-term current use of insulin (HC) TAKE 1 TABLET TWICE A DAY WITH MEALS 180 Tablet 3 07/02/19 24 Active ferrous sulfate, 65 mg elemental, (Iron) tablet Take 325 mg by mouth once daily with a meal. Active doxepin 25 mg capsuleIndications:Gene ralized anxiety disorder,Insomnia, unspecified type TAKE 1 CAPSULE AT BEDTIME 90 Capsule 10/22/19 24 Active triamterene-hydrochloro thiazide, 75-50 mg, (MAXZIDE) 75-50 mg tabletIndications:Essen tial hypertension TAKE 1 TABLET EVERY MORNING 90 Tablet 01/21/20 24 Active Active Problems Problem Noted Date Diagnosed [...] Department Care Team Description 02/20/[address] [facility] [phone] Lissette Campbell MD 02/05/2024 11:30 AM COLLAR SETTER [employer]LOCK Office Visit [facility] [address] [place] [address] Lin Velasquez PA Knee Pain/problem (Bilateral knee pain, bilateral cortisone injections) 02/05/2024 Travel 01/31/2024 Travel 01/19/2024 Refill [facility] [address] [place] [address] Sarthak Ko MD Refill Request (Triamterene-hydroch lorothiazide (75-50 Mg)) 01/17/2024 Travel from Last 3 Months Immunizations Name Administration Dates Next Due COVID-19 vaccine (eZelleron-Bio NTLocaid 30mcg/0.3mL) 12YO+ BIVALENT PF MDV 12/29/2021 Hepatitis [...] is your housing situation today? 1 02/28/2023 Comments No Sex and Gender Information Value Date Recorded Sex Assigned at Not on file Legal Sex Female 5:24 AM COLLAR [employer] Gender Identity Not on file Sexual Orientation [...] CDT Respiratory Rate 24 05/06/2023 2:16 PM COLLAR [employer]TER [employer]LOCK Oxygen Saturation 95% 08/06/2023 10:43 AM CDT [...] Tdap Completed 11/08/2012 Pneumococcal series for age 50+ Completed 7, 07/09/2014 DEXA/DXA scan for age 65+ Completed 09/23/2017 Zoster (shingles) series for age 50+ Completed 10/13/2017, 08/04/2017, 07/14/2017, Additional history exists COVID-19 vaccine series Completed 12/19/19 24, 01/25/2023, 12/29/2021, Additional history exists Procedures Procedure Name Priority Date/Time Associated Diagnosis Comments LAB TRACKING EVENT Routine 02/20/2024 2: 15 PM [employer] PATH TISSUE EXAM Routine 02/20/2024 2:15 PM [employer] SCAN-COLONOSCOPY 08/12/2023 12:0 0 AM CDT LC LIPID PANEL AND CHOL/HDL RATIO Routine 05/11/2022 10:02 AM [employer] Type 2 diabetes mellitus with other specified complication, without long-term current use of insulin (HC) HYPERCHOLESTEROLEMI A, PURE XR DXA BONE DENSITY 2 SITES AXIAL Routine 09/23/2017 10:06 AM CDT Post-menopausal ANTI HCV Routine 03/11/2008 4:34 PM [employer] Elev Transaminase/LDH from Last 3 Months or Most Recently Relevant to Health Maintenance Results * LAB TRACKING EVENT (02/20/2024 2:15 PM COLL[employer]TER [employer]) Other (Other) Client Collect / Unknown 02/20/2024 2:15 PM COLLAR [employer]TER [employer]LOCK 02/20/2024 10:43 PM COLLAR [employer]TER [employer]LOCK us Lissette Campbell MD LAB BILL ONLY Final Re sult [facility] [address] [place] [address], [place] * PATH TISSUE EXAM (02/20/2024 2:15 PM COLLAR [employer]TER [employer]) Case Report Pathology Report Case: [id number] Authorizing Provider: Lissette Campbell MD Collected: 02/20/2024 1415 Ordering Location: [facility] Received: 02/21/2024 0809 Pathologist: Eduardo Palmer MD Specimen: Back 02/26/2024 10:02 AM [facility] Code Rebel [facility] Final Diagnosis A) SKIN, BACK, BIOPSY: Invasive squamous cell carcinoma a. Grade: Well differentiated b. Perineural invasion: Absent c. Margin status: Negative 02/26/2024 10:02 AM [facility] Clinical Information Suspicious skin lesion - increasing in size 02/26/2024 10:02 AM [facility] Gross Description A) Received in [...] sequentially submitted TLF 02/21/2024 02/26/2024 10:02 AM [facility] Microscopic Description The final diagnosis is based on microscopic examination of appropriate sections of all specimens. A) Atypical keratinocytes with abundant eosinophilic cytoplasms extend from the undersurface of the epidermis into the dermis. The presence of multicolored ink is confirmed on tissue sections. 02/26/2024 10:02 AM [facility] Code Rebel [facility] Additional Information Interpreted at [facility] - [address], [place] [address] 02/26/2024 10:02 AM COLLAR SETTER OVERLOCK [facility] Other (Back) 02/20/2024 2:15 PM COLL[employer]TER [employer]LOCK 02/21/2024 8:09 AM COLL[employer]TER [employer]LOCK us Lissette Campbell MD PATHOLOGY/CYTOLOGY Final Result [facility] [address] [place] [address], [place] * SCAN-COLONOSCOPY (08/12/2023 12:00 AM CDT) us Scanner OTHER Final Result * (ABNORMAL) LC LIPID PANEL AND CHOL/HDL RATIO (05/11/2022 10:02 AM [employer]LL[employer]) Cholesterol, Total 171 100 - 199 mg/dL 05/16/2022 1:07 AM [facility] Triglycerides 196(H) 0 - 149 mg/dL 05/16/2022 1:07 AM [facility] HDL Cholesterol 41 >39 mg/dL 1:07 AM [facility] VLDL Cholesterol Jonathan 34 5 - 40 mg/dL 05/16/2022 1:[address] [facility] ([facility]) LDL Chol Calc (NIH) 96 0 - 99 mg/dL 05/16/2022 1:07 AM [facility] T. Chol/HDL Ratio 4.2 0.0 - 4.4 ratio 05/16/2022 1:07 AM [facility] ([facility] Comment: T. Chol/HDL Ratio Men Women 1/2 Avg.Risk 3.4 3.3 Avg.Risk 5.0 4.4 2X Avg.Risk 9.6 7.1 3X Avg.Risk 23.4 11.0 Blood BLOOD SPECIMEN / Unknown Venipuncture / Unknown 05/11/2022 10:02 AM [employer] 05/11/2022 10:02 AM COLL[employer]TER [employer] Narrative [facility] ([facility] - 05/16/2022 1:07 AM COLLAR SETTER OVERLOCK Performed at: 01 - [facility] [address] [id number] Gang Investigator: John Rock MD, Phone: [phone] us Sarthak Ko MD SEND OUTS Final Resul t [facility] ([facility]) [address] [place] [address], [place] * XR DXA BONE DENSITY 2 SITES AXIAL (09/23/2017 10:06 AM CDT) Anatomical Region Laterality Modality Spine, HIPS, HIPL, HIPR Other Narrative 09/24/2017 5:58 PM CDT Please see scanned document for results of this study. us Yamile Block DO DEXA Final Resul t * ANTI HCV (03/11/2008 4:34 PM COLLAR SETTER OVERLOCK) ANTI HCV Non-reacti ve [facility] Blood specimen (specimen) BLOOD SPECIMEN / Unknown 03/11/2008 4:34 PM COLLAR SETTER [employer]LOCK 03/11/2008 4:29 PM CO[employer]TER [employer] us Khalif Mon MD SEND OUTS Final Res ult [facility] INTERNAL ZIP [address] [place] [id number] from Last 3 Months or Most Recently Relevant to Health Maintenance Insurance [employer] MEDICARE PART B HB ONLY MEDICARE PB ONLY MEDICARE PB ONLY [facility] MEDICARE PART B HB ONLY MEDICARE PART A HB ONLY Care Teams Sales Planning Analyst Relationship Specialty [place] [address] [place] [address] PCP - General Family Practice 04/05/22
--- OUTSIDE RECORDS SUMMARY | 2024-04-02 16:26 | XMS_ITS | Encounter Summary ---
Author Organization [facility] Address [address] [place] [address] Care Team Providers Care Greens Laborer Name Role Phone Unavailable Primary Care Provider Unavailabl e Reason for Referral * Outpatient (Routine) - Authorized Specialty Diagnoses / Procedures Referred By Contact Referred To Contact Gastroenterology and Hepatology Diagnoses Peptic Ulcer Site Unspecified Unspecified As Acute Or Chronic Without Hemorrhage Or Perforation Anemia Iron Deficiency Hemorrhage Gastrointestinal Wendy Chow M.D. [address] [place] [address] Phone: tel:[phone] fax:[phone] [facility] Referral ID Status Reason Start Date Expiration Date V isits Requested Visits Authorized [id number] Authorized 03/16/2024 09/15/2025 1 1 [employer] S[employer]EN PRINTER Encounter Details Date Type Department Care Team (Latest Contact Info) Description 03/16/2024 [facility] [address] [place] [address] Wendy Chow M.D. [address] [place] [phone] Peptic Ulcer Site Unspecified Unspecified As Acute Or Chronic Without Hemorrhage Or Perforation (Primary Dx); Anemia Iron Deficiency; Hemorrhage Gastrointestinal Social History Tobacco Use Types Packs/Day Years Used Date Smoking Tobacco: Never Assessed Dental Answer Date Recorded Dental: Regular Dentist Unknown 10/21/19 Comments Unknown Sex and Gender Information Value Date Recorded Sex Assigned at Not on file Legal Sex Female 8:47 AM CDT Gender Identity Not on file Sexual Orientation Not on file documented as of this encounter Plan of Treatment Scheduled Referrals Name Type Priority Associated Diagnoses Orde r Schedule Gastroenterology & Hepatology Referral Outpatient Referral Routine Peptic Ulcer Site Unspecified Unspecified As Acute Or Chronic Without Hemorrhage Or Perforation Anemia Iron Deficiency Hemorrhage Gastrointestinal Expected: 03/16/2024 (Approximate), Expires: 06/14/2025 documented as of this encounter Visit Diagnoses Diagnosis Peptic Ulcer Site Unspecified Unspecified As Acute Or Chronic Without Hemorrhage Or Perforation- Primary Anemia Iron Deficiency Hemorrhage Gastrointestinal documented in this encounter
--- OUTSIDE RECORDS SUMMARY | 2024-04-02 16:26 | XMS_ITS | Clinical Summary ---
Author Organization [facility] Address [address] [place] [address] Care Team Providers Care Stained Glass Artist Name Role Phone Unavailable Primary Care Provider Unavailabl e Source Comments Patient records contain information from all sites at [facility]. For routine questions regarding patient records, call [phone] during business hours, M-F 8:00 AM - 5:00 PM Central Time. Record requests for emergency care only can be directed to [phone] at any time.[facility] Medications lancets (Accu-Chek Fastclix Lancet Drum) [...] losartan (COZAAR) 100 mg tablet 01/13/2021 Active gemoyplb-jwv-ikw n-FA-lutein (Centrum Silver Women) 8 mg iron-400 mcg-300 mcg tablet Take by mouth. 01/13/2021 Active NIFEdipine XL (PROCARDIA XL) 30 mg 24 hr tablet 11/23/2020 Active omeprazole (PriLOSEC) [address] capsule Take by mouth. 09/24/2006 Active omega 9-brn-fzo-fish oil 1,000 mg (120 mg-180 mg) capsule Take 1,000 mg by mouth. 01/13/2021 Active zinc chelated 50 mg tablet tablet Take 50 mg by mouth. 01/13/2021 Active triamterene-hydr oCHLOROthiazide (Maxzide-25) 37.5-25 mg per tablet Take 1 tablet by mouth daily. 90 tablet 2 02/13/2024 Active Active Problems Problem Noted Date Diagnosed [...] Encounters Date Type Department Care Team Description 03/16/2024 Community Orders [facility] [address] [place] [address] Wendy Chow M.D. Peptic Ulcer Site Unspecified Unspecified As Acute Or Chronic Without Hemorrhage Or Perforation (Primary Dx); Anemia Iron Deficiency; Hemorrhage Gastrointestinal 02/10/2024 Refill Division of Nephrology and Hypertension in [place], [place] [address] [place] [address] Ronn Alvarez Jr., D.O. Med Refill 01/29/2024 Clinical Communication Division of Nephrology and Hypertension in [place], [place] [address] [place] [address] Ronn Alvarez Jr., D.O. Med Refill 01/26/2024 Orders Only Division of Nephrology and Hypertension in [place], [place] [address] [place] [address] Ronn Alvarez Jr., D.O. 01/23/2024 Refill Division of Nephrology and Hypertension in [place], [place] [address] [place] [address] Ronn Alvarez Jr., D.O. Med Refill from [...] Health Maintenance Due Date Last Done Comments CT Colonography 1950 Cologuard 1950 Diabetic Office [...] 05/28/2016 Colorectal Cancer Screening 08/11/2033 Pneumococcal vaccine (50+ years) Completed 05/07/2016, 07/09/2014 Bone Density Scan (Osteoporosis Screen) Discontinued 09/23/2017 Zoster Vaccines Completed 10/13/2017, 08/2017, 07/14/2017, Additional history exists IPV Vaccines Aged Out No longer eligi ble based on patient's age to complete this topic Procedures Procedure Name Priority Date/Time Associated Diagnosis Comments OUTSIDE CT BODY Routine 03/20/2024 11:20 AM DISTRIBUTION A CLASS LINEMAN OUTSIDE OTHER Routine 03/05/2024 1:50 PM DISTRIBUTION A CLASS LINEMAN from Last 3 Months Results * CT ABDOMEN PELVIS W CON-Outside CT Body (03/20/2024 11:20 AM DISTRIBUTION A CLASS LINEMAN) Narrative IIMS - 03/23/2024 11:48 AM DISTRIBUTION A CLASS LINEMAN This order has been created and auto-finalized to support the import of outside images. If available, original interpretation can be found on the Media Tab in Chart Review, in Document Viewer, as an image in QREADS or as an Addendum. If a re-interpretation or overread is required please follow defined workflow. us Provider Not In System IMG CT PROCEDURES Final R esult IIMS NA * XR DEXA axial skeleton-Outside Other (03/05/2024 1:50 PM DISTRIBUTION A CLASS LINEMAN) Narrative LUCIANO - 03/23/2024 11:44 AM DISTRIBUTION A CLASS LINEMAN This order has been created and auto-finalized to support the import of outside images. If available, original interpretation can be found on the Media Tab in Chart Review, in Document Viewer, as an image in QREADS or as an Addendum. If a re-interpretation or overread is required please follow defined workflow. us Provider Not In System IMG DIAGNOSTIC IMAGING [place] OCEDURES Final Result II NA from Last 3 Months Insurance [employer] MEDICARE
--- OUTSIDE RECORDS SUMMARY | 2024-04-02 16:26 | XMS_ITS | Encounter Summary ---
Author Organization [facility] Address [address] [place] [id number] Care Team Providers Care Paint Technician Name Role Phone Unavailable Primary Care Provider Unavailabl e Reason for Visit * Reason Onset Date Comments Med Refill 01/23/2024 Encounter Details Date Type Department Care Team (Late st Contact Info) Description 01/23/2024 Refill Division of Nephrology and Hypertension in [place], [place] [address] [place] [address] Ronn Alvarez Jr., D.O. [address] [place] [address] Med Refill Social History Tobacco Use Types [...]
--- OUTSIDE RECORDS SUMMARY | 2024-04-02 16:26 | XMS_ITS ---
Author Organization [facility] Address [address] [place] [address] Care Team Providers Care Retreader Name Role Phone Unavailable Unavailable Unavailable Surgery Details Not on file Complications Check Surgery Details section. Procedure Estimated Blood Loss Check Surgery Details section. Procedure Findings Check Surgery Details section. Procedure Specimens Taken Check Surgery Details section.
--- OUTSIDE RECORDS SUMMARY | 2024-04-02 16:26 | XMS_ITS | Encounter Summary ---
Author Organization [facility] Address [address] [place] [address] Care Team Providers Care Fixture Relamper Name Role Phone Unavailable Primary Care Provider Unavailabl e Reason for Visit * Reason Onset Date Comments Med Refill 01/29/2024 Encounter Details Date Type Department Care Team (Late st Contact Info) Description 01/29/2024 Clinical Communication Division of Nephrology and Hypertension in [place], [place] [address] [place] [address] Ronn Alvarez Jr., D.O. [address] [place] [address] Med Refill Social History Tobacco Use Types [...] Preferred Pharmacy- [facility] - [place], [place] - [address] [place], [place] [id number] [facility] [id number] documented in this encounter Plan of Treatment Not on file documented as of this encounter Visit Diagnoses Not on filedocumented in this encounter
--- OUTSIDE RECORDS SUMMARY | 2024-04-02 16:26 | XMS_ITS | Referral Summary ---
Author Organization [facility] Address [address] [place] [address] Care Team Providers Care Record Librarian Name Role Phone Unavailable Primary Care Provider Unavailabl e Source Comments Patient records contain information from all sites at [facility]. For routine questions regarding patient records, call [phone] during business hours, M-F 8:00 AM - 5:00 PM Central Time. Record requests for emergency care only can be directed to [phone] at any time.[facility] Encounters Date Type Department Care Team Description 03/16/2024 [facility] [address] [place] [address] Wendy Chow M.D. Peptic Ulcer Site Unspecified Unspecified As Acute Or Chronic Without Hemorrhage Or Perforation (Primary Dx); Anemia Iron Deficiency; Hemorrhage Gastrointestinal 02/10/2024 Refill Division of Nephrology and Hypertension in [place], [place] [address] [place] [address] Ronn Alvarez Jr., D.OSharita Med Refill 01/29/2024 Clinical Communication Division of Nephrology and Hypertension in [place], [place] [address] [place] [address] Ronn Alvarez Jr. D.O. Med Refill 01/26/2024 Orders Only Division of Nephrology and Hypertension in [place], [place] [address] [place] [phone] Ronn Alvarez Jr., Tawanda.O. 01/23/2024 Refill Division of Nephrology and Hypertension in [place], [place] [address] [place] [address] Ronn Alvarez Jr. D.O. Med Refill from Last 3 Months [...] losartan (COZAAR) 100 mg tablet 01/13/2021 Active wqqenyee-lsp-ojc n-FA-lutein (Centrum Silver Women) 8 mg iron-400 mcg-300 mcg tablet Take by mouth. 01/13/2021 Active NIFEdipine XL (PROCARDIA XL) 30 mg 24 hr tablet 11/23/2020 Active omeprazole (PriLOSEC) [address] capsule Take by mouth. 09/24/2006 Active omega 2-uui-edp-fish oil 1,000 mg (120 mg-180 mg) capsule [...] OUTSIDE CT BODY Routine 03/20/2024 11:20 AM DUNGEON MASTER OUTSIDE OTHER Routine 03/05/2024 1:50 PM DUNGEON MASTER from Last 3 Months Results * CT ABDOMEN PELVIS W CON-Outside CT Body (03/20/2024 11:20 AM DUNGEON MASTER) Narrative IIPR - 03/23/2024 11:48 AM DUNGEON MASTER This order has been created and auto-finalized [...] DEXA axial skeleton-Outside Other (03/05/2024 1:50 PM DUNGEON MASTER) Narrative IIPR - 03/23/2024 11:44 AM DUNGEON MASTER This order has been created and auto-finalized to support the import of outside images. If available, original interpretation can be found on the Media Tab in Chart Review, in Document Viewer, as an image in QREADS or as an Addendum. If a re-interpretation or overread is required please follow defined workflow. us Provider Not In System IMG DIAGNOSTIC IMAGING [place] OCEDURES Final Result IIMS NA from Last 3 Months Insurance [employer] MEDICARE
--- NOTE | 2024-04-03 10:15 | CRLHL7_ITS ---
For Patients: As a result of the Century Cures Act, medical imaging exams and procedure reports are released immediately into your electronic medical record. You may view this report before your referring provider. If you have questions, please contact your health care provider. INDICATION: Follow-up pancreatic lesion TECHNIQUE: 1.5 T MRI of the abdomen was performed pre and postcontrast T1 weighted imaging; T2 weighted imaging; diffusion weighted imaging; in and out of phase imaging. 18 mL Dotarem administered COMPARISON: CT abdomen and pelvis 03/20/2024 FINDINGS: Lungs: The lung bases are clear. No pleural or pericardial effusion. Liver: Homogeneous liver parenchyma. No hepatic masses. No hepatic steatosis. Biliary tree and gallbladder: Prior cholecystectomy. No intrahepatic biliary dilation. Mildly dilated common bile duct measuring up to 0.9 cm, likely post cholecystectomy reservoir effect. Spleen: Unremarkable Pancreas: Similar arterially enhancing nodule within the uncinate process measuring 0.6 cm (14/47). No pancreatic duct dilation. Adrenal glands: Unremarkable. Kidneys and ureters: No renal masses or hydronephrosis. Left upper pole multilobulated cystic lesion measuring 1.6 cm (5/30), with enhancing thick septa measuring up to 0.4 cm (20/36) GI tract: No evidence of obstruction or inflammation. Vasculature: The IVC and aorta are patent. No abdominal aortic aneurysm. Lymph nodes: Top-normal paraesophageal lymph node measuring 0.8 cm (8/4), previously 0.9 cm. Abdominal wall: Unremarkable Bones: Degenerative change of the imaged spine. IMPRESSION: 1. Similar subcentimeter enhancing pancreatic uncinate process nodule, that is indeterminate, although suspicious for malignancy such as neuroendocrine tumor. Consider DOTATATE PET-CT for further evaluation. 2. Left upper pole renal cystic lesion with enhancing thickened septa (Bosniak 3). Consider consultation with Urology for further management. 3. Similar top-normal paraesophageal lymph node is nonspecific. Dictated by Dotty Conley MD @ 04/03/2024 12:32:16 PM (Electronically Signed)
== END 2024-04-03 09:37 | disposition home or self-care (01) ==
PROVIDERS: PCP Internal Medicine; Visit Provider Internal Medicine
DX: K86.89 Other specified diseases of pancreas (principal)
CPT/HCPCS: 74183; A9575

== ENCOUNTER 2024-04-22 10:07 | Outpatient (CLI) | payer MEDICARE, OTHER, SELFPAY | END 2024-04-22 10:08 | disposition home or self-care (01) | LOC: NFLDREF 05-01 08:28 | PROVIDERS: PCP Internal Medicine; Referring Provider Internal Medicine; Visit Provider Internal Medicine Nephrology | DX: I10 Essential (primary) hypertension (principal); N18.30 Chronic kidney disease, stage 3 unspecified; D63.8 Anemia in other chronic diseases classified elsewhere; K92.2 Gastrointestinal hemorrhage, unspecified; K27.9 Peptic ulcer, site unspecified, unspecified as acute or chronic, without hemorrhage or perforation; D50.9 Iron deficiency anemia, unspecified | CPT/HCPCS: 80069; 82043; 82570; 82607; 82728; 82746; 83540; 83550; 83970; 84550; 87086; 87186 ==

== ENCOUNTER 2024-05-18 10:30 | Outpatient (CLI) | payer MEDICARE, OTHER, SELFPAY | END 2024-05-18 10:31 | disposition home or self-care (01) | LOC: NFLDREF 05-24 09:57 | PROVIDERS: PCP Internal Medicine; Referring Provider Internal Medicine; Visit Provider Internal Medicine | DX: K27.9 Peptic ulcer, site unspecified, unspecified as acute or chronic, without hemorrhage or perforation (principal) | CPT/HCPCS: 83993 ==

== ENCOUNTER 2024-06-22 10:07 | Outpatient (CLI) | payer MEDICARE, OTHER, SELFPAY | END 2024-06-22 10:08 | disposition home or self-care (01) | LOC: NFLDREF 06-23 07:25 | PROVIDERS: PCP Internal Medicine; Referring Provider Internal Medicine; Visit Provider Internal Medicine | DX: D50.9 Iron deficiency anemia, unspecified (principal); E83.42 Hypomagnesemia | CPT/HCPCS: 82728; 83735 ==

== ENCOUNTER 2024-09-07 10:30 | Outpatient (RCR) | payer MEDICARE, OTHER, SELFPAY ==
--- NOTE | 2024-02-26 09:46 | URNOTE ---
Prior authorization is not required for Ferric Carboxymaltose (Injectafer) (J1439). Services are based on medical necessity and follow Medicare guidelines.
[2024-03-20 08:32] VITALS: BP 172/77; PULSE 110; RESP 18; TEMP 36.6; O2SAT 97
[2024-03-20] MEDS: FERRIC CARBOXYMALTOSE 750 MG in 0.9 % SODIUM CHLORIDE 250 ml 250 ML 530 MG IVPB (09:44)
[2024-03-20 09:50] VITALS: BP 137/73
[2024-03-20 09:53] LABS: Creatinine* 1.3 mg/dL (0.5-1.5); Estimated Glomerular Filt Rate 43 ml/min
[2024-03-20 10:20] VITALS: BP 122/70; PULSE 80; RESP 16; TEMP 36.4; O2SAT 95
[2024-03-27 09:29] VITALS: BP 106/69; PULSE 86; RESP 16; TEMP 36.1; O2SAT 97
[2024-03-27] MEDS: SODIUM CHLORIDE 0.9 % (FLUSH) 10 ML SYRINGE IVF (10:08)
[2024-03-27] MEDS: 0.9 % SODIUM CHLORIDE 500 ML IV (10:08)
[2024-03-27] MEDS: FERRIC CARBOXYMALTOSE 750 MG in 0.9 % SODIUM CHLORIDE 250 ml 250 ML 530 MG IVPB (10:08)
[2024-03-27 10:45] VITALS: BP 117/73; PULSE 70; RESP 16; TEMP 36.2; O2SAT 96
[2024-03-27 11:12] VITALS: BP 123/72; PULSE 69; RESP 16; TEMP 36.4; O2SAT 98
--- NOTE | 2024-07-22 13:48 | URNOTE ---
Prior authorization is not required for Iron Sucrose (Venofer) ([id number]). Services are based on medical necessity and follow medicare guidelines.
[2024-07-28 12:59] VITALS: BP 148/72; PULSE 100; RESP 18; TEMP 36.1; O2SAT 97
[2024-07-28] MEDS: 0.9 % SODIUM CHLORIDE 500 ML IV (13:31)
[2024-07-28] MEDS: IRON SUCROSE COMPLEX 200 MG in 0.9 % SODIUM CHLORIDE 100 ml 440 MG IVPB (13:31)
[2024-07-28] MEDS: SODIUM CHLORIDE 0.9 % (FLUSH) 10 ML SYRINGE IVF (13:31)
[2024-07-28 13:52] VITALS: BP 116/70; PULSE 98; RESP 16; O2SAT 97
[2024-07-28 14:25] VITALS: BP 114/63; PULSE 84; RESP 16; TEMP 36.4; O2SAT 96
[2024-07-30 10:55] VITALS: BP 163/71; PULSE 99; RESP 20; TEMP 36; O2SAT 93
[2024-07-30 11:05] VITALS: BP 131/82
[2024-07-30] MEDS: SODIUM CHLORIDE 0.9 % (FLUSH) 10 ML SYRINGE IVF (11:41)
[2024-07-30] MEDS: IRON SUCROSE COMPLEX 200 MG in 0.9 % SODIUM CHLORIDE 100 ml 440 MG IVPB (11:43)
[2024-07-30 12:02] VITALS: BP 110/72; PULSE 75; RESP 16; O2SAT 97
[2024-08-03 13:05] VITALS: BP 158/73; PULSE 80; RESP 20; TEMP 36.5; O2SAT 96
[2024-08-03] MEDS: IRON SUCROSE COMPLEX 200 MG in 0.9 % SODIUM CHLORIDE 100 ml 440 MG IVPB (13:52)
[2024-08-03] MEDS: SODIUM CHLORIDE 0.9 % (FLUSH) 10 ML SYRINGE IVF (13:52)
[2024-08-03] MEDS: 0.9 % SODIUM CHLORIDE 500 ML IV (13:52)
[2024-08-03 14:10] VITALS: BP 120/76; PULSE 61; RESP 16; TEMP 36.3; O2SAT 95
[2024-08-03 14:40] VITALS: BP 119/71; PULSE 61; RESP 18; O2SAT 95
[2024-08-05] MEDS: IRON SUCROSE COMPLEX 200 MG in 0.9 % SODIUM CHLORIDE 100 ml 440 MG IVPB (13:24)
[2024-08-05] MEDS: SODIUM CHLORIDE 0.9 % (FLUSH) 10 ML SYRINGE IVF (13:24)
[2024-08-05] MEDS: 0.9 % SODIUM CHLORIDE 500 ML IV (13:24)
[2024-08-05 14:10] VITALS: BP 127/74
[2024-08-07 10:54] VITALS: BP 142/71; PULSE 93; RESP 20; TEMP 37.3; O2SAT 95
[2024-08-07] MEDS: SODIUM CHLORIDE 0.9 % (FLUSH) 10 ML SYRINGE IVF (11:22)
[2024-08-07] MEDS: IRON SUCROSE COMPLEX 200 MG in 0.9 % SODIUM CHLORIDE 100 ml 440 MG IVPB (11:24)
[2024-08-07 11:41] VITALS: BP 116/72; PULSE 74; RESP 16; TEMP 36; O2SAT 96
[2024-08-07 12:21] VITALS: BP 125/75; PULSE 71; RESP 18; O2SAT 94
[2024-08-27 10:51] VITALS: BP 126/65; PULSE 79; RESP 16; TEMP 36.8; O2SAT 97
[2024-08-27] MEDS: SODIUM CHLORIDE 0.9 % (FLUSH) 10 ML SYRINGE IVF (11:15)
[2024-08-27] MEDS: IRON SUCROSE COMPLEX 200 MG in 0.9 % SODIUM CHLORIDE 100 ml 440 MG IVPB (11:26)
[2024-08-27 11:55] VITALS: BP 132/71; PULSE 71; RESP 18; O2SAT 98
[2024-08-27 12:41] VITALS: BP 131/71; PULSE 78; RESP 18; O2SAT 95
[2024-08-31] MEDS: IRON SUCROSE COMPLEX 200 MG in 0.9 % SODIUM CHLORIDE 100 ml 440 MG IVPB (13:29)
[2024-08-31] MEDS: SODIUM CHLORIDE 0.9 % (FLUSH) 10 ML SYRINGE IVF (13:30)
[2024-08-31 13:59] VITALS: BP 125/74; PULSE 71; RESP 16; TEMP 35.9; O2SAT 95
[2024-08-31 14:30] VITALS: BP 113/68; PULSE 68; RESP 16; TEMP 2.6; TEMP 36.7; O2SAT 97
[2024-09-02 11:03] VITALS: BP 145/71; PULSE 84; TEMP 36.3; O2SAT 96
[2024-09-02] MEDS: IRON SUCROSE COMPLEX 200 MG in 0.9 % SODIUM CHLORIDE 100 ml 100 ML 270 MG IVPB (11:36)
[2024-09-02] MEDS: SODIUM CHLORIDE 0.9 % (FLUSH) 10 ML SYRINGE IVF (11:37)
[2024-09-02 12:06] VITALS: BP 113/69; PULSE 74; RESP 14; O2SAT 96
[2024-09-02 12:40] VITALS: BP 122/73; PULSE 74; RESP 18; O2SAT 97
[2024-09-04 09:59] VITALS: BP 138/71; PULSE 84; TEMP 36.6; O2SAT 95
[2024-09-04] MEDS: 0.9 % SODIUM CHLORIDE 500 ML IV (10:20)
[2024-09-04] MEDS: SODIUM CHLORIDE 0.9 % (FLUSH) 10 ML SYRINGE IVF (10:20)
[2024-09-04] MEDS: IRON SUCROSE COMPLEX 200 MG in 0.9 % SODIUM CHLORIDE 100 ml 100 ML 260 MG IVPB (10:28)
[2024-09-07 10:32] VITALS: BP 140/77; PULSE 90; RESP 17; TEMP 36.7; O2SAT 94
[2024-09-07] MEDS: SODIUM CHLORIDE 0.9 % (FLUSH) 10 ML SYRINGE IVF (11:15)
[2024-09-07] MEDS: IRON SUCROSE COMPLEX 200 MG in 0.9 % SODIUM CHLORIDE 100 ml 100 ML 290 MG IVPB (11:19)
[2024-09-07 11:45] VITALS: BP 123/66; PULSE 84; RESP 16; O2SAT 96
== END 2024-09-16 23:59 | disposition home or self-care (01) ==
LOC: CCIC 10:30
PROVIDERS: PCP Internal Medicine; Referring Provider Internal Medicine Nephrology; Visit Provider Clinical Nurse Specialist
DX: D50.9 Iron deficiency anemia, unspecified (principal)
CPT/HCPCS: 36415; 82565; 96365; 96374; J1439; J1756; J7030; J7050

== ENCOUNTER 2024-09-24 10:02 | Outpatient (CLI) | payer MEDICARE, OTHER, SELFPAY | END 2024-09-24 10:03 | disposition home or self-care (01) | LOC: NFLDREF 09-28 15:04 | PROVIDERS: PCP Internal Medicine; Referring Provider Internal Medicine; Visit Provider Internal Medicine | DX: E11.22 Type 2 diabetes mellitus with diabetic chronic kidney disease (principal); I12.9 Hypertensive chronic kidney disease with stage 1 through stage 4 chronic kidney disease, or unspecified chronic kidney disease; N18.31 Chronic kidney disease, stage 3a; D63.1 Anemia in chronic kidney disease; R82.90 Unspecified abnormal findings in urine; Z79.899 Other long term (current) drug therapy | CPT/HCPCS: 80069; 82043; 82570; 82607; 82728; 82746; 83540; 83550; 84450; 84460; 84550; 87086 ==

== ENCOUNTER 2024-10-26 08:16 | Emergency (ER) | payer MEDICARE, OTHER, SELFPAY ==
--- OUTSIDE RECORDS SUMMARY | 2024-10-16 07:53 | XMS_ITS | Encounter Summary ---
Author Organization [facility] Address [address] [place] [address] Care Team Providers Care Instrument And Electrical Technician Name Role Phone Unavailable Primary Care Provider Unavailabl e Reason for Referral * Gastrointestinal (Routine) - Closed Specialty Diagnoses / Procedures Referred By Addy mckeon Referred To Contact Diagnoses Anemia Iron Deficiency Gastric Antral Vascular Ectasia With Hemorrhage Procedures EGD (EsophagoGastroDuodenoscopy) Restricted EGD (EsophagoGastroDuodenoscopy) Restricted Ruby Taylor M.D. [address] [place] [address] Phone: tel: fax: [facility] Referral ID Status Reason Start Date Expiration Date Visits Re quested Visits Authorized [id number] Closed 08/28/2024 11/28/2025 1 1 Reason for Visit * Gastrointestinal (Routine) - Closed Specialty Diagnoses / Procedures Referred By Addy mckeon Referred To Contact Diagnoses Anemia Iron Deficiency Gastric Antral Vascular Ectasia With Hemorrhage Procedures EGD (EsophagoGastroDuodenoscopy) Restricted EGD (EsophagoGastroDuodenoscopy) Restricted Ruby Taylor M.D. [address] [place] [address] Phone: tel: fax: [facility] Referral ID Status Reason Start Date Expiration Date Visits Re quested Visits Authorized [id number] Closed 08/28/2024 11/28/2025 1 1 Encounter Details Date Type Department Care Team (Latest Contact Info) Description 10/16/2024 7:53 AM CDT - 10/16/2024 10:48 AM CDT Hospital Encounter Division of Gastroenterology in [place], [place] [address] [place] [address] Ruby Taylor M.D. [address] [place] [address] Anemia Iron Deficiency; Gastric Antral Vascular Ectasia With Hemorrhage Discharge Disposition: Home or Self Care Social History Tobacco Use Types Packs/Day Years Used Date Smoking Tobacco: Former Cigarettes 1 - 04/01/1976 Smokeless Tobacco: Never Alcohol Use Standard Drinks/Week Comments Not Currently 0 (1 standard drink = 0.6 oz pur e alcohol) Maybe 1 drink per momth [facility] Utilities Answer Date Recorded In the past 12 months has [employer], gas, oil, or water [employer] threatened to shut off services in your home? No 04/15/2024 Hunger Vital Sign Answer Date Recorded Within the past 12 months, y ou worried that your food would run out before you got the money to buy more. Never true 04/15/19 25 Within the past 12 months, t he food you bought just didn't last and you didn't have money to get more. Never true 04/15/2024 PRAPARE - Transportation Answer Date Re corded In the past 12 months, has l ack of transportation kept you from medical appointments or from getting medications? No 04/01 In the past 12 months, has l ack of transportation kept you from meetings, work, or from getting things needed for daily living? No 04/15/2024 Housing Stability Answer Date Recorded What is your living situation today? I have a [facility] place to live 04/15/2024 Comments No Sex and Gender Information Value Date Recorded Sex Assigned at Female 04/15/2024 8:13 PM WORKERS COMPENSATION CLAIMS ANALYST Legal Sex Female 8:47 AM CDT Gender Identity Female 04/15/2024 8:13 PM WORKERS COMPENSATION CLAIMS ANALYST Sexual Orientation Straight 04/15/2024 8: 13 PM WORKERS COMPENSATION CLAIMS ANALYST documented as of this encounter Last Filed Vital Signs Vital Sign Reading Time Taken Comments Blood Pressure 129/62 10/16/2024 10:21 AM CDT Pulse 79 10/16/2024 10:21 AM CDT Temperature 36.7 C (98.1 F) 10/16/2024 10:05 AM CDT Respiratory Rate 12 10/16/2024 10:21 AM CDT Oxygen Saturation 95% 10/16/2024 10:21 AM CDT Inhaled Oxygen Concentration - - Weight 93.4 kg (206 lb) 10/16/2024 8:21 AM CDT Height 165.1 cm (5' 5) 10/16/2024 8:21 AM CDT Body Mass Index 34.28 10/16/2024 8:21 AM CDT documented in this encounter Discharge Instructions * Discharge Instr - Other Orders* Leeanna Conde RSharitaN. - 10/16/2024 10:35 AM CDT No dietary or medication restrictions. documented in this encounter Medications at Time of Discharge atorvastatin (LIPITOR) 10 mg tablet 10/05/2020 blood sugar diagnostic strips (FreeStyle Lite Strips) USE TO TEST ONCE DAILY 02/06/2022 calcium carbonate-vitamin D3 600 mg-5 mcg (200 unit) capsule Take 1 tablet by mouth daily. 04/28/2024 doxepin (SINEquan) 25 mg capsule 02/20/2021 famotidine (Pepcid) 10 mg tablet Take 10 mg by mouth 2 (two) times a day. ferrous sulfate 325 mg (65 mg iron) tablet Take 325 mg by mouth. lancets (Accu-Chek Fastclix Lancet Drum) USE TO TEST ONCE DAILY 08/18/2014 loperamide (Imodium A-D) 2 mg tablet Take by mouth daily. 02/03/2024 losartan (COZAAR) 100 mg tablet 01/13/2021 magnesium 250 mg tablet Take 500 mg by mouth daily. 04/28/2024 NIFEdipine XL (PROCARDIA XL) 30 mg 24 hr tablet 11/23/2020 triamterene-hydro CHLOROthiazide (Maxzide-25) 37.5-25 mg per tablet Take 1 tablet by mouth daily. 90 tablet 3 07/23/2024 07/23/2025 hydrocortisone (Hytone) 2.5 % cream APPLY TO UNDER BREAST TWICE DAILY NEEDED. 03/12/2024 10/19/2024 ketoconazole (Nizoral) 2 % cream APPLY TO UNDER BREATS TWICE DAILY NEEDED 03/12/2024 10/19/2024 metFORMIN (Glucophage) 500 mg tablet Take 1 tablet (500 mg total) by mouth 2 (two) times a day with meals. 04/27/2024 10/19/2024 documented as of this encounter Plan of Treatment Not on file documented as of this encounter Procedures Procedure Name Priority Date/Time Associated Diagnosis Comments EGD (ESOPHAGOGASTRODUODE NOSCOPY) RESTRICTED Routine 10/16/2024 9:20 AM CDT Anemia Iron Deficiency Gastric Antral Vascular Ectasia With Hemorrhage UPPER GI ENDOSCOPY Routine 10/16/2024 9: 20 AM CDT Anemia Iron Deficiency Gastric Antral Vascular Ectasia With Hemorrhage documented in this encounter Results * Upper GI Endoscopy (10/16/2024 9:20 AM CDT) 10/16/2024 9:20 AM CDT Impressions [facility] [place] - 10/16/2024 11:58 AM CDT Post-op Diagnoses: - Normal esophagus. - Esophagogastric landmarks identified. - Gastric antral vascular ectasia with bleeding. Treated with radiofrequency ablation. - Normal examined duodenum. - No specimens collected. Narrative [facility] [place] - 10/16/2024 11:58 AM CDT Dmitriy 6 GI GI Patient Name: Jenifer Cuadra Date of : 1950 Age: 74 Procedure Date: 10/16/2024 Procedure: Upper GI endoscopy Providers: Yadi Mosher MD Referring Provider: Ruby Taylor MD Pre-op Diagnoses: For therapy of angioectasia of the stomach Recommendation: - Continue to monitor hemoglobin. Consider repeating upper endoscopy with ablative therapy for GAVE if downtrend in hemoglobin is observed. Findings: The esophagus was normal. Esophagogastric landmarks were identified: the Z-line was found at 40 cm, the upper extent of the gastric folds was found at 40 cm and the site of the diaphragmatic hiatus was found at 40 cm from the incisors. 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 Focal radiofrequency ablation of gastric antral vascular ectasia was performed. With the endoscope in place, the position and extent of the abnormal mucosa and appropriate anatomic landmarks were noted. The radiofrequency channel ablation catheter was introduced through the endoscope working channel. The endoscope with the ablation catheter was advanced to the areas of abnormal mucosa. The endoscope with the channel ablation catheter was positioned under direct visualization so that the catheter was placed in contact with the surface of the abnormal mucosa. Energy was applied twice at 15 J/cm2. Ablation was repeated in a likewise fashion to all visible abnormal mucosa. A second round of ablation was then performed. Energy was applied twice at 15 J/cm2 to retreat the areas of abnormal mucosa that had been treated with the first series of ablation. The ablation catheter was removed through the endoscope working channel. The areas where abnormal mucosa had been ablated were examined. A total of 46 treatments were applied. Areas of abnormal mucosa appeared completely ablated. The examined duodenum was normal. Procedural Details: The patient was seen, evaluated, history reviewed, airway and heart-lung exams were performed by licensed provider and were satisfactory for planned level of sedation care. The risks, benefits and alternatives for the procedure and sedation were discussed and informed consent was obtained. A procedural pause was conducted in the presence of assisting personnel to verify the correct patient identity and procedure to be performed. Throughout the procedure, the patient's blood pressure, pulse, and oxygen saturations were monitored continuously. The Gastroscope was introduced under direct vision through the mouth, and advanced to the second part of duodenum. The upper GI endoscopy was accomplished without difficulty. The patient tolerated the procedure well. Estimated Blood Loss: Estimated blood loss was minimal. Complications: No immediate complications. Sedation: Anesthesia was administered by an anesthesia professional. The following parameters were monitored: oxygen saturation, heart rate, blood pressure, respiratory rate, EKG, adequacy of pulmonary ventilation, and response to care. Attending Participation: I personally performed the entire procedure. Yadi Mosher MD 10/16/2024 11:58:19 AM This report has been signed electronically. Number of Addenda: 0 us Ruby Taylor M.D. GI PROCEDURE ORDERABLES Final Re sult JOSE ANTONIO JIMENEZ documented in this encounter Visit Diagnoses Diagnosis Anemia Iron Deficiency Gastric Antral Vascular Ectasia With Hemorrhage documented in this encounter Administered Medications Inactive Administered Medications - up to 3 most recent administrations Medication Order MAR Action Action Date Dose Rate Site acetaminophen injection 1,000 mg 1,000 mg, intravenous, at 400 mL/hr, Administer over 15 Minutes, Once as needed, other, If patient has not received in previous 6 hours, Starting on Sat10/16/24 at 1036, For 1 dose, PACU (only), Oral unless RASS less than -1 or nausea/vomiting. Do not use if given in last 6 hours, Restriction Criteria (Pharmacy will review and approve if criteria met): Unable to take or tolerate medications administered via the enteral route or orally (not just NPO) acetaminophen tablet 1,000 mg (TylenoL) 1,000 mg, oral, Once as needed, other, If patient has not received in the previous 6 hours, Starting on Sat10/16/24 at 1036, For 1 dose, PACU (only), Oral unless RASS less than -1 or nausea/vomiting. Do not use if given in last 6 hours documented in this encounter Active and Recently Administered Medications Times are shown in CDT. Scheduled Medication Order 10/14/2024 10/15/2024 10/16/2024 [id number]-gxds-mag hydrox-simeth suspension 15 mL 15 mL, mouth/throat, 4 times daily after meals and bedtime, First dose on Sat10/16/24 at 1300 Continuous Medication Order 10/14/2024 10/15/2024 10/16/2024 Lactated Ringer's 20 mL/hr, intravenous, Continuous, Starting on Sat10/16/24 at 1015, PACU & Post-Op 1015 (Due) PRN Medication Order 10/14/2024 10/15/2024 10/16/2024 acetaminophen injection 1,000 mg(Linked Group 1) 1,000 mg, intravenous, at 400 mL/hr, Administer over 15 Minutes, Once as needed, other, If patient has not received in previous 6 hours, Starting on Sat10/16/24 at 1036, For 1 dose, PACU (only), Oral unless RASS less than -1 or nausea/vomiting. Do not use if given in last 6 hours, Restriction Criteria (Pharmacy will review and approve if criteria met): Unable to take or tolerate medications administered via the enteral route or orally (not just NPO) acetaminophen tablet 1,000 mg (TylenoL)(Linked Group 1) 1,000 mg, oral, Once as needed, other, If patient has not received in the previous 6 hours, Starting on Sat10/16/24 at 1036, For 1 dose, PACU (only), Oral unless RASS less than -1 or nausea/vomiting. Do not use if given in last 6 hours fentaNYL injection 25 mcg (Sublimaze) 25 mcg, intravenous, Every 2 min PRN, moderate pain or score 4-6 of 10, severe pain or score 7-10 of 10, Starting on Sat10/16/24 at 1036, PACU (only), Up to maximum total dose of 200 mcg Linked Groups Order Group 1: acetaminophen tablet 1,000 mg (TylenoL)Jump to med 1,000 mg, oral, Once as needed, other, If patient has not received in the previous 6 hours, Starting on Sat10/16/24 at 1036, For 1 dose, PACU (only), Oral unless RASS less than -1 or nausea/vomiting. Do not use if given in last 6 hours Or acetaminophen injection 1,000 mgJump to med 1,000 mg, intravenous, at 400 mL/hr, Administer over 15 Minutes, Once as needed, other, If patient has not received in previous 6 hours, Starting on Sat10/16/24 at 1036, For 1 dose, PACU (only), Oral unless RASS less than -1 or nausea/vomiting. Do not use if given in last 6 hours, Restriction Criteria (Pharmacy will review and approve if criteria met): Unable to take or tolerate medications administered via the enteral route or orally (not just NPO) documented in this encounter
--- OUTSIDE RECORDS SUMMARY | 2024-10-16 09:20 | XMS_ITS | Encounter Summary ---
Author Organization [facility] Address [address] [place] [address] Care Team Providers Care Ski Patrol Officer Name Role Phone Unavailable Primary Care Provider Unavailabl e Encounter Details Date Type Department Care Team (Latest Contact Info) Description 10/16/2024 9:20 AM CDT Ancillary Procedure Department of Gastroenterology Social History Tobacco Use Types Packs/Day Years Used Date Smoking Tobacco: Former Cigarettes 1 - 04/01/1976 Smokeless Tobacco: Never Alcohol Use Standard Drinks/Week Comments Not Currently 0 (1 standard drink = 0.6 oz pur e alcohol) Maybe 1 drink per momth [facility] Utilities Answer Date Recorded In the past 12 months has th e electric, gas, oil, or water company threatened to shut off services in your [...] your living situation today? I have a [facility] place to live 04/15/2024 Comments No Sex and Gender Information Value Date Recorded Sex Assigned at Female 04/15/2024 8:13 PM FULL STACK NET DEVELOPER Legal Sex Female 8:47 AM CDT Gender Identity Female 04/15/2024 8:13 PM FULL STACK NET DEVELOPER Sexual Orientation Straight 04/15/2024 8: 13 PM FULL STACK NET DEVELOPER documented as of this encounter Plan of Treatment Not on file documented as of this encounter Procedures Procedure Name Priority Date/Time Associated Diagnosis Comments GASTROENTEROLOGY IMAGE EXAM Routine 10/16/2024 9:20 AM CDT documented in this encounter Results * Upper GI endoscopy-Gastroenterology Image Exam (10/16/2024 9:20 AM CDT) 10/16/2024 9:20 AM CDT Narrative [facility] - 10/16/2024 12:05 PM CDT This order has been created and auto-finalized to support the import of images acquired without order. The clinical documentation to support these images can be found on the encounter that produced images. us Provider Not In System IMG NON RAD IMAGING PROCE DURES Final Result [facility] NA documented in this encounter Visit Diagnoses Not on filedocumented in this encounter
--- OUTSIDE RECORDS SUMMARY | 2024-10-16 09:32 | XMS_ITS | Encounter Summary ---
Author Organization [facility] Address [address] [place] [address] Care Team Providers Care Manufacturing Business Analyst Name Role Phone Unavailable Primary Care Provider Unavailabl e Encounter Details Date Type Department Care Team (Latest Contact Info) Description 10/16/2024 9:32 AM CDT Anesthesia Event Division of Gastroenterology in [place], [place] [address] [place] [address] Taco Herbert APRN, ASSISTANT MEDIA BUYER [address] [place] [address] Anesthesia Record Procedure Summary Procedure Name Responsible Anesthesiologist Anesthesia Start Time Anesthesia Stop Time EGD (ESOPHAGOGASTRODUODE NOSCOPY) RESTRICTED Taco Herbert APRN, CRNA 10/16/24 0932 10/16/24 1005 Events Date Time Event Comment 10/16/2024 0932 An Start Machine/Equipme nt Checked Infection Precautions Followed Procedure/Site Verified NPO Status Verified Supine Standard ASA Monitors Applied 0935 an robyn now 0937 Turnover to Proceduralist 0939 Proc Start 0956 Turnover to ANE Staff 0956 Proc Fin 1000 an stop data 1005 An End I completed my handoff to the receiving staff during which we 1. Identified the patient 2. Identified the responsible provider 3. Reviewed the pertinent medical history 4. Discussed the surgical course 5. Reviewed intra-op anesthesia management and issues during anesthesia 6. Set expectations for post-procedure period 7. Allowed opportunity for questions and acknowledgement of understanding. Meds Name Total lidocaine 2% (mg) injection 100 mg ondansetron PF 4 mg/2 mL injection 4 mg propofol 10 mg/mL injection 90 mg propofol 10 mg/mL infusion 173.72 mg Lactated Ringers Free Drip 150 mL * Agents No agents on file. * Blood No blood administrations on file. Lines, Drains, and Airways Type Details Placement Removal Peripheral IV Placement Date: 09/29 11/23; Placement Time: 908; Catheter Size: 22 G; Orientation: Anterior, Left, Lower; Location: Forearm; Site Prep: Chlorhexidine (Preferred); Technique: Anatomical landmarks; Inserted by: [facility]; Insertion Attempts: 1; Removal Date: 10/16/24; Removal Time: 1034; Removal Reason: Patient discharged 10/16/24908 by Barbara Jolly, R.N. 10/16/241034 by Leeanna Conde, R.N. documented in this encounter Social History Tobacco Use Types Packs/Day Years Used Date Smoking Tobacco: Former Cigarettes 1 - 04/01/1976 Smokeless Tobacco: Never Alcohol Use Standard Drinks/Week Comments Not Currently 0 (1 standard drink = 0.6 oz pur e alcohol) Maybe 1 drink per momth [facility] Utilities Answer Date Recorded In the past 12 months has e [employer], gas, oil, or water [employer] threatened to shut off services in your [...] your living situation today? I have a [facility] place to live 04/15/2024 Comments No Sex and Gender Information Value Date Recorded Sex Assigned at Female 04/15/2024 8:13 PM CMV DRIVER Legal Sex Female 8:47 AM CDT Gender Identity Female 04/15/2024 8:13 PM CMV DRIVER Sexual Orientation Straight 04/15/2024 8: 13 PM CMV DRIVER documented as of this encounter OR Notes * Anesthesia Postprocedure Evaluation - Taco Herbert APRN, CRNA - 10/16/2024 10:05 AM CDT Patient: Jenifer Cuadra Procedure Summary Date: 10/16/24 Room / Location: Division of Gastroenterology in [place], [place] Anesthesia Start: 931 Anesthesia Stop: 1004 Procedure: EGD (ESOPHAGOGASTRODUODENOSCOPY) RESTRICTED Diagnosis: Anemia Iron Deficiency Gastric Antral Vascular Ectasia With Hemorrhage Anemia Iron Deficiency Gastric Antral Vascular Ectasia With Hemorrhage Scheduled Providers: Yadi Mosher M.D. Responsible Provider: Taco Herbert APRN, CRNA Anesthesia Type: MAC ASA Status: 3 Anesthesia Type: MAC Last vitals Vitals Value Taken Time BP Temp Pulse Resp SpO2 Please reference Vitals flowsheet for most recent vital signs. Anesthesia Post Evaluation Patient Disposition: dismissal Cardiovascular status: hemodynamics (HR & BP) acceptable Respiratory status: patent airway with spontaneous effort Temperature: normothermic Oxygen requirements: room air Level of consciousness: awake Pain score: pain adequately controlled and/or at baseline Post Op nausea/vomiting: none Hydration status: euvolemic Notable Events No notable events documented. * Anesthesia Preprocedure Evaluation - Taco Herbert APRN, CRNA - 10/16/2024 9:39 AM CDT Preprocedure Anesthesia & H&P Assessment Procedure Summary Anesthesia Start Date/Time: 10/16/24 0932 Scheduled providers: Yadi Mosher M.D. Procedure: EGD (ESOPHAGOGASTRODUODENOSCOPY) RESTRICTED Diagnosis: Anemia Iron Deficiency [D50.9] Gastric Antral Vascular Ectasia With Hemorrhage [K31.811] Anemia Iron Deficiency [D50.9] Gastric Antral Vascular Ectasia With Hemorrhage [K31.811] Location: Division of Gastroenterology in [place], [place] Pertinent components of the patient's history including current problem list, medical history, surgical history, family history, social history, medications and allergies were reviewed. Present illness and pre-op diagnosis were confirmed. The planned surgery / procedure was verified with the patient / legal guardian. The patient's general health condition remains unchanged RELEVANT COMORBID CONDITIONS CV (+) Hypertensive Chronic Kidney Disease With Stage 1 Through Stage 4 Chronic Kidney Disease, Or Unspecified Chronic Kidney Disease RENAL/REPRO (+) Chronic Kidney Disease (CKD), Stage 3a Glomerular Filtration Rate (GFR) 45 To 59 (HCC) (+) Hypertensive Chronic Kidney Disease With Stage 1 Through Stage 4 Chronic Kidney Disease, Or Unspecified Chronic Kidney Disease HEME (+) Anemia OBJECTIVE PHYSICAL EXAMINATION Airway (HEENT) Mallampati: III TM Distance: >3 FB Neck ROM: Full Cardiovascular Rhythm: Regular Rate: Normal Pulmonary Pulmonary Assessment: Clear General / Constitutional Constitutional Assessment: Overweight Neurological Normal ASSESSMENT / PLAN ANESTHESIA PLAN ASA: 3 Anesthesia Plan: MAC Patient seen and allergies reviewed, anesthesia plan and risks discussed directly with patient /legal guardian or through an rn gyn. Risks/Benefits/Alternatives of Blood transfusion discussed with patient / legal guardian, includingan opportunity to ask questions and/or decline some or all transfusion therapies. The patient / legal guardian consented to the use of all blood products, as deemed medically necessary Approval to Proceed: approved for anesthesia documented in this encounter Plan of Treatment Not on file documented as of this encounter Visit Diagnoses Not on filedocumented in this encounter Administered Medications Inactive Administered Medications - up to 3 most recent administrations Medication Order MAR Action Action Date Dose Rate Site Lactated Ringer's intravenous, Continuous Infusion: Per Instructions PRN, Starting on Sat10/16/24 at 0933, Anesthesia Intra-op New Bag 10/16/2024 9:33 AM CDT lidocaine (PF) (cardiac) injection intravenous, As needed, Starting on Sat10/16/24 at 0934, Anesthesia Intra-op Given 10/16/2024 9:36 AM CDT 40 mg Given 10/16/2024 9:34 AM CDT 60 mg ondansetron (PF) injection (Zofran) intravenous, As needed, Starting on Sat10/16/24 at 0935, Anesthesia Intra-op Given 10/16/2024 9:35 AM CDT 4 mg propofol 10 mg/mL infusion (Diprivan) intravenous, Continuous Infusion: Per Instructions PRN, Starting on Sat10/16/24 at 0935, Anesthesia Intra-op Rate/Dose Change 10/16/2024 9:42 AM CDT 100 mcg/kg/min 56.04 mL/hr New Bag 10/16/2024 9:35 AM CDT 80 mcg/kg/min 44.832 mL/ hr propofoL injection (Diprivan) intravenous, As needed, Starting on Sat10/16/24 at 0935, Anesthesia Intra-op Given 10/16/2024 9:51 AM CDT 20 mg Given 10/16/2024 9:40 AM CDT 20 mg Given 10/16/2024 9:36 AM CDT 30 mg documented in this encounter
--- OUTSIDE RECORDS SUMMARY | 2024-10-19 13:00 | XMS_ITS | Encounter Summary ---
Author Organization [facility] Address [address] [place] [address] Care Team Providers Care Rivet Tosser Name Role Phone Unavailable Primary Care Provider Unavailabl e Reason for Referral * Outpatient (Routine) - Authorized Specialty Diagnoses / Procedures Referred By Contact Referred To Contact Gastroenterology and Hepatology Ruby Taylor M.D. [address] [place] [address] Phone: tel: fax: [facility] Referral ID Status Reason Start Date Expiration Date V isits Requested Visits Authorized [id number] Authorized 10/19/2024 04/20/2026 1 1 Reason for Visit * Outpatient (Routine) - Closed Specialty Diagnoses / Procedures Referred By Contact Referred To Contact Gastroenterology and Hepatology Ruby Taylor M.D. [address] [place] [address] Phone: tel: fax: [facility] Referral ID Status Reason Start Date Expiration Date Visits Re quested Visits Authorized [id number] Closed 08/26/2024 02/25/2026 1 1 Encounter Details Date Type Department Care Team (Latest Contact Info) Description 10/19/2024 1:00 PM CDT Virtual Visit Division of Gastroenterology in [place], [place] [address] [place] [address] Ruby Taylor M.D. [address] [place] [address] Gastric Antral Vascular Ectasia With Hemorrhage (Primary Dx); Anemia Iron Deficiency Social History Tobacco Use Types Packs/Day Years Used Date Smoking Tobacco: Former Cigarettes 1 - 04/01/1976 Smokeless Tobacco: Never Alcohol Use Standard Drinks/Week Comments Not Currently 0 (1 standard drink = 0.6 oz pur e alcohol) Maybe 1 drink per momth [facility] Utilities Answer Date Recorded In the past 12 months has e electric, gas, oil, or water company [...] your living situation today? I have a [facility] place to live 04/15/2024 Comments No Sex and Gender Information Value Date Recorded Sex Assigned at Female 04/15/2024 8:13 PM JOINT SETTER Legal Sex Female 8:47 AM CDT Gender Identity Female 04/15/2024 8:13 PM JOINT SETTER Sexual Orientation Straight 04/15/2024 8: 13 PM JOINT SETTER documented as of this encounter Progress Notes * Ruby Taylor M.D. - 10/19/2024 1:00 PM CDT SUBJECTIVE Patient ID: Jenifer Cuadra is a 74 y.o. female who presents for evaluation of No chief complaint on file.. HPI Ms. Cuadra is a 74 y.o. female who presented with anemia for initial evaluation 05/12/24. Briefly she states that while she has always had IBS-D, she has lately had transfusion requiring anemia with hgb noted to be 6 in ED in early 2023. Had some black stools while on iron pills precedingthis. Had also been on PO magnesium, which worsened watery stools. EGD and colo 07/2023 with superficial non bleeding ulcers, biopsies negative for H pylori. Used to take excedrin, since has DC'd these, subsequent EGD x 2 with persistent ulcer then resolution on PPI. Planned for capsule at [facility] reportedly normal in 03/2024. She had an EGD recently for ablation of GAVE, had successful ablation of bleeding GAVE. She is taking magnesium and iron and so stools are always dark. She is taking imodium daily due to diarrhea, wasn't sure if this was due to bleeding. She is taking now 400 mg daily of magnesium oxide. She has needed 10 infusions since our visit, her last hgb was 10.7 (3 weeks ago). Celiac workup negative, Calpro had been ordered but not collected. Pt's daughter states she has always had IBS-D, butthis worsened acutely with magnesium supplementation. She at times has urgency with BMs, and plans her day around imodium. Now: without imodium, usually 2-3 BMs daily (up to 4). If she takes imodium: maybe 1 daily. OBJECTIVE Unable to examine over the phone. EGD 10/16/24 Post-op Diagnoses: - Normal esophagus. - Esophagogastric landmarks identified. - Gastric antral vascular ectasia with bleeding. Treated with radiofrequency ablation. - Normal examined duodenum. - No specimens collected. EGD 08/19 Post-op Diagnoses: - Normal esophagus. - 2 cm hiatal hernia. - Multiple fundic gland polyps. - Gastric antral vascular ectasia without bleeding. Treated with argon plasma coagulation (APC). - Normal examined duodenum. - No specimens collected. ASSESSMENT / PLAN Diagnoses and all orders for this visit: Gastric Antral Vascular Ectasia With Hemorrhage Anemia Iron Deficiency Other orders - Gastroenterology and Hepatology office visit (clinic) Ms. Cuadra is a 74 yo woman with history of recurrent GIB and iron deficiency anemia, GAVE sp ablation. CKD. She is doing alright post ablation, no discomfort. Difficult to tell symptomatically whether she has had improvement in bleeding given her iron use, due to which stools are always dark. Hgb last checked 3 weeks ago, advised she check again next week. Further decisions on re-intervening for GAVE (she is now s/p APC and RFA) would be based on degree of drops in hemoglobin if any and need for transfusions. Explained sadly her CKD is a risk factor for her GAVE, and some patients do require repeatedre-interventions due to bleeding, which needs to be balanced with risk of scarring. Ideally we could manage her without further procedures, will have to see what her hemoglobin results at in coming mo nths. Regarding diarrhea, she had negative Celiac studies and equivocal elevation in calpro (91). Colonoscopy grossly normal in July. Discussed differential includes medication induced (most likely, as BMs worsened with magnesium use), prior bleeding, inflammatory (possible microscopic colitis), IBS. She does not feel she has incontinence/weakness of pelvic floor. Symptoms are well managed with imodium.As she had a colonoscopy that was grossly normal, discussed she would wish to avoid a repeat for diagnostic purposes alone (to obtain biopsies for MC). Therefore ok to try to reduce need for mag (if at all possible, pt will discuss reducing Maxzide dosing with otolaryngologist to allow for magnesium dose reduction or switching magnesium to an organic formulation), and continue imodium (which would have been used to treat microscopic colitis if this were found also). 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 Plan: -Hemoglobin check locally next week, pt to fax/message with results -Ok to continue imodium daily, prefer imodium to lomotil -Consider dose reduction of magnesium or switch to magnesium glycinate from oxide per nephrology colleagues if possible -MRCP in January for pNET surveillance -F/u with us following MRCP -At follow up with stability in hemoglobin: will dc PPI and check gastrin off PPI to ensure elevation is not due to functional pNET (low likelihood with lack of ulceration and < 1000 elevation in gastrin) Supervising provider: Dr. Diamond. documented in this encounter Plan of Treatment Scheduled Referrals Name Type Priority Associated Diagnoses Order Schedule Gastroenterology and Hepatology office visit (clinic) Outpatient Referral Routine Expected: 02/11/2025, Expires: 01/19/2026 documented as of this encounter Visit Diagnoses Diagnosis Gastric Antral Vascular Ectasia With Hemorrhage- Primary Anemia Iron Deficiency documented in this encounter
--- OUTSIDE RECORDS SUMMARY | 2024-10-19 15:00 | XMS_ITS | Encounter Summary ---
Author Organization [facility] Address [address] [place] [address] Care Team Providers Care Cobol Mainframe Developer Name Role Phone Unavailable Primary Care Provider Unavailabl e Reason for Visit * Appointment Request (Routine) - Closed Specialty Diagnoses / Procedures Referred By Addy mckeon Referred To Contact Nephrology and Hypertension Referral ID Status Reason Start Date Expiration Date Visits Re quested Visits Authorized [id number] Closed 08/27/2024 11/27/2025 1 1 Encounter Details Date Type Department Care Team (Latest Contact Info) Description 10/19/2024 3:00 PM CDT External Outreach Division of Nephrology and Hypertension in [place], [place] [address] [place] [address] Ronn Alvarez Jr., D.O. [address] [place] [address] Chronic Kidney Disease (CKD), Stage 3a Glomerular Filtration Rate (GFR) 45 To 59 (HCC) (Primary Dx); Hypertensive Chronic Kidney Disease With Stage 1 Through Stage 4 Chronic Kidney Disease, Or Unspecified Chronic Kidney Disease; Diabetes Mellitus Type 2 (HCC); Hyperparathyroidism Renal Secondary (HCC); Anemia; Other Malignant Neuroendocrine Tumors (HCC) Social History Tobacco Use Types Packs/Day Years Used Date Smoking Tobacco: Former Cigarettes 1 - 04/01/1976 Smokeless Tobacco: Never Alcohol Use Standard Drinks/Week Comments Not Currently 0 (1 standard drink = 0.6 oz pur e alcohol) Maybe 1 drink per momth [facility] Utilities Answer Date Recorded In the [...] your living situation today? I have a [facility] place to live 04/15/2024 Comments No Sex and Gender Information Value Date Recorded Sex Assigned at Female 04/15/2024 8:13 PM ELECTRICIAN RESEARCH Legal Sex Female 8:47 AM CDT Gender Identity Female 04/15/2024 8:13 PM ELECTRICIAN RESEARCH Sexual Orientation Straight 04/15/2024 8: 13 PM ELECTRICIAN RESEARCH documented as of this encounter Last Filed Vital Signs Vital Sign Reading Time Taken Comments Blood Pressure 137/63 10/19/2024 3:24 PM CDT Pulse 73 10/19/2024 3:24 PM CDT Temperature - - Respiratory Rate - - Oxygen Saturation - - Inhaled Oxygen Concentration - - Weight 91.8 kg (202 lb 6.1 oz) 10/19/2024 3:24 P M CDT Height - - Body Mass Index 33.68 10/16/2024 8:21 AM CDT documented in this encounter Progress Notes * Ronn Alvarez Jr., D.O. - 10/19/2024 3:00 PM CDT Referring Provider: No primary care provider on file. SUBJECTIVE REASON FOR VISIT [place] [facility] Follow-up regards CKD, hypertension, diabetes mellitus HISTORY OF PRESENT ILLNESS Mrs. Cuadra is a 74 y.o. female who presents with refractory anemia, in the above matters. With respect to her diabetes her hemoglobin A1c is 5.4%, which may be slightly spurious on the background of her anemia. She has GA ve, and I appreciate GI input. Her hemoglobin has improved up to 10.7, her iron stores are normal. She feels a bit better, but is still struggling with her bowels. We discussed decreasing her metformin dose, continuing to taper the magnesium. Blood pressures been excellent she has had no orthostatic issues. No constitutional complaints, no cardiovascular issues. Medical History[1] Current Medications[2] REVIEW OF SYSTEMS All other systems reviewed and are negative. OBJECTIVE BP 137/63 Pulse 73 Wt 91.8 kg BMI 33.68 kg/m?? PHYSICAL EXAMINATION General: Awake, alert, oriented. HEENT: SARAH, EOMI, mucous membranes moist, no oral lesions. Neck: No masses, no bruits. Lungs: Clear to auscultation. Heart: Regular rate and rhythm. No ectopy, murmurs, or rubs. Abdomen: Soft, non-tender. Extremities: No cyanosis, no clubbing, no edema. Neuro: Cranial nerves intact. Gait is normal, strength grossly normal. Skin: No suspicious lesions identified. Psychiatric: Normal affect. 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 Going forward: 1. Goal glycosylated hemoglobin less than 8%, towards this I have decreased the dose of her metformin to 500 mg orally daily particularly on the background of her diarrhea. 2. Goal blood pressures less than 130s over 80s which she has achieved 3. No NSAIDs or Javed 2 inhibitors, she is getting excellent results from the Voltaren gel 4. I have asked her to cut back on the magnesium, which might help a bit with the diarrhea as well. 5. I will see her back in Nephrology in 6 months. #2 Hypertensive Chronic Kidney Disease With Stage 1 Through Stage 4 Chronic Kidney Disease, Or Unspecified Chronic Kidney Disease Goal blood pressures achieved we will continue her current regimen with the long-acting nifedipine and combination diuretic agents. #3 Diabetes Mellitus Type 2 (HCC) Her glycemic control is arguably too tight, although her hemoglobin A1c likely is slightly spurious. We will decrease her metformin to 500 mg orally daily and recheck her hemoglobin A1c in 6 months. #4 Hyperparathyroidism Renal Secondary (HCC) We will monitor carefully, calcium phosphorus are acceptable as his PTH. #5 Anemia Primarily likely iron-deficiency on the background of her GA ve. She has had several courses of IV iron and we seem to now have been able to decrease the iron loss from her GI bleeding. #6 Other Malignant Neuroendocrine Tumors (HCC) Discussed the various possible clinical symptoms which could develop. Total time: 30 minutes Counseling Time: 25 minutes Ronn Alvarez Jr., D.O. [1] Past Medical History: Diagnosis Date Anemia 2023 Anxiety Generalized Disorder 1974 Apnea Sleep Obstructive Blood Transfusion No Diagnosis 2023 Diabetes Mellitus NOS 2014? Gallbladder Disorder 2017? Gastroesophageal Reflux Disease NOS Headache Unspecified 1970 Hyperlipidemia 1999? Hypertension NOS 1987 Osteopenia 2023 Polyp Colon 1999? Renal Disease 2022 Skin Cancer (Primary) NOS 2014?,2023 Sleep Apnea 2014? [2] Current Outpatient Medications: metFORMIN (Glucophage) 500 mg tablet, Take 1 tablet (500 mg total) by mouth daily with morning meal., Disp: , Rfl: atorvastatin (LIPITOR) 10 mg tablet, , Disp: , Rfl: blood sugar diagnostic strips (FreeStyle Lite Strips), USE TO TEST ONCE DAILY, Disp: , Rfl: calcium carbonate-vitamin D3 600 mg-5 mcg (200 unit) capsule, Take 1 tablet by mouth daily., Disp: , Rfl: doxepin (SINEquan) 25 mg capsule, , Disp: , Rfl: famotidine (Pepcid) 10 mg tablet, Take 10 mg by mouth 2 (two) times a day., Disp: , Rfl: ferrous sulfate 325 mg (65 mg iron) tablet, Take 325 mg by mouth., Disp: , Rfl: lancets (Accu-Chek Fastclix Lancet Drum), USE TO TEST ONCE DAILY, Disp: , Rfl: loperamide (Imodium A-D) 2 mg tablet, Take by mouth daily., Disp: , Rfl: losartan (COZAAR) 100 mg tablet, , Disp: , Rfl: magnesium 250 mg tablet, Take 500 mg by mouth daily., Disp: , Rfl: NIFEdipine XL (PROCARDIA XL) 30 mg 24 hr tablet, , Disp: , Rfl: triamterene-hydroCHLOROthiazide (Maxzide-25) 37.5-25 mg per tablet, Take 1 tablet by mouth daily., Disp: 90 tablet, Rfl: 3 documented in this encounter Plan of Treatment Not on file documented as of this encounter Visit Diagnoses Diagnosis Chronic Kidney Disease (CKD), Stage 3a Glomerular Filtration Rate (GFR) 45 To 59 (HCC)- Primary Hypertensive Chronic Kidney Disease With Stage 1 Through Stage 4 Chronic Kidney Disease, Or Unspecified Chronic Kidney Disease Diabetes Mellitus Type 2 (HCC) Hyperparathyroidism Renal Secondary (HCC) Anemia Other Malignant Neuroendocrine Tumors (HCC) documented in this encounter
--- OUTSIDE RECORDS SUMMARY | 2024-10-26 08:18 | XMS_ITS | Continuity of Care Document ---
Author Name [facility] Organization [facility] Care Team Providers Care Inside Sales Name Role Phone [facility] Unavailable Unavailable Medications Combined list of outpatient medications from Department of Defense and Veterans Affairs facilities.Medications provided include 1) outpatient medications from the last 15 months, and 2) patient-reported medications. Medication Details Route Status Patient Instructions Prescription Expires Prescription Number Last Dispense Date Ordering Provider Order Date Order Qty Source GAVILYTE-G (PEG 3350/NA SULF,BICARB ,CL/KCL), 236-22.74G, SOLN RECON, ORAL, GAVIS PHARMACEU, 4000 ml BOTTLE Active [id number] 4 2023 4000 Pharmac y Data Transac tion Service Facilit y SUCRALFATE (sucralfate ), 1 G/10 ML, ORAL SUSP, ORAL, AMNEAL PHARMACE, 420 ml BOTTLE Active [id number] 4 2023 1000 Pharmac y Data Transac tion Service Facilit y SUCRALFATE (sucralfate ), 1 G/10 ML, ORAL SUSP, ORAL, AMNEAL PHARMACE, 420 ml BOTTLE Active [id number] 4 2023 420 Pharmac y Data Transac tion Service Facilit y SUCRALFATE (sucralfate ), 1 G/10 ML, ORAL SUSP, ORAL, AMNEAL PHARMACE, 420 ml BOTTLE Active [id number] 4 2023 420 Pharmac y Data Transac tion Service Facilit y Immunizations Combined list of available immunizations from the Department of Defense and Veterans Affairs facilities. Immunization Series Date Given Administered By Site Reaction Lot Number CVX Code Drug Writer Status Comments Source COVID-19, mRNA, LNP-S, PF, 30 mcg/0.3 mL dose, terrance-sucrose 2021 RASHAWN GRACE [employer] [place] (PFR) Not Given COVID-19, mRNA, LNP-S, [...]
--- OUTSIDE RECORDS SUMMARY | 2024-10-26 08:18 | XMS_ITS | Continuity of Care Document ---
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 Name Role Phone [facility] Unavailable Unavailable Medications Combined list of outpatient [...] ORAL, GAVIS PHARMACEU, 4000 ml BOTTLE Active [id number] 4 2023 4000 Pharmac y Data Transac tion Service Facilit y SUCRALFATE (sucralfate ), 1 G/10 ML, ORAL SUSP, ORAL, AMNEAL PHARMACE, 420 ml BOTTLE Active [id number] 4 2023 1000 Pharmac y Data Transac tion Service Facilit y SUCRALFATE (sucralfate ), 1 G/10 ML, ORAL SUSP, ORAL, AMNEAL PHARMACE, 420 ml BOTTLE Active [id number] 4 2023 420 Pharmac y Data Transac tion Service Facilit y SUCRALFATE (sucralfate ), 1 G/10 ML, ORAL SUSP, ORAL, AMNEAL PHARMACE, 420 ml BOTTLE Active [id number] 4 2023 420 Pharmac y Data Transac tion Service Facilit y Immunizations Combined list of available immunizations from the Department of Defense and Veterans Affairs facilities. 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
[2024-10-26 08:23] VITALS: BP 183/77; PULSE 98; RESP 18; TEMP 36.3; O2SAT 97; BMI 33.9
--- NOTE | 2024-10-26 08:38 | ED.GENADULT ---
HPI - General Adult General Time Seen by Provider: 08:39 Date Seen: 10/26/24 Chief complaint: Flank Pain Stated complaint: L flank pain Time Seen by Provider: 10/26/24 08:38 Source: patient and RN notes reviewed Mode of arrival: ambulatory Limitations: no limitations History of Present Illness HPI narrative: This 74-year-old female coming to the ER with left flank pain that started on Saturday. She has noted no fevers or chills, no urinary changes, changes in bowel habits. Symptoms do not change with eating, there is no nausea or vomiting. She has never had any kidney stones. She has a brother who has had kidney stones. She has chronic iron deficiency anemia and low magnesium, gets IV iron transfusions and takes magnesium. She states she has chronic diarrhea which has not changed. She only got about 3 hours of sleep last night, feels like she needs to change her position every 5 minutes. She has tried Tylenol, just feels like she can not get comfortable. She did try 5 mg Flexeril yesterday which did not help at all. She did have an EGD with ablation of some gastric vessels at [facility] last week. They feel this is the source of her chronic anemia. She has had no respiratory symptoms with this. As far as her stools, they are always dark as she states she does take iron supplements. There has been no change in her stools however. Related Data Home Medications ?Medication ?Instructions ?Recorded ?Confirmed acetaminophen 500 mg capsule 1,000 mg PO DAILY PRN 11/14/21 10/26/24 calcium 600 mg (as 1 tab PO QDAY 06/25/24 10/26/24 carbonate)-vitamin D3 20 mcg (800 unit) tablet esomeprazole magnesium 40 mg 40 mg PO QDAY 06/25/24 10/26/24 capsule,delayed release ferrous sulfate 325 mg (65 mg 325 mg PO Q OTHER DAY 06/25/24 10/26/24 iron) tablet magnesium oxide 500 mg capsule 500 mg PO QDAY 06/25/24 10/26/24 metformin 500 mg tablet 500 mg PO QDAY 10/19/24 10/26/24 Previous Rx's ?Medication ?Instructions ?Recorded doxepin 25 mg capsule 25 mg PO QDAY #90 caps 01/22/24 losartan 100 mg tablet 100 mg PO DAILY #90 tabs 03/12/24 nifedipine 30 mg tablet,extended 30 mg PO QDAY #90 tabs 03/12/24 release 24 hr triamterene 75 1 tab PO DAILY #90 tabs 03/12/24 mg-hydrochlorothiazide 50 mg tablet atorvastatin 10 mg tablet 10 mg PO QHS #90 tabs 03/19/24 diphenoxylate-atropine 2.5 1 tab PO QDAY PRN diarrhea #30 tabs 10/06/24 mg-0.025 mg tablet (Lomotil) cyclobenzaprine 10 mg tablet 10 mg PO TID PRN muscle spasm #30 10/26/24 tabs oxycodone 5 mg tablet 5 mg PO Q6H PRN pain #20 tabs 10/26/24 Allergies Allergy/AdvReac Type Severity Reaction Status Date / Time amlodipine AdvReac Mild Leg Verified 10/26/24 10:34 swelling Review of Systems Status of ROS: Reports: 6 or more systems reviewed and unremarkable except as noted in History and below PFSH PFSH Surgical History History of SCC (squamous cell carcinoma) of skin ?Z85.828 - Personal history of other malignant neoplasm of skin (ICD-10) History of colonoscopy ?Z98.890 - Other specified postprocedural states (ICD-10) History of cholecystectomy ?Z90.49 - Acquired absence of other specified parts of digestive tract (ICD-10) History of esophagogastroduodenoscopy (EGD) ?Z98.890 - Other specified postprocedural states (ICD-10) History of section ?Z98.891 - History of uterine scar from previous surgery (ICD-10) History of total abdominal hysterectomy ?Z90.710 - Acquired absence of both cervix and uterus (ICD-10) History of tonsillectomy ?Z90.89 - Acquired absence of other organs (ICD-10) History of appendectomy (2010) ?Z90.49 - Acquired absence of other specified parts of digestive tract (ICD-10) Family History Father Stroke Colon cancer High blood pressure Mother High blood pressure Macular degeneration Brother Myocardial infarction, Onset Age: 40 Sister Colon cancer Paternal Grandmother Diabetes Uterine cancer Social History What is your current living situation?: I presently have a place to live Problems where you live: no known problems In the past 12 months, utilities in danger of being shut off: no In past 12 months, lack of transportation kept you from medical appts, meetings, work, or getting things needed for daily living: no In the past 12 mos, have been you worried that your food would run out before you had money to buy more?: never true In the past 12 mos, the food you bought just didn't last and you didn't have money to buy more?: never true Smoking Status: Former smoker How often do you have a drink containing alcohol: never AUDIT-C Alcohol total score: 0 Non-prescribed substance use: denies use How often does anyone, including family, friends and others, physically hurt you: never How often does anyone, including family, friends and others, insult or talk down to you: never How often does anyone, including family, friends and others, threaten you with harm: never How often does anyone, including family, friends and others, scream or curse at you: never Exam Const: Vital Signs, click to edit/add: Vital Signs - 24 hr 10/26/24 08:23 10/26/24 09:10 10/26/24 09:26 Temperature 97.3 F L Pulse Rate 77 Pulse Rate [Right Pulse Oximeter] 98 Respiratory Rate 18 16 Blood Pressure [Ri ght Upper Arm] 183/77 H Pulse Oximetry 97 92 92 Oxygen Delivery Me thod Room Air This 74-year-old female is alert, interactive, standing in the room and moving around. She is able to sit on the bed. She is alert and conversive, no apparent distress. Sclera clear, face atraumatic, speech is normal, speaking in normal sentences. Lungs are clear, good air entry, no wheezing or crackles, no tachypnea, no accessory muscle use. She has no midline tenderness of her spine, no palpable tenderness over her flank area or ribs. She states I cannot reproduce the pain by palpating. CV regular rate and rhythm, no murmur, normal S1-S2. Abdomen is soft, nontender, nondistended, no organomegaly. 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 I do wonder if there could be complication of this EGD with this ablation of gastric vessels. Will be obtaining CT imaging. It is possible she could have developed kidney stones. Will get full complement of labs including urinalysis. We will be proceeding with CT with IV contrast as I do think we need visualization outside of the urinary system as well. She is uncomfortable and will be initiating some IV morphine for her, prophylax for nausea with Zofran. Will have her on pulse oximetry. Reevaluation(s) Time of Reevaluation #1: 10:49 Reevaluation #1: Have reviewed labs in provided patient a copy with her CT report. There is nothing on the CT indicative for her reason of pain. She is standing in the room. Morphine made her tired but really did not change her pain. Did discuss with her that this certainly could be discogenic, coming from lower thoracic or upper lumbar. We will do some plain films. Will give her 1 time dose of IV Toradol. If this is her back and given her stomach issues, do not think she is likely the best candidate to take prednisone. Would be a little worried about her stomach and gastrointestinal bleeding, she did just have recent procedure via EGD within her stomach. Will see what we find on the x-ray images, see how she responds to the 1 time dose of Toradol. Time of Reevaluation #2: 12:27 Reevaluation #2: Have reviewed patient's x-rays of her thoracic and lumbar spine. There is some degenerative change but no concerning findings on imaging. MRI would show true discogenic disease but clinically at this time is not indicated. With her stomach issues, we have all discussed prednisone him and all feel that it is risky for her to take. Her procedure on her stomach was just about 10 days ago, would be worried that she has not had adequate time for healing. She does take Nexium twice daily. We have discussed referral for physical therapy calm a follow-up with her primary care provider and a Flexeril and oxycodone. She can use Tylenol baseline for pain. We have discussed that we do not have a definitive etiology, do suspect discogenic disease of her back, but there certainly could be other etiologies that her just not showing at this point. She should have a low threshold for follow-up/return. Given that we are not going to be using prednisone, have written for larger amount oxycodone, will give 20 tablets as I do think she is going to need extra medication until she can get to physical therapy. Vital Signs Vital signs: Initial Vital Signs Temperature 97.3 F L 10/26/24 08:23 Temperature Source Temporal Artery Scan 10/26/24 08:23 Pulse Rate 98 10/26/24 08:23 Pulse Rhythm Regular 10/26/24 08:23 Pulse Strength 3+ Normal 10/26/24 08:23 Respiratory Rate 18 10/26/24 08:23 Blood Pressure 183/77 H 10/26/24 08:23 Blood Pressure Mean 112 H 10/26/24 08:23 Blood Pressure Position Sitting 10/26/24 08:23 Pulse Oximetry 97 10/26/24 08:23 Oxygen Delivery Method Room Air 10/26/24 08:23 Vital Signs Temperature 97.3 F L 10/26/24 08:23 Pulse Rate 98 10/26/24 08:23 Respiratory Rate 18 10/26/24 08:23 Blood Pressure 183/77 H 10/26/24 08:23 Pulse Oximetry 97 10/26/24 08:23 Oxygen Delivery Method Room Air 10/26/24 08:23 Temperature 97.3 F L 10/26/24 08:23 Pulse Rate 77 10/26/24 09:26 Respiratory Rate 16 10/26/24 09:26 Blood Pressure 183/77 H 10/26/24 08:23 Pulse Oximetry 92 10/26/24 09:26 Oxygen Delivery Method Room Air 10/26/24 08:23 Medications Administered Medications: Discontinued Medications Generic Name Dose Route Start Last Admin Trade Name Freq PRN Reason Stop Dose Admin Ketorolac Tromethamine 15 mg 10/26/24 10:49 10/26/24 12:02 Ketorolac 15 Mg/Ml Inj IVP 10/26/24 10:50 15 mg ONCE ONE Administration Morphine Sulfate 2 mg 10/26/24 08:47 10/26/24 09:16 Morphine 2 Mg/Ml Inj IVP 10/26/24 08:48 2 mg ONCE ONE Administration Ondansetron HCl 4 mg 10/26/24 08:47 10/26/24 09:14 Ondansetron 2 Mg/Ml Inj IVP 10/26/24 08:48 4 mg ONCE ONE Administration Medical Decision Making Lab Data Labs: Lab Results 10/26/24 10/26/24 Range/Units 09:00 09:10 WBC 6.46 (4.50-11.00) K/uL RBC 3.78 L (4.00-5.20) m/uL Hgb 11.0 L (12.0-16.0) gm/dL Hct 34.0 (33.0-51.0) % MCV 90 (80-100) fL MCH 29 (26-34) pg MCHC 32 (32-36) gm/dL RDW Coeff of Criss 13.8 (11.5-15.5) % Plt Count 334 (140-440) K/uL Neut % (Auto) 60.9 (42.0-72.0) % Lymph % (Auto) 25.7 (20-44) % [place] % (Auto) 9.4 (0.0-11.0) % Eos % (Auto) 2.3 (0.0-7.0) % Baso % (Auto) 1.4 (0.0-3.0) % Neut # (Auto) 3.93 (1.7-7.0) K/uL Lymph # (Auto) 1.66 (0.90-2.90) K/uL [place] # (Auto) 0.60 (0.00-0.90) K/UL Eos # (Auto) 0.15 (0.00-0.50) K/uL Baso # (Auto) 0.09 (0.00-0.30) K/uL Abs Immat Gran (auto) 0.02 (0.00-0.30) K/uL Imm/Tot Granulo (auto) 0.3 % Sodium 139 (135-149) mmol/L Potassium 4.2 (3.6-5.1) mmol/L Chloride 102 (96-114) mmol/L Carbon Dioxide 25 (20-32) mmol/L Anion Gap 12 (7-15) mEq/L BUN 24 (7-30) mg/dL Creatinine 1.3 (0.5-1.5) mg/dL Estimated Creat Clear 33.65 Estimated GFR 43 ml/min Glucose 132 H (60-115) mg/dL Lactate 2.1 H (0.5-1.9) mmol/L Calcium 10.6 (8.4-10.6) mg/dL Total Bilirubin 0.3 (0.1-1.5) mg/dL AST 45 H (12-35) U/L ALT 35 (4-35) U/L Alkaline Phosphatase 69 (40-150) U/L C-Reactive Protein < 0.5 L (0.5-1.0) mg/dL Total Protein 8.1 (6.0-8.3) g/dL Albumin 4.9 (3.3-5.0) g/dL Lipase 195 (23-300) U/L Urine Color Light yellow (Yellow) Urine Appearance Clear (Clear) Urine pH 7.0 (5.0-8.5) Ur Specific [place] 1.020 (1.000-1.030) Urine Protein Negative (Negative) Urine Glucose (UA) Negative (Negative) Urine Ketones Negative (Negative) Urine Blood Negative (Negative) Urine Nitrite Negative (Negative) Urine Bilirubin Negative (Negative) Urine Urobilinogen 0.2 (0.2-1.0) Ur Leukocyte Esterase Trace A (Negative) Urine RBC 0-2 (0-2) Urine WBC 2-5 (0-5) Ur Squamous Epith Cells Moderate A (None-Few) Urine Bacteria None (None) POC Creatinine 1.4 H (0.6-1.3) mg/dl Imaging Data CT scan - abdomen: Attestation: I have reviewed the pertinent imaging results. Radiologist's impression: Patient: [facility] Facility:?[facility] Patient ID:?[id number] Site Patient ID:?[id number]. Site :?[id number] Study:?CT-Abdomen/Pelvis 101CC ISOVUE 370-10/26/2024 9:49:20 AM Ordering Physician:Rosa Mcdonald Final Report: INDICATION: Left flank pain, recent EGD with vessel ablation 10/16/2024. COMPARISON: MR abdomen 04/03/2024, CT abdomen pelvis 03/20/2024, DOTATATE PET-CT 04/03/2024 TECHNIQUE: CT of the abdomen and pelvis with intravenous contrast. Multiplanar axial, coronal, and sagittal reformats were reconstructed. Contrast: 101 mL Isovue 370. FINDINGS: Lung bases: Similar basilar reticulation. Liver: Normal. No mass. Gallbladder and bile ducts: Cholecystectomy. No bile duct dilation. Pancreas: Round 7 millimeter hyperenhancing mass at the interface between the duodenum and the pancreas is similar to the previous examination. 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 Spleen: Normal. Adrenal glands: Normal. Kidneys: Normal parenchyma. Small renal lesions are again seen. Similar pattern to the prior exam. These are better evaluated on the prior MRI. No calculi. No urinary tract dilation. Urinary bladder: Normal. Pelvis: No cyst or mass. Vessels: Atherosclerosis. Bowel: Round hyperdense versus enhancing focus at the interface between the duodenum and pancreas is about the same as the prior exam. No dilated or inflamed bowel. Appendix not seen. Moderate stool burden. Lymph nodes: No adenopathy. Peritoneum: No ascites. Abdominal wall: No hernia. Bones: No fractures. No focal worrisome bone lesions. IMPRESSION: No acute findings. No specific explanation seen for the patient`s flank pain. Please note that all CT scans at this facility use dose modulation, iterative reconstruction, and/or weight-based dosing when appropriate to reduce radiation dose to as low as reasonably achievable. Dictated by Isha Medina MD @ 10/26/2024 10:16:08 AM (Electronic Signature) XR thoracic spine: Attestation: I have reviewed the pertinent imaging results. Radiologist's impression: Patient: MAURISIO VALENZUELA Facility:?[facility] Patient ID:?[id number] Site Patient ID:?[id number]. Site :?1950 Study:?XRay-Spine Thoracic 2V-10/26/2024 11:27:08 AM Ordering Physician:?Clayton Mcdonald Final Report: INDICATION: Back pain. TECHNIQUE: Thoracic spine 2 view. COMPARISON: None. FINDINGS: Bones: Alignment is normal. No fractures or significant bone lesions. Joints: Mild degenerative disease of the spine. Soft tissues: Unremarkable. IMPRESSION: Mild degenerative disease of the spine. Dictated by Kamala Edwards MD @ 10/26/2024 12:00:07 PM (Electronic Signature) XR lumbar spine: Attestation: I have reviewed the pertinent imaging results. Radiologist's impression: Patient: MAURISIO VALENZUELA Facility:?[facility] Patient ID:?[id number] Site Patient ID:?[id number]. Site :?1950 Study:?XRay-Spine Lumbar 2V-10/26/2024 11:26:25 AM Ordering Physician:Rosa Mcdonald Final Report: Indication: Back pain Technique: Three views of the lumbar spine. Comparison: CT on the same day Findings: Dextrocurvature. Trace retrolisthesis of L2-3. Vertebral body heights are normal. Moderate to severe degenerative disc disease. Impression: No acute osseous abnormality. Dictated by David Aggarwal MD @ 10/26/2024 12:00:07 PM (Electronic Signature) Discharge Plan Discharge Clinical Impression: Acute left flank pain, Acute left-sided back pain Patient Disposition: Home, Self-Care Condition: Stable Instructions: Flank Pain (ED), Back Pain (ED) Additional Instructions: Can take Tylenol 1000 mg up to 4 times a day a short-term, maybe up to a week. After that should only be use 1000 mg 3 times a day. Prescribing Flexeril in oxycodone to assist in pain. Can try ice or heat in use whatever helps. Have provided the physical therapy referral, he will call to get this scheduled. You need to schedule follow-up in clinic with your primary provider within the next couple of days for re-evaluation. If there are ongoing issues and it is thought to be her back, MRI may need to be considered down the road if not responding to medication management and physical therapy. If you feel you have changing symptoms, have new concerns or feel you are worsening, please return to the ER for further evaluation. Activity Level: Activity as Tolerated Prescriptions: New cyclobenzaprine 10 mg tablet 10 mg PO TID PRN (Reason: muscle spasm) Qty: 30 0RF oxycodone 5 mg tablet 5 mg PO Q6H PRN (Reason: pain) Qty: 20 0RF No Action ferrous sulfate 325 mg (65 mg iron) tablet 325 mg PO Q OTHER DAY esomeprazole magnesium 40 mg capsule,delayed release(DR/EC) 40 mg PO QDAY calcium carbonate-vitamin D3 600 mg-20 mcg (800 unit) tablet 1 tab PO QDAY magnesium oxide 500 mg capsule 500 mg PO QDAY metformin 500 mg tablet 500 mg PO QDAY acetaminophen 500 mg capsule 1,000 mg PO DAILY PRN doxepin 25 mg capsule 25 mg PO QDAY Qty: 90 2RF triamterene-hydrochlorothiazid 75-50 mg tablet 1 tab PO DAILY Qty: 90 3RF nifedipine 30 mg tablet extended release 24hr 30 mg PO QDAY Qty: 90 3RF losartan 100 mg tablet 100 mg PO DAILY Qty: 90 3RF atorvastatin 10 mg tablet 10 mg PO QHS Qty: 90 3RF diphenoxylate-atropine [Lomotil] 2.5-0.025 mg tablet 1 tab PO QDAY PRN (Reason: diarrhea) Qty: 30 1RF Follow Up/Referrals: Wendy Chow MD [Primary Care Provider, Internal Medicine] [facility] Al[facility] Forms: [facility] Inst[facility]
--- NOTE | 2024-10-26 08:45 | CRLHL7_ITS ---
For Patients: As a result of the Century Cures Act, medical imaging exams and procedure reports are released immediately into your electronic medical record. You may view this report before your referring provider. If you have questions, please contact your health care provider. INDICATION: Left flank pain, recent EGD with vessel ablation 10/16/2024. COMPARISON: MR abdomen 04/03/2024, CT abdomen pelvis 03/20/2024, DOTATATE PET-CT 04/03/2024 TECHNIQUE: CT of the abdomen and pelvis with intravenous contrast. Multiplanar axial, coronal, and sagittal reformats were reconstructed. Contrast: 101 mL Isovue 370. FINDINGS: Lung bases: Similar basilar reticulation. Liver: Normal. No mass. Gallbladder and bile ducts: Cholecystectomy. No bile duct dilation. Pancreas: Round 7 millimeter hyperenhancing mass at the interface between the duodenum and the pancreas is similar to the previous examination. 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 Spleen: Normal. Adrenal glands: Normal. Kidneys: Normal parenchyma. Small renal lesions are again seen. Similar pattern to the prior exam. These are better evaluated on the prior MRI. No calculi. No urinary tract dilation. Urinary bladder: Normal. Pelvis: No cyst or mass. Vessels: Atherosclerosis. Bowel: Round hyperdense versus enhancing focus at the interface between the duodenum and pancreas is about the same as the prior exam. No dilated or inflamed bowel. Appendix not seen. Moderate stool burden. Lymph nodes: No adenopathy. Peritoneum: No ascites. Abdominal wall: No hernia. Bones: No fractures. No focal worrisome bone lesions. IMPRESSION: No acute findings. No specific explanation seen for the patient`s flank pain. Please note that all CT scans at this facility use dose modulation, iterative reconstruction, and/or weight-based dosing when appropriate to reduce radiation dose to as low as reasonably achievable. Dictated by Isha Medina MD @ 10/26/2024 10:16:08 AM (Electronically Signed)
[2024-10-26 09:10] VITALS: O2SAT 92
[2024-10-26] MEDS: ONDANSETRON 2 MG/ML inj 4 MG IVP (09:14)
[2024-10-26 09:19] LABS: Appearance Urine Clear (Clear)
[2024-10-26 09:23] LABS: Lactate* 2.1 mmol/L (0.5-1.9)
[2024-10-26 09:25] LABS: Creatinine, Point-of-Care* 1.4 mg/dl (0.6-1.3)
[2024-10-26 09:26] VITALS: PULSE 77; RESP 16; O2SAT 92
[2024-10-26 09:29] LABS: Hematocrit 34.0 % (33.0-51.0); Hemoglobin* 11.0 gm/dL (12.0-16.0); Immature Granulocytes Abs Auto 0.02 K/uL (0.00-0.30); Immature Granulocytes Pct Auto 0.3 %; Lymphocytes Absolute Auto 1.66 K/uL (0.90-2.90); Mean Corpuscular HGB Conc 32 gm/dL (32-36); Mean Corpuscular Hemoglobin 29 pg (26-34); Mean Corpuscular Volume 90 fL (80-100); RDW Coefficient of Variation % 13.8 % (11.5-15.5); Red Blood Count 3.78 m/uL (4.00-5.20); Slide Review Reflex No; White Blood Count* 6.46 K/uL (4.50-11.00)
--- OUTSIDE RECORDS SUMMARY | 2024-10-26 09:29 | XMS_ITS | Encounter Summary ---
Author Organization [facility] Address [address] [place] [address] Care Team Providers Care Lead Pony Rider Name Role Phone Unavailable Primary Care Provider Unavailabl e Encounter Details Date Type Department Care Team (Late st Contact Info) Description 09/24/2024 Orders Only Division of Nephrology and Hypertension in [place], [place] [address] [place] [address] External, Ordering Provider, Karen Social History Tobacco Use Types Packs/Day Years Used Date Smoking Tobacco: Former Cigarettes 1 - 04/01/1976 Smokeless Tobacco: Never Alcohol Use Standard Drinks/Week Comments Not Currently 0 (1 standard drink = 0.6 oz pur e alcohol) Maybe 1 drink per momth [facility] Utilities Answer Date Recorded In the past 12 months has e Mineral[employer], gas, oil, or water [employer] threatened to shut off services in your [...] your living situation today? [facility] 04/15/2024 Comments No Sex and Gender Information Value Date Recorded Sex Assigned at Female 04/15/2024 8:13 PM RAILROAD COMMISSIONER Legal Sex Female 8:47 AM CDT Gender Identity Female 04/15/2024 8:13 PM RAILROAD COMMISSIONER Sexual Orientation Straight 04/15/2024 8: 13 PM RAILROAD COMMISSIONER documented as of this encounter Plan of Treatment Not on file documented as of this encounter Procedures Procedure Name Priority Date/Time Associated Diagnosis Comments URIC ACID, S/P Routine 09/24/2024 10:02 AM CDT PHOSPHORUS (INORGANIC), S Routine 09/24/2024 10:02 AM CDT FERRITIN, S Routine 09/24/2024 10:02 AM CDT VITAMIN B12 ASSAY, S Routine 09/24/2024 10:02 AM CDT COMPREHENSIVE METABOLIC PANEL, S/P Routine 09/24/2024 10:02 AM CDT documented in this encounter Results * Vitamin B12 Assay (09/24/2024 10:02 AM CDT) EXT Vitamin B12 Assay, S 395 243 - 894 pg/mL [facility] 09/24/2024 10:0 2 AM CDT Narrative [facility] - 09/25/2024 11:06 AM CDT Source result document attached to Order Number [id number] ([id number]) dated 09/24/2024. External results verified in Extract by Stas Crandall on 09/25/2024 at 11:04 AM. us Ordering Provider External M.D. LAB BLOOD ADD-ON Final Result [facility] [address] [phone] * Ferritin (09/24/2024 10:02 AM CDT) EXT Ferritin, S 225.0 11.1 - 264.0 ng/mL [facility] 09/24/2024 10:0 2 AM CDT Narrative [facility] - 09/25/2024 11:06 AM CDT Source result document attached to Order Number [id number] ([id number]) dated 09/24/2024. External results verified in Extract by Stas Crandall on 09/25/2024 at 11:04 AM. us Ordering Provider External M.D. LAB BLOOD ADD-ON Final Result Performing Organization Address [facility] Co de Phone Number [facility] [address] [phone] * Phosphorus Inorganic (09/24/2024 10:02 AM CDT) [facility] EXT Phosphorus (Inorganic), S 3.7 2.5 - 4.5 mg/dL [facility] 09/24/2024 10:0 2 AM CDT [employer] [facility] - 09/25/2024 11:06 AM CDT Source result document attached to Order Number [id number] ([id number]) dated 09/24/2024. External results verified in Extract by Stas Crandall on 09/25/2024 at 11:04 AM. us Ordering Provider External M.D. LAB BLOOD ADD-ON Final Result Performing Organization Address City/[facility]/ZIP Co de Phone Number [facility] [address] [phone] * Uric Acid (09/24/2024 10:02 AM CDT) EXT Uric Acid, S 5.7 2.2 - 8.4 mg/dL [facility] 09/24/2024 10:0 2 AM CDT Narrative [facility] - 09/25/2024 11:06 AM CDT Source result document attached to Order Number [id number] ([id number]) dated 09/24/2024. External results verified in Extract by Stas Crandall on 09/25/2024 at 11:04 AM. us Ordering Provider External MYousif LAB BLOOD ADD-ON Final Result [address] [phone] * (ABNORMAL) Comprehensive Metabolic Panel (09/24/2024 10:02 AM CDT) [facility] EXT Sodium 134(L) 135 - 149 mmol/L [facility] EXT Potassium 3.8 3.6 - 5.1 mmol/L [facility] EXT Chloride 99 96 - 114 mmol/L [facility] EXT CO2 21 20 - 32 mmol/L [facility] EXT Anion Gap 14 7 - 15 mEq/L [facility] EXT BUN (Blood Urea Nitrogen) 34(H) 7 - 30 mg/dL [facility] EXT Creatinine 1.2 0.5 - 1.5 mg/dL [facility] EXT Estimated GFR (eGFR) 47 ML [facility] EXT Calcium, Total 10.5 8.4 - 10.6 mg/dL [facility] EXT Glucose 113 60 - 115 mg/dL [facility] EXT Albumin 4.7 3.3 - 5.0 g/dL [facility] EXT AST 41(H) 12 - 35 U/L [facility] EXT ALT 37(H) 4 - 35 U/L [facility] 09/24/2024 10:0 2 AM CDT Narrative [facility] - 09/25/2024 11:06 AM CDT External results verified in Extract by Stas Crandall on 09/25/2024 at 11:04 AM. us Ordering Provider External Karen LAB BLOOD ADD-ON Final Result Performing Organization Address City/State/[facility] Co de Phone Number [facility] [address] [place] [address] documented in this encounter Visit Diagnoses Not on filedocumented in this encounter
--- OUTSIDE RECORDS SUMMARY | 2024-10-26 09:29 | XMS_ITS | CCD ---
Author Name Interface, [id number] [facility] Address [address] [place] [id number] [facility] Address [address] [address] Care Team Providers Care Glass Polisher Name Role Phone Colton Sarabia Unavailable Unavailable Care Plan Reason for Visit Diagnostic Results Social History
--- OUTSIDE RECORDS SUMMARY | 2024-10-26 09:29 | XMS_ITS | Encounter Summary ---
Author Organization [facility] Address [address] [place] [address] Care Team Providers Care Sales Service Assistant Name Role Phone Unavailable Primary Care Provider Unavailabl e Encounter Details Date Type Department Care Team (Late st Contact Info) Description 09/24/2024 Orders Only Division of Nephrology and Hypertension in [place], [place] [address] [place] [address] External, Ordering Provider, Karen Social History Tobacco Use Types Packs/Day Years Used Date Smoking Tobacco: Former Cigarettes 1 - 04/01/1976 Smokeless Tobacco: Never Alcohol Use Standard Drinks/Week Comments Not Currently 0 (1 standard drink = 0.6 oz pur e alcohol) Maybe 1 drink per momth [facility] Utilities Answer Date Recorded In the past 12 months has e [employer], gas, oil, or water [employer] threatened to shut off services in your [...] your living situation today? I have a [facility] place to live 04/15/2024 Comments No Sex and Gender Information Value Date Recorded Sex Assigned at Female 04/15/2024 8:13 PM SUPERVISOR LEAF SPRING FABRICATION Legal Sex Female 8:47 AM CDT Gender Identity Female 04/15/2024 8:13 PM SUPERVISOR LEAF SPRING FABRICATION Sexual Orientation Straight 04/15/2024 8: 13 PM SUPERVISOR LEAF SPRING FABRICATION documented as of this encounter Plan of Treatment Not on file documented as of this encounter Procedures Procedure Name Priority Date/Time Associated Diagnosis Comments IRON AND TOT IRON-BINDING CAPACITY, S/P Routine 09/24/2024 10:02 AM CDT documented in this encounter Results * Iron and Total Iron-Binding Capacity (09/24/2024 10:02 AM CDT) EXT Iron 75 37 - 170 ug/dL [facility] EXT Total Iron Binding Capacity 305 265 - 497 ug/dL [facility] 09/24/2024 10:0 2 AM CDT Narrative [facility] - 09/24/2024 3:29 PM CDT External results verified in Extract by Farheen Pérez on 09/24/2024 at 03:28 PM. us Ordering Provider External M.DSharita LAB BLOOD ADD-ON Final Result [facility] [address] [place] [address], [facility] [phone] documented in this encounter Visit Diagnoses Not on filedocumented in this encounter
--- OUTSIDE RECORDS SUMMARY | 2024-10-26 09:29 | XMS_ITS | Encounter Summary ---
Author Organization [facility] Address [address] [place] [address] Care Team Providers Care Manager Commodities Name Role Phone Unavailable Primary Care Provider Unavailabl e Encounter Details Date Type Department Care Team (Late st Contact Info) Description 09/24/2024 Orders Only Division of Nephrology and Hypertension in [place], [place] [address] [place] [address] External, Ordering Provider, Karen Social History Tobacco Use Types Packs/Day Years Used Date Smoking Tobacco: Former Cigarettes 1 - 04/01/1976 Smokeless Tobacco: Never Alcohol Use Standard Drinks/Week Comments Not Currently 0 (1 standard drink = 0.6 oz pur e alcohol) Maybe 1 drink per momth [facility] Utilities Answer Date Recorded In the past 12 months has e [employer], gas, oil, or water [employer] threatened to shut off services in your [...] your living situation today? I have a [facility] place to live 04/15/2024 Comments No Sex and Gender Information Value Date Recorded Sex Assigned at Female 04/15/2024 8:13 PM RAILWAY SHUNTER Legal Sex Female 8:47 AM CDT Gender Identity Female 04/15/2024 8:13 PM RAILWAY SHUNTER Sexual Orientation Straight 04/15/2024 8: 13 PM RAILWAY SHUNTER documented as of this encounter Plan of Treatment Not on file documented as of this encounter Procedures Procedure Name Priority Date/Time Associated Diagnosis Comments EXT OUTSIDE LAB TESTS Routine 09/24/2024 9:54 AM CDT documented in this encounter Results * EXT Outside Lab Tests (09/24/2024 9:54 AM CDT) EXT Miscellaneous See scanned report [facility] 09/24/2024 9:54 AM CDT Narrative [facility] - 09/28/2024 7:00 AM CDT External results verified in Extract by Farheen Pérez on 09/28/2024 at 06:58 AM. us Ordering Provider External M.DSharita LAB BLOOD NON AD D-ON Final Result [facility] [address] [place] [address] documented in this encounter Visit Diagnoses Not on filedocumented in this encounter
--- OUTSIDE RECORDS SUMMARY | 2024-10-26 09:29 | XMS_ITS | CCD ---
Author Name Interface, [id number] lity Address [address] [facility] [address] [address] Organization [facility] Address [address] [facility] [address] [place] [address] Care Team Providers Care Track Sweeper Name Role Phone Colton Sarabia Unavailable Unavailable Care Plan Date Type Value 03/19/2024 APPOINTMENT LAB 15 MIN 03/19/2024 APPOINTMENT NEW PT CONSULT 6 0 MIN 03/16/2024 APPOINTMENT LAB 15 MIN 03/16/2024 APPOINTMENT NEW PT CONSULT 4 0 MIN Reason for Visit NEW PT CONSULT 60 MIN Diagnostic Results Date Type Test Units Lower Limit Upper Limit Result Flag Comments Status Ordered By Specimen Source Lab Address 03/09 Misc other lab See d Social History Date Name Value 03/10/2024 Sex Female
--- OUTSIDE RECORDS SUMMARY | 2024-10-26 09:29 | XMS_ITS | Encounter Summary ---
Author Organization [facility] Address [address] [place] [address] Care Team Providers Care Cdl Company Flatbed Driver Name Role Phone Unavailable Primary Care Provider Unavailabl e Encounter Details Date Type Department Care Team (Late st Contact Info) Description 09/24/2024 Orders Only Division of Nephrology and Hypertension in [place], [place] [address] [place] [address] External, Ordering Provider, Karen Social History Tobacco Use Types Packs/Day Years Used Date Smoking Tobacco: Former Cigarettes 1 - 04/01/1976 Smokeless Tobacco: Never Alcohol Use Standard Drinks/Week Comments Not Currently 0 (1 standard drink = 0.6 oz pur e alcohol) Maybe 1 drink per momth [facility] Utilities Answer Date Recorded In the past 12 months has e [employer], gas, oil, or water [employer] threatened to shut off services in your [...] Sex Assigned at Female 04/15/2024 8:13 PM PRESS OFFBEARER Legal Sex Female 8:47 AM CDT Gender Identity Female 04/15/2024 8:13 PM PRESS OFFBEARER Sexual Orientation Straight 04/15/2024 8: 13 PM PRESS OFFBEARER documented as of this encounter Plan of Treatment Not on file documented as of this encounter Procedures Procedure Name Priority Date/Time Associated Diagnosis Comments ALBUMIN, RANDOM, U Routine 09/24/2024 2: 55 PM CDT FOLATE, S Routine 09/24/2024 10:02 AM CDT documented in this encounter Results * Albumin, Random, Urine (09/24/2024 2:55 PM CDT) EXT Creatinine, Urine 56.7 mg/dL SCANNED REPORT EXT Microalbumin-Ra ndom, U 1 mg/dL SCANNED REPORT 09/24/2024 2:55 PM CDT Narrative SCANNED REPORT - 09/25/2024 9:59 AM CDT External results verified in Extract by Stas Crandall on 09/25/2024 at 09:58 AM. us Ordering Provider External M.DSharita LAB URINE ORDERA BLES Final Result SCANNED REPORT * Folate (09/24/2024 10:02 AM CDT) EXT Folate, S >22.3 >=5.9 ng/mL SCANNED REPORT 09/24/2024 10:0 2 AM CDT Narrative [facility] - 09/25/2024 9:59 AM CDT Source result document attached to Order Number [id number] ([id number]) dated 09/24/2024. External results verified in Extract by Stas Crandall on 09/25/2024 at 09:58 AM. us Ordering Provider External Karen LAB BLOOD ADD-ON Final Result Performing Organization Address City/State/[facility] Co de Phone Number [facility] NA SCANNED REPORT documented in this encounter Visit Diagnoses Not on filedocumented in this encounter
--- OUTSIDE RECORDS SUMMARY | 2024-10-26 09:29 | XMS_ITS | Clinical Summary ---
Author Organization [employer] [facility] Address [address] [place] [address] Care Team Providers Care Key Holder Name Role Phone Pcp, No Primary Care Provider Unavailabl e Allergies Active Allergy Reactions Criticality Noted Date Comments Amlodipine Edema 11/24/2007 Swelling around ankles while on this Medications blood-glucose meter (FREESTYLE LITE METER)Indications:Diabe orly mellitus type 2 in obese (HC) Dispense meter, test strips, lancets covered by pt ins. 250.00 NIDDM type II - Test 1 time/day 1 Device 06/04/19 21 Active cholecalciferol (Vitamin D-3) 2,000 unit capsule Take 1 Capsule (2,000 units) by mouth once daily. 0 01/14/20 21 Active blood sugar diagnostic (FreeStyle Lite Strips) stripIndications:Diabet es mellitus type 2 in obese (HC) USE TO TEST ONCE DAILY 100 Each 3 02/07/20 22 Active multivitamin capsule Take 1 Capsule by [...] EVERY MORNING 90 Tablet 01/21/20 24 Active CPAPIndications:MARK (obstructive sleep apnea) RESMED CPAP (E0601) machine for home use at pressure: 5-15cmw, Choice of mask (A7030 or A7034) w/full face cushion (A7031) x1/mo, nasal cushion (A7032) x2/mo, or nasal pillows (A7033) x 2/mo; Length of Need: 99 months; Frequency of use: Daily 1 Each 11 07/10/19 25 Active Active Problems Problem Noted Date Diagnosed [...] Encounters Date Type Department Care Team Description 10/23/2024 Travel 09/14/2024 11:20 AM CDT Office Visit [facility] [address] [place] [address] Rocael Delgadillo, OD Eye Exam (DM CEE) 09/13/2024 Travel 09/11/2024 Telephone [facility] [address] [facility] [address] [place] [address] Lin Velasquez PA Appointment 09/07/2024 Telephone [facility] [address] [place] [address] Jorgito Erickson MD Lab from Last 3 Months Immunizations Immunization Administration Dates Next Due COVID-19 vaccine (CommitChange[employer]Bio NTEdmodo 30mcg/0.3mL) 12YO+ BIVALENT FARZANA GALAN 12/29/2021 Hepatitis A (Adult) 07/09/2014 Influenza A (H1N1), Inactivated 02/16/2009 Influenza, High-dose Inactivated 024,01/09/2023,01/14/2019,2016,12/05/2015 Influenza, IIV3 (Age >=3 years) 12/31/2011,05/07 Influenza, [...] on file Legal Sex Female 5:24 AM COMMERCIAL PRINT SALESMAN Gender Identity Not on file Sexual Orientation Not on file Obstetrics History Para Term AB IAB SAB Ectopic Multiple Livin g Live Births 3 3 3 0 0 0 0 0 3 Date Outcome GA Total Labor Labor/2nd/3rd Weight Sex Type Anes PTL Roxy A1 A5 Name Clin Term Term Term Last Filed Vital Signs Vital Sign Reading Time Taken Comments Blood Pressure 137/69 07/09/2024 2:26 PM CDT Pulse 99 07/09/2024 2:26 PM CDT Temperature 36.8 C (98.3 F) 08/06/2023 10:43 AM CDT Respiratory Rate 24 05/06/2023 2:16 PM COMMERCIAL PRINT SALESMAN Oxygen Saturation 98% 07/09/2024 2:26 PM CDT Inhaled Oxygen Concentration - - Weight 97.8 kg (215 lb 9.6 oz) 08/02/2023 10:20 AM CDT Height 165.1 cm (5' 5) 06/10/2023 10:39 AM CDT Body Mass Index 35.88 06/10/2023 10:39 AM CDT Plan of Treatment Upcoming Encounters Date Type Department Care Team (Late st Contact Info) Description 10/28/2024 11:30 AM CDT Office Visit [facility] [id number] [place] [address] Lin Velasquez, JACOBO [address] [place] [address] Health Maintenance Due Date Last Done Comments Tetanus booster 11/08/2022 11/08/2012 Medicare Wellness for age 65+ 08/22/2023 08/21/2022 Depression screening for age 12+ 08/23/2023 08/22/2022, 08/21/2022, 02/20/2021, Additional history exists RSV vaccine for adults or (1 - 1-dose 75+ series) 01/13/2024 BMI (ht and wt on same day) for age 18+ 06/09/2024 06/10/2023, 01/03/2023, 08/21/2022, Additional history exists COVID-19 vaccine series ( season) 2024 12/19/2023, 01/25/2023, 12/29/2021, Additional history exists Influenza Vaccine (#1) 2024 , 01/16/2023, 01/09/2023, Additional history exists Lipids for age 45-75 05/11/2027 05/11/2022, 01/13/2021, 11/25/2019, Additional history exists Colonoscopy through age 75 08/11/202808/11, 08/12/2023, 05/28/2016, Additional history exists Hepatitis C screening for age 18-79 Completed 03/11/2008 Pneumococcal series for age 50+ Completed 05/07/2016, 07/09/2014 DEXA/DXA scan for age 65+ Completed 09/23/2017 Zoster (shingles) series for age 50+ Completed 10/13/2017, 08/04/2017, 07/14/2017, Additional history exists Hepatitis B series for 19+ Aged Out N o longer eligible based on patient's age to complete this topic Procedures Procedure Name Priority Date/Time Associated Diagnosis Comments SCAN-COLONOSCOPY 08/12/2023 12:0 0 AM CDT LC LIPID PANEL AND CHOL/HDL RATIO Routine 05/11/2022 10:02 AM COMMERCIAL PRINT SALESMAN Type 2 diabetes mellitus with other specified complication, without long-term current use of insulin (HC) HYPERCHOLESTEROLEMI A, PURE XR DXA BONE DENSITY 2 SITES AXIAL Routine 09/23/2017 10:06 AM CDT Post-menopausal ANTI HCV Routine 03/11/2008 4:34 PM COMMERCIAL PRINT SALESMAN Elev Transaminase/LDH from Last 3 Months or Most Recently Relevant to Health Maintenance Results * SCAN-COLONOSCOPY (08/12/2023 12:00 AM CDT) us Scanner OTHER Final Result * (ABNORMAL) LC LIPID PANEL AND CHOL/HDL RATIO (05/11/2022 10:02 AM COMMERCIAL PRINT SALESMAN) Cholesterol, Total 171 100 - 199 mg/dL 05/16/2022 1:07 AM [facility] Triglycerides 196(H) 0 - 149 mg/dL 05/16/2022 1:07 AM [facility] HDL Cholesterol 41 >39 mg/dL 1:07 AM [facility] VLDL Cholesterol Jonathan 34 5 - 40 mg/dL 05/16/2022 1:07 AM [facility] LDL Chol Calc (NIH) 96 0 - 99 mg/dL 05/16/2022 1:07 AM [facility] T. Chol/HDL Ratio 4.2 0.0 - 4.4 ratio 05/16/2022 1:07 AM [facility]) Comment: T. Chol/HDL Ratio Men Women 1/2 Avg.Risk 3.4 3.3 Avg.Risk 5.0 4.4 2X Avg.Risk 9.6 7.1 3X Avg.Risk 23.4 11.0 Blood BLOOD SPECIMEN / Unknown Venipuncture / Unknown 05/11/2022 10:02 AM COMMERCIAL PRINT SALESMAN 05/11/2022 10:02 AM COMMERCIAL PRINT SALESMAN Narrative [facility] - 05/16/2022 1:07 AM COMMERCIAL PRINT SALESMAN Performed at: - [facility] [address] [place] [id number] Bag Sewer: John Rock MD, Phone: [phone] us Sarthak Ko MD SEND OUTS Final Resul t [facility] [address] [place] [address], * XR DXA BONE DENSITY 2 SITES AXIAL (09/23/2017 10:06 AM CDT) Anatomical Region Laterality Modality Spine, HIPS, HIPL, HIPR Other Narrative 09/24/2017 5:58 PM CDT Please see scanned document for results of this study. us Yamile Block DO DEXA Final Resul t * ANTI HCV (03/11/2008 4:34 PM COMMERCIAL PRINT SALESMAN) ANTI HCV Non-reacti ve [facility] Blood specimen (specimen) BLOOD SPECIMEN / Unknown 03/11/2008 4:34 PM COMMERCIAL PRINT SALESMAN 03/11/2008 4:29 PM COMMERCIAL PRINT SALESMAN us Khalif Mon MD SEND OUTS Final Res ult [facility] INTERNAL ZIP [address] [place] [phone] from Last 3 Months or Most Recently Relevant to Health Maintenance Insurance [employer] MEDICARE PART B HB ONLY MEDICARE PB ONLY MEDICARE PB ONLY [facility] MEDICARE PART B HB ONLY MEDICARE PART A HB ONLY Care Teams Key Holder Relationship Specialty Start Date End Date Pcp, No . PCP - General 05/14/24
--- OUTSIDE RECORDS SUMMARY | 2024-10-26 09:29 | XMS_ITS | Encounter Summary ---
Author Organization [facility] Address [address] [place] [address] Care Team Providers Care Capacity Planning Engineer Name Role Phone Unavailable Primary Care Provider Unavailabl e Encounter Details Date Type Department Care Team (Latest Contact Info) Description 10/16/2024 Results Follow-Up Division of Gastroenterology in [place], [place] [address] [place] [address] Ruby Taylor M.D. [address] [place] [address] Upper GI Endoscopy Social History Tobacco Use Types Packs/Day Years Used Date Smoking Tobacco: Former Cigarettes 1 - 04/01/1976 Smokeless Tobacco: Never Alcohol Use Standard Drinks/Week Comments Not Currently 0 (1 standard drink = 0.6 oz pur e alcohol) Maybe 1 drink per momth [facility] Utilities Answer Date Recorded In [...] your living situation today? I have a [facility] place to live 04/15/2024 Comments No Sex and Gender Information Value Date Recorded Sex Assigned at Female 04/15/2024 8:13 PM SIDE SAWYER Legal Sex Female 8:47 AM CDT Gender Identity Female 04/15/2024 8:13 PM SIDE SAWYER Sexual Orientation Straight 04/15/2024 8: 13 PM SIDE SAWYER documented as of this encounter Plan of Treatment Not on file documented as of this encounter Visit Diagnoses Not on filedocumented in this encounter
--- OUTSIDE RECORDS SUMMARY | 2024-10-26 09:29 | XMS_ITS | Encounter Summary ---
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 Name Role Phone Unavailable Primary Care Provider Unavailabl e Encounter Details Date Type Department Care Team (Late st Contact Info) Description 09/24/2024 Orders Only Division of Nephrology and Hypertension in [place], [place] [address] [place] [address] External, Ordering Provider, Karen Social History Tobacco Use Types Packs/Day Years Used Date Smoking Tobacco: Former Cigarettes 1 - 04/01/1976 Smokeless Tobacco: Never Alcohol Use Standard Drinks/Week Comments Not Currently 0 (1 standard drink = 0.6 oz pur e alcohol) Maybe 1 drink per momth [facility] Utilities Answer Date Recorded In the past 12 months has e [employer], gas, oil, or water [employer] threatened to shut off services in your [...] your living situation today? I have a [facility] place to live 04/15/2024 Comments No Sex and Gender Information Value Date Recorded Sex Assigned at Female 04/15/2024 8:13 PM [employer]URANCE [employer]ILLER Legal Sex Female 8:47 AM CDT Gender Identity Female 04/15/2024 8:13 PM INSURANCE BILLER Sexual Orientation Straight 04/15/2024 8: 13 PM INSURANCE BILLER documented as of this encounter Plan of Treatment Not on file documented as of this encounter Procedures Procedure Name Priority Date/Time Associated Diagnosis Comments CBC WITH DIFFERENTIAL, B Routine 09/24/2024 10:02 AM CDT HEMOGLOBIN A1C, B Routine 09/24/2024 10: 02 AM CDT EXTP URINALYSIS WITH MICROSCOPY, URINE Routine 09/24/2024 9:54 AM CDT documented in this encounter Results * (ABNORMAL) CBC with Differential, Blood (09/24/2024 10:02 AM CDT) EXT Leukocytes 6.01 4.50 - 11.00 K/uL [facility]) EXT RBC 3.73(L) 4.00 - 5.20 m/uL [facility]) EXT Hemoglobin 10.7(L) 12.0 - 16.0 gm/dL [facility]) EXT Hematocrit 33.5 33.0 - 51.0 % [facility]) EXT MCV 90 80 - 100 fL [facility]) EXT Platelet Count 306 140 - 440 K/uL [facility]) 09/24/2024 10:0 2 AM CDT Narrative [facility] - 09/24/2024 1:22 PM CDT Source result document attached to Order Number [id number] ([id number]) dated 09/24/2024. External results verified in Extract by Farheen Pérez on 09/24/2024 at 01:19 PM. us Ordering Provider External M.Rere LAB BLOOD ADD-ON Final Result Performing Organization Address [facility] [employer] de Phone Number [facility] [place] [address], [facility] [phone] * Hemoglobin A1c (09/24/2024 10:02 AM CDT) EXT Hemoglobin A1c, B 5.4 0 - 5.6 % [facility] 09/24/2024 10:0 2 AM CDT Narrative [facility]) - 09/24/2024 1:22 PM CDT External results verified in Extract by Farheen Pérez on 09/24/2024 at 01:19 PM. us Ordering Provider External Karen LAB BLOOD ADD-ON Final Result Performing Organization Address [facility] de Phone Number [address] [phone] * (ABNORMAL) EXT Urinalysis with Microscopy, Urine (09/24/2024 9:54 AM CDT) EXT Color Yellow Yellow [facility]) EXT Appearance, Urine Clear Clear [facility]) EXT Glucose Qualitative, Urine Negative Negative [facility]) EXT Bilirubin, Urine Negative Negative [facility] [place] EXT Ketones, POCT, Urine Negative Negative [facility] EXT Specific [place], POCT, Urine 1.010 1.000 - 1.030 [facility] EXT Blood, Urine Negative Negative [facility], [facility] EXT pH, Random, Urine 5.5 5.0 - 8.5 [facility], [facility]) EXT Protein, Urine Negative Negative [facility], [facility] EXT Urobilinogen, Urine 0.2 0.2 - 1.0 [facility], [facility]) EXT Nitrite, Urine Negative Negative [facility], [facility] EXT Leukocyte Esterase, Urine 1+(A) Negative [facility], [facility] EXT Red Blood Cells, U 0-2 0 - 2 [facility] EXT White Blood Cells, U 0-2 0 - 5 [facility], [facility]) EXT Squamous Cells Few None-Few [facility], [facility] EXT Bacteria Few(H) None [facility] 09/24/2024 9:54 AM CDT Narrative [facility]) - 09/24/2024 1:22 PM CDT Source result document attached to Order Number [id number] ([id number]) dated 09/24/2024. External results verified in Extract by Farheen Pérez on 09/24/2024 at 01:19 PM. us Ordering Provider External Karen LAB URINE ORDERLisa CASTELLON Final Result [facility]) [address] [place] [address], [facility] [phone] documented in this encounter Visit Diagnoses Not on filedocumented in this encounter
--- OUTSIDE RECORDS SUMMARY | 2024-10-26 09:29 | XMS_ITS | Clinical Summary ---
Author Organization [facility] Address [address] [place] [address] Care Team Providers Care Piano Accompanist Name Role Phone Unavailable Primary Care Provider Unavailabl e Source Comments Patient records contain information from all sites at [facility]. For routine questions regarding patient records, call [phone] during business hours, M-F 8:00 AM - 5:00 PM Central Time. Record requests for emergency care only can be directed to [phone] at any time.[facility] Allergies Active Allergy Reactions Criticality Noted Date Comments Amlodipine Edema (Reselect Reaction),Other (see comments) Low 11/24/2007 Swelling around ankles while on this Medications * This document contains information received from the source organization and may not represent a complete record from that organization. lancets (Accu-Chek Fastclix Lancet Drum) USE TO TEST ONCE DAILY 5 Active atorvastatin (LIPITOR) 10 mg tablet 1 Active doxepin (SINEquan) 25 mg capsule 1 Active losartan (COZAAR) 100 mg tablet 1 Active NIFEdipine XL (PROCARDIA XL) 30 mg 24 hr tablet 1 Active blood sugar diagnostic strips (FreeStyle Lite Strips) USE TO TEST ONCE DAILY 2 Active calcium carbonate-karlo min D3 600 mg-5 mcg (200 unit) capsule Take 1 tablet by mouth daily. 5 Active ferrous sulfate 325 mg (65 mg iron) tablet Take 325 mg by mouth. Active loperamide (Imodium A-D) 2 mg tablet Take by mouth daily. 4 Active magnesium 250 mg tablet Take 500 mg by mouth daily. 5 Active triamterene-hy droCHLOROthiaz mike (Maxzide-25) 37.5-25 mg per tablet Take 1 tablet by mouth daily. 90 tablet 3 5 07/24/19 26 Active famotidine (Pepcid) 10 mg tablet Take 10 mg by mouth 2 (two) times a day. Active metFORMIN (Glucophage) 500 mg tablet Take 1 tablet (500 mg total) by mouth daily with morning meal. 5 10/20/19 26 Active metFORMIN (Glucophage) 500 mg tablet Take 1 tablet (500 mg total) by mouth 2 (two) times a day with meals. 5 10/20/19 25 Discontinued hydrocortisone (Hytone) 2.5 % cream APPLY TO UNDER BREAST TWICE DAILY NEEDED. 4 10/20/19 25 Discontinued ketoconazole (Nizoral) 2 % cream APPLY TO UNDER BREATS TWICE DAILY NEEDED 4 10/20/19 25 Discontinued Active Problems Problem Noted Date Diagnosed Date Other Malignant Neuroendocrine Tumors 06/30/2024 Mass Kidney 04/27/2024 Anemia 07/02/2023 Chronic Kidney Disease (CKD) , Stage 3a Glomerular Filtration Rate (GFR) 45 To 59 11/14/2021 Hypertensive Chronic Kidney Disease With Stage 1 Through Stage 4 Chronic Kidney Disease, Or Unspecified Chronic Kidney Disease 11/14/2021 Hyperparathyroidism Renal Secondary 11/14/2021 Hyperlipidemia 11/14/2021 Apnea Sleep Obstructive 11/14/2021 Primary Osteoarthritis Knee Bilateral 11/14/2021 Diabetes Mellitus Type 2 11/14/2021 Encounters * This document contains information received from the source organization and may not represent a complete record from that organization. Date Type Department Care Team Description 10/19/2024 3:00 PM CDT External Outreach Division of Nephrology and Hypertension in [place], [place] [address] [place] [address] Ronn Alvarez Jr., D.O. Chronic Kidney Disease (CKD), Stage 3a Glomerular Filtration Rate (GFR) 45 To 59 (HCC) (Primary Dx); Hypertensive Chronic Kidney Disease With Stage 1 Through Stage 4 Chronic Kidney Disease, Or Unspecified Chronic Kidney Disease; Diabetes Mellitus Type 2 (HCC); Hyperparathyroidism Renal Secondary (HCC); Anemia; Other Malignant Neuroendocrine Tumors (HCC) 10/19/2024 1:00 PM CDT Virtual Visit Division of Gastroenterology in [place], [place] [address] [place] [phone] Ruby Taylor M.D. 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 Anemia Iron Deficiency; Gastric Antral Vascular Ectasia With Hemorrhage Discharge Disposition: Home or Self Care 10/16/2024 Results Follow-Up Division of Gastroenterology in [place], [place] [address] [place] [phone] uRby Taylor M.D. Upper GI Endoscopy 09/24/2024 Orders Only Division of Nephrology and Hypertension in [place], [place] [address] [place] [phone] External, Ordering Provider, MYousif 09/24/2024 Orders Only Division of Nephrology and Hypertension in [place], [place] [address] [place] [phone] External, Ordering Provider, MYousif 09/24/2024 Orders Only Division of Nephrology and Hypertension in [place], [place] [address] [place] [phone] External, Ordering Provider, Karen 09/24/2024 Orders Only Division of Nephrology and Hypertension in [place], [place] [address] [place] [phone] External, Ordering ProviderKaren 09/24/2024 Orders Only Division of Nephrology and Hypertension in [place], [place] [address] [place] [phone] External, Ordering ProviderKaren 08/28/2024 Orders Only Division of Gastroenterology in [place], [place] [address] [place] [phone] Ruby Taylor M.D. 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 08/26/2024 Orders Only Division of Gastroenterology in [place], [place] [address] [place] [phone] Ruby Taylor M.D. Mass Pancreas (Primary Dx) 08/19/2024 12:00 PM CDT Comprehensive Visit Division of Hepatobiliary and Pancreas Surgery in [place], [place] [address] [place] [address] Ej Castellon M.D., Ph.D. Mass Pancreas 08/19/2024 8:31 AM CDT Anesthesia Event Division of Gastroenterology in [address] [phone] Maco Barcenas APRN, LISA, DNAP 08/19/2024 8:25 AM CDT Ancillary Procedure Department of Gastroenterology 08/19/2024 7:23 AM CDT - 08/19/2024 10:00 AM CDT Hospital Encounter Division of Gastroenterology in [address] [phone] Ruby Taylor M.D. Robinson, Wesley B, APRN, LISA, MNA Anemia Iron Deficiency Discharge Disposition: Home or Self Care 08/07/2024 Clinical Communication Division of Hepatobiliary and Pancreas Surgery in [place], [place] [address] [place] [phone] Ej Castellon M.D., Ph.D. 07/31/2024 3:30 PM CDT Office Visit Department of Urology in [place], [place] [address] [place] [phone] Pravin Martinez M.D. Mass Kidney 07/31/2024 1:02 PM CDT - 07/31/2024 11:59 PM CDT Hospital Encounter Department of Radiology, [place], [place] [address] [place] [phone] Pravin Martinez M.D. Mass Kidney Discharge Disposition: Home or Self Care 07/31/2024 9:44 AM CDT - 07/31/2024 1:01 PM CDT Hospital Encounter Department of Radiology, [place], [place] [address] [place] [address] Pravin Martinez M.D. Mass Kidney Discharge Disposition: Home or Self Care 07/31/2024 9:00 AM CDT - 07/31/2024 9:43 AM CDT Hospital Encounter Department of Laboratory Medicine and Pathology, [facility] in [place], [place] [address] [place] [address] Pravin Martinez M.D. Mass Kidney Discharge Disposition: Home or Self Care 07/31/2024 Clinical Communication Division of Gastroenterology in [address] [phone] Ruby Taylor M.D. 07/27/2024 Orders Only Division of Gastroenterology in [address] [phone] Ruby Taylor M.D. Mass Pancreas (Primary Dx) from Last 3 Months Family History Medical History Relation Name Comments Pancreatic cancer Brother 1 Steve Chery 68 years Skin cancer Brother 1 Steve Chery Squamous Coronary artery disease Brother 2 Eliud Chery at 40 massive heart attack Psychiatric Daughter Kathleen Daniel Anorexia Bleeding Disorder Father Arnold Chery Unsure of the name of it Colon cancer Father Arnold Chery 68 years Hyperlipidemia Father Arnold Chery Hypertension Father Arnold Chery Stroke Maternal Grandmother Gabriele Duran Diabetes Paternal Grandmother Casie Miri Colon polyps Sister 1 Katherin Peters Rectal cancer Sister 1 Katherin Peters 70 years Skin cancer Sister 2 Shannan Copeland Basal cell Suicide Attempts Sister 3 Beth Asher Age 78 Relation Name Status Comments Brother 1 Steve Chery Alive Brother 2 Eliud Chery Alive Daughter Kathleen Daniel Alive Father Arnold Chery Alive Maternal Grandmother Gabriele Duran Alive Paternal Grandmother Casie Chery Alive Sister 1 Katherin Peters Alive Sister 2 Shannan Copeland Alive Sister 3 Beth Asher Alive Social History Tobacco Use Types Packs/Day Years Used Date Smoking Tobacco: Former Cigarettes 1 - 04/01/1976 Smokeless Tobacco: Never Tobacco Cessation:Counseling Given: Not Answered Alcohol Use Standard Drinks/Week Comments Not Currently 0 (1 standard drink = 0.6 oz pur e alcohol) Maybe 1 drink per momth [facility] Utilities Answer Date Recorded In the past [...] your living situation today? I have a [facility] place to live 04/15/2024 Comments No Sex and Gender Information Value Date Recorded Sex Assigned at Female 04/15/2024 8:13 PM [employer] Legal Sex Female 8:47 AM CDT Gender Identity Female 04/15/2024 8:13 PM ST[employer]ER Sexual Orientation Straight 04/15/2024 8: 13 PM ST[employer] FEEDER Last Filed Vital Signs Vital Sign Reading Time Taken Comments Blood Pressure 137/63 10/19/2024 3:24 PM CDT Pulse 73 10/19/2024 3:24 PM CDT Temperature 36.7 C (98.1 F) 10/16/2024 10:05 AM CDT Respiratory Rate 12 10/16/2024 10:21 AM CDT Oxygen Saturation 95% 10/16/2024 10:21 AM CDT Inhaled Oxygen Concentration - - Weight 91.8 kg (202 lb 6.1 oz) 10/19/2024 3:24 P M CDT Height 165.1 cm (5' 5) 10/16/2024 8:21 AM CDT Body Mass Index 33.68 10/16/2024 8:21 AM CDT Plan of Treatment Health Maintenance Due Date Last Done Comments CT Colonography 1950 Cologuard 1950 Diabetic Office Visit with Foot Exam 1950 Hepatitis C Screening 1950 Hepatitis B Vaccines (1 of 3 - Risk 3-dose series) 2009 RSV vaccine - (32-36 weeks) or 60+ years (1 - 1-dose 75+ series) 01/13/2024 Depression Screening (Annual PHQ-2) 04/01/2024 COVID-19 Vaccine ( season) 2024 12/19/2023, 01/25/2023, 12/29/2021, Additional history exists Influenza Vaccine (#1) 2024 , 01/16/2023, 01/09/2023, Additional history exists Hemoglobin A1C 03/26/2025 09/24/2024, 05/02, 03/05/2023, Additional history exists Mammogram 06/17/2025 06/17/2024, 05/30, 05/07/2023, Additional history exists Diabetic Eye Exam 09/14/2025 09/14/2024, , 07/17/2022, Additional history exists Creatinine Level (Kidney Function Test) 09/24/2025 09/24/2024, 07/31/2024, 04/22/2024, Additional history exists Potassium Level 09/24/2025 09/24/2024, 04/02, 04/16/2024, Additional history exists Sodium Level 09/24/2025 09/24/2024, 04/02, 04/16/2024, Additional history exists Urine Albumin 09/24/2025 09/24/2024, 04/22/2024 Office Visit for Blood Pressure Check / Re-check 10/19/2025 10/19/2024 Lipid (Cholesterol) Screening 05/11/2027 05/11/2022, 01/13/2021, 11/25/2019, Additional history exists Colonoscopy 08/11/2028 08/12/2023, 05/28/2016 Colorectal Cancer Surveillance 08/11/2028 DTaP,Tdap,and Td Vaccines (3 - Td or Tdap) 03/10/2034 03/10/2024, 11/08/2012 Pneumococcal vaccine (50+ years) Completed 05/07/2016, 07/09/2014 Bone Density Scan (Osteoporosis Screen) Discontinued 09/23/2017 Zoster Vaccines Completed 10/13/2017, 08/2017, 07/14/2017, Additional history exists Fall Risk Screen (Annual) Completed 10/16/2024 IPV Vaccines Aged Out No longer eligi ble based on patient's age to complete this topic Procedures Procedure Name Priority Date/Time Associated Diagnosis Comments UPPER GI ENDOSCOPY Routine 10/16/2024 9: 20 AM CDT Anemia Iron Deficiency Gastric Antral Vascular Ectasia With Hemorrhage EGD (ESOPHAGOGASTRODUODENO SCOPY) RESTRICTED Routine 10/16/2024 9:20 AM CDT Anemia Iron Deficiency Gastric Antral Vascular Ectasia With Hemorrhage GASTROENTEROLOGY IMAGE EXAM Routine 10/16/2024 9:20 AM CDT ALBUMIN, RANDOM, U Routine 09/24/2024 2: 55 PM CDT VITAMIN B12 ASSAY, S Routine 09/24/2024 10:02 AM CDT FERRITIN, S Routine 09/24/2024 10:02 AM CDT PHOSPHORUS (INORGANIC), S Routine 09/24/2024 10:02 AM CDT URIC ACID, S/P Routine 09/24/2024 10:02 AM CDT COMPREHENSIVE METABOLIC PANEL, S/P Routine 09/24/2024 10:02 AM CDT FOLATE, S Routine 09/24/2024 10:02 AM CDT IRON AND TOT IRON-BINDING CAPACITY, S/P Routine 09/24/2024 10:02 AM CDT CBC WITH DIFFERENTIAL, B Routine 09/24/2024 10:02 AM CDT HEMOGLOBIN A1C, B Routine 09/24/2024 10:02 AM CDT EXT OUTSIDE LAB TESTS Routine 09/24/2024 9:54 AM CDT EXTP URINALYSIS WITH MICROSCOPY, URINE Routine 09/24/2024 9:54 AM CDT GASTROENTEROLOGY IMAGE EXAM Routine 08/19/2024 8:25 AM CDT UPPER GI ENDOSCOPY Routine 08/19/2024 8: 24 AM CDT Anemia Iron Deficiency EGD (ESOPHAGOGASTRODUODENO SCOPY) Routine 08/19/2024 8:24 AM CDT Anemia Iron Deficiency DX CHEST AP OR PA AND LATERAL 2 VIEWS RAD - Routine (most inpatients and all outpatients) 07/31/2024 1:21 PM CDT Mass Kidney MR ABDOMEN WITHOUT AND WITH IV CONTRAST RAD - Routine (most inpatients and all outpatients) 07/31/2024 10:51 AM CDT Mass Kidney CREATININE WITH EGFR, S/P Routine 07/31/2024 9:35 AM CDT Mass Kidney from Last 3 Months Results * Upper GI Endoscopy (10/16/2024 9:20 AM CDT) 10/16/2024 9:20 AM CDT Impressions [facility] - 10/16/2024 11:58 AM CDT Post-op Diagnoses: - Normal esophagus. - Esophagogastric landmarks identified. - Gastric antral vascular ectasia with bleeding. Treated with radiofrequency ablation. - Normal examined duodenum. - No specimens collected. Narrative [facility] - 10/16/2024 11:58 AM CDT Dmitriy 6 GI GI Patient Name: Maurisio Cuadra Date of : 1950 Age: 74 [...] been signed electronically. Number of Addenda: 0 Ruby Taylor M.D. GI PROCEDURE ORDERABLES Final Re sult Performing Organization Address [facility] Co de Phone Number [facility] * Upper GI endoscopy-Gastroenterology Image Exam (10/16/2024 9:20 AM CDT) Only the most recent of2 resultswithin the time period is included. 10/16/2024 9:20 AM CDT Narrative [facility] - 10/16/2024 12:05 PM CDT This order has been created and auto-finalized to support the import of images acquired without order. The clinical documentation to support these images can be found on the encounter that produced images. us Provider Not In System IMG NON RAD IMAGING PROCE DURES Final Result Performing Organization Address [facility] de Phone Number [facility] NA * Albumin, Random, Urine (09/24/2024 2:55 PM CDT) EXT Creatinine, Urine 56.7 mg/dL SCANNED REPORT EXT Microalbumin-Ra ndom, U 1 mg/dL SCANNED REPORT 09/24/2024 2:55 PM CDT Narrative SCANNED REPORT - 09/25/2024 9:59 AM CDT External results verified in Extract by Stas Crandall on 09/25/2024 at 09:58 AM. us Ordering Provider External Karen LAB URINE ORDERA BLES Final Result SCANNED REPORT * Iron and Total Iron-Binding Capacity (09/24/2024 10:02 AM CDT) EXT Iron 75 37 - 170 ug/dL [facility] EXT Total Iron Binding Capacity 305 265 - 497 ug/dL [facility] 09/24/2024 10:0 2 AM CDT Narrative [facility] - 09/24/2024 3:29 PM CDT External results verified in Extract by Farheen Pérez on 09/24/2024 at 03:28 PM. us Ordering Provider External Karen LAB BLOOD ADD-ON Final Result Performing Organization Address City/[facility]/ZIP Co de Phone Number [facility] [address] [place] [address] * (ABNORMAL) CBC with Differential, Blood (09/24/2024 10:02 AM CDT) EXT Leukocytes 6.01 4.50 - 11.00 K/uL [facility]) EXT RBC 3.73(L) 4.00 - 5.20 m/uL [facility] EXT Hemoglobin 10.7(L) 12.0 - 16.0 gm/dL [facility]) EXT Hematocrit 33.5 33.0 - 51.0 % [facility] EXT MCV 90 80 - 100 fL [facility] EXT Platelet Count 306 140 - 440 K/uL [facility]) 09/24/2024 10:0 2 AM CDT Narrative [facility] - 09/24/2024 1:22 PM CDT Source result document attached to Order Number [id number] ([id number]) dated 09/24/2024. External results verified in Extract by Farheen Pérez on 09/24/2024 at 01:19 PM. Ordering Provider External Karen LAB BLOOD ADD-ON Final Result Performing Organization Address [facility] Phone Number [facility], [address] [address], [facility] [phone] * Uric Acid (09/24/2024 10:02 AM CDT) EXT Uric Acid, S 5.7 2.2 - 8.4 mg/dL [facility] 09/24/2024 10:0 2 AM CDT Narrative [facility] - 09/25/2024 11:06 AM CDT Source result document attached to Order Number [id number] ([id number]) dated 09/24/2024. External results verified in Extract by Stas Crandall on 09/25/2024 at 11:04 AM. us Ordering Provider External Karen LAB BLOOD ADD-ON Final Result Performing Organization Address [facility] Phone Number [facility]ATION [facility] [address] [place] [address], [facility] [phone] * Phosphorus Inorganic (09/24/2024 10:02 AM CDT) EXT Phosphorus (Inorganic), S 3.7 2.5 - 4.5 mg/dL [facility] 09/24/2024 10:0 2 AM CDT Narrative [facility] - 09/25/2024 11:06 AM CDT Source result document attached to Order Number [id number] ([id number]) dated 09/24/2024. External results verified in Extract by Stas Crandall on 09/25/2024 at 11:04 AM. us Ordering Provider External M.D. LAB BLOOD ADD-ON Final Result [employer] NA [facility] [address] [phone] * Hemoglobin A1c (09/24/2024 10:02 AM CDT) EXT Hemoglobin A1c, B 5.4 0 - 5.6 % [facility] 09/24/2024 10:0 2 AM CDT Narrative [facility] - 09/24/2024 1:22 PM CDT External results verified in Extract by Farheen Pérez on 09/24/2024 at 01:19 PM. us Ordering Provider External MYousif LAB BLOOD ADD-ON Final Result Performing Organization Address [facility] Co de Phone Number [phone] [place] [address] * Folate (09/24/2024 10:02 AM CDT) EXT Folate, S >22.3 >=5.9 ng/mL SCANNED REPORT 09/24/2024 10:0 2 AM CDT Narrative [facility] - 09/25/2024 9:59 AM CDT Source result document attached to Order Number [id number] ([id number]) dated 09/24/2024. External results verified in Extract by Stas Crandall on 09/25/2024 at 09:58 AM. us Ordering Provider External M.D. LAB BLOOD ADD-ON Final Result [facility] NA SCANNED REPORT * Ferritin (09/24/2024 10:02 AM CDT) EXT Ferritin, S 225.0 11.1 - 264.0 ng/mL [facility] 09/24/2024 10:0 2 AM CDT Narrative [facility] - 09/25/2024 11:06 AM CDT Source result document attached to Order Number [id number] ([id number]) dated 09/24/2024. External results verified in Extract by Stas Crandall on 09/25/2024 at 11:04 AM. us Ordering Provider External M.DSharita LAB BLOOD ADD-ON Final Result Performing Organization Address [facility]/ZIP Co de Phone Number [facility] [address] [place] [address] * Vitamin B12 Assay (09/24/2024 10:02 AM CDT) EXT Vitamin B12 Assay, S 395 243 - 894 pg/mL [facility] 09/24/2024 10:0 2 AM CDT Narrative [facility] - 09/25/2024 11:06 AM CDT Source result document attached to Order Number [id number] ([id number]) dated 09/24/2024. External results verified in Extract by Stas Crandall on 09/25/2024 at 11:04 AM. us Ordering Provider External M.DSharita LAB BLOOD ADD-ON Final Result Performing Organization Address City/[facility]/ZIP Co de Phone Number [facility] [address] [place] [address] * (ABNORMAL) Comprehensive Metabolic Panel (09/24/2024 10:02 AM CDT) EXT Sodium 134(L) 135 - 149 mmol/L [facility] EXT Potassium 3.8 3.6 - 5.1 mmol/L [facility] EXT Chloride 99 96 - 114 mmol/L [facility] EXT CO2 21 20 - 32 mmol/L [facility] EXT Anion Gap 14 7 - 15 mEq/L [facility] EXT BUN (Blood Urea Nitrogen) 34(H) 7 - 30 mg/dL [facility] EXT Creatinine 1.2 0.5 - 1.5 mg/dL [facility] EXT Estimated GFR (eGFR) 47 ML [facility] EXT Calcium, Total 10.5 8.4 - 10.6 mg/dL [facility] EXT Glucose 113 60 - 115 mg/dL [facility] EXT Albumin 4.7 3.3 - 5.0 g/dL [facility] EXT AST 41(H) 12 - 35 U/L [facility] EXT ALT 37(H) 4 - 35 U/L [facility] 09/24/2024 10:0 2 AM CDT [facility] - 09/25/2024 11:06 AM CDT External results verified in Extract by Stas Crandall on 09/25/2024 at 11:04 AM. us Ordering Provider External Karen LAB BLOOD ADD-ON Final Result Performing Organization Address [facility]/ZIP Co de Phone Number [facility] [address] [place], [place] [address] [phone] * EXT Outside Lab Tests (09/24/2024 9:54 AM CDT) EXT Miscellaneous See scanned report [facility] 09/24/2024 9:54 AM CDT [facility] - 09/28/2024 7:00 AM CDT External results verified in Extract by Farheen Pérez on 09/28/2024 at 06:58 AM. us Ordering Provider External MSharitaDSharita LAB BLOOD NON AD D-ON Final Result Performing Organization Address City/[facility]/ZIP Co de Phone Number [facility] [address] [place] [address] * (ABNORMAL) EXT Urinalysis with Microscopy, Urine (09/24/2024 9:54 AM CDT) EXT Color Yellow Yellow [facility] EXT Appearance, Urine Clear Clear [facility] EXT Glucose Qualitative, Urine Negative Negative [facility]) EXT Bilirubin, Urine Negative Negative [facility] EXT Ketones, POCT, Urine Negative Negative [facility] EXT Specific [place], POCT, Urine 1.010 1.000 - 1.030 [facility] EXT Blood, Urine Negative Negative [facility] EXT pH, Random, Urine 5.5 5.0 - 8.5 [facility]) EXT Protein, Urine Negative Negative [facility]) EXT Urobilinogen, Urine 0.2 0.2 - 1.0 [facility]) EXT Nitrite, Urine Negative Negative [facility]) EXT Leukocyte Esterase, Urine 1+(A) Negative [facility] EXT Red Blood Cells, U 0-2 0 - 2 [facility]) EXT White Blood Cells, U 0-2 0 - 5 [facility]) EXT Squamous Cells Few None-Few [facility]) EXT Bacteria Few(H) None [facility]) 09/24/2024 9:54 AM CDT Narrative [facility]) - 09/24/2024 1:22 PM CDT Source result document attached to Order Number [id number] ([id number]) dated 09/24/2024. External results verified in Extract by Farheen Pérez on 09/24/2024 at 01:19 PM. us Ordering Provider External M.DSharita LAB URINE ORDERA BLES Final Result Performing Organization Address City/State/[facility] Co de Phone Number [address] [phone] * Upper GI Endoscopy (08/19/2024 8:24 AM CDT) 08/19/2024 8:24 AM CDT Impressions [facility] - 08/19/2024 9:07 AM CDT Post-op Diagnoses: - Normal esophagus. - 2 cm hiatal hernia. - Multiple fundic gland polyps. - Gastric antral vascular ectasia without bleeding. Treated with argon plasma coagulation (APC). - Normal examined duodenum. - No specimens collected. Narrative [facility] - 08/19/2024 9:07 AM CDT Dmitriy 6 GI GI Patient Name: Maurisio Cuadra Date of : 1950 Age: 74 Procedure Date: 08/19/2024 Procedure: Upper GI endoscopy Providers: Shyanne Luis MD Referring Provider: Ruby Taylor MD Pre-op Diagnoses: Iron deficiency anemia due to suspected upper gastrointestinal bleeding Recommendation: - Repeat upper endoscopy in 1 month to evaluate the response to therapy. Findings: Esophagogastric landmarks were identified: the Z-line was found at 38 cm, the gastroesophageal junction was found at 38 cm and the site of the diaphragmatic hiatus was found at 40 cm from the incisors. The examined esophagus was normal. A 2 cm hiatal hernia was present. Multiple diminutive sessile fundic gland polyps were found in the gastric body. 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 Coagulation for tissue destruction using argon plasma at 0.7 liters/minute and 30 self was successful. Estimated blood loss was minimal. The examined duodenum was normal. Procedural Details: [...] Participation: I personally performed the entire procedure. Shyanne Luis MD 08/19/2024 9:07:02 AM This report has been signed electronically. Number of Addenda: 0 us Ruby Taylor M.D. GI PROCEDURE ORDERABLES Final Re sult [employer] NA * DX Chest AP or PA and Lateral 2 Views (07/31/2024 1:21 PM CDT) Anatomical Region Laterality Modality Chest, Thoracic RST LOS, Tho racic ARZ LOS, Thoracic FLA LOS N/A Digital Radiography Impressions 07/31/2024 1:31 PM CDT Compared with the 04/16/2024 chest radiograph. Shallower inspiration with accentuation of the cardiac silhouette and vascular crowding. Slight tortuosity of the thoracic aorta is again noted. Upper abdominal postoperative changes. The chest is otherwise unremarkable. Narrative 07/31/2024 1:31 PM CDT EXAM: DX CHEST AP OR PA AND LATERAL 2 VIEWS Procedure Note Maciej Brantley M.D. - 07/31/2024 EXAM: DX CHEST AP OR PA AND LATERAL 2 VIEWS IMPRESSION: Compared with the 04/16/2024 chest radiograph. Shallower inspiration withaccentuation of the cardiac silhouette and vascular crowding. Slighttortuosity of the thoracic aorta is again noted. Upper abdominalpostoperative changes. The chest is otherwise unremarkable. Pravin Martinez M.D. [facility] PROCED URES Final Result * MR Abdomen without and with IV Contrast (07/31/2024 10:51 AM CDT) Anatomical Region Laterality Modality Abdomen, Abdominal RST LOS, Abdominal ARZ LOS, Abdominal FLA LOS N/A Magnetic Resonance Impressions 07/31/2024 11:31 AM CDT 1. No appreciable change in the 1.5 cm cystic lesion in the right upper kidney with minimally thickened enhancing septa, most compatible with a Bosniak IIF cyst. 2. 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 No evidence metastatic disease. 3. Hepatic steatosis (1%) as well as borderline liver iron concentration. Narrative 07/31/2024 11:31 AM CDT EXAM: MR ABDOMEN WITHOUT AND WITH IV CONTRAST COMPARISON: Outside MRI 04/03/2024 FINDINGS: Again seen is the cystic lesion within the upper pole the right kidney which measures up to approximately 1.5 cm (series 4, image 32 and series 2, image 9). This again contains a few minimally thickened enhancing septa. No definite nodular component. Additional small bilateral renal cysts. The bilateral renal veins and IVC are widely patent. Again seen are the two to hyperenhancing foci within the pancreas which correspond to the DOTATATE avid lesions on the PET/CT of 04/16/2024. This includes a 0.9 cm lesion in the pancreatic tail (series 8, image 207) and a more avidly hyperenhancing lesion in the uncinate process measuring 0.8 cm (series 8, image 58), both not appreciably changed. No definite additional pancreatic lesion identified. Normal caliber pancreatic duct. No suspicious hepatic lesion. Patent portal and hepatic veins. No suspicious lymphadenopathy. Negative spleen and adrenal glands. Cholecystectomy. No biliary dilatation. No suspicious osseous lesion. Remainder negative. Liver Fat Estimation: In traveling representative areas of the liver, the mean proton density fat-fraction (PDFF) is 11% Histological steatosis categories by PDFF: <5% = Normal greater than or equal to5% = Hepatic steatosis Liver Iron Concentration: In traveling representative areas of the liver, the mean liver iron concentration (LIC) is 2mg Fe/g of liver (range 1.9 - 2.1mg Fe/g). Iron overload severity grades by LIC: <1.8 mg/g = Normal 1.8 - 3.2 mg/g = Borderline >3.2 mg/g = Elevated Procedure Note Demetrius Enriquez M.D. - 07/31/2024 EXAM: MR ABDOMEN WITHOUT AND WITH IV CONTRAST COMPARISON: Outside MRI 04/03/2024 FINDINGS: Again seen is the cystic lesion within the upper pole the rightkidney which measures up to approximately 1.5 cm (series 4, image 32 andseries 2, image 9). This again contains a few minimally thickenedenhancing septa. No definite nodular component. Additional small bilateral renal cysts. The bilateral renalveins and IVC are widely patent. Again seen are the two to hyperenhancing foci within the pancreas whichcorrespond to the DOTATATE avid lesions on the PET/CT of 04/16/2024. Thisincludes a 0.9 cm lesion in the pancreatic tail (series 8, image 207) jamison more avidly hyperenhancing lesion in the uncinate process measuring 0.8 cm (series 8, image 58), both notappreciably changed. No definite additional pancreatic lesion identified.Normal caliber pancreatic duct. No suspicious hepatic lesion. Patent portal and hepatic veins. Nosuspicious lymphadenopathy. Negative spleen and adrenal glands.Cholecystectomy. No biliary dilatation. No suspicious osseous lesion.Remainder negative. Liver Fat Estimation: In traveling representative areas of the liver, the mean proton density fat-fraction(PDFF) is 11% Histological steatosis categories by PDFF: <5% = Normal greater than or equal to5% = Hepatic steatosis Liver Iron Concentration: In traveling representative areas of the liver, the mean liver iron concentration(LIC) is 2mg Fe/g of liver (range 1.9 - 2.1mg Fe/g). Iron overload severity grades by LIC: <1.8 mg/g = Normal 1.8 - 3.2 mg/g = Borderline >3.2 mg/g = Elevated IMPRESSION: 1. No appreciable change in the 1.5 cm cystic lesion in the right upperkidney with minimally thickened enhancing septa, most compatible with aBosniak IIF cyst. 2. 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 Noevidence metastatic disease. 3. Hepatic steatosis (1%) as well as borderline liver ironconcentration. us Pravin Martinez M.D. IMG MRI PROCEDURES Final Resu lt * (ABNORMAL) Creatinine with Estimated GFR (07/31/2024 9:35 AM CDT) Creatinine 1.40(H) 0.59 - 1.04 mg/dL 07/31/2024 10:38 AM CDT DTL Estimated GFR (eGFR) 39(L) >=60 mL/min/BSA 07/31/2024 10:38 AM CDT DTL Comment: Estimated GFR calculated using the 2020 CKD_EPI creatinine equation. Blood (Blood, Venous) 07/31/2024 9:35 AM CDT 07/31/2024 10:19 AM CDT us Pravin Martinez M.D. LAB BLOOD ADD-ON Final Result [facility] [address] [place] [address], [place] [facility] [address] [place] [address] from Last 3 Months Insurance [employer] MEDICARE
[2024-10-26 09:42] LABS: Albumin* 4.9 g/dL (3.3-5.0); Chloride* 102 mmol/L (96-114)
[2024-10-26 09:43] LABS: Potassium* 4.2 mmol/L (3.6-5.1); Sodium* 139 mmol/L (135-149)
[2024-10-26 09:45] LABS: Blood Urea Nitrogen* 24 mg/dL (7-30); Creatinine* 1.3 mg/dL (0.5-1.5); Est. Creatinine Clearance* 33.65; Estimated Glomerular Filt Rate 43 ml/min
[2024-10-26 09:46] LABS: Alanine Aminotransferase* 35 U/L (4-35); Alkaline Phosphatase* 69 U/L (40-150); Anion Gap 12 mEq/L (7-15); Aspartate Amino Transferase* 45 U/L (12-35); Bilirubin Total* 0.3 mg/dL (0.1-1.5); Calcium* 10.6 mg/dL (8.4-10.6); Carbon Dioxide* 25 mmol/L (20-32); Glucose* 132 mg/dL (60-115); Total Protein* 8.1 g/dL (6.0-8.3)
--- NOTE | 2024-10-26 10:49 | CRLHL7_ITS ---
For Patients: As a result of the Century Cures Act, medical imaging exams and procedure reports are released immediately into your electronic medical record. You may view this report before your referring provider. If you have questions, please contact your health care provider. Indication: Back pain Technique: Three views of the lumbar spine. Comparison: CT on the same day Findings: Dextrocurvature. Trace retrolisthesis of L2-3. Vertebral body heights are normal. Moderate to severe degenerative disc disease. Impression: No acute osseous abnormality. Dictated by David Aggarwal MD @ 10/26/2024 12:00:07 PM (Electronically Signed)
--- NOTE | 2024-10-26 10:49 | CRLHL7_ITS ---
For Patients: As a result of the Century Cures Act, medical imaging exams and procedure reports are released immediately into your electronic medical record. You may view this report before your referring provider. If you have questions, please contact your health care provider. INDICATION: Back pain. TECHNIQUE: Thoracic spine 2 view. COMPARISON: None. FINDINGS: Bones: Alignment is normal. No fractures or significant bone lesions. Joints: Mild degenerative disease of the spine. Soft tissues: Unremarkable. IMPRESSION: Mild degenerative disease of the spine. Dictated by Kamala Edwards MD @ 10/26/2024 12:00:07 PM (Electronically Signed)
[2024-10-26 12:00] VITALS: BP 134/79; PULSE 72; RESP 16; O2SAT 94
== END 2024-10-26 12:48 | disposition home or self-care (01) ==
PROVIDERS: Emergency Provider Family Medicine; PCP Internal Medicine
DX: R10.9 Unspecified abdominal pain (principal); M54.9 Dorsalgia, unspecified; E61.1 Iron deficiency; K52.9 Noninfective gastroenteritis and colitis, unspecified; Z79.899 Other long term (current) drug therapy
CPT/HCPCS: 36415; 72070; 72100; 74177; 80053; 81001; 82565; 83605; 83690; 83735; 85025; 86140; 87086; 94761; 96374; 96375; 99284; 99285; J1885; J2270; J2405; Q9967

== ENCOUNTER 2024-10-29 10:33 | Outpatient (CLI) | payer MEDICARE, OTHER, SELFPAY ==
--- NOTE | 2024-10-29 11:00 | CRLHL7_ITS ---
For Patients: As a result of the Century Cures Act, medical imaging exams and procedure reports are released immediately into your electronic medical record. You may view this report before your referring provider. If you have questions, please contact your health care provider. INDICATION: Left flank pain TECHNIQUE: CT abdomen and pelvis without contrast. COMPARISON: CT abdomen pelvis 10/26/2024, CT abdomen pelvis 03/20/2024 FINDINGS: Lower chest: Unremarkable. Liver: Unremarkable. Gallbladder and bile ducts: Cholecystectomy. No biliary ductal dilation. Pancreas: Unremarkable. The enhancing focus in the pancreatic head cannot be visualized on this noncontrast exam. Spleen: Unremarkable. Adrenal glands: Unremarkable. Kidneys: No hydronephrosis or nephrolithiasis. No ureteral stones. GI tract: No obstruction. Normal appendix. Vasculature: Mild aortoiliac atherosclerosis. Lymph nodes: No lymphadenopathy. Peritoneum/Abdominal Wall: Sequela of right inguinal hernia repair. Tiny fat containing umbilical hernia. Pelvis: Hysterectomy. Bones: Moderate degenerative disease of the spine. Disc bulge at L4-L5 and severe central stenosis at this level, similar to 2023. IMPRESSION: No acute findings to explain symptoms. Please note that all CT scans at this facility use dose modulation, iterative reconstruction, and/or weight-based dosing when appropriate to reduce radiation dose to as low as reasonably achievable. Dictated by Kamala Edwards MD @ 10/29/2024 11:25:18 AM (Electronically Signed)
== END 2024-10-29 10:34 | disposition home or self-care (01) ==
PROVIDERS: PCP Internal Medicine; Visit Provider Internal Medicine
DX: R10.9 Unspecified abdominal pain (principal)
CPT/HCPCS: 74176

== ENCOUNTER 2024-12-01 10:45 | Outpatient (RCR) | payer MEDICARE, OTHER, SELFPAY ==
--- NOTE | 2024-11-03 13:16 | PT.OPE ---
PT [facility] Eval PT [facility] Outpatient Eval Start: 10/30/24 15:19 Freq: Status: Active Protocol: Document 10/30/24 15:19 DAKOTAH (Rec: 10/30/24 15:20 DAKOTAH [id number]) E-signed By HERMILO YeboahT, MS Physical Therapy Outpatient Evaluation Insurance Information Recert Due Date 01/28/25 Insurance Name Medicare B Medical Diagnosis Unspecified abdominal pain Treating Diagnosis Decreased B (R> L) LE and LS flexibility, imbalance, and B LE and core weakness Subjective Preferred Name Cristina Del Cid Patient is 74 y.o. female who presents to PT with c/o acute onset of L-sided flank/ LS pain of insidious origin following riding as a passenger during a drive to [facility] on 10/22/24. Describes sxs as burning, stabbing ache across her L flank and LS which increase as the day progresses, especially with extended standing and walking, especially on uneven surfaces while hunting. Denies radicular sxs or changes in bowel or bladder function. Lives a primarily sedentary lifestyle with limited walking due to low Hgb levels over the past 1.5 years due to a recently discovered small bleed in her GI system. She needs B TKA surgery but had to delay surgeries due to Hgb issues. Motivated to increase activity levels in a safe way now that her Hgb levels have stabilized. Recent CT scan negative for kidney stones. LS radiographs on 10/26/24 found: ? Dextrocurvature. Trace retrolisthesis of L2-3. Vertebral body heights are normal. Moderate to severe degenerative disc disease.? PMH also includes DM-II, HTN and skin CA in remission. AGGR factor: lifting and carrying objects, standing, walking, uneven surfaces. ALLEV factors: rest, fwd bending, heat, Advil. Pt hopes to reduce sxs to increase activity levels and to prepare for future TKA surgeries. Pain Comments -09/08 Current Work Status Retired Precautions Therapy Limitations/ Not Limited Systems Review Objective Functional Test Modified OSWESTRY: 32 Performed & Score Assessment Assessment/ Pt displays signs and symptoms consistent with Impression mechanical LS pain with radiographic evidence of mod- severe DDD. Objectively pt displays decreased B LE and LS flexibility and ROM, imbalance, gait dysfunction, deconditioning, and B (L>R) LE and core weakness. LS flex directional preference of movement with elevated pain with ext. Core, quad and glute weakness combined with LS and hip tightness contributing to sxs. Negative B slump testing. She responded well to stretching, recumbent biking, stretching and strengthening exercises with decreased LS pain and improved quality of gait following. They will benefit from continued skilled PT intervention to address these limitations. Primary Functional Lifting and carrying objects, standing, walking, uneven Limitations surfaces. Plan of Care Rehabilitation Good Potential Rehabilitation Due to degenerative LS changes and deconditioning Potential Comments Physical Therapy Short-term goals to be completed in 4 weeks: Goals 1. Pt will be able to stand and walk for > 6 min with LS pain 50% improvement in sxs following > 2 consecutive days. 2. Pt will display improved B LE strength performing > 10 SLR of good quality to improve quality of gait. Long-term goals to be completed in 10 weeks: 1. Pt will be I and compliant with their HEP for long- term sx management. 2. 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 3. Pt will display improved abdominal, B hip flex, ABD and ext strength >4/5 to improve tolerance to walking, yardwork and daily activities. 4. Pt will report >50% improvement in modified OSWESTRY questionnaire to significantly improve jae to daily activities Coordination/ Referral Source Communication With Treatment Plan/ Joint Mobilization,Manual Therapy,Therapeutic Exercises Direct Interventions ,Traction (Mechanical) Frequency/Duration 1x per week for 6-10 visits, decreasing visit frequency as able Patient Will Be Completion of LTG(s),Skills Plateau,Independent w/HEP, Discharged From Independently Progressing Therapy Evaluation Billing Untimed Code 25 Treatment Minutes Complexity Moderate Certification Information Initial 10/30/24 Certification Date Ending Certification 01/28/25 Date Provider Signature Yes Required Provider Signature POC & Medical Necessity Shows Agreement With Physician NPI Number Write NPI# Here Physician Comment/ : Change Physician Signature Please Sign/Date Here & Date Requested
== END 2025-03-31 23:59 | disposition home or self-care (01) ==
PROVIDERS: PCP Internal Medicine; Visit Provider Family Medicine
DX: R10.9 Unspecified abdominal pain (principal); Z51.89 Encounter for other specified aftercare
CPT/HCPCS: 97110; 97140; 97162

== ENCOUNTER 2024-12-23 09:05 | Outpatient (CLI) | payer MEDICARE, OTHER, SELFPAY | END 2024-12-23 09:06 | disposition home or self-care (01) | LOC: NFLDREF 12-25 15:20 | PROVIDERS: PCP Internal Medicine; Referring Provider Internal Medicine; Visit Provider Internal Medicine | DX: D50.9 Iron deficiency anemia, unspecified (principal); E83.42 Hypomagnesemia; M85.80 Other specified disorders of bone density and structure, unspecified site; E11.22 Type 2 diabetes mellitus with diabetic chronic kidney disease; I12.9 Hypertensive chronic kidney disease with stage 1 through stage 4 chronic kidney disease, or unspecified chronic kidney disease; N18.30 Chronic kidney disease, stage 3 unspecified; E78.5 Hyperlipidemia, unspecified | CPT/HCPCS: 80053; 80061; 82043; 82306; 82570; 82728; 83735 ==

== ENCOUNTER 2025-01-15 09:20 | Outpatient (CLI) | payer MEDICARE, OTHER, SELFPAY ==
[2025-01-15] MEDS: PERFLUTREN LIPID MICROSPHERES 2 ML VIAL IVP (10:50)
--- NOTE | 2025-01-15 11:20 | PC.NURSE ---
IV that was placed for definity [facility]
--- NOTE | 2025-01-15 11:20 | PC.NURSE ---
IV that was placed for difinity left in place for pt's iron infusion at [facility]. Infusion clinic updated.
--- NOTE | 2025-01-15 11:21 | ED.NURSE ---
22 gauge IV placed in left forearm for definity. Unablle to document in [facility] assessment.
== END 2025-01-15 09:21 | disposition home or self-care (01) ==
PROVIDERS: PCP Internal Medicine; Visit Provider Internal Medicine
DX: R01.1 Cardiac murmur, unspecified (principal); I35.0 Nonrheumatic aortic (valve) stenosis
CPT/HCPCS: 93306; Q9957

== ENCOUNTER 2025-02-02 10:31 | Outpatient (CLI) | payer MEDICARE, OTHER, SELFPAY | END 2025-02-02 10:32 | disposition home or self-care (01) | LOC: NFLDREF 02-06 16:25 | PROVIDERS: PCP Internal Medicine; Referring Provider Internal Medicine; Visit Provider Internal Medicine | DX: D50.9 Iron deficiency anemia, unspecified (principal) | CPT/HCPCS: 82728 ==